=== PATIENT | male | born 1975 | race African-American/Black ===

== ENCOUNTER 2017-06-21 10:58 | Inpatient (IN) | payer OTHER ==
[2017-06-21 11:17] VITALS: BMI 40.2
--- NOTE | 2017-06-21 14:51 | HP ---
COWS - Scale Resting Pulse: 1= ME 81-100 Sweatin= Chills/Flushing Restless Observation: 3= Extraneous Movement Pupil Size: 0= Normal to Room Light Bone or Joint Aches: 4=Acute Joint/Muscle Pain Runny Nose/ Eye Tearin= Nasal Congestion GI Upset > 30mins: 1= Stomach Cramp Tremor Observation: 1= Tremor [place], Not Seen Yawning Observation: 1= 1-2x During Session Anxiety or Irritability: 2=Irritable/Anxious Goose Flesh Skin: 0=Smooth Skin COWS Score: 15 CIWA Score - CIWA Score Nausea/Vomitin-No Nausea/No Vomiting Muscle Tremors: 4-Moderate,w/Arms Extend Anxiety: 4-Mod. Anxious/Guarded Agitation: 4-Moderately Restless Paroxysmal Sweats: 1-Minimal Palms Moist Orientation: 0-Oriented Tacttile Disturbances: 3-Moderate Itch/Numb/Burn Auditory Disturbances: 0-None Visual Disturbances: 0-None Headache: 0-None Present CIWA-Ar Total Score: 16 Admission [facility] - HPI Chief Complaint: DETOX TX FOR HEROIN,XANAX AND ALCOHOL DEPENDENCE Allergies/Adverse Reactions: Allergies Allergy/AdvReac Type Severity Reaction Status Date / Time No Known Allergies Allergy Verified 06/21/17 12:28 History of Present Illness: 41 Y/O AA/MALE WITH A HX OF HEROIN, XANAX, ALCOHOL AND COCAINE DEPENDENCE SEEKING DETOX TX Exam Limitations: No Limitations - Ebola screening Have you traveled outside of the country in the last 21 days: No Have you had contact with anyone from an Ebola affected area: No Have you been sick,other than usual withdrawal symptoms: No Do you have a fever: No - Review of Systems Constitutional: Chills, Changes in sleep EENT: reports: Tearing, Dental Problems (MISSING TEETH) Respiratory: reports: No Symptoms reported Cardiac: reports: No Symptoms Reported GI: reports: Constipated, Abdominal cramping : reports: Dysuria Musculoskeletal: reports: Back Pain, Joint Pain (ARTHRITIS OF KNEE--WALKS WITH CANE), Muscle Pain Integumentary: reports: Other (HEALED TRACK MONAE) Neuro: reports: Tremors, Unsteady Gait, Other (BLACKOUTS) Endocrine: reports: No Symptoms Reported Hematology: reports: No Symptoms Reported Psychiatric: reports: Orientated x3, Anxious, Depressed Other Systems: Reviewed and Negative Patient History - Patient Medical History Hx Anemia: No Hx Asthma: No Hx Chronic Obstructive Pulmonary Disease (COPD): No Hx Cancer: No Hx Cardiac Disorders: No Hx Congestive Heart Failure: No Hx Hypertension: No Hx Hypercholesterolemia: No Hx Pacemaker: No HX Cerebrovascular Accident: No Hx Seizures: No Hx Dementia: No Hx Diabetes: No Hx Gastrointestinal Disorders: No Hx Liver Disease: No Hx Genitourinary Disorders: No Hx Sexually Transmitted Disorders: Yes (syphilis) Hx Renal Disease (ESRD): No Hx Thyroid Disease: No Hx Human Immunodeficiency Virus (HIV): No (NEGATIVE HX ) Hx Hepatitis C: Yes (DID NOT COMPLETE INTERFERON TX IN THE PAST.) Hx Depression: Yes (ON MED) Hx Suicide Attempt: No (DENIES) Hx Bipolar Disorder: Yes (ON MEDS) Hx Schizophrenia: No - Patient Surgical History Past Surgical History: Yes Hx Neurologic Surgery: No Hx Cataract Extraction: No Hx Cardiac Surgery: No Hx Lung Surgery: No Hx Breast Surgery: No Hx Breast Biopsy: No Hx Abdominal Surgery: Yes (UMBILICAL HERNIA SX IN 2004) Hx Appendectomy: No Hx Cholecystectomy: No Hx Genitourinary Surgery: No Hx Orthopedic Surgery: No Hx Hysterectomy: No Other Surgical History: SX FOR LIPOMA ON LEFT SIDE OF NECK IN 2009 Anesthesia Reaction: No - PPD History Previous Implant?: Yes Documented Results: Negative w/proof Implanted On Prior [facility] Admission?: Yes Date: 04/05/14 Results: 0 mm PPD to be Administered?: Yes - Reproductive History Patient is a Female of Child Bearing Age (11 -55 yrs old): No (MALE) Patient : No (N/A) - Smoking Cessation Smoking history: Never smoked Have you smoked in the past 12 months: No Aproximately how many cigarettes per day: 0 Cigars Per Day: 0 Hx Chewing Tobacco Use: No Initiated information on smoking cessation: No - Substance & Tx. History Hx Alcohol Use: Yes (VODKA) Hx Substance Use: Yes (HEROIN/COCAINE) Substance Use Type: Alcohol, Cocaine, Heroin Hx Substance Use Treatment: Yes (LAST TX AT [facility]-DETOX) - Substances Abused Heroin Route: Injection Frequency: Daily Amount used: 12 bags Age of first use: 36 Date of Last Use: 06/20/17 Cocaine Route: Injection Frequency: Daily Amount used: $500 Age of first use: 36 Date of Last Use: 06/20/17 Alcohol-vodka Route: Oral Frequency: Daily Amount used: 2 pts. Age of first use: 11 Date of Last Use: 06/20/17 Alprazolam (Xanax) Frequency: 3-6 times per week (3X/WEEK) Amount used: 1-2 MG Age of first use: 36 Date of Last Use: 06/17/17 Family Disease History - Family Disease History Family Disease History: Other: Father (dsa,), Mother (dsa,) Admission Physical Exam [facility] - Vital Signs Vital Signs: Vital Signs - 24 hr 06/21/17 11:15 Temperature 96 F L Pulse Rate 87 Respiratory 20 Rate Blood Pressure 161/93 - Physical General Appearance: Yes: Moderate Distress, Obese, Irritable, Anxious HEENTM: Yes: EOMI, Normocephalic, SACHA, Pharynx Normal Respiratory: Yes: Chest Non-Tender, Lungs Clear, Normal Breath Sounds, No Respiratory Distress Neck: Yes: Supple, Trachea in good position Breast: Yes: Breast Exam Deferred Cardiology: Yes: Regular Rhythm, Regular Rate, S1, S2 Abdominal: Yes: Normal Bowel Sounds, Non Tender, Soft Genitourinary: Yes: Other (N/C) Back: Yes: Within Normal Limits Musculoskeletal: Yes: full range of Motion, Gait Steady (BUT LIMPS DUE TO ARTHRITIS ON KNEES) Extremities: Yes: Normal Range of Motion, Non-Tender Neurological: Yes: automotive parts person II-XII NML intact, Fully Oriented, Alert Integumentary: Yes: Dry, Warm, Track Monae (HEALED MONAE ON BOTH FOREARMS.) Lymphatic: Yes: Within Normal Limits - Diagnostic (1) Alcohol dependence with uncomplicated withdrawal Current Visit: Yes Status: Acute (2) Blackout Current Visit: Yes Status: Chronic (3) Opioid dependence with withdrawal Current Visit: Yes Status: Acute (4) Hepatitis C Current Visit: Yes Status: Chronic Qualifiers: Viral hepatitis chronicity: chronic Hepatic coma status: without hepatic coma Qualified Code(s): B18.2 - Chronic viral hepatitis C (5) Sedative, hypnotic or anxiolytic dependence with withdrawal, uncomplicated Current Visit: Yes Status: Acute (6) Obesities, morbid Current Visit: Yes Status: Chronic Cleared for Admission [facility] - Detox or Rehab [facility] Level of Care: Medically Managed Detox Regimen/Protocol: Methadone/Librium BHS Breath Alcohol Content Breath Alcohol Content: 0 Urine Drug Screen - Results Drug Screen Negative: No Urine Drug Screen Results: LAVERNE-Cocaine, OPI-Opiates, BZO-Benzodiazepines, MTD- Methadone, TCA-Tricyclic Antidepress
[2017-06-21] MEDS ORDERED: LOPERAMIDE HCL 2 MG CAPSULE PO PRN (15:11)
[2017-06-21] MEDS ORDERED: chlordiazePOXIDE HCL 25 MG CAPSULE PO PRN (15:11)
[2017-06-21] MEDS ORDERED: ACETAMINOPHEN 325 MG TABLET (FP) PO PRN (15:11)
[2017-06-21] MEDS ORDERED: MAG HYDROX/AL HYDROX/SIMETH 30 ML UNIT-DOSE CUP PO PRN (15:11)
[2017-06-21] MEDS ORDERED: MAGNESIUM CITRATE 300 ML BOTTLE PO PRN (15:11)
[2017-06-21] MEDS ORDERED: MENTHOL/PHENOL 1 EACH UD MM PRN (15:11)
[2017-06-21] MEDS ORDERED: hydrOXYzine PAMOATE 50 MG CAPSULE (FP) PO PRN (15:11)
[2017-06-21] MEDS ORDERED: P-EPHED 60MG/TRIPROLIDI 2.5MG TABLET PO PRN (15:11)
[2017-06-21] MEDS ORDERED: MAGNESIUM HYDROX 2400MG/30ML ORAL SUSPENSION 30 ML CUP PO PRN (15:11)
[2017-06-21] MEDS ORDERED: guaiFENesin/D-METHORPHAN HB 10 ML UNIT-DOSE CUPS PO PRN (15:11)
[2017-06-21] MEDS ORDERED: IBUPROFEN 400 MG TABLET (FP) PO PRN (15:11)
[2017-06-21] MEDS: CEPHALEXIN MONOHYDRATE 500 MG CAPSULE (UD) PO SCH ×2 (15:59→22:36)
[2017-06-21] MEDS ORDERED: METHADONE HCL 10 MG TABLET (FOR DETOX USE ONLY) PO ONE (16:00)
[2017-06-21] MEDS ORDERED: chlordiazePOXIDE HCL 25 MG CAPSULE PO ONE (16:00)
[2017-06-21 16:44] LABS: MCH 29.2 pg (25.7-33.7); MCHC 33.2 g/dl (32.0-35.9); MEAN PLT VOLUME 9.8 fl (7.5-11.1); PLATELET COUNT 214 K/MM3 (134-434); RDW 13.9 % (11.9-15.9); WHITE BLOOD COUNT 5.4 K/mm3 (4.0-10.0)
[2017-06-21 17:13] LABS: ALBUMIN 3.5 g/dl (3.4-5.0); ALK PHOS 122 U/L (45-117); ANION GAP 6 (8-16); BILIRUBIN,TOTAL 0.5 mg/dL (0.2-1.0); CALCIUM 8.5 mg/dL (8.5-10.1); CO2 27 mmol/L (21-32); GLUCOSE,RANDOM 89 mg/dL (74-106); SGOT/AST 41 U/L (15-37); SGPT/ALT 52 U/L (12-78); TOT PROT 8.1 g/dl (6.4-8.2)
[2017-06-21 17:25] LABS: URINE APPEARANCE SLCLOUDY; URINE BILIRUBIN NEGATIVE (NEGATIVE); URINE BLOOD NEGATIVE (NEGATIVE); URINE COLOR AMBER; URINE GLUCOSE (UA) NEGATIVE (NEGATIVE); URINE KETONE NEGATIVE (NEGATIVE); URINE LEUK ESTERASE TRACE (NEGATIVE); URINE NITRITE NEGATIVE (NEGATIVE); URINE PROTEIN NEGATIVE (NEGATIVE); URINE UROBILINOGEN 4.0 E.U/dl mg/dL (0.2-1.0)
[2017-06-21 17:38] LABS: URINE MUCUS RARE; URINE RBC 2 /hpf (0-3); URINE WBC 1 /hpf (3-5)
[2017-06-21] MEDS: chlordiazePOXIDE HCL 25 MG CAPSULE PO SCH ×2 (17:50→22:36)
[2017-06-21] MEDS: diphenhydrAMINE HCL 50 MG CAPSULE PO PRN (22:37)
[2017-06-21] MEDS: BACITRACIN 0.9 GM PACKET TP SCH (23:03)
[2017-06-21] MEDS: THIAMINE HCL 100 MG TABLET (FP) PO SCH (23:03)
[2017-06-21] MEDS: METHADONE HCL 10 MG TABLET (FOR DETOX USE ONLY) PO ONE ×2 (23:07→23:32)
[2017-06-22] MEDS: chlordiazePOXIDE HCL 25 MG CAPSULE PO SCH ×4 (06:29→22:26)
--- NOTE | 2017-06-22 09:07 | EKG ---
Test Reason : Blood Pressure : / mmHG Vent. Rate : 084 BPM Atrial Rate : 084 BPM P-R Int : 194 ms QRS Dur : 112 ms QT Int : 384 ms P-R-T Axes : 069 -05 018 degrees QTc Int : 453 ms NORMAL SINUS RHYTHM NON-SPECIFIC INTRA-VENTRICULAR CONDUCTION DELAY NO PREVIOUS ECGS AVAILABLE Confirmed by FABIENNE MACIAS, VÍCTOR ([id number]) on 06/22/2017 9:06:44 AM Referred By: Godfrey Huddleston Confirmed By:VÍCTOR LOVING MD
[2017-06-22] MEDS ORDERED: METHADONE HCL 10 MG TABLET (FOR DETOX USE ONLY) PO SCH (10:00)
[2017-06-22] MEDS ORDERED: PRENATAL VITAMINS W/ FOLIC ACID TABLET (FP) PO SCH (10:00)
[2017-06-22] MEDS: BACITRACIN 0.9 GM PACKET TP SCH ×2 (10:44→22:26)
[2017-06-22] MEDS: CEPHALEXIN MONOHYDRATE 500 MG CAPSULE (UD) PO SCH ×2 (10:44→22:26)
--- NOTE | 2017-06-22 11:15 | CONSULT ---
[facility] Psychiatric Consult - Data Date of interview: 06/22/17 Admission source: [facility] Identifying data: Readmission to [facility] for this 41 y/o AA male seeking detox treatment [place] [address] for heroin,alcohol,ocaine and xanax dependence.Patient is single without children,domiciled,unemployed and supported on SSI/SSD benefits. Substance Abuse History: Confirmed by patient in this interview. Smoking Cessation. Smoking history: Never smoked. Have you smoked in the past 12 months: No. Aproximately how many cigarettes per day: 0. Cigars Per Day: 0. Hx Chewing Tobacco Use: No. Initiated information on smoking cessation: No. - Substance & Tx. History. Hx Alcohol Use: Yes (VODKA). Hx Substance Use: Yes ( HEROIN/COCAINE). Substance Use Type: Alcohol, Cocaine, Heroin. Hx Substance Use Treatment: Yes (LAST TX AT [facility]-DETOX). - Substances Abused. Heroin. Route: Injection. Frequency: Daily. Amount used: 12 bags. Age of first use: 36. Date of Last Use: 06/20/17. Cocaine. Route: Injection. Frequency: Daily. Amount used: $500. Age of first use: 36. Date of Last Use: 06/20/17. Alcohol-vodka. Route: Oral. Frequency: Daily. Amount used: 2 pts. Age of first use: 11. Date of Last Use: 06/20/17. Alprazolam (Xanax). Frequency: 3-6 times per week (3X/WEEK). Amount used: 1-2 MG. Age of first use: 36. Date of Last Use: 06/17/17 Medical History: Remarkable for hepatitis C,past treatment for syphilis and surgical excision of lipoma (left side of neck in 2009).Noted history of umbilical herniorraphy and arthritis of both knees (cane used for ambulation). Psychiatric History: Patient reports a history of 4-5 psychiatric hospitalizations,mostly at [facility] and [facility] in the [place].Diagnosed with OCD,MDD,Bipolar Disorder as per self-report.Prescribed seroquel,vistaril,zoloft an abilify in the past.Mr Fine declares that he relies on his primary care physician for medications refills.Lost to regular psychiatric OPD care.Patient denies history of suicide attempts. Physical/Sexual Abuse/Trauma History: No reported history of abuse. Additional Comment: Urine Drug Screen Results: LAVERNE-Cocaine, OPI-Opiates, BZO- Benzodiazepines, MTD-Methadone, TCA-Tricyclic Antidepressant.Noted. Mental Status Exam - Mental Status Exam Alert and Oriented to: Time, Place, Person Cognitive Function: Good Patient Appearance: Well Groomed (overweight) Mood: Nervous, Withdrawn, Anxious Affect: Mood Congruent Patient Behavior: Fatigued, Appropriate, Cooperative Speech Pattern: Clear Voice Loudness: Normal Thought Process: Goal Oriented Thought Disorder: Not Present Hallucinations: Denies Suicidal Ideation: Denies Homicidal Ideation: Denies Insight/Judgement: Poor Sleep: Poorly, Difficulty falling asleep Appetite: Good Muscle strength/Tone: Normal Gait/Station: Other (not observed ; patient is supine ; he reports that he uses cane for ambulation due to arthritis of knees) Psychiatric Findings - Problem List ([place] 1, 2,3) (1) Alcohol dependence with uncomplicated withdrawal Current Visit: Yes Status: Acute (2) Opioid dependence with withdrawal Current Visit: Yes Status: Acute (3) Cocaine dependence Current Visit: Yes Status: Acute (4) Substance induced mood disorder Current Visit: Yes Status: Acute (5) Bipolar disorder Current Visit: No Status: Chronic Comment: self-report. (6) Hepatitis C Current Visit: Yes Status: Chronic Qualifiers: Viral hepatitis chronicity: chronic Hepatic coma status: without hepatic coma Qualified Code(s): B18.2 - Chronic viral hepatitis C (7) Obesities, morbid Current Visit: Yes Status: Chronic (8) Insomnia Current Visit: Yes Status: Acute - Initial Treatment Plan Initial Treatment Plan: Psychoeducation.Detoxification.Medications : zoloft 100 mg po daily + abilfy 5 mg po hs.Side effects/benefits discussed with patient.He is in agreement with this careplan.NO scripts needed at discharge from [facility] (scripts dated 06/07/17 at [facility] for trazodone 100 mg/hs + abilify 5 mg/day + zoloft 100 mg/day ; no evidence of seroquel).Observation.
--- NOTE | 2017-06-22 11:17 | PN ---
[facility] CIWA - CIWA Score Nausea/Vomitin-No Nausea/No Vomiting Muscle Tremors: 4-Moderate,w/Arms Extend Anxiety: 4-Mod. Anxious/Guarded Agitation: 4-Moderately Restless Paroxysmal Sweats: 1-Minimal Palms Moist Orientation: 0-Oriented Tacttile Disturbances: 3-Moderate Itch/Numb/Burn Auditory Disturbances: 0-None Visual Disturbances: 0-None Headache: 0-None Present CIWA-Ar Total Score: 16 S COWS - Scale Resting Pulse: 1= OR 81-100 Sweatin= Chills/Flushing Restless Observation: 3= Extraneous Movement Pupil Size: 0= Normal to Room Light Bone or Joint Aches: 4=Acute Joint/Muscle Pain Runny Nose/ Eye Tearin= Nasal Congestion GI Upset > 30mins: 0= None Tremor Observation of Outstretched Hands: 1= Tremor [place], Not Seen Yawning Observation: 2= >3x During Session Anxiety or Irritability: 2=Irritable/Anxious Goose Flesh Skin: 0=Smooth Skin COWS Score: 15 [facility] Progress Note (SOAP) Subjective: ANXIETY,TREMORS,SWEATS,INTERMITTENT SLEEP. Objective: 06/22/17 11:16 Vital Signs Temperature 98.1 F 06/22/17 10:28 Pulse Rate 91 H 06/22/17 10:28 Respiratory Rate 20 06/22/17 10:28 Blood Pressure 116/87 06/22/17 10:28 O2 Sat by Pulse Oximetry (%) Laboratory Last Values WBC 5.4 K/mm3 (4.0-10.0) 06/21/17 13:00 RBC 4.16 M/mm3 (4.00-5.60) 06/21/17 13:00 Hgb 12.2 GM/dL (11.7-16.9) 06/21/17 13:00 Hct 36.6 % (35.4-49) 06/21/17 13:00 MCV 88.0 fl (80-96) 06/21/17 13:00 MCH 29.2 pg (25.7-33.7) 06/21/17 13:00 MCHC 33.2 g/dl (32.0-35.9) 06/21/17 13:00 RDW 13.9 % (11.9-15.9) 06/21/17 13:00 Plt Count 214 K/MM3 (134-434) 06/21/17 13:00 MPV 9.8 fl (7.5-11.1) D 06/21/17 13:00 Sodium 139 mmol/L (136-145) 06/21/17 13:00 Potassium 4.5 mmol/L (3.5-5.1) 06/21/17 13:00 Chloride 106 mmol/L (98-107) 06/21/17 13:00 Carbon Dioxide 27 mmol/L (21-32) D 06/21/17 13:00 Anion Gap 6 (8-16) L 06/21/17 13:00 BUN 14 mg/dL (7-18) 06/21/17 13:00 Creatinine 1.0 mg/dL (0.7-1.3) 06/21/17 13:00 Creat Clearance w eGFR > 60 (>60) 06/21/17 13:00 Random Glucose 89 mg/dL (74-106) 06/21/17 13:00 Calcium 8.5 mg/dL (8.5-10.1) 06/21/17 13:00 Total Bilirubin 0.5 mg/dL (0.2-1.0) D 06/21/17 13:00 AST 41 U/L (15-37) H 06/21/17 13:00 ALT 52 U/L (12-78) 06/21/17 13:00 Alkaline Phosphatase 122 U/L (45-117) H D 06/21/17 13:00 Total Protein 8.1 g/dl (6.4-8.2) 06/21/17 13:00 Albumin 3.5 g/dl (3.4-5.0) 06/21/17 13:00 Urine Color Laila 06/21/17 16:00 Urine Appearance Slcloudy 06/21/17 16:00 Urine pH 7.0 (5.0-8.0) D 06/21/17 16:00 Ur Specific [place] 1.020 (1.005-1.025) 06/21/17 16:00 Urine Protein Negative (NEGATIVE) 06/21/17 16:00 Urine Glucose (UA) Negative (NEGATIVE) 06/21/17 16:00 Urine Ketones Negative (NEGATIVE) 06/21/17 16:00 Urine Blood Negative (NEGATIVE) 06/21/17 16:00 Urine Nitrite Negative (NEGATIVE) 06/21/17 16:00 Urine Bilirubin Negative (NEGATIVE) 06/21/17 16:00 Urine Urobilinogen 4.0 e.u/dl mg/dL (0.2-1.0) 06/21/17 16:00 Ur Leukocyte Esterase Trace (NEGATIVE) 06/21/17 16:00 Urine RBC 2 /hpf (0-3) 06/21/17 16:00 Urine WBC 1 /hpf (3-5) 06/21/17 16:00 Ur Epithelial Cells Rare /hpf (FEW) 06/21/17 16:00 Urine Mucus Rare 06/21/17 16:00 Assessment: 06/22/17 11:17 WITHDRAWAL SX Plan: CONTINUE DETOX
[2017-06-22 21:19] LABS: URINE APPEARANCE CLEAR; URINE BILIRUBIN NEGATIVE (NEGATIVE); URINE BLOOD NEGATIVE (NEGATIVE); URINE COLOR LTYELLOW; URINE GLUCOSE (UA) NEGATIVE (NEGATIVE); URINE KETONE NEGATIVE (NEGATIVE); URINE LEUK ESTERASE NEGATIVE (NEGATIVE); URINE NITRITE NEGATIVE (NEGATIVE); URINE PROTEIN NEGATIVE (NEGATIVE)
[2017-06-22] MEDS: THIAMINE HCL 100 MG TABLET (FP) PO SCH (22:26)
[2017-06-22] MEDS: diphenhydrAMINE HCL 50 MG CAPSULE PO PRN (22:27)
[2017-06-23] MEDS: chlordiazePOXIDE HCL 25 MG CAPSULE PO SCH (05:46)
[2017-06-23] MEDS ORDERED: ARIPiprazole 5 MG TABLET (FP) PO SCH (10:00)
[2017-06-23] MEDS ORDERED: SERTRALINE HCL 50 MG TABLET (FP) PO SCH (10:00)
[2017-06-23] MEDS ORDERED: METHADONE HCL 5 MG TABLET (FOR DETOX USE ONLY) PO SCH (10:00)
[2017-06-23 10:37] VITALS: BP 121/86; PULSE 93; TEMP 97.2
[2017-06-23] MEDS ORDERED: chlordiazePOXIDE 5 MG CAPSULE PO SCH (17:00)
--- NOTE | 2017-06-23 21:43 | DS ---
[facility] Detox Discharge Summary Admission Date: 06/21/17 Discharge Date: 06/23/17 - History Present History: Alcohol Dependence, Cocaine Dependence, Opioid Dependence, Sedative Dependence Additional Comments: PATIENT DOES NOT WISH TO STAY TO COMPLETE DETOX REGIMEN. PATIENT ADVISED TO IMMEDIATELY GO TO NEAREST ER SHOULD ANY INTOLERABLE DETOX SYMPTOMS OCCUR AT ANY TIME. PATIENT LEFT UNIT IN STABLE MEDICAL CONDITION. - Physical Exam Results Vital Signs: Vital Signs Temperature 97.2 F L 06/23/17 10:36 Pulse Rate 93 H 06/23/17 10:36 Respiratory Rate 16 06/23/17 10:36 Blood Pressure 121/86 06/23/17 10:36 O2 Sat by Pulse Oximetry (%) Pertinent Admission Physical Exam Findings: WITHDRAWAL SYMPTOMS. Laboratory Tests 06/21/17 06/21/17 06/21/17 13:00 13:00 13:00 WBC 5.4 RBC 4.16 Hgb 12.2 Hct 36.6 MCV 88.0 MCH 29.2 MCHC 33.2 RDW 13.9 Plt Count 214 MPV 9.8 D Sodium 139 Potassium 4.5 Chloride 106 Carbon Dioxide 27 D Anion Gap 6 L BUN 14 Creatinine 1.0 Creat Clearance w eGFR > 60 Random Glucose 89 Calcium 8.5 Total Bilirubin 0.5 D AST 41 H ALT 52 Alkaline Phosphatase 122 H D Total Protein 8.1 Albumin 3.5 Urine Color Urine Appearance Urine pH Ur Specific [place] Urine Protein Urine Glucose (UA) Urine Ketones Urine Blood Urine Nitrite Urine Bilirubin Urine Urobilinogen Ur Leukocyte Esterase Urine RBC Urine WBC Ur Epithelial Cells Urine Mucus RPR Titer Reactive 1:1 H D T.pallidum Ab (MHA) Reactive 06/21/17 06/22/17 16:00 20:00 WBC RBC Hgb Hct MCV MCH MCHC RDW Plt Count MPV Sodium Potassium Chloride Carbon Dioxide Anion Gap BUN Creatinine Creat Clearance w eGFR Random Glucose Calcium Total Bilirubin AST ALT Alkaline Phosphatase Total Protein Albumin Urine Color Laila Ltyellow Urine Appearance Slcloudy Clear Urine pH 7.0 D 7.0 Ur Specific [place] 1.020 1.020 Urine Protein Negative Negative Urine Glucose (UA) Negative Negative Urine Ketones Negative Negative Urine Blood Negative Negative Urine Nitrite Negative Negative Urine Bilirubin Negative Negative Urine Urobilinogen 4.0 e.u/dl 2.0 Ur Leukocyte Esterase Trace Negative Urine RBC 2 Urine WBC 1 Ur Epithelial Cells Rare Urine Mucus Rare RPR Titer T.pallidum Ab (MHA) LABS NOTED. - Treatment Hospital Course: Detoxed Safely - Medication Discharge Medications: Ambulatory Orders Aripiprazole [Abilify -] 10 mg PO DAILY #30 tablet 04/04/14 Hydroxyzine Pamoate [Vistaril] 100 mg PO HS #30 04/04/14 Quetiapine Fumarate [Seroquel -] 200 mg PO HS #30 tablet 04/04/14 Cephalexin Monohydrate [Keflex -] 500 mg PO Q12H 06/21/17 - Diagnosis (1) Alcohol dependence with uncomplicated withdrawal Status: Acute (2) Cocaine dependence Status: Acute Qualifiers: Substance use status: uncomplicated Qualified Code(s): F14.20 - Cocaine dependence, uncomplicated (3) Insomnia Status: Acute Qualifiers: Insomnia type: unspecified Qualified Code(s): G47.00 - Insomnia, unspecified (4) Opioid dependence with withdrawal Status: Acute (5) Sedative, hypnotic or anxiolytic dependence with withdrawal, uncomplicated Status: Acute (6) Substance induced mood disorder Status: Acute (7) Blackout Status: Chronic (8) Hepatitis C Status: Chronic Qualifiers: Viral hepatitis chronicity: chronic Hepatic coma status: without hepatic coma Qualified Code(s): B18.2 - Chronic viral hepatitis C (9) Obesities, morbid Status: Chronic (10) Bipolar disorder Status: Chronic - AMA Did Patient Leave Against Medical Advice: Yes (PATIENT DOES NOT WISH TO STAY TO COMPLETE DETOX REGIMEN.)
[2017-06-24] MEDS ORDERED: chlordiazePOXIDE HCL 10 MG CAPSULE PO SCH (17:00)
[2017-06-25] MEDS ORDERED: METHADONE HCL 10 MG TABLET (FOR DETOX USE ONLY) PO SCH (10:00)
[2017-06-26] MEDS ORDERED: METHADONE HCL 5 MG TABLET (FOR DETOX USE ONLY) PO SCH (06:00)
== END 2017-06-23 11:30 | disposition left against medical advice (07) | DRG 770 ==
LOC: YASAS 10:58 → Y3N 14:08
PROVIDERS: ADMIT Internal Medicine Addiction Medicine; ATTEND Internal Medicine Addiction Medicine
PROC: HZ2ZZZZ Detoxification Services for Substance Abuse Treatment (ICD-10-PCS; principal; 2017-06-21)
DX: F11.23 Opioid dependence with withdrawal (principal); F13.230 Sedative, hypnotic or anxiolytic dependence with withdrawal, uncomplicated; F10.230 Alcohol dependence with withdrawal, uncomplicated; F14.20 Cocaine dependence, uncomplicated; F19.24 Other psychoactive substance dependence with psychoactive substance-induced mood disorder; F31.9 Bipolar disorder, unspecified; E66.01 Morbid (severe) obesity due to excess calories; Z68.41 Body mass index [BMI] 40.0-44.9, adult; G47.00 Insomnia, unspecified; B18.2 Chronic viral hepatitis C; Z86.69 Personal history of other diseases of the nervous system and sense organs; Z87.438 Personal history of other diseases of male genital organs
CPT/HCPCS: 36415; 80053; 81003; 81015; 85027; 86593; 86780; 93005; 93010

== ENCOUNTER 2017-09-24 14:29 | Inpatient (IN) | payer OTHER ==
[2017-09-24 18:08] VITALS: BMI 38.0
--- NOTE | 2017-09-24 20:41 | HP ---
CIWA Score - CIWA Score Nausea/Vomitin Muscle Tremors: 3 Anxiety: 3 Agitation: 3 Paroxysmal Sweats: 3 Orientation: 0-Oriented Tacttile Disturbances: 1-Very Mild Itch/Numbness Auditory Disturbances: 0-None Visual Disturbances: 0-None Headache: 1-Very Mild CIWA-Ar Total Score: 17 Admission ROS S - [facility] Chief Complaint: alcohl, benzodiazepine and heroin withdrawal sx Allergies/Adverse Reactions: Allergies Allergy/AdvReac Type Severity Reaction Status Date / Time No Known Allergies Allergy Verified 09/24/17 19:07 History of Present Illness: 42 yo m w h/o opioid dependence was maintained on methadone 60mg dialy while in [facility] (documentation provided) for 60 days, d/c 09/19 whe he had last dose of methadone, started injecting heroin and cociane, last used 3 days ago, drinks alcohol daily and uses benzodiazepines daily would like to be admitted for inpatient detoxifciation from alcohol and benzodiazepines, has h/o iwthdrawal seizures. requesting induction on suboxone while in detox, [facility] [place] [facility] discharged. PMHX hep c +ve, never treated, ambulates with cane because of injury to knee/OA, bipolar do on meds, no h/o suicidal ideation at this timeor suicide attempts in the past. Exam Limitations: No Limitations - Ebola screening Have you traveled outside of the country in the last 21 days: No Have you had contact with anyone from an Ebola affected area: No Have you been sick,other than usual withdrawal symptoms: No Do you have a fever: No - Review of Systems Constitutional: Chills, Diaphoresis, Malaise, Night Sweats, Changes in sleep, Weakness, Weight Stable EENT: reports: Nose Congestion Respiratory: reports: No Symptoms reported Cardiac: reports: No Symptoms Reported GI: reports: Nausea, Poor Appetite, Poor Fluid Intake, Indigestion, Abdominal cramping : reports: No Symptoms Reported Musculoskeletal: reports: Back Pain, Joint Pain, Joint Swelling, Muscle Pain, Neck Pain, Joint Stiffness Integumentary: reports: Flushing, Sweating Neuro: reports: Headache, Numbness, Paresthesia, Seizure, Tingling, Tremors, Weakness Endocrine: reports: Flushing, Increased Thirst Hematology: reports: No Symptoms Reported Psychiatric: reports: Judgement Intact, Mood/Affect Appropiate, Orientated x3, Anxious, Depressed Other Systems: Reviewed and Negative Patient History - Patient Medical History Hx Anemia: No Hx Asthma: No Hx Chronic Obstructive Pulmonary Disease (COPD): No Hx Cancer: No Hx Cardiac Disorders: No Hx Congestive Heart Failure: No Hx Hypertension: No Hx Hypercholesterolemia: No Hx Pacemaker: No HX Cerebrovascular Accident: No Hx Seizures: No Hx Dementia: No Hx Diabetes: No Hx Gastrointestinal Disorders: No Hx Liver Disease: No Hx Genitourinary Disorders: No Hx Sexually Transmitted Disorders: Yes (syphilis) Hx Renal Disease (ESRD): No Hx Thyroid Disease: No Hx Human Immunodeficiency Virus (HIV): No (NEGATIVE HX ) Hx Hepatitis C: Yes (DID NOT COMPLETE INTERFERON TX IN THE PAST.) Hx Depression: Yes (ON MED) Hx Suicide Attempt: No (DENIES) Hx Bipolar Disorder: Yes (ON MEDS) Hx Schizophrenia: No - Patient Surgical History Past Surgical History: Yes Hx Neurologic Surgery: No Hx Cataract Extraction: No Hx Cardiac Surgery: No Hx Lung Surgery: No Hx Breast Surgery: No Hx Breast Biopsy: No Hx Abdominal Surgery: Yes (UMBILICAL HERNIA SX IN 2004) Hx Appendectomy: No Hx Cholecystectomy: No Hx Genitourinary Surgery: No Hx Section: No Hx Orthopedic Surgery: No Hx Hysterectomy: No Other Surgical History: SX FOR LIPOMA ON LEFT SIDE OF NECK IN 2009 Anesthesia Reaction: No - PPD History Implanted On Prior R Admission?: Yes Date: 04/05/14 Results: 0 mm PPD to be Administered?: Yes - Reproductive History Patient is a Female of Child Bearing Age (11 -55 yrs old): No Patient : No - Smoking Cessation Smoking history: Never smoked Have you smoked in the past 12 months: No Aproximately how many cigarettes per day: 0 Cigars Per Day: 0 Hx Chewing Tobacco Use: No Initiated information on smoking cessation: Yes 'Breaking Loose' booklet given: 09/24/17 - Substance & Tx. History Hx Alcohol Use: Yes Hx Substance Use: Yes Substance Use Type: Alcohol, Cocaine, Heroin, Opiates, Prescribed, Tranquilizers Hx Substance Use Treatment: Yes ([facility]) - Substances Abused Alcohol Route: Oral Frequency: Daily Amount used: Vodka - 2 pints Age of first use: 11 Date of Last Use: 09/22/17 Cocaine Route: Injection Frequency: Daily Amount used: 7 grams Age of first use: 36 Date of Last Use: 09/22/17 Heroin Route: Injection Frequency: Daily Amount used: 7 bags Age of first use: 36 Date of Last Use: 09/22/17 Benzodiazepine (Klonopin) Route: Oral Frequency: Daily Amount used: 1-2mg Age of first use: 28 Date of Last Use: 09/23/17 Family Disease History - Family Disease History Family Disease History: Other: Father (dsa,), Mother (dsa,) Admission Physical Exam [facility] - Vital Signs Vital Signs: Vital Signs - 24 hr 09/24/17 18:06 Temperature 98.7 F Pulse Rate 71 Respiratory 20 Rate Blood Pressure 138/83 - Physical General Appearance: Yes: Nourished, Appropriately Dressed, Disheveled, Mild Distress, Tremorous, Irritable, Sweating, Anxious HEENTM: Yes: Within Normal Limits, EOMI, Hearing grossly Normal, Normal ENT Inspection, Normocephalic, Normal Voice, SACHA, Pharynx Normal Respiratory: Yes: Within Normal Limits, Chest Non-Tender, Lungs Clear, Normal Breath Sounds, No Respiratory Distress, No Accessory Muscle Use Neck: Yes: Within Normal Limits, No masses,lesions,Nodules, Supple, Trachea in good position Breast: Yes: Breast Exam Deferred Cardiology: Yes: Within Normal Limits, Regular Rhythm, Regular Rate, S1, S2 Abdominal: Yes: Within Normal Limits, Normal Bowel Sounds, Non Tender, Flat, Soft Genitourinary: Yes: Within Normal Limits Back: Yes: Within Normal Limits, Normal Inspection Musculoskeletal: Yes: full range of Motion, Gait Steady, Pelvis Stable, Back pain, Joint Stiffness, Joint swelling, Muscle Pain Extremities: Yes: Normal Capillary Refill, Non-Tender, Tremors, Swelling (oa right knew ambulates iwth cane) Neurological: Yes: cat scan tech II-XII NML intact, Fully Oriented, Alert, Motor Strength 5/5, Normal Response, Depressed Affect Integumentary: Yes: Normal Color, Warm, Diaphoresis, Moist, Track Nielson ( erythema, no abscessnoted both arms ad heands) Lymphatic: Yes: Within Normal Limits - Addiitonal Findings: withdrawal sx, will detox for benzos/alcohol and induce and stabiliz on suboxone during hospitalization. Patient will be referred to outpati program when d/c and given prescription for 7 days until he has his appointment. - Diagnostic (1) Alcohol dependence with uncomplicated withdrawal Current Visit: No Status: Acute (2) Bipolar II disorder Current Visit: No Status: Acute (3) Cocaine dependence Current Visit: No Status: Acute Qualifiers: Substance use status: uncomplicated Qualified Code(s): F14.20 - Cocaine dependence, uncomplicated (4) Insomnia Current Visit: No Status: Acute Qualifiers: Insomnia type: unspecified Qualified Code(s): G47.00 - Insomnia, unspecified (5) OCD (obsessive compulsive disorder) Current Visit: No Status: Acute (6) Opioid dependence with withdrawal Current Visit: No Status: Acute (7) Sedative, hypnotic or anxiolytic dependence with withdrawal, uncomplicated Current Visit: No Status: Acute (8) Substance induced mood disorder Current Visit: No Status: Acute (9) Syphilis (acquired) Current Visit: No Status: Acute (10) Blackout Current Visit: No Status: Chronic (11) Hepatitis C Current Visit: No Status: Chronic Qualifiers: Viral hepatitis chronicity: chronic Hepatic coma status: without hepatic coma Qualified Code(s): B18.2 - Chronic viral hepatitis C (12) Obesities, morbid Current Visit: No Status: Chronic Cleared for Admission S - Detox or Rehab [facility] Level of Care: Medically Managed Detox Regimen/Protocol: Valium S Breath Alcohol Content Breath Alcohol Content: 0 Urine Drug Screen - Results Drug Screen Negative: No Urine Drug Screen Results: LAVERNE-Cocaine
[2017-09-24] MEDS ORDERED: ACETAMINOPHEN 325 MG TABLET (FP) PO PRN (20:53)
[2017-09-24] MEDS ORDERED: MENTHOL/PHENOL 1 EACH UD MM PRN (20:53)
[2017-09-24] MEDS ORDERED: IBUPROFEN 400 MG TABLET (FP) PO PRN (20:53)
[2017-09-24] MEDS ORDERED: MAGNESIUM CITRATE 300 ML BOTTLE PO PRN (20:53)
[2017-09-24] MEDS ORDERED: guaiFENesin/D-METHORPHAN HB 10 ML UNIT-DOSE CUPS PO PRN (20:53)
[2017-09-24] MEDS ORDERED: MAG HYDROX/AL HYDROX/SIMETH 30 ML UNIT-DOSE CUP PO PRN (20:53)
[2017-09-24] MEDS ORDERED: hydrOXYzine PAMOATE 50 MG CAPSULE (FP) PO PRN (20:53)
[2017-09-24] MEDS ORDERED: diazePAM 5 MG TABLET PO ONE (20:53)
[2017-09-24] MEDS ORDERED: LOPERAMIDE HCL 2 MG CAPSULE PO PRN (20:53)
[2017-09-24] MEDS ORDERED: P-EPHED 60MG/TRIPROLIDI 2.5MG TABLET PO PRN (20:53)
[2017-09-24] MEDS ORDERED: MAGNESIUM HYDROX 2400MG/30ML ORAL SUSPENSION 30 ML CUP PO PRN (20:53)
[2017-09-24] MEDS ORDERED: BUPRENORPHINE/NALOXONE 2 MG/0.5 MG FILM PACKET SL ONE ×2 (20:56→23:30)
[2017-09-24] MEDS ORDERED: cloNIDine HCL 0.1 MG TABLET PO PRN (20:59)
[2017-09-24] MEDS: CYCLOBENZAPRINE HCL 10 MG TABLET (FP) PO SCH (23:11)
[2017-09-24] MEDS: diazePAM 5 MG TABLET PO SCH (23:12)
[2017-09-24] MEDS: GABAPENTIN 100 MG CAPSULE (FP) PO SCH (23:12)
[2017-09-24] MEDS: THIAMINE HCL 100 MG TABLET (FP) PO SCH (23:17)
[2017-09-25] MEDS: CYCLOBENZAPRINE HCL 10 MG TABLET (FP) PO SCH ×3 (05:29→22:21)
[2017-09-25] MEDS: GABAPENTIN 100 MG CAPSULE (FP) PO SCH ×3 (05:29→22:21)
[2017-09-25] MEDS: diazePAM 5 MG TABLET PO SCH ×3 (05:29→22:21)
[2017-09-25] MEDS ORDERED: diphenhydrAMINE HCL 50 MG CAPSULE PO PRN (09:57)
[2017-09-25 10:02] LABS: MCH 28.2 pg (25.7-33.7); MCHC 32.3 g/dl (32.0-35.9); MEAN CELL VOLUME 87.1 fl (80-96); MEAN PLT VOLUME 10.1 fl (7.5-11.1); PLATELET COUNT 134 K/MM3 (134-434); RDW 13.2 % (11.9-15.9)
[2017-09-25] MEDS: BUPRENORPHINE/NALOXONE 8 MG/2 MG FILM PACKET SL SCH (10:13)
[2017-09-25] MEDS: PRENATAL VITAMINS W/ FOLIC ACID TABLET (FP) PO SCH (10:13)
[2017-09-25 10:33] LABS: ALBUMIN 3.3 g/dl (3.4-5.0); ALK PHOS 140 U/L (45-117); ANION GAP 6 (8-16); BILIRUBIN,TOTAL 0.7 mg/dL (0.2-1.0); CALCIUM 8.4 mg/dL (8.5-10.1); CO2 27 mmol/L (21-32); GLUCOSE,RANDOM 99 mg/dL (74-106); SGOT/AST 75 U/L (15-37); SGPT/ALT 134 U/L (12-78); TOT PROT 7.5 g/dl (6.4-8.2)
--- NOTE | 2017-09-25 12:24 | PN ---
[facility] CIWA - CIWA Score Nausea/Vomitin-No Nausea/No Vomiting Muscle Tremors: 3 Anxiety: 5 Agitation: 4-Moderately Restless Paroxysmal Sweats: No Perspiration Orientation: 0-Oriented Tacttile Disturbances: 2-Mild Itch/Numbness/Burn Auditory Disturbances: 0-None Visual Disturbances: 3-Moderate Sensitivity Headache: 0-None Present CIWA-Ar Total Score: 17 BHS Progress Note (SOAP) Subjective: Interrupted sleep, Anxious, Body Aches, Tremors, Constipation. Objective: PT. A & OX 3, OBSERVED AMBULATING ON UNIT. NO ACUTE DISTRESS. PT. DENIES CHEST PAIN. 09/25/17 12:21 Vital Signs Temperature 96.9 F L 09/25/17 09:34 Pulse Rate 86 09/25/17 09:34 Respiratory Rate 18 09/25/17 09:34 Blood Pressure 119/80 09/25/17 09:34 O2 Sat by Pulse Oximetry (%) Laboratory Tests 09/25/17 09/25/17 07:00 07:00 WBC 5.0 RBC 4.55 Hgb 12.8 Hct 39.6 MCV 87.1 MCH 28.2 MCHC 32.3 RDW 13.2 Plt Count 134 D MPV 10.1 Sodium 138 Potassium 3.9 Chloride 105 Carbon Dioxide 27 Anion Gap 6 L BUN 14 Creatinine 1.0 Creat Clearance w eGFR > 60 Random Glucose 99 Calcium 8.4 L Total Bilirubin 0.7 D AST 75 H D ALT 134 H D Alkaline Phosphatase 140 H Total Protein 7.5 Albumin 3.3 L LABS NOTED. UA, RPR RESULTS PENDING. 09/25/17 12:23 Assessment: 09/25/17 12:21 WITHDRAWAL SYMPTOMS. Plan: CONTINUE DETOX. INCREASE DAILY PO FLUID INTAKE. PRN MOM FOR CONSTIPATION. HFP ON 09/27/2017 FOR ABNORMAL ADMISSION LIVER ENZYMES.
[2017-09-25 13:18] LABS: URINE APPEARANCE SLCLOUDY; URINE BILIRUBIN NEGATIVE (NEGATIVE); URINE BLOOD NEGATIVE (NEGATIVE); URINE COLOR YELLOW; URINE GLUCOSE (UA) NEGATIVE (NEGATIVE); URINE KETONE NEGATIVE (NEGATIVE); URINE LEUK ESTERASE NEGATIVE (NEGATIVE); URINE NITRITE NEGATIVE (NEGATIVE); URINE PROTEIN NEGATIVE (NEGATIVE); URINE UROBILINOGEN NEGATIVE mg/dL (0.2-1.0)
--- NOTE | 2017-09-25 13:19 | CONSULT ---
[facility] Psychiatric Consult - Data Date of interview: 09/25/17 Admission source: [facility] Identifying data: Another admission to [facility] for this 42 y/o AA male seeking detox treatment on for heroin,alcohol,cocaine and benzodiazepine dependence.Patient is single without children,domiciled, unemployed and supported on SSI/SSD benefits. Substance Abuse History: Confirmed by patient in this session.See [facility] report for details : Smoking history: Never smoked. Have you smoked in the past 12 months: No. Aproximately how many cigarettes per day: 0. Cigars Per Day: 0. Hx Chewing Tobacco Use: No. Initiated information on smoking cessation: Yes. ' Breaking Loose' booklet given: 09/24/17. - Substance & Tx. History. Hx Alcohol Use: Yes. Hx Substance Use: Yes. Substance Use Type: Alcohol, Cocaine , Heroin, Opiates, Prescribed, Tranquilizers. Hx Substance Use Treatment: Yes ( [facility], [facility] [place] [facility] - Substances Abused. Alcohol. Route: Oral. Frequency: Daily. Amount used: Vodka - 2 pints. Age of first use: 11. Date of Last Use: 09/22/17. Cocaine. Route: Injection. Frequency: Daily. Amount used: 7 grams. Age of first use: 36. Date of Last Use: 09/22/17. Heroin. Route: Injection. Frequency: Daily. Amount used: 7 bags. Age of first use: 36. Date of Last Use: 09/22/17. Benzodiazepine ( Klonopin). Route: Oral. Frequency: Daily. Amount used: 1-2mg. Age of first use: 28. Date of Last Use: 09/23/17 Medical History: Obesity,hepatitis C,past treatment for syphilis and surgical excision of lipoma (left side of neck in 2009).Noted history of umbilical herniorraphy and arthritis of both knees (cane used for ambulation). Psychiatric History: History of 4-5 psychiatric hospitalizations ([facility] and [facility]).Diagnosed with OCD,MDD,Bipolar Disorder as per self-report.Prescribed seroquel 200 mg/hs + zoloft 100 mg/day + abilify 10 mg/day.Mr Fine reports that he gets his outpatient psychiatric services at the [facility] in the [place].Patient denies history of suicide attempts. Physical/Sexual Abuse/Trauma History: Patient denies. Additional Comment: Urine Drug Screen Results: LAVERNE-Cocaine.Noted. Mental Status Exam - Mental Status Exam Alert and Oriented to: Time, Place, Person Cognitive Function: Good Patient Appearance: Well Groomed (obese) Mood: Hopeful, Euthymic Affect: Appropriate, Normal Range Patient Behavior: Appropriate, Cooperative Speech Pattern: Clear Voice Loudness: Normal Thought Process: Goal Oriented Thought Disorder: Not Present Hallucinations: Denies Suicidal Ideation: Denies Homicidal Ideation: Denies Insight/Judgement: Poor Sleep: Fair Appetite: Good Muscle strength/Tone: Normal Gait/Station: Normal Psychiatric Findings - Problem List ([place] 1, 2,3) (1) Alcohol dependence with uncomplicated withdrawal Current Visit: Yes Status: Acute (2) Opioid dependence with withdrawal Current Visit: Yes Status: Acute (3) Sedative, hypnotic or anxiolytic dependence with withdrawal, uncomplicated Current Visit: Yes Status: Acute (4) Cocaine dependence Current Visit: Yes Status: Acute Qualifiers: Substance use status: uncomplicated Qualified Code(s): F14.20 - Cocaine dependence, uncomplicated (5) Substance induced mood disorder Current Visit: Yes Status: Acute (6) Bipolar disorder Current Visit: Yes Status: Chronic Comment: As per records and self- report.On medications.Currently with [facility] care at [facility]. - Initial Treatment Plan Initial Treatment Plan: Psychoeducation.Detoxification in progress.Medications : zoloft 100 mg po daily + abilify 10 mg po daily (verified through survey of pharmacy claims of 09/18/17 at [facility] [address] [place] [address]).No confirmation of seroquel.Side effects/benefits discussed with patient.He agrees to follow this plan of care.Observation.NO scripts required at discharge from [facility].
--- NOTE | 2017-09-25 14:30 | EKG ---
Test Reason : Blood Pressure : / mmHG Vent. Rate : 068 BPM Atrial Rate : 068 BPM P-R Int : 190 ms QRS Dur : 096 ms QT Int : 392 ms P-R-T Axes : 077 054 041 degrees QTc Int : 416 ms NORMAL SINUS RHYTHM NORMAL ECG WHEN COMPARED WITH ECG OF 21-JUN-2017 15:54, QUESTIONABLE CHANGE IN QRS AXIS Confirmed by DANUTA CHAIREZ MD ([id number]) on 09/25/2017 2:30:29 PM Referred By: Confirmed By:DANUTA CHAIREZ MD
[2017-09-25] MEDS: ARIPiprazole 10 MG TABLET PO SCH (15:21)
[2017-09-25] MEDS: diazePAM 5 MG TABLET PO PRN (17:28)
[2017-09-25 21:25] LABS: URINE LEUK ESTERASE NEGATIVE (NEGATIVE)
[2017-09-25] MEDS: THIAMINE HCL 100 MG TABLET (FP) PO SCH (22:21)
[2017-09-26] MEDS: GABAPENTIN 100 MG CAPSULE (FP) PO SCH (05:08)
[2017-09-26] MEDS: CYCLOBENZAPRINE HCL 10 MG TABLET (FP) PO SCH (05:08)
[2017-09-26] MEDS: diazePAM 5 MG TABLET PO PRN (05:10)
[2017-09-26 06:24] VITALS: BP 104/64; PULSE 75; TEMP 97.2
[2017-09-26] MEDS: BUPRENORPHINE/NALOXONE 8 MG/2 MG FILM PACKET SL SCH (09:28)
[2017-09-26] MEDS: ARIPiprazole 10 MG TABLET PO SCH (09:28)
[2017-09-26] MEDS: PRENATAL VITAMINS W/ FOLIC ACID TABLET (FP) PO SCH (09:28)
[2017-09-26] MEDS ORDERED: diazePAM 5 MG TABLET PO SCH (10:00)
[2017-09-26] MEDS ORDERED: SERTRALINE HCL 50 MG TABLET (FP) PO SCH (10:00)
--- NOTE | 2017-09-26 12:28 | DS ---
[facility] Detox Discharge Summary Admission Date: 09/24/17 Discharge Date: 09/26/17 - History Present History: Alcohol Dependence, Cocaine Dependence, Opioid Dependence, Sedative Dependence Additional Comments: PATIENT HAS PERSONAL ISSUE AND DOES NOT WISH TO STAY TO COMPLETE DETOX REGIMEN. RISKS OF LEAVING DETOX UNIT PRIOR TO COMPLETION OF DETOX REGIMEN EXPLAINED TO PATIENT. PATIENT ADVISED TO GO IMMEDIATELY TO NEAREST ER SHOULD ANY INTOLERABLE DETOX SYMPTOMS DEVELOP AT ANY TIME. PATIENT ALSO ADVISED TO FOLLOW-UP WITH [facility] DR. WARREN HAYWOOD OF [facility] ([place], [place] FOR FOLLOW-UP MEDICAL CARE AND FOR REACTIVE RPR RESULT WHILE ADMITTED FOR DETOX. PRIOR TO LEAVING, PATIENT NOTED THAT HE WOULD ALSO BE GOING TO DR. HAYWOOD FOR SUBOXONE MAINTENANCE THERAPY FOR AFTERCARE. PATIENT LEFT DETOX UNIT IN STABLE MEDICAL CONDITION. Pertinent Past History: Bipolar Disorder, Insomnia, Hep C, History of Syphillis (Acquired), Obesity, OCD. - Physical Exam Results Vital Signs: Vital Signs Temperature 97.2 F L 09/26/17 06:23 Pulse Rate 75 09/26/17 06:23 Respiratory Rate 18 09/26/17 06:23 Blood Pressure 104/64 09/26/17 06:23 O2 Sat by Pulse Oximetry (%) Pertinent Admission Physical Exam Findings: WITHDRAWAL SYMPTOMS. Laboratory Tests 09/24/17 09/25/17 09/25/17 11:40 07:00 07:00 WBC 5.0 RBC 4.55 Hgb 12.8 Hct 39.6 MCV 87.1 MCH 28.2 MCHC 32.3 RDW 13.2 Plt Count 134 D MPV 10.1 Sodium 138 Potassium 3.9 Chloride 105 Carbon Dioxide 27 Anion Gap 6 L BUN 14 Creatinine 1.0 Creat Clearance w eGFR > 60 Random Glucose 99 Calcium 8.4 L Total Bilirubin 0.7 D AST 75 H D ALT 134 H D Alkaline Phosphatase 140 H Total Protein 7.5 Albumin 3.3 L Urine Color Yellow Urine Appearance Slcloudy Urine pH 8.0 Ur Specific [place] 1.021 Urine Protein Negative Urine Glucose (UA) Negative Urine Ketones Negative Urine Blood Negative Urine Nitrite Negative Urine Bilirubin Negative Urine Urobilinogen Negative Ur Leukocyte Esterase Negative RPR Titer T.pallidum Ab (A) 09/25/17 07:00 WBC RBC Hgb Hct MCV MCH MCHC RDW Plt Count MPV Sodium Potassium Chloride Carbon Dioxide Anion Gap BUN Creatinine Creat Clearance w eGFR Random Glucose Calcium Total Bilirubin AST ALT Alkaline Phosphatase Total Protein Albumin Urine Color Urine Appearance Urine pH Ur Specific [place] Urine Protein Urine Glucose (UA) Urine Ketones Urine Blood Urine Nitrite Urine Bilirubin Urine Urobilinogen Ur Leukocyte Esterase RPR Titer Reactive 1:1 H T.pallidum Ab (MHA) Previously reactive LABS NOTED. - Treatment Hospital Course: Detoxed Safely - Medication Discharge Medications: Ambulatory Orders Aripiprazole [Abilify -] 10 mg PO DAILY #30 tablet 04/04/14 Quetiapine Fumarate [Seroquel -] 200 mg PO HS #30 tablet 04/04/14 Cephalexin Monohydrate [Keflex -] 500 mg PO Q12H 06/21/17 Amlodipine Besylate [Norvasc -] 7.5 mg PO DAILY 09/25/17 Sertraline HCl [Zoloft -] 100 mg PO HS 09/25/17 - Diagnosis (1) Alcohol dependence with uncomplicated withdrawal Status: Acute (2) Cocaine dependence Status: Acute Qualifiers: Substance use status: uncomplicated Qualified Code(s): F14.20 - Cocaine dependence, uncomplicated (3) Opioid dependence with withdrawal Status: Acute (4) Sedative, hypnotic or anxiolytic dependence with withdrawal, uncomplicated Status: Acute (5) Insomnia Status: Acute Qualifiers: Insomnia type: unspecified Qualified Code(s): G47.00 - Insomnia, unspecified (6) OCD (obsessive compulsive disorder) Status: Acute Qualifiers: Obsessive-compulsive disorder type: unspecified Qualified Code(s): F42.9 - Obsessive-compulsive disorder, unspecified (7) Substance induced mood disorder Status: Acute (8) Syphilis (acquired) Status: Acute (9) Blackout Status: Chronic (10) Hepatitis C Status: Chronic Qualifiers: Viral hepatitis chronicity: chronic Hepatic coma status: without hepatic coma Qualified Code(s): B18.2 - Chronic viral hepatitis C (11) Obesities, morbid Status: Chronic (12) Bipolar disorder Status: Chronic - AMA Did Patient Leave Against Medical Advice: Yes (PT HAD PERSONAL ISSUE AND DID NOT WISH TO STAY TO COMPLETE DETOX REGIMEN.)
[2017-09-28] MEDS ORDERED: diazePAM 5 MG TABLET PO SCH (10:00)
== END 2017-09-26 08:46 | disposition left against medical advice (07) | DRG 770 ==
LOC: YASAS 14:29 → Y3N 20:00
PROVIDERS: ADMIT Internal Medicine; ATTEND Internal Medicine
PROC: HZ2ZZZZ Detoxification Services for Substance Abuse Treatment (ICD-10-PCS; principal; 2017-09-24)
DX: F11.23 Opioid dependence with withdrawal (principal); F13.230 Sedative, hypnotic or anxiolytic dependence with withdrawal, uncomplicated; F10.230 Alcohol dependence with withdrawal, uncomplicated; F19.24 Other psychoactive substance dependence with psychoactive substance-induced mood disorder; F42.9 Obsessive-compulsive disorder, unspecified; F31.81 Bipolar II disorder; G47.00 Insomnia, unspecified; B18.2 Chronic viral hepatitis C; A53.9 Syphilis, unspecified; R55 Syncope and collapse; E66.01 Morbid (severe) obesity due to excess calories; Z68.38 Body mass index [BMI] 38.0-38.9, adult
CPT/HCPCS: 36415; 80053; 81003; 85027; 86593; 86780; 93005; 93010

== ENCOUNTER 2017-11-24 10:42 | Inpatient (IN) | payer OTHER ==
[2017-11-24 11:00] VITALS: BMI 39.2
--- NOTE | 2017-11-24 11:03 | HP ---
COWS - Scale Resting Pulse: 1= [place] 81-100 Sweatin= Chills/Flushing Restless Observation: 1= Difficult to Sit Still Pupil Size: 0= Normal to Room Light Bone or Joint Aches: 1= Mild Discomfort Runny Nose/ Eye Tearin= Nasal Congestion GI Upset > 30mins: 1= Stomach Cramp Tremor Observation: 1= Tremor [place], Not Seen Yawning Observation: 0= None Anxiety or Irritability: 1=Feels Anxious/Irritable Goose Flesh Skin: 0=Smooth Skin COWS Score: 8 CIWA Score - CIWA Score Nausea/Vomitin-Mild Nausea/No Vomiting Muscle Tremors: 4-Moderate,w/Arms Extend Anxiety: 4-Mod. Anxious/Guarded Agitation: 1-Slight > Activity Paroxysmal Sweats: 1-Minimal Palms Moist Orientation: 0-Oriented Tacttile Disturbances: 0-None Auditory Disturbances: 0-None Visual Disturbances: 0-None Headache: 2-Mild CIWA-Ar Total Score: 13 Admission ROS BHS - HPI Chief Complaint: To keep my housing, I need to get clean. I overdosed twice last week. Allergies/Adverse Reactions: Allergies Allergy/AdvReac Type Severity Reaction Status Date / Time No Known Allergies Allergy Verified 09/24/17 19:07 History of Present Illness: 42 yo gentleman here for detox from opiates, alcohol and alprazolam. States he overdosed twice last week, revived by narcan. History of black outs. Previous history of methadone program as well as tried suboxone program but went off both times and relapsed. States history of drug related seizures - last time a year ago. Exam Limitations: Clinical Condition - Ebola screening Have you traveled outside of the country in the last 21 days: No (N) Have you had contact with anyone from an Ebola affected area: No Do you have a fever: No - Review of Systems Constitutional: Loss of Appetite, Malaise, Night Sweats, Changes in sleep EENT: reports: Blurred Vision, Nose Congestion Respiratory: reports: No Symptoms reported Cardiac: reports: No Symptoms Reported GI: reports: Indigestion, Abdominal cramping : reports: Frequency Musculoskeletal: reports: Joint Pain, Muscle Pain Integumentary: reports: No Symptoms Reported Neuro: reports: Seizure Endocrine: reports: No Symptoms Reported Hematology: reports: No Symptoms Reported Psychiatric: reports: Judgement Intact, Mood/Affect Appropiate, Orientated x3, Anxious Other Systems: Reviewed and Negative Patient History - Patient Medical History Hx Anemia: No Hx Asthma: No Hx Chronic Obstructive Pulmonary Disease (COPD): No Hx Cancer: No Hx Cardiac Disorders: No Hx Congestive Heart Failure: No Hx Hypertension: No Hx Hypercholesterolemia: No Hx Pacemaker: No HX Cerebrovascular Accident: No Hx Seizures: Yes (alcohol related - last time a year ago) Hx Dementia: No Hx Diabetes: No Hx Gastrointestinal Disorders: No Hx Liver Disease: No Hx Genitourinary Disorders: No Hx Sexually Transmitted Disorders: Yes (syphilis) Hx Renal Disease (ESRD): No Hx Thyroid Disease: No Hx Human Immunodeficiency Virus (HIV): No (NEGATIVE HX ) Hx Hepatitis C: Yes (DID NOT COMPLETE INTERFERON TX IN THE PAST.) Hx Depression: Yes (ON MED, ) Hx Suicide Attempt: No (DENIES) Hx Bipolar Disorder: Yes (ON MEDS, hospitalized for ERRATIC behavior) Hx Schizophrenia: No Other Medical History: knee arthritis - Patient Surgical History Past Surgical History: Yes Hx Neurologic Surgery: No Hx Cataract Extraction: No Hx Cardiac Surgery: No Hx Lung Surgery: No Hx Breast Surgery: No Hx Breast Biopsy: No Hx Abdominal Surgery: Yes (UMBILICAL HERNIA SX IN 2004) Hx Appendectomy: No Hx Cholecystectomy: No Hx Genitourinary Surgery: No Hx Section: No Hx Orthopedic Surgery: No Hx Hysterectomy: No Other Surgical History: SX FOR LIPOMA ON LEFT SIDE OF NECK IN 2009 Anesthesia Reaction: No - PPD History Date: 04/05/14 Results: 0 mm - Reproductive History Patient is a Female of Child Bearing Age (11 -55 yrs old): No (male) - Smoking Cessation Smoking history: Never smoked Have you smoked in the past 12 months: No Aproximately how many cigarettes per day: 0 Cigars Per Day: 0 Hx Chewing Tobacco Use: No Initiated information on smoking cessation: No - Substance & Tx. History Hx Alcohol Use: Yes Hx Substance Use: No Substance Use Type: Alcohol, Cocaine, Heroin, Opiates Hx Substance Use Treatment: Yes (detox, rehab, methadone program, suboxone program,) - Substances Abused XANAX Frequency: 3-6 times per week Amount used: 2 STICKS OF 2MG EACH Age of first use: 36 Date of Last Use: 11/21/17 Alcohol Route: Oral Frequency: Daily Amount used: 1/5 liquor Age of first use: 11 Date of Last Use: 11/24/17 Heroin Route: Injection Frequency: Daily Amount used: 10 bags Age of first use: 36 Date of Last Use: 11/23/17 Cocaine Route: Injection Frequency: 3-6 times per week Amount used: 1gm Age of first use: 36 Date of Last Use: 11/23/17 street methadone Route: Oral Frequency: 1-2 times per week Amount used: 40mg Age of first use: 36 Date of Last Use: 11/21/17 Family Disease History - Family Disease History Family Disease History: [place]: Brother (one ), Other: Father (drug use, ), Mother (drug use,) Admission Physical Exam BHS - Vital Signs Vital Signs: Vital Signs Period Temp Pulse Resp BP Sys/Jean Pulse Ox Last 24 Hr 97.4 F 94 20 150/92 - Physical General Appearance: Yes: Nourished, Appropriately Dressed, Mild Distress, Obese , Anxious HEENTM: Yes: Hearing grossly Normal, Normal ENT Inspection, Normocephalic, Normal Voice Respiratory: Yes: Normal Breath Sounds, No Respiratory Distress Neck: Yes: No masses,lesions,Nodules, Supple Breast: Yes: Breast Exam Deferred Cardiology: Yes: Regular Rhythm, Regular Rate Abdominal: Yes: Soft, Protuberent Genitourinary: Yes: Frequency Back: Yes: Normal Inspection Musculoskeletal: Yes: Gait Steady, Joint Stiffness Extremities: Yes: Normal Inspection Neurological: Yes: Fully Oriented, Alert, Normal Mood/Affect, Normal Response Integumentary: Yes: Normal Color, Warm, Track Niel[place] (both arms, no abscess noted ) Lymphatic: Yes: Within Normal Limits - Diagnostic (1) Opioid dependence with withdrawal Current Visit: Yes Status: Chronic (2) Alcohol dependence with uncomplicated withdrawal Current Visit: Yes Status: Chronic (3) Sedative, hypnotic or anxiolytic dependence with withdrawal, uncomplicated Current Visit: Yes Status: Chronic (4) Cocaine dependence Current Visit: Yes Status: Acute Qualifiers: Substance use status: uncomplicated Qualified Code(s): F14.20 - Cocaine dependence, uncomplicated (5) Alcohol related seizure Current Visit: Yes Status: Chronic (6) Osteoarthritis of both knees Current Visit: Yes Status: Chronic Qualifiers: Osteoarthritis type: primary Qualified Code(s): M17.0 - Bilateral primary osteoarthritis of knee (7) Syphilis (acquired) Current Visit: Yes Status: Resolved (8) Hepatitis C Current Visit: Yes Status: Chronic Qualifiers: Viral hepatitis chronicity: chronic Hepatic coma status: without hepatic coma Qualified Code(s): B18.2 - Chronic viral hepatitis C (9) Obesities, morbid Current Visit: Yes Status: Chronic (10) HTN (hypertension) Current Visit: Yes Status: Acute Qualifiers: Hypertension type: essential hypertension Qualified Code(s): I10 - Essential (primary) hypertension Cleared for Admission BHS - Detox or Rehab S Level of Care: Medically Managed Detox Regimen/Protocol: Methadone/Librium S Breath Alcohol Content Breath Alcohol Content: 0
[2017-11-24] MEDS ORDERED: MAG HYDROX/AL HYDROX/SIMETH 30 ML UNIT-DOSE CUP PO PRN (11:13)
[2017-11-24] MEDS ORDERED: ACETAMINOPHEN 325 MG TABLET (FP) PO PRN (11:13)
[2017-11-24] MEDS ORDERED: chlordiazePOXIDE HCL 25 MG CAPSULE PO PRN (11:13)
[2017-11-24] MEDS ORDERED: P-EPHED 60MG/TRIPROLIDI 2.5MG TABLET PO PRN (11:13)
[2017-11-24] MEDS ORDERED: guaiFENesin/D-METHORPHAN HB 10 ML UNIT-DOSE CUPS PO PRN (11:13)
[2017-11-24] MEDS ORDERED: LOPERAMIDE HCL 2 MG CAPSULE PO PRN (11:13)
[2017-11-24] MEDS ORDERED: MENTHOL/PHENOL 1 EACH UD MM PRN (11:13)
[2017-11-24] MEDS ORDERED: hydrOXYzine PAMOATE 50 MG CAPSULE (FP) PO PRN (11:13)
[2017-11-24] MEDS ORDERED: MAGNESIUM CITRATE 300 ML BOTTLE PO PRN (11:13)
[2017-11-24] MEDS ORDERED: MAGNESIUM HYDROX 2400MG/30ML ORAL SUSPENSION 30 ML CUP PO PRN (11:13)
[2017-11-24] MEDS ORDERED: METHADONE HCL 10 MG TABLET (FOR DETOX USE ONLY) PO ONE ×2 (11:30→23:00)
[2017-11-24] MEDS ORDERED: chlordiazePOXIDE HCL 25 MG CAPSULE PO ONE (11:30)
[2017-11-24] MEDS: CYCLOBENZAPRINE HCL 10 MG TABLET (FP) PO SCH ×2 (12:44→21:59)
[2017-11-24] MEDS: amLODIPine BESYLATE 2.5 MG TABLET (FP) PO SCH (14:32)
[2017-11-24] MEDS: NAPROXEN 375 MG TABLET (FP) PO SCH ×2 (14:32→21:59)
[2017-11-24] MEDS: METHYL SALICYLATE/MENTHOL OINT 30 GM TUBE TP SCH ×2 (15:36→22:02)
--- NOTE | 2017-11-24 16:01 | EKG ---
Test Reason : Blood Pressure : / mmHG Vent. Rate : 093 BPM Atrial Rate : 093 BPM P-R Int : 152 ms QRS Dur : 100 ms QT Int : 382 ms P-R-T Axes : 070 005 022 degrees QTc Int : 474 ms NORMAL SINUS RHYTHM NORMAL ECG WHEN COMPARED WITH ECG OF 25-SEP-2017 00:00, QT HAS LENGTHENED Confirmed by DANUTA CHAIREZ MD ([id number]) on 11/24/2017 4:01:11 PM Referred By: Confirmed By:DANUTA CHAIREZ MD
[2017-11-24] MEDS: chlordiazePOXIDE HCL 25 MG CAPSULE PO SCH ×2 (17:24→22:03)
[2017-11-24 18:26] LABS: URINE APPEARANCE CLOUDY; URINE BILIRUBIN NEGATIVE (NEGATIVE); URINE BLOOD NEGATIVE (NEGATIVE); URINE COLOR DKYELLOW; URINE GLUCOSE (UA) NEGATIVE (NEGATIVE); URINE KETONE NEGATIVE (NEGATIVE); URINE LEUK ESTERASE NEGATIVE (NEGATIVE); URINE NITRITE NEGATIVE (NEGATIVE); URINE PROTEIN NEGATIVE (NEGATIVE); URINE UROBILINOGEN NEGATIVE mg/dL (0.2-1.0)
[2017-11-24] MEDS: THIAMINE HCL 100 MG TABLET (FP) PO SCH (23:08)
[2017-11-25] MEDS: chlordiazePOXIDE HCL 25 MG CAPSULE PO SCH ×4 (04:59→22:00)
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
[2017-11-25] MEDS ORDERED: METHADONE HCL 10 MG TABLET (FOR DETOX USE ONLY) PO SCH (10:00)
[2017-11-25] MEDS: NAPROXEN 375 MG TABLET (FP) PO SCH ×2 (10:05→21:59)
[2017-11-25] MEDS: METHYL SALICYLATE/MENTHOL OINT 30 GM TUBE TP SCH ×2 (10:06→22:00)
[2017-11-25] MEDS: PRENATAL VITAMINS W/ FOLIC ACID TABLET (FP) PO SCH (10:06)
[2017-11-25] MEDS: amLODIPine BESYLATE 2.5 MG TABLET (FP) PO SCH (10:06)
[2017-11-25] MEDS: CYCLOBENZAPRINE HCL 10 MG TABLET (FP) PO SCH ×2 (10:08→21:59)
[2017-11-25] MEDS: SERTRALINE HCL 50 MG TABLET (FP) PO SCH (10:09)
[2017-11-25 10:11] LABS: HEMATOCRIT 39.2 % (35.4-49); HEMOGLOBIN 12.6 GM/dL (11.7-16.9); MCH 28.2 pg (25.7-33.7); MCHC 32.1 g/dl (32.0-35.9); MEAN CELL VOLUME 87.9 fl (80-96); MEAN PLT VOLUME 9.7 fl (7.5-11.1); PLATELET COUNT 168 K/MM3 (134-434); RBC 4.46 M/mm3 (4.00-5.60); RDW 13.8 % (11.9-15.9); WHITE BLOOD COUNT 5.7 K/mm3 (4.0-10.0)
[2017-11-25 10:27] LABS: CHLORIDE 103 mmol/L (98-107); POTASSIUM 3.9 mmol/L (3.5-5.1); SODIUM 138 mmol/L (136-145)
[2017-11-25 10:36] LABS: ALBUMIN 3.5 g/dl (3.4-5.0); ALK PHOS 123 U/L (45-117); ANION GAP 7 (8-16); BILIRUBIN,TOTAL 1.2 mg/dL (0.2-1.0); BLOOD UREA NITROGEN 14 mg/dL (7-18); CALCIUM 7.9 mg/dL (8.5-10.1); CO2 28 mmol/L (21-32); GLUCOSE,RANDOM 111 mg/dL (74-106); SGOT/AST 83 U/L (15-37); SGPT/ALT 89 U/L (12-78); TOT PROT 7.7 g/dl (6.4-8.2)
[2017-11-25] MEDS: ARIPiprazole 5 MG TABLET (FP) PO SCH (11:36)
[2017-11-25 13:35] LABS: RPR REACTIVE 1:1 (NONREACTIVE)
[2017-11-25 13:39] LABS: TREPONEMA ANTIBODY PREVIOUSLY REACTIVE (NONREACTIVE)
--- NOTE | 2017-11-25 21:08 | PN ---
[facility] CIWA - CIWA Score Nausea/Vomitin Muscle Tremors: 3 Anxiety: 3 Agitation: 3 Paroxysmal Sweats: 2 Orientation: 1-Uncertain about Date Tacttile Disturbances: 0-None Auditory Disturbances: 0-None Visual Disturbances: 0-None Headache: 0-None Present CIWA-Ar Total Score: 14 BHS COWS - Scale Resting Pulse: 1= [place] 81-100 Sweatin=Flushed/Facial Moisture Restless Observation: 1= Difficult to Sit Still Pupil Size: 0= Normal to Room Light Bone or Joint Aches: 1= Mild Discomfort Runny Nose/ Eye Tearin= Runny Nose/Eyes GI Upset > 30mins: 1= Stomach Cramp Tremor Observation of Outstretched Hands: 2= Slight Tremor Visible Yawning Observation: 1= 1-2x During Session Anxiety or Irritability: 1=Feels Anxious/Irritable Goose Flesh Skin: 0=Smooth Skin COWS Score: 12 S Progress Note (SOAP) Subjective: sleep disturbance shakes abd pain Objective: 11/25/17 21:06 A & O x 3 Vital Signs Temperature 96.6 F L 11/25/17 18:30 Pulse Rate 81 11/25/17 18:30 Respiratory Rate 18 11/25/17 18:30 Blood Pressure 118/73 11/25/17 18:30 O2 Sat by Pulse Oximetry (%) Laboratory Last Values WBC 5.7 K/mm3 (4.0-10.0) 11/25/17 08:00 RBC 4.46 M/mm3 (4.00-5.60) 11/25/17 08:00 Hgb 12.6 GM/dL (11.7-16.9) 11/25/17 08:00 Hct 39.2 % (35.4-49) 11/25/17 08:00 MCV 87.9 fl (80-96) 11/25/17 08:00 MCH 28.2 pg (25.7-33.7) 11/25/17 08:00 MCHC 32.1 g/dl (32.0-35.9) 11/25/17 08:00 RDW 13.8 % (11.9-15.9) 11/25/17 08:00 Plt Count 168 K/MM3 (134-434) D 11/25/17 08:00 MPV 9.7 fl (7.5-11.1) 11/25/17 08:00 Sodium 138 mmol/L (136-145) 11/25/17 08:00 Potassium 3.9 mmol/L (3.5-5.1) 11/25/17 08:00 Chloride 103 mmol/L (98-107) 11/25/17 08:00 Carbon Dioxide 28 mmol/L (21-32) 11/25/17 08:00 Anion Gap 7 (8-16) L 11/25/17 08:00 BUN 14 mg/dL (7-18) 11/25/17 08:00 Creatinine 1.0 mg/dL (0.7-1.3) 11/25/17 08:00 Creat Clearance w eGFR > 60 (>60) 11/25/17 08:00 Random Glucose 111 mg/dL (74-106) H 11/25/17 08:00 Calcium 7.9 mg/dL (8.5-10.1) L 11/25/17 08:00 Total Bilirubin 1.2 mg/dL (0.2-1.0) H D 11/25/17 08:00 AST 83 U/L (15-37) H 11/25/17 08:00 ALT 89 U/L (12-78) H D 11/25/17 08:00 Alkaline Phosphatase 123 U/L (45-117) H 11/25/17 08:00 Total Protein 7.7 g/dl (6.4-8.2) 11/25/17 08:00 Albumin 3.5 g/dl (3.4-5.0) 11/25/17 08:00 Urine Color Dkyellow 11/24/17 13:47 Urine Appearance Cloudy 11/24/17 13:47 Urine pH 6.0 (5.0-8.0) D 11/24/17 13:47 Ur Specific [place] 1.024 (1.001-1.035) 11/24/17 13:47 Urine Protein Negative (NEGATIVE) 11/24/17 13:47 Urine Glucose (UA) Negative (NEGATIVE) 11/24/17 13:47 Urine Ketones Negative (NEGATIVE) 11/24/17 13:47 Urine Blood Negative (NEGATIVE) 11/24/17 13:47 Urine Nitrite Negative (NEGATIVE) 11/24/17 13:47 Urine Bilirubin Negative (NEGATIVE) 11/24/17 13:47 Urine Urobilinogen Negative mg/dL (0.2-1.0) 11/24/17 13:47 Ur Leukocyte Esterase Negative (NEGATIVE) 11/24/17 13:47 RPR Titer Reactive 1:1 (NONREACTIVE) H 11/25/17 08:00 T.pallidum Ab (MHA) Previously reactive (NONREACTIVE) 11/25/17 08:00 labs noted Assessment: 11/25/17 21:07 withdrawal sx Plan: continue detox
[2017-11-25] MEDS: QUEtiapine FUMARATE 200 MG TABLET PO SCH (21:59)
[2017-11-25] MEDS: THIAMINE HCL 100 MG TABLET (FP) PO SCH (22:01)
[2017-11-26] MEDS: chlordiazePOXIDE HCL 25 MG CAPSULE PO SCH ×2 (05:57→10:08)
[2017-11-26] MEDS: METHYL SALICYLATE/MENTHOL OINT 30 GM TUBE TP SCH ×2 (10:06→22:25)
[2017-11-26] MEDS: PRENATAL VITAMINS W/ FOLIC ACID TABLET (FP) PO SCH (10:07)
[2017-11-26] MEDS: NAPROXEN 375 MG TABLET (FP) PO SCH ×2 (10:07→22:02)
[2017-11-26] MEDS: METHADONE HCL 5 MG TABLET (FOR DETOX USE ONLY) PO SCH (10:08)
[2017-11-26] MEDS: CYCLOBENZAPRINE HCL 10 MG TABLET (FP) PO SCH ×2 (10:08→22:03)
[2017-11-26] MEDS: amLODIPine BESYLATE 2.5 MG TABLET (FP) PO SCH (10:08)
[2017-11-26] MEDS: ARIPiprazole 5 MG TABLET (FP) PO SCH (10:08)
[2017-11-26] MEDS: SERTRALINE HCL 50 MG TABLET (FP) PO SCH (10:25)
--- NOTE | 2017-11-26 12:00 | PN ---
[facility] CIWA - CIWA Score Nausea/Vomitin Muscle Tremors: 3 Anxiety: 3 Agitation: 3 Paroxysmal Sweats: 2 Orientation: 1-Uncertain about Date Tacttile Disturbances: 0-None Auditory Disturbances: 0-None Visual Disturbances: 0-None Headache: 0-None Present CIWA-Ar Total Score: 14 S COWS - Scale Resting Pulse: 1= [place] 81-100 Sweatin=Flushed/Facial Moisture Restless Observation: 1= Difficult to Sit Still Pupil Size: 0= Normal to Room Light Bone or Joint Aches: 1= Mild Discomfort Runny Nose/ Eye Tearin= Nasal Congestion GI Upset > 30mins: 2= Nausea/Diarrhea Tremor Observation of Outstretched Hands: 2= Slight Tremor Visible Yawning Observation: 0= None Anxiety or Irritability: 2=Irritable/Anxious Goose Flesh Skin: 0=Smooth Skin COWS Score: 12 [facility] Progress Note (SOAP) Subjective: sweats shakes Objective: 11/26/17 11:58 sleeping, arousable to verbal stimuli Vital Signs Temperature 96.0 F L 11/26/17 09:47 Pulse Rate 98 H 11/26/17 09:47 Respiratory Rate 18 11/26/17 09:47 Blood Pressure 106/71 11/26/17 09:47 O2 Sat by Pulse Oximetry (%) Laboratory Last Values WBC 5.7 K/mm3 (4.0-10.0) 11/25/17 08:00 RBC 4.46 M/mm3 (4.00-5.60) 11/25/17 08:00 Hgb 12.6 GM/dL (11.7-16.9) 11/25/17 08:00 Hct 39.2 % (35.4-49) 11/25/17 08:00 MCV 87.9 fl (80-96) 11/25/17 08:00 MCH 28.2 pg (25.7-33.7) 11/25/17 08:00 MCHC 32.1 g/dl (32.0-35.9) 11/25/17 08:00 RDW 13.8 % (11.9-15.9) 11/25/17 08:00 Plt Count 168 K/MM3 (134-434) D 11/25/17 08:00 MPV 9.7 fl (7.5-11.1) 11/25/17 08:00 Sodium 138 mmol/L (136-145) 11/25/17 08:00 Potassium 3.9 mmol/L (3.5-5.1) 11/25/17 08:00 Chloride 103 mmol/L (98-107) 11/25/17 08:00 Carbon Dioxide 28 mmol/L (21-32) 11/25/17 08:00 Anion Gap 7 (8-16) L 11/25/17 08:00 BUN 14 mg/dL (7-18) 11/25/17 08:00 Creatinine 1.0 mg/dL (0.7-1.3) 11/25/17 08:00 Creat Clearance w eGFR > 60 (>60) 11/25/17 08:00 Random Glucose 111 mg/dL (74-106) H 11/25/17 08:00 Calcium 7.9 mg/dL (8.5-10.1) L 11/25/17 08:00 Total Bilirubin 1.2 mg/dL (0.2-1.0) H D 11/25/17 08:00 AST 83 U/L (15-37) H 11/25/17 08:00 ALT 89 U/L (12-78) H D 11/25/17 08:00 Alkaline Phosphatase 123 U/L (45-117) H 11/25/17 08:00 Total Protein 7.7 g/dl (6.4-8.2) 11/25/17 08:00 Albumin 3.5 g/dl (3.4-5.0) 11/25/17 08:00 Urine Color Dkyellow 11/24/17 13:47 Urine Appearance Cloudy 11/24/17 13:47 Urine pH 6.0 (5.0-8.0) D 11/24/17 13:47 Ur Specific [place] 1.024 (1.001-1.035) 11/24/17 13:47 Urine Protein Negative (NEGATIVE) 11/24/17 13:47 Urine Glucose (UA) Negative (NEGATIVE) 11/24/17 13:47 Urine Ketones Negative (NEGATIVE) 11/24/17 13:47 Urine Blood Negative (NEGATIVE) 11/24/17 13:47 Urine Nitrite Negative (NEGATIVE) 11/24/17 13:47 Urine Bilirubin Negative (NEGATIVE) 11/24/17 13:47 Urine Urobilinogen Negative mg/dL (0.2-1.0) 11/24/17 13:47 Ur Leukocyte Esterase Negative (NEGATIVE) 11/24/17 13:47 RPR Titer Reactive 1:1 (NONREACTIVE) H 11/25/17 08:00 T.pallidum Ab (MHA) Previously reactive (NONREACTIVE) 11/25/17 08:00 labs noted, prior exposure to T.pallidium, denies symptoms Assessment: 11/26/17 12:01 withdrawal sx Hx of syphillis Plan: contine detox
[2017-11-26] MEDS: chlordiazePOXIDE 5 MG CAPSULE PO SCH ×2 (17:53→22:03)
[2017-11-26] MEDS: QUEtiapine FUMARATE 200 MG TABLET PO SCH (22:03)
[2017-11-26] MEDS: THIAMINE HCL 100 MG TABLET (FP) PO SCH (22:03)
[2017-11-27] MEDS: chlordiazePOXIDE 5 MG CAPSULE PO SCH ×2 (06:08→10:05)
[2017-11-27] MEDS: METHYL SALICYLATE/MENTHOL OINT 30 GM TUBE TP SCH ×2 (10:05→22:20)
[2017-11-27] MEDS: SERTRALINE HCL 50 MG TABLET (FP) PO SCH (10:05)
[2017-11-27] MEDS: METHADONE HCL 5 MG TABLET (FOR DETOX USE ONLY) PO SCH (10:05)
[2017-11-27] MEDS: amLODIPine BESYLATE 2.5 MG TABLET (FP) PO SCH (10:06)
[2017-11-27] MEDS: CYCLOBENZAPRINE HCL 10 MG TABLET (FP) PO SCH ×2 (10:06→22:19)
[2017-11-27] MEDS: ARIPiprazole 5 MG TABLET (FP) PO SCH (10:06)
[2017-11-27] MEDS: PRENATAL VITAMINS W/ FOLIC ACID TABLET (FP) PO SCH (10:07)
[2017-11-27] MEDS: NAPROXEN 375 MG TABLET (FP) PO SCH ×2 (10:07→22:18)
--- NOTE | 2017-11-27 11:09 | PN ---
BHS Progress Note (SOAP) Subjective: Sweating, Tremors, Anxious. Objective: PT. A & O X 3, OBSERVED AMBULATING ON UNIT. NO ACUTE DISTRESS. 11/27/17 11:05 Vital Signs Temperature 97.1 F L 11/27/17 09:51 Pulse Rate 96 H 11/27/17 09:51 Respiratory Rate 20 11/27/17 09:51 Blood Pressure 118/72 11/27/17 09:51 O2 Sat by Pulse Oximetry (%) Laboratory Tests 11/24/17 11/25/17 11/25/17 13:47 08:00 08:00 WBC 5.7 RBC 4.46 Hgb 12.6 Hct 39.2 MCV 87.9 MCH 28.2 MCHC 32.1 RDW 13.8 Plt Count 168 D MPV 9.7 Sodium 138 Potassium 3.9 Chloride 103 Carbon Dioxide 28 Anion Gap 7 L BUN 14 Creatinine 1.0 Creat Clearance w eGFR > 60 Random Glucose 111 H Calcium 7.9 L Total Bilirubin 1.2 H D AST 83 H ALT 89 H D Alkaline Phosphatase 123 H Total Protein 7.7 Albumin 3.5 Urine Color Dkyellow Urine Appearance Cloudy Urine pH 6.0 D Ur Specific [place] 1.024 Urine Protein Negative Urine Glucose (UA) Negative Urine Ketones Negative Urine Blood Negative Urine Nitrite Negative Urine Bilirubin Negative Urine Urobilinogen Negative Ur Leukocyte Esterase Negative RPR Titer T.pallidum Ab (MHA) 11/25/17 08:00 WBC RBC Hgb Hct MCV MCH MCHC RDW Plt Count MPV Sodium Potassium Chloride Carbon Dioxide Anion Gap BUN Creatinine Creat Clearance w eGFR Random Glucose Calcium Total Bilirubin AST ALT Alkaline Phosphatase Total Protein Albumin Urine Color Urine Appearance Urine pH Ur Specific [place] Urine Protein Urine Glucose (UA) Urine Ketones Urine Blood Urine Nitrite Urine Bilirubin Urine Urobilinogen Ur Leukocyte Esterase RPR Titer Reactive 1:1 H T.pallidum Ab (MHA) Previously reactive LABS NOTED. Assessment: 11/27/17 11:17 WITHDRAWAL SYMPTOMS. Plan: CONTINUE DETOX.
[2017-11-27] MEDS: chlordiazePOXIDE HCL 10 MG CAPSULE PO SCH ×2 (17:29→22:18)
[2017-11-27] MEDS: THIAMINE HCL 100 MG TABLET (FP) PO SCH (22:19)
[2017-11-27] MEDS: QUEtiapine FUMARATE 200 MG TABLET PO SCH (22:19)
[2017-11-28] MEDS: chlordiazePOXIDE HCL 10 MG CAPSULE PO SCH ×2 (05:59→10:24)
[2017-11-28 09:46] VITALS: BP 117/73; PULSE 107; TEMP 95.9
[2017-11-28] MEDS ORDERED: METHADONE HCL 10 MG TABLET (FOR DETOX USE ONLY) PO SCH (10:00)
[2017-11-28] MEDS: ARIPiprazole 5 MG TABLET (FP) PO SCH (10:20)
[2017-11-28] MEDS: amLODIPine BESYLATE 2.5 MG TABLET (FP) PO SCH (10:21)
[2017-11-28] MEDS: CYCLOBENZAPRINE HCL 10 MG TABLET (FP) PO SCH (10:21)
[2017-11-28] MEDS: NAPROXEN 375 MG TABLET (FP) PO SCH (10:21)
[2017-11-28] MEDS: SERTRALINE HCL 50 MG TABLET (FP) PO SCH (10:23)
[2017-11-28] MEDS: METHYL SALICYLATE/MENTHOL OINT 30 GM TUBE TP SCH (10:24)
[2017-11-28] MEDS: PRENATAL VITAMINS W/ FOLIC ACID TABLET (FP) PO SCH (11:21)
--- NOTE | 2017-11-28 12:18 | DS ---
[facility] Detox Discharge Summary Admission Date: 11/24/17 Discharge Date: 11/28/17 - History Present History: Alcohol Dependence, Opioid Dependence Additional Comments: PATIENT GOING TO [facility] (Kathy PEREIRA .[facility] FOR AFTERCARE. PATIENT WAS DISCHARGED FROM DETOX UNIT IN STABLE MEDICAL CONDITION. Pertinent Past History: Depression, Hep C, History of seizures (ETOH related), OCD, PTSD, HTN, Osteoarthritis of Bilateral Knees, History of Syphilis (Acquired), Bipolar Disorder. - Physical Exam Results Vital Signs: Vital Signs Temperature 95.9 F L 11/28/17 09:45 Pulse Rate 107 H 11/28/17 09:45 Respiratory Rate 18 11/28/17 09:45 Blood Pressure 117/73 11/28/17 09:45 O2 Sat by Pulse Oximetry (%) Pertinent Admission Physical Exam Findings: WITHDRAWAL SYMPTOMS. Laboratory Tests 11/24/17 11/25/17 11/25/17 13:47 08:00 08:00 WBC 5.7 RBC 4.46 Hgb 12.6 Hct 39.2 MCV 87.9 MCH 28.2 MCHC 32.1 RDW 13.8 Plt Count 168 D MPV 9.7 Sodium 138 Potassium 3.9 Chloride 103 Carbon Dioxide 28 Anion Gap 7 L BUN 14 Creatinine 1.0 Creat Clearance w eGFR > 60 Random Glucose 111 H Calcium 7.9 L Total Bilirubin 1.2 H D AST 83 H ALT 89 H D Alkaline Phosphatase 123 H Total Protein 7.7 Albumin 3.5 Urine Color Dkyellow Urine Appearance Cloudy Urine pH 6.0 D Ur Specific [place] 1.024 Urine Protein Negative Urine Glucose (UA) Negative Urine Ketones Negative Urine Blood Negative Urine Nitrite Negative Urine Bilirubin Negative Urine Urobilinogen Negative Ur Leukocyte Esterase Negative RPR Titer T.pallidum Ab (MHA) 11/25/17 08:00 WBC RBC Hgb Hct MCV MCH MCHC RDW Plt Count MPV Sodium Potassium Chloride Carbon Dioxide Anion Gap BUN Creatinine Creat Clearance w eGFR Random Glucose Calcium Total Bilirubin AST ALT Alkaline Phosphatase Total Protein Albumin Urine Color Urine Appearance Urine pH Ur Specific [place] Urine Protein Urine Glucose (UA) Urine Ketones Urine Blood Urine Nitrite Urine Bilirubin Urine Urobilinogen Ur Leukocyte Esterase RPR Titer Reactive 1:1 H T.pallidum Ab (MHA) Previously reactive LABS NOTED. - Treatment Hospital Course: Detox Protocol Followed, Detoxed Safely, Responded well, Discharged Condition Good, Rehab Referral Accepted Patient has Accepted a Rehab Referral to: [facility] (RANDALL N.Fariba.) . - Medication Discharge Medications: Ambulatory Orders Cephalexin Monohydrate [Keflex -] 500 mg PO Q12H 06/21/17 Amlodipine Besylate [Norvasc -] 7.5 mg PO DAILY 09/25/17 Cyclobenzaprine HCl [Flexeril -] 10 mg PO BID 11/24/17 Meloxicam [Mobic (Nf) -] 15 mg PO DAILY 11/24/17 Aripiprazole [Abilify -] 5 mg PO DAILY #30 tablet 11/25/17 Quetiapine Fumarate [Seroquel -] 200 mg PO HS #30 tablet 11/25/17 Sertraline HCl [Zoloft -] 100 mg PO DAILY #30 tablet 11/25/17 - Diagnosis (1) Alcohol dependence with uncomplicated withdrawal Current Visit: Yes Status: Acute (2) Opioid dependence with withdrawal Current Visit: Yes Status: Acute (3) Sedative, hypnotic or anxiolytic dependence with withdrawal, uncomplicated Current Visit: Yes Status: Acute (4) Syphilis (acquired) Current Visit: Yes Status: Resolved (5) HTN (hypertension) Current Visit: Yes Status: Chronic Qualifiers: Hypertension type: essential hypertension Qualified Code(s): I10 - Essential (primary) hypertension (6) Alcohol related seizure Current Visit: Yes Status: Chronic (7) Obesities, morbid Current Visit: Yes Status: Chronic (8) Cocaine dependence Current Visit: Yes Status: Acute Qualifiers: Substance use status: uncomplicated Qualified Code(s): F14.20 - Cocaine dependence, uncomplicated (9) Hepatitis C Current Visit: Yes Status: Chronic Qualifiers: Viral hepatitis chronicity: chronic Hepatic coma status: without hepatic coma Qualified Code(s): B18.2 - Chronic viral hepatitis C (10) Osteoarthritis of both knees Current Visit: Yes Status: Chronic Qualifiers: Osteoarthritis type: primary Qualified Code(s): M17.0 - Bilateral primary osteoarthritis of knee (11) Substance induced mood disorder Current Visit: Yes Status: Acute (12) Substance-induced sleep disorder Current Visit: Yes Status: Acute (13) PTSD (post-traumatic stress disorder) Current Visit: Yes Status: Chronic (14) OCD (obsessive compulsive disorder) Current Visit: Yes Status: Chronic Qualifiers: Obsessive-compulsive disorder type: unspecified Qualified Code(s): F42.9 - Obsessive-compulsive disorder, unspecified (15) Bipolar II disorder Current Visit: No Status: Chronic - AMA Did Patient Leave Against Medical Advice: No
[2017-11-29] MEDS ORDERED: METHADONE HCL 5 MG TABLET (FOR DETOX USE ONLY) PO SCH (06:00)
== END 2017-11-28 13:46 | disposition other institution (70) | DRG 773 ==
LOC: YASAS 10:42 → Y6N 11:11 → UNDOADMIN 11:11 → Y3N 11:27
PROVIDERS: ADMIT Internal Medicine; ATTEND Internal Medicine
PROC: HZ2ZZZZ Detoxification Services for Substance Abuse Treatment (ICD-10-PCS; principal; 2017-11-24)
DX: F11.23 Opioid dependence with withdrawal (principal); F13.230 Sedative, hypnotic or anxiolytic dependence with withdrawal, uncomplicated; F10.230 Alcohol dependence with withdrawal, uncomplicated; F14.20 Cocaine dependence, uncomplicated; F31.81 Bipolar II disorder; F43.10 Post-traumatic stress disorder, unspecified; A53.9 Syphilis, unspecified; M17.0 Bilateral primary osteoarthritis of knee; B18.2 Chronic viral hepatitis C; E66.01 Morbid (severe) obesity due to excess calories; Z68.39 Body mass index [BMI] 39.0-39.9, adult; R56.9 Unspecified convulsions
CPT/HCPCS: 36415; 80053; 81003; 85027; 86593; 86780; 93005; 93010

== ENCOUNTER 2018-02-25 11:44 | Inpatient (IN) | payer OTHER ==
[2018-02-25 12:59] VITALS: BMI 42.0
--- NOTE | 2018-02-25 14:53 | HP ---
Admission ROS [facility] Chief Complaint: I want to go to rehab for heroin cocaine dependence Allergies/Adverse Reactions: Allergies Allergy/AdvReac Type Severity Reaction Status Date / Time No Known Allergies Allergy Verified 02/25/18 14:51 History of Present Illness: 42 years old male came to [facility] for rehab completed alcohol and heroin detox regimen in [facility] has bipolar ii hypertension is admitted to rehab Exam Limitations: No Limitations - Ebola screening Have you traveled outside of the country in the last 21 days: No Have you had contact with anyone from an Ebola affected area: No Have you been sick,other than usual withdrawal symptoms: No Do you have a fever: No - Review of Systems Constitutional: No Symptoms Reported EENT: reports: No Symptoms Reported Respiratory: reports: No Symptoms reported Cardiac: reports: No Symptoms Reported GI: reports: No Symptoms Reported : reports: No Symptoms Reported Musculoskeletal: reports: No Symptoms Reported Integumentary: reports: No Symptoms Reported Neuro: reports: No Symptoms reported Endocrine: reports: No Symptoms Reported Hematology: reports: No Symptoms Reported Psychiatric: reports: Judgement Intact, Mood/Affect Appropiate, Orientated x3 Other Systems: Reviewed and Negative Patient History - Patient Medical History Hx Anemia: No Hx Asthma: No Hx Chronic Obstructive Pulmonary Disease (COPD): No Hx Cancer: No Hx Cardiac Disorders: No Hx Congestive Heart Failure: No Hx Hypertension: Yes (HAVE NOT BEEN TAKING BP MEDS SINCE LAST DETOX) Hx Hypercholesterolemia: No Hx Pacemaker: No HX Cerebrovascular Accident: No Hx Seizures: No Hx Dementia: No Hx Diabetes: No Hx Gastrointestinal Disorders: No Hx Liver Disease: No Hx Genitourinary Disorders: No Hx Sexually Transmitted Disorders: Yes (Hx of syphillis) Hx Renal Disease (ESRD): No Hx Thyroid Disease: No Hx Human Immunodeficiency Virus (HIV): No (NEGATIVE HX ) Hx Hepatitis C: Yes (DID NOT COMPLETE INTERFERON TX IN THE PAST.) Hx Depression: No Hx Suicide Attempt: No (DENIES S/I) Hx Bipolar Disorder: Yes (ON MEDS, hospitalized for ERRATIC behavior) Hx Schizophrenia: No - Patient Surgical History Past Surgical History: Yes Hx Neurologic Surgery: No Hx Cataract Extraction: No Hx Cardiac Surgery: No Hx Lung Surgery: No Hx Breast Surgery: No Hx Breast Biopsy: No Hx Abdominal Surgery: Yes (UMBILICAL HERNIA SX IN 2004) Hx Appendectomy: No Hx Cholecystectomy: No Hx Genitourinary Surgery: No Hx Orthopedic Surgery: No Other Surgical History: SX FOR LIPOMA ON LEFT SIDE OF NECK IN 2009 Anesthesia Reaction: No - PPD History Previous Implant?: Yes Documented Results: Negative w/o proof Implanted On Prior R Admission?: No Date: 11/26/17 Results: 0 MM PPD to be Administered?: No - Smoking Cessation Smoking history: Never smoked Have you smoked in the past 12 months: No Aproximately how many cigarettes per day: 0 Cigars Per Day: 0 Hx Chewing Tobacco Use: No Initiated information on smoking cessation: No - Substance & Tx. History Hx Alcohol Use: Yes Hx Substance Use: Yes Substance Use Type: Alcohol, Cocaine, Heroin Hx Substance Use Treatment: Yes (02/2018 [facility]) Family Disease History - Family Disease History Family Disease History: CA: Brother (one ), Other: Father (drug use, ), Mother (drug use,) Admission Physical Exam BHS - Vital Signs Vital Signs: Vital Signs - 24 hr 02/25/18 12:56 Temperature 98 F Pulse Rate 78 Respiratory 20 Rate Blood Pressure 148/92 - Physical General Appearance: Yes: Nourished, Appropriately Dressed HEENTM: Yes: Hearing grossly Normal, Normocephalic, Normal Voice Respiratory: Yes: Chest Non-Tender, Lungs Clear, No Respiratory Distress, No Accessory Muscle Use Neck: Yes: Supple, Trachea in good position Breast: Yes: Breasts Symetrical, No Discharge Cardiology: Yes: Regular Rhythm, Regular Rate, S1, S2 Abdominal: Yes: Normal Bowel Sounds, Non Tender, Flat Genitourinary: Yes: Within Normal Limits Back: Yes: Normal Inspection Musculoskeletal: Yes: Gait Steady, Muscle Pain (knees), Muscle weakness (left knee) Extremities: Yes: Non-Tender, Tremors, Swelling (left knee) Neurological: Yes: Fully Oriented, Alert, Normal Mood/Affect, Normal Response Integumentary: Yes: Warm, Track Nielson Lymphatic: Yes: Within Normal Limits - Diagnostic (1) HTN (hypertension) Current Visit: Yes Status: Chronic Qualifiers: Hypertension type: essential hypertension Qualified Code(s): I10 - Essential (primary) hypertension (2) Osteoarthritis of both knees Current Visit: No Status: Chronic Qualifiers: Osteoarthritis type: primary Qualified Code(s): M17.0 - Bilateral primary osteoarthritis of knee (3) Syphilis (acquired) Current Visit: No Status: Resolved Comment: 2006 primary treatment (4) Hepatitis C Current Visit: No Status: Chronic Qualifiers: Viral hepatitis chronicity: chronic Hepatic coma status: without hepatic coma Qualified Code(s): B18.2 - Chronic viral hepatitis C (5) Bipolar II disorder Current Visit: No Status: Suspected (6) Opioid dependence with withdrawal Current Visit: Yes Status: Acute (7) Alcohol dependence with uncomplicated withdrawal Current Visit: Yes Status: Acute (8) Sedative, hypnotic or anxiolytic dependence with withdrawal, uncomplicated Current Visit: Yes Status: Acute (9) Obesities, morbid Current Visit: Yes Status: Chronic Comment: dietary teachng Cleared for Admission [facility] - Detox or Rehab [facility] Level of Care: Observation Bed Detox Regimen/Protocol: Not Applicable Claeared for Rehab Admission: Yes [facility] Breath Alcohol Content Breath Alcohol Content: 0 Urine Drug Screen - Results Drug Screen Negative: No Urine Drug Screen Results: LAVERNE-Cocaine, BZO-Benzodiazepines Inpatient Rehab Admission - Initial Determination Are CD services needed?: Yes Free of communicable disease: Yes Not in need of hospitalization: Yes - Rehab Admission Criteria Previous failed treatment: Yes Poor recovery environment: Yes Comorbidities: Yes Lacks judgement: No Patient is meeting Inpatient Rehab admission criteria:: Yes
[2018-02-25] MEDS ORDERED: MENTHOL/PHENOL 1 EACH UD MM PRN (15:07)
[2018-02-25] MEDS ORDERED: MAG HYDROX/AL HYDROX/SIMETH 30 ML UNIT-DOSE CUP PO PRN (15:07)
[2018-02-25] MEDS ORDERED: P-EPHED 60MG/TRIPROLIDI 2.5MG TABLET PO PRN (15:07)
[2018-02-25] MEDS ORDERED: LOPERAMIDE HCL 2 MG CAPSULE PO PRN (15:07)
[2018-02-25] MEDS ORDERED: MAGNESIUM HYDROX 2400MG/30ML ORAL SUSPENSION 30 ML CUP PO PRN (15:07)
[2018-02-25] MEDS ORDERED: guaiFENesin/D-METHORPHAN HB 10 ML UNIT-DOSE CUPS PO PRN (15:07)
[2018-02-25] MEDS ORDERED: MAGNESIUM CITRATE 300 ML BOTTLE PO PRN (15:07)
[2018-02-25] MEDS ORDERED: ACETAMINOPHEN 325 MG TABLET (FP) PO PRN (15:07)
[2018-02-25] MEDS ORDERED: IBUPROFEN 400 MG TABLET (FP) PO PRN (15:07)
[2018-02-25 17:35] LABS: HEMOGLOBIN 13.6 GM/dL (11.7-16.9); MCH 29.3 pg (25.7-33.7); MCHC 33.1 g/dl (32.0-35.9); MEAN CELL VOLUME 88.8 fl (80-96); MEAN PLT VOLUME 10.3 fl (7.5-11.1); PLATELET COUNT 178 K/MM3 (134-434); RBC 4.62 M/mm3 (4.00-5.60); RDW 14.3 % (11.9-15.9); WHITE BLOOD COUNT 6.1 K/mm3 (4.0-10.0)
[2018-02-25 17:42] LABS: CALCIUM 8.4 mg/dL (8.5-10.1); CHLORIDE 107 mmol/L (98-107); POTASSIUM 4.3 mmol/L (3.5-5.1); SODIUM 140 mmol/L (136-145)
[2018-02-25 17:48] LABS: ALBUMIN 3.3 g/dl (3.4-5.0); ALK PHOS 143 U/L (45-117); ANION GAP 7 (8-16); BILIRUBIN,TOTAL 0.5 mg/dL (0.2-1.0); BLOOD UREA NITROGEN 10 mg/dL (7-18); CO2 26 mmol/L (21-32); CREATININE 1.2 mg/dL (0.7-1.3); GLUCOSE,RANDOM 103 mg/dL (74-106); SGOT/AST 76 U/L (15-37); SGPT/ALT 114 U/L (12-78); TOT PROT 7.5 g/dl (6.4-8.2)
[2018-02-25] MEDS: amLODIPine BESYLATE 10 MG TABLET (FP) PO SCH (20:11)
[2018-02-25] MEDS: traZODone HCL 100 MG TABLET (FP) PO SCH (21:21)
[2018-02-25] MEDS: MELATONIN 5 MG TABLETS PO PRN (21:22)
[2018-02-25] MEDS: THIAMINE HCL 100 MG TABLET (FP) PO SCH (21:23)
[2018-02-25] MEDS: NAPROXEN 375 MG TABLET (FP) PO PRN (21:23)
[2018-02-25] MEDS ORDERED: SERTRALINE HCL 50 MG TABLET (FP) PO SCH (22:00)
[2018-02-25 22:56] LABS: URINE APPEARANCE CLEAR; URINE BILIRUBIN NEGATIVE (<2.0 mg/dL); URINE BLOOD NEGATIVE (NEGATIVE); URINE COLOR LTYELLOW; URINE GLUCOSE (UA) NEGATIVE (NEGATIVE); URINE KETONE NEGATIVE (NEGATIVE); URINE LEUK ESTERASE NEGATIVE (NEGATIVE); URINE NITRITE NEGATIVE (NEGATIVE); URINE PROTEIN NEGATIVE (NEGATIVE); URINE UROBILINOGEN NEGATIVE mg/dL (0.2-1.0)
[2018-02-25] MEDS: LIDOCAINE PATCH REMOVAL MC SCH (23:54)
[2018-02-26] MEDS: amLODIPine BESYLATE 10 MG TABLET (FP) PO SCH (09:57)
[2018-02-26] MEDS: SERTRALINE HCL 50 MG TABLET (FP) PO SCH (09:57)
[2018-02-26] MEDS: PRENATAL VITAMINS W/ FOLIC ACID TABLET (FP) PO SCH (09:58)
[2018-02-26] MEDS ORDERED: LIDOCAINE 5% TOPICAL PATCH TP SCH (10:00)
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
[2018-02-26 11:54] LABS: RPR REACTIVE 1:1 (NONREACTIVE)
[2018-02-26 11:57] LABS: TREPONEMA ANTIBODY PREVIOUSLY REACTIVE (NONREACTIVE)
--- NOTE | 2018-02-26 12:00 | EKG ---
Test Reason : Blood Pressure : / mmHG Vent. Rate : 080 BPM Atrial Rate : 080 BPM P-R Int : 180 ms QRS Dur : 098 ms QT Int : 388 ms P-R-T Axes : 066 -02 -01 degrees QTc Int : 447 ms SINUS RHYTHM WITH OCCASIONAL PREMATURE VENTRICULAR COMPLEXES OTHERWISE NORMAL ECG Confirmed by MD KARLENE, LOVELY ([id number]) on 02/26/2018 12:00:19 PM Referred By: Confirmed By:LOVELY SOLER MD
--- NOTE | 2018-02-26 12:59 | PN ---
[facility] Progress Note Note: c/o bilateral knee pain and request lidocaine patch for relief Vital Signs Temperature 98.4 F 02/26/18 06:33 Pulse Rate 79 02/26/18 10:00 Respiratory Rate 20 02/26/18 06:33 Blood Pressure 113/65 02/26/18 10:00 O2 Sat by Pulse Oximetry (%) Laboratory Results - last 24 hr 02/25/18 02/25/18 02/25/18 14:00 14:00 14:00 WBC 6.1 Corrected WBC (auto) RBC 4.62 Hgb 13.6 Hct 41.0 MCV 88.8 MCH 29.3 MCHC 33.1 RDW 14.3 Plt Count 178 MPV 10.3 Manual Slide Review Platelet Comment Sodium 140 Potassium 4.3 Chloride 107 Carbon Dioxide 26 Anion Gap 7 L BUN 10 Creatinine 1.2 Creat Clearance w eGFR > 60 Random Glucose 103 Calcium 8.4 L Total Bilirubin 0.5 AST 76 H D ALT 114 H Alkaline Phosphatase 143 H D Total Protein 7.5 Albumin 3.3 L Urine Color Urine Appearance Urine pH Ur Specific [place] Urine Protein Urine Glucose (UA) Urine Ketones Urine Blood Urine Nitrite Urine Bilirubin Urine Urobilinogen Ur Leukocyte Esterase RPR Titer Reactive 1:1 H T.pallidum Ab (MHA) Previously reactive HIV 1&2 Antibody Screen HIV P24 Antigen 02/25/18 02/25/18 02/25/18 15:00 15:00 15:00 WBC Cancelled Corrected WBC (auto) Cancelled RBC Cancelled Hgb Cancelled Hct Cancelled MCV Cancelled MCH Cancelled MCHC Cancelled RDW Cancelled Plt Count Cancelled MPV Cancelled Manual Slide Review Cancelled Platelet Comment Cancelled Sodium Cancelled Potassium Cancelled Chloride Cancelled Carbon Dioxide Cancelled Anion Gap Cancelled BUN Cancelled Creatinine Cancelled Creat Clearance w eGFR Cancelled Random Glucose Cancelled Calcium Cancelled Total Bilirubin Cancelled AST Cancelled ALT Cancelled Alkaline Phosphatase Cancelled Total Protein Cancelled Albumin Cancelled Urine Color Urine Appearance Urine pH Ur Specific [place] Urine Protein Urine Glucose (UA) Urine Ketones Urine Blood Urine Nitrite Urine Bilirubin Urine Urobilinogen Ur Leukocyte Esterase RPR Titer T.pallidum Ab (MHA) HIV 1&2 Antibody Screen Negative HIV P24 Antigen Negative 02/25/18 22:49 WBC Corrected WBC (auto) RBC Hgb Hct MCV MCH MCHC RDW Plt Count MPV Manual Slide Review Platelet Comment Sodium Potassium Chloride Carbon Dioxide Anion Gap BUN Creatinine Creat Clearance w eGFR Random Glucose Calcium Total Bilirubin AST ALT Alkaline Phosphatase Total Protein Albumin Urine Color Ltyellow Urine Appearance Clear Urine pH 8.0 D Ur Specific [place] 1.014 Urine Protein Negative Urine Glucose (UA) Negative Urine Ketones Negative Urine Blood Negative Urine Nitrite Negative Urine Bilirubin Negative Urine Urobilinogen Negative Ur Leukocyte Esterase Negative RPR Titer T.pallidum Ab (MHA) HIV 1&2 Antibody Screen HIV P24 Antigen Labs reviewed, patient with past hx of syphilis,abnormal labs, repeat CBC and CMP Plan: repeat CBC and CMP increase fluids Continue to monitor
[2018-02-26] MEDS: LIDOCAINE 5% TOPICAL PATCH TP SCH ×2 (13:35→14:07)
--- NOTE | 2018-02-26 14:14 | PN ---
[facility] Progress Note Note: On 02/25/18/received callo from [address] [place] [address] regarding preadmission medications Serpquel 200mg po qhs Zoloft 100mg poqd Trazodone 100mg po qhs Medication norder was issued.
[2018-02-26] MEDS: hydrOXYzine PAMOATE 50 MG CAPSULE (FP) PO SCH (21:18)
[2018-02-26] MEDS: QUEtiapine FUMARATE 100 MG TABLET (FP) PO SCH (21:18)
[2018-02-26] MEDS: traZODone HCL 100 MG TABLET (FP) PO SCH (21:18)
[2018-02-26] MEDS: THIAMINE HCL 100 MG TABLET (FP) PO SCH (21:18)
[2018-02-26] MEDS: MELATONIN 5 MG TABLETS PO PRN (21:19)
[2018-02-26] MEDS: LIDOCAINE PATCH REMOVAL MC SCH ×2 (21:19)
[2018-02-27] MEDS: PRENATAL VITAMINS W/ FOLIC ACID TABLET (FP) PO SCH (09:57)
[2018-02-27] MEDS: ARIPiprazole 5 MG TABLET (FP) PO SCH (09:57)
[2018-02-27] MEDS: hydrOXYzine PAMOATE 50 MG CAPSULE (FP) PO SCH ×2 (09:57→21:20)
[2018-02-27] MEDS: amLODIPine BESYLATE 10 MG TABLET (FP) PO SCH (09:57)
[2018-02-27] MEDS: LIDOCAINE 5% TOPICAL PATCH TP SCH ×2 (09:58)
[2018-02-27] MEDS: SERTRALINE HCL 50 MG TABLET (FP) PO SCH (09:58)
[2018-02-27 16:13] LABS: BASO % 0.9 % (0-2.0); EOS % 3.4 % (0-4.5); HEMATOCRIT 40.2 % (35.4-49); HEMOGLOBIN 13.1 GM/dL (11.7-16.9); LYMPH % 22.6 % (8-40); MCH 29.3 pg (25.7-33.7); MCHC 32.7 g/dl (32.0-35.9); MEAN CELL VOLUME 89.4 fl (80-96); MEAN PLT VOLUME 10.2 fl (7.5-11.1); MONO % 13.7 % (3.8-10.2); NEUT % 59.4 % (42.8-82.8); PLATELET COUNT 161 K/MM3 (134-434); RBC 4.49 M/mm3 (4.00-5.60); RDW 14.6 % (11.9-15.9); WHITE BLOOD COUNT 4.6 K/mm3 (4.0-10.0)
[2018-02-27 16:34] LABS: CHLORIDE 106 mmol/L (98-107); POTASSIUM 4.1 mmol/L (3.5-5.1); SODIUM 142 mmol/L (136-145)
[2018-02-27 16:54] LABS: ALBUMIN 3.2 g/dl (3.4-5.0); ALK PHOS 127 U/L (45-117); ANION GAP 9 (8-16); BILIRUBIN,TOTAL 0.7 mg/dL (0.2-1.0); BLOOD UREA NITROGEN 7 mg/dL (7-18); CALCIUM 8.4 mg/dL (8.5-10.1); CO2 27 mmol/L (21-32); CREATININE 1.1 mg/dL (0.7-1.3); GLUCOSE,RANDOM 134 mg/dL (74-106); SGOT/AST 74 U/L (15-37); SGPT/ALT 117 U/L (12-78); TOT PROT 7.3 g/dl (6.4-8.2)
[2018-02-27] MEDS: traZODone HCL 100 MG TABLET (FP) PO SCH (21:19)
[2018-02-27] MEDS: THIAMINE HCL 100 MG TABLET (FP) PO SCH (21:19)
[2018-02-27] MEDS: LIDOCAINE PATCH REMOVAL MC SCH ×2 (21:20→21:21)
[2018-02-27] MEDS: QUEtiapine FUMARATE 100 MG TABLET (FP) PO SCH (21:20)
[2018-02-27] MEDS: MELATONIN 5 MG TABLETS PO PRN (21:20)
[2018-02-28] MEDS: hydrOXYzine PAMOATE 50 MG CAPSULE (FP) PO SCH ×2 (10:07→21:22)
[2018-02-28] MEDS: LIDOCAINE 5% TOPICAL PATCH TP SCH ×2 (10:07)
[2018-02-28] MEDS: SERTRALINE HCL 50 MG TABLET (FP) PO SCH (10:08)
[2018-02-28] MEDS: ARIPiprazole 5 MG TABLET (FP) PO SCH (10:08)
[2018-02-28] MEDS: PRENATAL VITAMINS W/ FOLIC ACID TABLET (FP) PO SCH (10:08)
[2018-02-28] MEDS: amLODIPine BESYLATE 10 MG TABLET (FP) PO SCH (10:08)
[2018-02-28] MEDS: traZODone HCL 100 MG TABLET (FP) PO SCH (21:22)
[2018-02-28] MEDS: THIAMINE HCL 100 MG TABLET (FP) PO SCH (21:22)
[2018-02-28] MEDS: MELATONIN 5 MG TABLETS PO PRN (21:22)
[2018-02-28] MEDS: QUEtiapine FUMARATE 100 MG TABLET (FP) PO SCH (21:22)
[2018-02-28] MEDS: LIDOCAINE PATCH REMOVAL MC SCH ×2 (21:23)
[2018-03-01] MEDS: ARIPiprazole 5 MG TABLET (FP) PO SCH (10:17)
[2018-03-01] MEDS: amLODIPine BESYLATE 10 MG TABLET (FP) PO SCH (10:17)
[2018-03-01] MEDS: hydrOXYzine PAMOATE 50 MG CAPSULE (FP) PO SCH ×2 (10:17→21:32)
[2018-03-01] MEDS: SERTRALINE HCL 50 MG TABLET (FP) PO SCH (10:17)
[2018-03-01] MEDS: PRENATAL VITAMINS W/ FOLIC ACID TABLET (FP) PO SCH (10:17)
[2018-03-01] MEDS: LIDOCAINE 5% TOPICAL PATCH TP SCH ×2 (10:18)
[2018-03-01] MEDS: traZODone HCL 100 MG TABLET (FP) PO SCH (21:32)
[2018-03-01] MEDS: THIAMINE HCL 100 MG TABLET (FP) PO SCH (21:32)
[2018-03-01] MEDS: QUEtiapine FUMARATE 100 MG TABLET (FP) PO SCH (21:32)
[2018-03-01] MEDS: LIDOCAINE PATCH REMOVAL MC SCH ×2 (21:33)
[2018-03-02] MEDS: LIDOCAINE 5% TOPICAL PATCH TP SCH ×2 (09:53)
[2018-03-02] MEDS: SERTRALINE HCL 50 MG TABLET (FP) PO SCH (09:53)
[2018-03-02] MEDS: PRENATAL VITAMINS W/ FOLIC ACID TABLET (FP) PO SCH (09:53)
[2018-03-02] MEDS: ARIPiprazole 5 MG TABLET (FP) PO SCH (09:53)
[2018-03-02] MEDS: hydrOXYzine PAMOATE 50 MG CAPSULE (FP) PO SCH ×2 (09:54→21:18)
[2018-03-02] MEDS: amLODIPine BESYLATE 10 MG TABLET (FP) PO SCH (09:54)
[2018-03-02] MEDS: traZODone HCL 100 MG TABLET (FP) PO SCH (21:18)
[2018-03-02] MEDS: QUEtiapine FUMARATE 100 MG TABLET (FP) PO SCH (21:18)
[2018-03-02] MEDS: THIAMINE HCL 100 MG TABLET (FP) PO SCH (21:19)
[2018-03-02] MEDS: MELATONIN 5 MG TABLETS PO PRN (21:20)
[2018-03-02] MEDS: LIDOCAINE PATCH REMOVAL MC SCH ×2 (21:21)
[2018-03-03] MEDS: hydrOXYzine PAMOATE 50 MG CAPSULE (FP) PO SCH ×2 (09:46→21:17)
[2018-03-03] MEDS: SERTRALINE HCL 50 MG TABLET (FP) PO SCH (09:46)
[2018-03-03] MEDS: ARIPiprazole 5 MG TABLET (FP) PO SCH (09:46)
[2018-03-03] MEDS: PRENATAL VITAMINS W/ FOLIC ACID TABLET (FP) PO SCH (09:46)
[2018-03-03] MEDS: amLODIPine BESYLATE 10 MG TABLET (FP) PO SCH (09:46)
[2018-03-03] MEDS: LIDOCAINE 5% TOPICAL PATCH TP SCH ×2 (09:47)
[2018-03-03] MEDS: NAPROXEN 375 MG TABLET (FP) PO PRN ×2 (09:48→21:19)
[2018-03-03] MEDS: traZODone HCL 100 MG TABLET (FP) PO SCH (21:17)
[2018-03-03] MEDS: THIAMINE HCL 100 MG TABLET (FP) PO SCH (21:17)
[2018-03-03] MEDS: QUEtiapine FUMARATE 200 MG TABLET PO SCH (21:17)
[2018-03-03] MEDS: MELATONIN 5 MG TABLETS PO PRN (21:18)
[2018-03-03] MEDS: LIDOCAINE PATCH REMOVAL MC SCH (21:19)
[2018-03-04] MEDS: ARIPiprazole 5 MG TABLET (FP) PO SCH (09:51)
[2018-03-04] MEDS: SERTRALINE HCL 50 MG TABLET (FP) PO SCH (09:51)
[2018-03-04] MEDS: amLODIPine BESYLATE 10 MG TABLET (FP) PO SCH (09:51)
[2018-03-04] MEDS: hydrOXYzine PAMOATE 50 MG CAPSULE (FP) PO SCH ×2 (09:51→21:16)
[2018-03-04] MEDS: PRENATAL VITAMINS W/ FOLIC ACID TABLET (FP) PO SCH (09:51)
[2018-03-04] MEDS: NAPROXEN 375 MG TABLET (FP) PO PRN ×2 (09:53→21:17)
[2018-03-04] MEDS: LIDOCAINE 5% TOPICAL PATCH TP SCH ×2 (09:55)
[2018-03-04] MEDS ORDERED: COLLOIDAL OATMEAL 1 BAR EACH TP PRN (12:07)
--- NOTE | 2018-03-04 12:10 | PN ---
S Progress Note Note: PATIENT STATES FACE FEELS DRY AND HE IS HAVING MORE PIMPLES ON SKIN SINCE USING FACILITY SOAP. REQUESTED AND ORDERED AVEENO SOAP FOR DRY SKIN.
[2018-03-04] MEDS: LIDOCAINE PATCH REMOVAL MC SCH (21:16)
[2018-03-04] MEDS: QUEtiapine FUMARATE 200 MG TABLET PO SCH (21:16)
[2018-03-04] MEDS: THIAMINE HCL 100 MG TABLET (FP) PO SCH (21:16)
[2018-03-04] MEDS: traZODone HCL 100 MG TABLET (FP) PO SCH (21:16)
[2018-03-05] MEDS: PRENATAL VITAMINS W/ FOLIC ACID TABLET (FP) PO SCH (10:02)
[2018-03-05] MEDS: SERTRALINE HCL 50 MG TABLET (FP) PO SCH (10:02)
[2018-03-05] MEDS: amLODIPine BESYLATE 10 MG TABLET (FP) PO SCH (10:02)
[2018-03-05] MEDS: ARIPiprazole 5 MG TABLET (FP) PO SCH (10:02)
[2018-03-05] MEDS: hydrOXYzine PAMOATE 50 MG CAPSULE (FP) PO SCH ×2 (10:02→21:29)
[2018-03-05] MEDS: LIDOCAINE 5% TOPICAL PATCH TP SCH ×2 (10:03)
[2018-03-05] MEDS: NAPROXEN 375 MG TABLET (FP) PO PRN (10:04)
[2018-03-05] MEDS: QUEtiapine FUMARATE 200 MG TABLET PO SCH (21:29)
[2018-03-05] MEDS: traZODone HCL 100 MG TABLET (FP) PO SCH (21:29)
[2018-03-05] MEDS: THIAMINE HCL 100 MG TABLET (FP) PO SCH (21:29)
[2018-03-05] MEDS: MELATONIN 5 MG TABLETS PO PRN (21:30)
[2018-03-05] MEDS: LIDOCAINE PATCH REMOVAL MC SCH (21:30)
[2018-03-06 06:43] VITALS: BP 119/77; PULSE 85; TEMP 97.8
[2018-03-06] MEDS: hydrOXYzine PAMOATE 50 MG CAPSULE (FP) PO SCH (09:16)
[2018-03-06] MEDS: amLODIPine BESYLATE 10 MG TABLET (FP) PO SCH (09:16)
[2018-03-06] MEDS: SERTRALINE HCL 50 MG TABLET (FP) PO SCH (09:16)
[2018-03-06] MEDS: LIDOCAINE 5% TOPICAL PATCH TP SCH ×2 (09:16)
[2018-03-06] MEDS: ARIPiprazole 5 MG TABLET (FP) PO SCH (09:16)
[2018-03-06] MEDS: PRENATAL VITAMINS W/ FOLIC ACID TABLET (FP) PO SCH (09:17)
--- NOTE | 2018-03-06 09:41 | PN ---
Psychiatric Progress Note Vital Signs: Vital Signs Period Temp Pulse Resp BP Sys/Jean Pulse Ox Last 24 Hr 97.8 F-98.0 F 85-94 18-20 119-133/77-77 Date of Session: 03/06/18 Chief Complaint:: discharge visit HPI: patient has addressed alcohol, cocaine, opioid dependence comrobid PTSD and Bipolar II. ROS: bilateral artritis, hep C. Current Medications: Active Medications Generic Name Dose Route Start Last Admin Trade Name Freq PRN Reason Stop Dose Admin Al Hydroxide/Mg Hydroxide 30 ml 02/25/18 15:07 Mylanta Oral Suspension - PO Q6H PRN DYSPEPSIA Amlodipine Besylate 5 mg 02/25/18 15:45 03/06/18 09:16 Norvasc - PO 5 mg DAILY JACQUES Administration Aripiprazole 5 mg 02/27/18 10:00 03/06/18 09:16 Abilify PO 5 mg DAILY JACQUES Administration Colloidal Oatmeal 1 applic 03/04/18 12:07 03/04/18 21:16 Aveeno Soap - TP 1 applic DAILY PRN Administration HYGEINE Eucalyptus/Menthol/Phenol/Sorbitol 1 each 02/25/18 15:07 Cepastat Lozenge - MM Q4H PRN SORE THROAT Guaifenesin 10 ml 02/25/18 15:07 Robitussin Dm - PO Q6H PRN COUGH Hydroxyzine Pamoate 50 mg 02/26/18 22:00 03/06/18 09:16 Vistaril - PO 50 mg BID JACQUES Administration Lidocaine 1 patch 02/26/18 13:45 03/06/18 09:16 Lidoderm Patch - TP Not Given DAILY JACQUES Lidocaine 1 patch 02/26/18 13:45 03/06/18 09:16 Lidoderm Patch - TP Not Given DAILY JACQUES Loperamide HCl 4 mg 02/25/18 15:07 Imodium - PO Q6H PRN DIARRHEA Magnesium Citrate 300 ml 02/25/18 15:07 03/04/18 21:16 Citroma - PO 300 ml Q48H PRN Administration CONSTIPATION Magnesium Hydroxide 30 ml 02/25/18 15:07 Milk Of Magnesia - PO DAILY PRN CONSTIPATION Melatonin 5 mg 02/25/18 22:00 03/05/18 21:30 Melatonin PO 5 mg HS PRN Administration INSOMNIA Miscellaneous 1 each 02/26/18 22:00 03/05/18 21:30 Lidoderm Patch Removal MC 1 each DAILY@2200 JACQUES Administration Naproxen 375 mg 02/25/18 15:16 03/05/18 10:04 Naprosyn - PO 375 mg BID PRN Administration PAIN LEVEL 6-10 Multivit/Folic Acid/Iron 1 tab 02/26/18 10:00 03/06/18 09:17 Vitamins (Sjr) - PO 1 tab DAILY JACQUES Administration Pseudoephedrine/Triprolidine 1 combo 02/25/18 15:07 Actifed - PO TID PRN NASAL CONGESTION Quetiapine Fumarate 200 mg 03/03/18 22:00 03/05/18 21:29 Seroquel - PO 200 mg HS JACQUES Administration Sertraline HCl 100 mg 02/26/18 10:00 03/06/18 09:16 Zoloft - PO 100 mg DAILY JACQUES Administration Thiamine HCl 100 mg 02/25/18 22:00 03/05/18 21:29 Vitamin B1 - PO 100 mg HS JACQUES Administration Trazodone HCl 100 mg 02/25/18 22:00 03/05/18 21:29 Desyrel - PO 100 mg HS JACQUES Administration Current Side Effect: No Lab tests ordered: No Lab tests reviewed: Yes Provider note:: Patient has completed today his treatment and met his goals, will continue to address his issues at [facility] outpatient treatment program. Patient gained insights into importance of changing attitudes and utilization of supports available to prevent relapses. Patient reports a good response to his current medicationsl, medication well tolerated, scripts provided for 30 days, stable for discharge today. Total face to face time:: 20 Mental Status Exam - Mental Status Exam Alert and Oriented to: Time, Place, Person Cognitive Function: Fair Patient Appearance: Well Groomed Mood: Hopeful Affect: Appropriate Patient Behavior: Appropriate, Cooperative Speech Pattern: Clear, Appropriate Voice Loudness: Normal Thought Process: Intact Thought Disorder: Not Present Hallucinations: Denies Suicidal Ideation: Denies Homicidal Ideation: Denies Insight/Judgement: Fair Sleep: Fair Appetite: Fair Muscle strength/Tone: Normal Psychiatric Treatment Plan - Problem List (1) Alcohol dependence Current Visit: Yes (2) Cocaine dependence Current Visit: Yes Qualifiers: Substance use status: uncomplicated Qualified Code(s): F14.20 - Cocaine dependence, uncomplicated (3) Opioid dependence Current Visit: Yes Qualifiers: Substance use status: uncomplicated Qualified Code(s): F11.20 - Opioid dependence, uncomplicated (4) PTSD (post-traumatic stress disorder) Current Visit: No (5) Bipolar II disorder Current Visit: No
== END 2018-03-06 09:25 | disposition home or self-care (01) | DRG 772 ==
LOC: YASAS 11:44 → Y5N 16:33
PROVIDERS: ADMIT Psychiatry & Neurology Psychiatry; ATTEND Psychiatry & Neurology Psychiatry
PROC: HZ42ZZZ Group Counseling for Substance Abuse Treatment, Cognitive-Behavioral (ICD-10-PCS; principal; 2018-02-25)
DX: F11.23 Opioid dependence with withdrawal (principal); F13.230 Sedative, hypnotic or anxiolytic dependence with withdrawal, uncomplicated; F10.230 Alcohol dependence with withdrawal, uncomplicated; F14.20 Cocaine dependence, uncomplicated; F31.81 Bipolar II disorder; F43.10 Post-traumatic stress disorder, unspecified; M17.0 Bilateral primary osteoarthritis of knee; Z86.19 Personal history of other infectious and parasitic diseases; Z68.41 Body mass index [BMI] 40.0-44.9, adult
CPT/HCPCS: 36415; 80053; 81003; 85025; 85027; 86593; 86780; 87389; 93005; 93010

== ENCOUNTER 2018-04-04 10:20 | Inpatient (IN) | payer OTHER ==
[2018-04-04 10:59] VITALS: BMI 40.1
--- NOTE | 2018-04-04 14:47 | HP ---
CIWA Score - CIWA Score Nausea/Vomitin Muscle Tremors: 4-Moderate,w/Arms Extend Anxiety: 4-Mod. Anxious/Guarded Agitation: 2 Paroxysmal Sweats: No Perspiration Orientation: 0-Oriented Tacttile Disturbances: 0-None Auditory Disturbances: 0-None Visual Disturbances: 3-Moderate Sensitivity Headache: 2-Mild CIWA-Ar Total Score: 18 Admission ROS BHS - HPI Chief Complaint: "I stopped using Cocaine and Heroin since the last time that I was here. Now I need to stop using Alcohol." Patient is here to Detox from Alcohol. Allergies/Adverse Reactions: Allergies Allergy/AdvReac Type Severity Reaction Status Date / Time No Known Allergies Allergy Verified 04/04/18 13:30 History of Present Illness: Patient is a 42 YO male here to Detox from Alcohol. Patient has had several previous Detox / Rehab admissions at [facility] (Last: 02/2018). Exam Limitations: No Limitations - Ebola screening Have you traveled outside of the country in the last 21 days: No Have you had contact with anyone from an Ebola affected area: No Have you been sick,other than usual withdrawal symptoms: No Do you have a fever: No - Review of Systems Constitutional: Diaphoresis, Malaise, Night Sweats, Changes in sleep, Unintentional Wgt. Loss (Lost approx. 10 lbs. over last two weeks.) EENT: reports: No Symptoms Reported Respiratory: reports: No Symptoms reported Cardiac: reports: No Symptoms Reported GI: reports: Nausea, Vomiting, Abdominal cramping : reports: No Symptoms Reported Musculoskeletal: reports: Muscle Pain (History of Arthritis in bilateral knees.) , Joint Stiffness Integumentary: reports: No Symptoms Reported Neuro: reports: Headache, Tremors Endocrine: reports: No Symptoms Reported Hematology: reports: No Symptoms Reported Psychiatric: reports: Judgement Intact, Mood/Affect Appropiate, Orientated x3, Anxious, Depressed (Takes meds.) Other Systems: Reviewed and Negative Patient History - Patient Medical History Hx Anemia: No Hx Asthma: No Hx Chronic Obstructive Pulmonary Disease (COPD): No Hx Cancer: No Hx Cardiac Disorders: No Hx Congestive Heart Failure: No Hx Hypertension: Yes (Takes Amlodipine.) Hx Hypercholesterolemia: No Hx Pacemaker: No HX Cerebrovascular Accident: No Hx Seizures: No Hx Dementia: No Hx Diabetes: No Hx Gastrointestinal Disorders: No Hx Liver Disease: No Hx Genitourinary Disorders: No Hx Sexually Transmitted Disorders: Yes (syphilis in 2005; Completed Treatment.) Hx Renal Disease (ESRD): No Hx Thyroid Disease: No Hx Human Immunodeficiency Virus (HIV): No (NEGATIVE HX ) Hx Hepatitis C: Yes (DID NOT COMPLETE INTERFERON TX IN THE PAST.) Hx Depression: Yes (ON MEDS.) Hx Suicide Attempt: No (PATIENT DENIES CURRENT SI / HI.) Hx Bipolar Disorder: Yes (ON MEDS, hospitalized for ERRATIC behavior in past.) Hx Schizophrenia: No Other Medical History: PTSD. - Patient Surgical History Past Surgical History: Yes Hx Neurologic Surgery: No Hx Cataract Extraction: No Hx Cardiac Surgery: No Hx Lung Surgery: No Hx Breast Surgery: No Hx Breast Biopsy: No Hx Abdominal Surgery: Yes (UMBILICAL HERNIA SX IN 2004) Hx Appendectomy: No Hx Cholecystectomy: No Hx Genitourinary Surgery: No Hx Section: No Hx Orthopedic Surgery: No Hx Hysterectomy: No Other Surgical History: SX FOR LIPOMA ON LEFT SIDE OF NECK IN 2009 Anesthesia Reaction: No - PPD History Previous Implant?: Yes Documented Results: Negative w/proof Implanted On Prior [facility] Admission?: Yes Date: 11/26/17 Results: 0 mm PPD to be Administered?: No - Reproductive History Patient is a Female of Child Bearing Age (11 -55 yrs old): No (PATIENT IS MALE.) - Smoking Cessation Smoking history: Never smoked Have you smoked in the past 12 months: No Aproximately how many cigarettes per day: 0 Cigars Per Day: 0 Hx Chewing Tobacco Use: No Initiated information on smoking cessation: No - Substance & Tx. History Hx Alcohol Use: Yes Hx Substance Use: Yes Substance Use Type: Alcohol Hx Substance Use Treatment: Yes (Previous Detox admissions at [facility] (LasT: 2017).) - Substances Abused Alcohol-vodka Route: Oral Frequency: Daily Amount used: 3 pts. Age of first use: 11 Date of Last Use: 04/04/18 Family Disease History - Family Disease History Family Disease History: [place]: Brother (one , [place].), Other: Father (drug use ,), Mother (drug use,) Admission Physical Exam BHS - Vital Signs Vital Signs: Vital Signs - 24 hr 04/04/18 10:57 Temperature 97.2 F L Pulse Rate 94 H Respiratory 20 Rate Blood Pressure 127/85 - Physical General Appearance: Yes: No Apparent Distress, Nourished, Appropriately Dressed , Tremorous, Anxious HEENTM: Yes: Hearing grossly Normal, Normocephalic, Normal Voice, SACHA, Pharynx Normal Respiratory: Yes: Chest Non-Tender, Lungs Clear, No Respiratory Distress, No Accessory Muscle Use Neck: Yes: No masses,lesions,Nodules, Supple, Trachea in good position Breast: Yes: Breast Exam Deferred Cardiology: Yes: Regular Rhythm, Regular Rate, S1, S2 Abdominal: Yes: Normal Bowel Sounds, Soft, Protuberent Genitourinary: Yes: Within Normal Limits Back: Yes: Decreased Range of Motion Musculoskeletal: Yes: Gait Steady, Joint Stiffness Extremities: Yes: Normal Capillary Refill, Normal Inspection Neurological: Yes: Fully Oriented, Alert, Normal Mood/Affect, Normal Response Integumentary: Yes: Normal Color, Dry, Warm Lymphatic: Yes: Within Normal Limits - Diagnostic (1) Alcohol dependence with uncomplicated withdrawal Current Visit: Yes Status: Acute (2) Knee pain, bilateral Current Visit: Yes Status: Chronic Qualifiers: Chronicity: chronic Qualified Code(s): M25.561 - Pain in right knee; M25.562 - Pain in left knee; G89.29 - Other chronic pain (3) HTN (hypertension) Current Visit: Yes Status: Chronic Qualifiers: Hypertension type: essential hypertension Qualified Code(s): I10 - Essential (primary) hypertension (4) History of bipolar disorder Current Visit: Yes Status: Suspected (5) History of posttraumatic stress disorder (PTSD) Current Visit: Yes Status: Suspected (6) Bipolar disorder Current Visit: Yes Status: Suspected Comment: By history. (7) Hepatitis C Current Visit: Yes Status: Chronic Qualifiers: Viral hepatitis chronicity: chronic Hepatic coma status: without hepatic coma Qualified Code(s): B18.2 - Chronic viral hepatitis C Cleared for Admission BHS - Detox or Rehab [facility] Level of Care: Medically Managed Detox Regimen/Protocol: Librium [facility] Breath Alcohol Content Breath Alcohol Content: 0 Urine Drug Screen - Results Drug Screen Negative: No Urine Drug Screen Results: BZO-Benzodiazepines, MTD-Methadone
[2018-04-04] MEDS ORDERED: MAG HYDROX/AL HYDROX/SIMETH 30 ML UNIT-DOSE CUP PO PRN (14:56)
[2018-04-04] MEDS ORDERED: LOPERAMIDE HCL 2 MG CAPSULE PO PRN (14:56)
[2018-04-04] MEDS ORDERED: ACETAMINOPHEN 325 MG TABLET (FP) PO PRN (14:56)
[2018-04-04] MEDS ORDERED: P-EPHED 60MG/TRIPROLIDI 2.5MG TABLET PO PRN (14:56)
[2018-04-04] MEDS ORDERED: MAGNESIUM HYDROX 2400MG/30ML ORAL SUSPENSION 30 ML CUP PO PRN (14:56)
[2018-04-04] MEDS ORDERED: MAGNESIUM CITRATE 300 ML BOTTLE PO PRN (14:56)
[2018-04-04] MEDS ORDERED: guaiFENesin/D-METHORPHAN HB 10 ML UNIT-DOSE CUPS PO PRN (14:56)
[2018-04-04] MEDS ORDERED: MENTHOL/PHENOL 1 EACH UD MM PRN (14:56)
[2018-04-04] MEDS ORDERED: chlordiazePOXIDE HCL 25 MG CAPSULE PO ONE (15:35)
[2018-04-04] MEDS: amLODIPine BESYLATE 5 MG TABLET (FP) PO SCH (15:54)
[2018-04-04] MEDS: chlordiazePOXIDE HCL 25 MG CAPSULE PO SCH ×2 (17:32→22:23)
[2018-04-04] MEDS: THIAMINE HCL 100 MG TABLET (FP) PO SCH (22:22)
[2018-04-04] MEDS: MELATONIN 5 MG TABLETS PO PRN (22:23)
[2018-04-04] MEDS: NAPROXEN 375 MG TABLET (FP) PO SCH (22:24)
[2018-04-04 23:23] LABS: URINE APPEARANCE CLEAR; URINE BILIRUBIN NEGATIVE (<2.0 mg/dL); URINE COLOR LTYELLOW; URINE GLUCOSE (UA) NEGATIVE (NEGATIVE); URINE KETONE NEGATIVE (NEGATIVE); URINE NITRITE NEGATIVE (NEGATIVE); URINE PROTEIN NEGATIVE (NEGATIVE); URINE UROBILINOGEN NEGATIVE mg/dL (0.2-1.0)
[2018-04-04 23:25] LABS: URINE LEUK ESTERASE 1+ (NEGATIVE)
[2018-04-04 23:29] LABS: EPI CELLS RARE /HPF (FEW); URINE HYALINE CAST 1 /lpf; URINE MUCUS RARE
[2018-04-05] MEDS: chlordiazePOXIDE HCL 25 MG CAPSULE PO PRN ×2 (02:26→10:42)
[2018-04-05] MEDS: chlordiazePOXIDE HCL 25 MG CAPSULE PO SCH ×4 (07:17→22:27)
--- NOTE | 2018-04-05 09:05 | EKG ---
Test Reason : Blood Pressure : / mmHG Vent. Rate : 078 BPM Atrial Rate : 078 BPM P-R Int : 172 ms QRS Dur : 098 ms QT Int : 384 ms P-R-T Axes : 077 -03 005 degrees QTc Int : 437 ms NORMAL SINUS RHYTHM NORMAL ECG WHEN COMPARED WITH ECG OF 25-FEB-2018 21:56, PREMATURE VENTRICULAR COMPLEXES ARE NO LONGER PRESENT T WAVE AMPLITUDE HAS INCREASED IN LATERAL LEADS Confirmed by FABIENNE MACIAS, VÍCTOR ([id number]) on 04/05/2018 9:05:31 AM Referred By: Confirmed By:VÍCTOR LOVING MD
[2018-04-05 09:55] LABS: HEMATOCRIT 39.2 % (35.4-49); HEMOGLOBIN 12.9 GM/dL (11.7-16.9); MCH 29.2 pg (25.7-33.7); MEAN CELL VOLUME 88.4 fl (80-96); MEAN PLT VOLUME 9.1 fl (7.5-11.1); PLATELET COUNT 211 K/MM3 (134-434); RBC 4.43 M/mm3 (4.00-5.60); RDW 13.9 % (11.9-15.9); WHITE BLOOD COUNT 6.3 K/mm3 (4.0-10.0)
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
[2018-04-05] MEDS: PRENATAL VITAMINS W/ FOLIC ACID TABLET (FP) PO SCH (10:41)
[2018-04-05] MEDS: SERTRALINE HCL 50 MG TABLET (FP) PO SCH (10:41)
[2018-04-05] MEDS: ARIPiprazole 5 MG TABLET (FP) PO SCH (10:41)
[2018-04-05] MEDS: amLODIPine BESYLATE 5 MG TABLET (FP) PO SCH (10:42)
[2018-04-05] MEDS: CYCLOBENZAPRINE HCL 10 MG TABLET (FP) PO PRN ×2 (10:44→17:39)
[2018-04-05 11:01] LABS: ANION GAP 8 (8-16); BLOOD UREA NITROGEN 10 mg/dL (7-18); CALCIUM 8.4 mg/dL (8.5-10.1); CHLORIDE 109 mmol/L (98-107); CO2 24 mmol/L (21-32); GLUCOSE,RANDOM 97 mg/dL (74-106); POTASSIUM 4.4 mmol/L (3.5-5.1); SODIUM 141 mmol/L (136-145)
[2018-04-05 11:04] LABS: ALK PHOS 152 U/L (45-117); BILIRUBIN,TOTAL 0.3 mg/dL (0.2-1.0); CREATININE 0.9 mg/dL (0.7-1.3); SGOT/AST 67 U/L (15-37); SGPT/ALT 125 U/L (12-78); TOT PROT 7.3 g/dl (6.4-8.2)
[2018-04-05] MEDS: hydrOXYzine PAMOATE 50 MG CAPSULE (FP) PO PRN ×2 (12:20→17:39)
[2018-04-05] MEDS: NAPROXEN 375 MG TABLET (FP) PO SCH ×2 (13:47→22:28)
--- NOTE | 2018-04-05 17:57 | PN ---
[facility] CIWA - CIWA Score Nausea/Vomitin-No Nausea/No Vomiting Muscle Tremors: 3 Anxiety: 4-Mod. Anxious/Guarded Agitation: 4-Moderately Restless Paroxysmal Sweats: 3 Orientation: 0-Oriented Tacttile Disturbances: 3-Moderate Itch/Numb/Burn Auditory Disturbances: 0-None Visual Disturbances: 0-None Headache: 0-None Present CIWA-Ar Total Score: 17 BHS Progress Note (SOAP) Subjective: Sweating, Anxious, Tremors, Body Aches. Objective: PATIENT A & O X 3, OBSERVED AMBULATING ON UNIT. NO ACUTE DISTRESS. 04/05/18 17:58 Vital Signs Temperature 97.0 F L 04/05/18 13:25 Pulse Rate 84 04/05/18 13:25 Respiratory Rate 18 04/05/18 13:25 Blood Pressure 129/80 04/05/18 13:25 O2 Sat by Pulse Oximetry (%) Laboratory Tests 04/04/18 04/05/18 04/05/18 23:10 07:30 07:30 WBC 6.3 D RBC 4.43 Hgb 12.9 Hct 39.2 MCV 88.4 MCH 29.2 MCHC 33.0 RDW 13.9 Plt Count 211 D MPV 9.1 D Sodium 141 Potassium 4.4 Chloride 109 H Carbon Dioxide 24 Anion Gap 8 BUN 10 D Creatinine 0.9 Creat Clearance w eGFR > 60 Random Glucose 97 D Calcium 8.4 L Total Bilirubin 0.3 D AST 67 H ALT 125 H Alkaline Phosphatase 152 H Total Protein 7.3 Albumin 3.0 L Urine Color Ltyellow Urine Appearance Clear Urine pH 6.0 D Ur Specific [place] 1.018 Urine Protein Negative Urine Glucose (UA) Negative Urine Ketones Negative Urine Blood Negative Urine Nitrite Negative Urine Bilirubin Negative Urine Urobilinogen Negative Ur Leukocyte Esterase 1+ H Urine WBC (Auto) 11 Urine RBC (Auto) 10 Ur Epithelial Cells Rare Hyaline Casts 1 Urine Mucus Rare LABS NOTED. RPR RESULT PENDING. 04/05/18 17:59 Assessment: 04/05/18 17:58 WITHDRAWAL SYMPTOMS. Plan: CONTINUE DETOX. INCREASE DAILY PO FLUID INTAKE. PRN FLEXERIL FOR BODY ACHES / MUSCLE SPASMS.
[2018-04-05] MEDS: MELATONIN 5 MG TABLETS PO PRN (22:27)
[2018-04-05] MEDS: THIAMINE HCL 100 MG TABLET (FP) PO SCH (22:27)
[2018-04-05] MEDS: QUEtiapine FUMARATE 200 MG TABLET PO SCH (22:27)
[2018-04-06] MEDS: chlordiazePOXIDE HCL 25 MG CAPSULE PO SCH ×2 (06:09→10:40)
[2018-04-06] MEDS: CYCLOBENZAPRINE HCL 10 MG TABLET (FP) PO PRN ×2 (06:11→22:22)
[2018-04-06] MEDS: hydrOXYzine PAMOATE 50 MG CAPSULE (FP) PO PRN ×2 (06:11→22:22)
[2018-04-06] MEDS: ARIPiprazole 5 MG TABLET (FP) PO SCH (10:39)
[2018-04-06] MEDS: NAPROXEN 375 MG TABLET (FP) PO SCH ×2 (10:40→22:18)
[2018-04-06] MEDS: amLODIPine BESYLATE 5 MG TABLET (FP) PO SCH (10:40)
[2018-04-06] MEDS: SERTRALINE HCL 50 MG TABLET (FP) PO SCH (10:40)
[2018-04-06] MEDS: PRENATAL VITAMINS W/ FOLIC ACID TABLET (FP) PO SCH (10:41)
--- NOTE | 2018-04-06 17:39 | PN ---
S CIWA - CIWA Score Nausea/Vomitin-No Nausea/No Vomiting Muscle Tremors: None Anxiety: 4-Mod. Anxious/Guarded Agitation: 3 Paroxysmal Sweats: 3 Orientation: 0-Oriented Tacttile Disturbances: 0-None Auditory Disturbances: 1-Very Mild Visual Disturbances: 2-Mild Sensitivity Headache: 0-None Present CIWA-Ar Total Score: 13 BHS Progress Note (SOAP) Subjective: Sweating, Anxious, Body Aches. Objective: PATIENT A & O X 3, OBSERVED AMBULATING ON UNIT. NO ACUTE DISTRESS. 04/06/18 17:37 Vital Signs Temperature 97.9 F 04/06/18 14:35 Pulse Rate 88 04/06/18 14:35 Respiratory Rate 20 04/06/18 14:35 Blood Pressure 107/66 04/06/18 14:35 O2 Sat by Pulse Oximetry (%) Laboratory Tests 04/04/18 04/05/18 04/05/18 23:10 07:30 07:30 WBC 6.3 D RBC 4.43 Hgb 12.9 Hct 39.2 MCV 88.4 MCH 29.2 MCHC 33.0 RDW 13.9 Plt Count 211 D MPV 9.1 D Sodium 141 Potassium 4.4 Chloride 109 H Carbon Dioxide 24 Anion Gap 8 BUN 10 D Creatinine 0.9 Creat Clearance w eGFR > 60 Random Glucose 97 D Calcium 8.4 L Total Bilirubin 0.3 D AST 67 H ALT 125 H Alkaline Phosphatase 152 H Total Protein 7.3 Albumin 3.0 L Urine Color Ltyellow Urine Appearance Clear Urine pH 6.0 D Ur Specific [place] 1.018 Urine Protein Negative Urine Glucose (UA) Negative Urine Ketones Negative Urine Blood Negative Urine Nitrite Negative Urine Bilirubin Negative Urine Urobilinogen Negative Ur Leukocyte Esterase 1+ H Urine WBC (Auto) 11 Urine RBC (Auto) 10 Ur Epithelial Cells Rare Hyaline Casts 1 Urine Mucus Rare LABS NOTED. RPR RESULT PENDING. 04/06/18 17:38 Assessment: 04/06/18 17:38 WITHDRAWAL SYMPTOMS, Plan: CONTINUE DETOX. INCREASE DAILY PO FLUID INTAKE.
[2018-04-06] MEDS: chlordiazePOXIDE 5 MG CAPSULE PO SCH ×2 (18:33→22:18)
[2018-04-06] MEDS: THIAMINE HCL 100 MG TABLET (FP) PO SCH (22:18)
[2018-04-06] MEDS: QUEtiapine FUMARATE 200 MG TABLET PO SCH (22:19)
[2018-04-07] MEDS: CYCLOBENZAPRINE HCL 10 MG TABLET (FP) PO PRN ×2 (05:49→14:30)
[2018-04-07] MEDS: hydrOXYzine PAMOATE 50 MG CAPSULE (FP) PO PRN ×2 (05:49→14:30)
[2018-04-07] MEDS: chlordiazePOXIDE 5 MG CAPSULE PO SCH ×2 (05:50→10:30)
[2018-04-07] MEDS: amLODIPine BESYLATE 5 MG TABLET (FP) PO SCH (10:30)
[2018-04-07] MEDS: ARIPiprazole 5 MG TABLET (FP) PO SCH (10:30)
[2018-04-07] MEDS: NAPROXEN 375 MG TABLET (FP) PO SCH ×2 (10:30→22:38)
[2018-04-07] MEDS: SERTRALINE HCL 50 MG TABLET (FP) PO SCH (10:30)
[2018-04-07] MEDS: PRENATAL VITAMINS W/ FOLIC ACID TABLET (FP) PO SCH (10:30)
[2018-04-07 12:00] LABS: RPR REACTIVE 1:1 (NONREACTIVE)
[2018-04-07 12:03] LABS: TREPONEMA ANTIBODY PREVIOUSLY REACTIVE (NONREACTIVE)
--- NOTE | 2018-04-07 14:58 | PN ---
BHS Progress Note (SOAP) Subjective: PT STATES DETOX PROCEEDING WELL. ALERT O X 3. Objective: 04/07/18 14:57 Vital Signs 04/07/18 04/07/18 09:46 14:27 Temperature 97.6 F 96.7 F L Pulse Rate 93 H 89 Respiratory 20 20 Rate Blood Pressure 145/99 130/82 Laboratory Tests 04/04/18 04/05/18 04/05/18 23:10 07:30 07:30 WBC 6.3 D RBC 4.43 Hgb 12.9 Hct 39.2 MCV 88.4 MCH 29.2 MCHC 33.0 RDW 13.9 Plt Count 211 D MPV 9.1 D Sodium 141 Potassium 4.4 Chloride 109 H Carbon Dioxide 24 Anion Gap 8 BUN 10 D Creatinine 0.9 Creat Clearance w eGFR > 60 Random Glucose 97 D Calcium 8.4 L Total Bilirubin 0.3 D AST 67 H ALT 125 H Alkaline Phosphatase 152 H Total Protein 7.3 Albumin 3.0 L Urine Color Ltyellow Urine Appearance Clear Urine pH 6.0 D Ur Specific [place] 1.018 Urine Protein Negative Urine Glucose (UA) Negative Urine Ketones Negative Urine Blood Negative Urine Nitrite Negative Urine Bilirubin Negative Urine Urobilinogen Negative Ur Leukocyte Esterase 1+ H Urine WBC (Auto) 11 Urine RBC (Auto) 10 Ur Epithelial Cells Rare Hyaline Casts 1 Urine Mucus Rare RPR Titer T.pallidum Ab ([facility]) 04/05/18 07:30 WBC RBC Hgb Hct MCV MCH MCHC RDW Plt Count MPV Sodium Potassium Chloride Carbon Dioxide Anion Gap BUN Creatinine Creat Clearance w eGFR Random Glucose Calcium Total Bilirubin AST ALT Alkaline Phosphatase Total Protein Albumin Urine Color Urine Appearance Urine pH Ur Specific [place] Urine Protein Urine Glucose (UA) Urine Ketones Urine Blood Urine Nitrite Urine Bilirubin Urine Urobilinogen Ur Leukocyte Esterase Urine WBC (Auto) Urine RBC (Auto) Ur Epithelial Cells Hyaline Casts Urine Mucus RPR Titer Reactive 1:1 H T.pallidum Ab ([facility]) Previously reactive LABS NOTED Assessment: 04/07/18 14:57 DECREASED WITHDRAWAL SX Plan: CONTINUE DETOX D/C IN AM
[2018-04-07] MEDS: chlordiazePOXIDE HCL 10 MG CAPSULE PO SCH ×2 (16:59→22:37)
[2018-04-07 21:51] VITALS: BP 119/81; PULSE 108; TEMP 97.9
[2018-04-07] MEDS: QUEtiapine FUMARATE 200 MG TABLET PO SCH (22:37)
[2018-04-07] MEDS: MELATONIN 5 MG TABLETS PO PRN (22:37)
[2018-04-07] MEDS: THIAMINE HCL 100 MG TABLET (FP) PO SCH (22:37)
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
== END 2018-04-07 23:55 | disposition left against medical advice (07) | DRG 770 ==
LOC: YASAS 10:20 → Y3N 15:22
PROVIDERS: ADMIT Family Medicine Addiction Medicine; ATTEND Family Medicine Addiction Medicine
PROC: HZ2ZZZZ Detoxification Services for Substance Abuse Treatment (ICD-10-PCS; principal; 2018-04-04)
DX: F10.230 Alcohol dependence with withdrawal, uncomplicated (principal); F19.24 Other psychoactive substance dependence with psychoactive substance-induced mood disorder; F31.9 Bipolar disorder, unspecified; I10 Essential (primary) hypertension; B18.2 Chronic viral hepatitis C; M17.0 Bilateral primary osteoarthritis of knee; E66.01 Morbid (severe) obesity due to excess calories; Z68.41 Body mass index [BMI] 40.0-44.9, adult; M25.561 Pain in right knee; M25.562 Pain in left knee; G89.29 Other chronic pain; Z87.438 Personal history of other diseases of male genital organs
CPT/HCPCS: 36415; 80053; 81003; 81015; 85027; 86593; 86780; 93005; 93010

== ENCOUNTER 2018-08-16 13:27 | Inpatient (IN) | payer OTHER ==
[2018-08-16 15:13] VITALS: BMI 27.1
--- NOTE | 2018-08-16 17:48 | HP ---
COWS - Scale Resting Pulse: 1= [place] 81-100 Sweatin= Chills/Flushing Restless Observation: 1= Difficult to Sit Still Pupil Size: 1= Pupils >than Normal Bone or Joint Aches: 1= Mild Discomfort Runny Nose/ Eye Tearin= Nasal Congestion GI Upset > 30mins: 2= Nausea/Diarrhea Tremor Observation: 2= Slight Tremor Visible Yawning Observation: 2= >3x During Session Anxiety or Irritability: 2=Irritable/Anxious Goose Flesh Skin: 0=Smooth Skin COWS Score: 14 CIWA Score - CIWA Score Nausea/Vomitin Muscle Tremors: 2 Anxiety: 1-Mildly Anxious Agitation: 1-Slight > Activity Paroxysmal Sweats: 2 Orientation: 1-Uncertain about Date Tacttile Disturbances: 1-Very Mild Itch/Numbness Auditory Disturbances: 0-None Visual Disturbances: 0-None Headache: 2-Mild CIWA-Ar Total Score: 12 Admission ROS S - HPI Chief Complaint: WITHDRAWAL SYMPTOMS Allergies/Adverse Reactions: Allergies Allergy/AdvReac Type Severity Reaction Status Date / Time No Known Allergies Allergy Verified 08/16/18 17:01 History of Present Illness: 43 Y.O. MAN WITH A HISTORY OF ALCOHOL, HEROIN AND COCAINE DEPENDENCE IS HERE SEEKING DETOX SERVICES. HE REPORTED HIS LAST DETOX WAS AT [facility] BUT STATES HE WAS SENT TO THE ER AFTER TWO DAYS FOR AN ELEVATED TEMPERATURE. - Ebola screening Have you traveled outside of the country in the last 21 days: No Have you had contact with anyone from an Ebola affected area: No Have you been sick,other than usual withdrawal symptoms: No Do you have a fever: No - Review of Systems Constitutional: Chills, Diaphoresis, Loss of Appetite, Unintentional Wgt. Loss EENT: reports: No Symptoms Reported Respiratory: reports: No Symptoms reported Cardiac: reports: No Symptoms Reported GI: reports: Diarrhea, Poor Appetite, Abdominal cramping : reports: No Symptoms Reported Musculoskeletal: reports: Back Pain Integumentary: reports: Other (TRACK MONAE) Neuro: reports: Headache Endocrine: reports: No Symptoms Reported Hematology: reports: No Symptoms Reported Psychiatric: reports: Anxious, Depressed Other Systems: Reviewed and Negative Patient History - Patient Medical History Hx Anemia: No Hx Asthma: No Hx Chronic Obstructive Pulmonary Disease (COPD): No Hx Cancer: No Hx Cardiac Disorders: No Hx Congestive Heart Failure: No Hx Hypertension: Yes (Not taking medications .) Hx Hypercholesterolemia: No Hx Pacemaker: No HX Cerebrovascular Accident: No Hx Seizures: No Hx Dementia: No Hx Diabetes: No Hx Gastrointestinal Disorders: No Hx Liver Disease: No Hx Genitourinary Disorders: No Hx Sexually Transmitted Disorders: Yes (Syphillis tx in 2005) Hx Renal Disease (ESRD): No Hx Thyroid Disease: No Hx Human Immunodeficiency Virus (HIV): No (NEGATIVE HX ) Hx Hepatitis C: Yes (DID NOT COMPLETE INTERFERON TX IN THE PAST.) Hx Depression: Yes Hx Suicide Attempt: No (PATIENT DENIES CURRENT SI / HI.) Hx Bipolar Disorder: Yes (ON MEDS, hospitalized for ERRATIC behavior in past.) Hx Schizophrenia: No - Patient Surgical History Past Surgical History: Yes Hx Neurologic Surgery: No Hx Cataract Extraction: No Hx Cardiac Surgery: No Hx Lung Surgery: No Hx Breast Surgery: No Hx Breast Biopsy: No Hx Abdominal Surgery: Yes (UMBILICAL HERNIA SX IN 2004) Hx Appendectomy: No Hx Cholecystectomy: No Hx Genitourinary Surgery: No Hx Section: No Hx Orthopedic Surgery: No Hx Hysterectomy: No Other Surgical History: SX FOR LIPOMA ON LEFT SIDE OF NECK IN 2009 Anesthesia Reaction: No - PPD History Previous Implant?: Yes Documented Results: Negative w/proof Implanted On Prior R Admission?: Yes Date: 11/26/17 Results: 0 mm PPD to be Administered?: No - Reproductive History Patient is a Female of Child Bearing Age (11 -55 yrs old): No - Smoking Cessation Smoking history: Never smoked Have you smoked in the past 12 months: No Aproximately how many cigarettes per day: 0 Cigars Per Day: 0 Hx Chewing Tobacco Use: No - Substance & Tx. History Hx Alcohol Use: Yes Hx Substance Use: Yes Substance Use Type: Alcohol, Cocaine, Heroin Hx Substance Use Treatment: Yes (ACI detox 4 week ago but did not complete tx due to being sent to ER. ) - Substances Abused Alcohol Route: Oral Frequency: Daily Amount used: 3 PINT Age of first use: 11 Date of Last Use: 08/16/18 Cocaine Route: Smoking Frequency: Daily Amount used: 1 GRAM Age of first use: 36 Date of Last Use: 08/16/18 Heroin Route: Injection Frequency: Daily Amount used: 5 bags Age of first use: 36 Date of Last Use: 08/11/18 (Purchased methadone on 08/14/18.) Family Disease History - Family Disease History Family Disease History: [place]: Brother (one , [place] Other: Father (drug use ,), Mother (drug use,) Admission Physical Exam [facility] - Vital Signs Vital Signs: Vital Signs - 24 hr 08/16/18 15:10 Temperature 98 F Pulse Rate 88 Respiratory 20 Rate Blood Pressure 125/80 - Physical General Appearance: Yes: Anxious HEENTM: Yes: Hearing grossly Normal, Normocephalic, Normal Voice, Rhinorrhea Respiratory: Yes: Chest Non-Tender, Lungs Clear, Normal Breath Sounds, No Respiratory Distress, Rapid RR Neck: Yes: Within Normal Limits Breast: Yes: Breast Exam Deferred Cardiology: Yes: Regular Rhythm, Regular Rate Abdominal: Yes: Normal Bowel Sounds, Non Tender Genitourinary: Yes: Other (No complaints reported) Back: Yes: Normal Inspection Musculoskeletal: Yes: Joint Stiffness, Other (Unsteady gait; ambulates with the use of a cane.) Extremities: Yes: Normal Capillary Refill, Normal Inspection, Non-Tender Neurological: Yes: Alert, Normal Mood/Affect, Normal Response Integumentary: Yes: Normal Color, Dry, Warm Lymphatic: Yes: Within Normal Limits - Diagnostic (1) Alcohol dependence with uncomplicated withdrawal Current Visit: Yes Status: Chronic (2) Cocaine dependence Current Visit: Yes Status: Chronic Qualifiers: Substance use status: uncomplicated Qualified Code(s): F14.20 - Cocaine dependence, uncomplicated (3) Opioid dependence with withdrawal Current Visit: Yes Status: Acute (4) HTN (hypertension) Current Visit: Yes Status: Chronic Qualifiers: Hypertension type: essential hypertension Qualified Code(s): I10 - Essential (primary) hypertension (5) Hepatitis C Current Visit: Yes Status: Chronic Qualifiers: Viral hepatitis chronicity: chronic Hepatic coma status: without hepatic coma Qualified Code(s): B18.2 - Chronic viral hepatitis C (6) Knee pain, bilateral Current Visit: Yes Status: Chronic Qualifiers: Chronicity: chronic Qualified Code(s): M25.561 - Pain in right knee; M25.562 - Pain in left knee; G89.29 - Other chronic pain (7) Osteoarthritis of both knees Current Visit: Yes Status: Chronic Qualifiers: Osteoarthritis type: primary Qualified Code(s): M17.0 - Bilateral primary osteoarthritis of knee (8) History of late syphilis Current Visit: No Status: Resolved Comment: Per client, he received tx. Cleared for Admission [facility] - Detox or Rehab [facility] Level of Care: Medically Managed Detox Regimen/Protocol: Methadone/Librium [facility] Breath Alcohol Content Breath Alcohol Content: 0 Urine Drug Screen - Results Drug Screen Negative: No Urine Drug Screen Results: THC-Marijuana, LAVERNE-Cocaine, BZO-Benzodiazepines, MTD- Methadone, BUP-Suboxone
[2018-08-16] MEDS ORDERED: MENTHOL/PHENOL 1 EACH UD MM PRN (18:11)
[2018-08-16] MEDS ORDERED: MAGNESIUM HYDROX 2400MG/30ML ORAL SUSPENSION 30 ML CUP PO PRN (18:11)
[2018-08-16] MEDS ORDERED: chlordiazePOXIDE HCL 25 MG CAPSULE PO PRN (18:11)
[2018-08-16] MEDS ORDERED: ACETAMINOPHEN 325 MG TABLET (FP) PO PRN (18:11)
[2018-08-16] MEDS ORDERED: P-EPHED 60MG/TRIPROLIDI 2.5MG TABLET PO PRN (18:11)
[2018-08-16] MEDS ORDERED: MAG HYDROX/AL HYDROX/SIMETH 30 ML UNIT-DOSE CUP PO PRN (18:11)
[2018-08-16] MEDS ORDERED: MAGNESIUM CITRATE 300 ML BOTTLE PO PRN (18:11)
[2018-08-16] MEDS ORDERED: guaiFENesin/D-METHORPHAN HB 10 ML UNIT-DOSE CUPS PO PRN (18:11)
[2018-08-16] MEDS ORDERED: LOPERAMIDE HCL 2 MG CAPSULE PO PRN (18:11)
[2018-08-16] MEDS ORDERED: METHADONE HCL 10 MG TABLET (FOR DETOX USE ONLY) PO ONE ×2 (19:00→23:00)
[2018-08-16] MEDS: chlordiazePOXIDE HCL 25 MG CAPSULE PO SCH (22:07)
[2018-08-16] MEDS: CYCLOBENZAPRINE HCL 5 MG TABLET PO PRN (22:07)
[2018-08-16] MEDS: THIAMINE HCL 100 MG TABLET (FP) PO SCH (22:09)
[2018-08-17] MEDS: chlordiazePOXIDE HCL 25 MG CAPSULE PO SCH ×4 (05:04→22:11)
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
[2018-08-17] MEDS: CYCLOBENZAPRINE HCL 5 MG TABLET PO PRN ×2 (09:16→17:16)
[2018-08-17] MEDS ORDERED: METHADONE HCL 10 MG TABLET (FOR DETOX USE ONLY) PO SCH (10:00)
[2018-08-17 10:17] LABS: HEMATOCRIT 37.7 % (35.4-49); MCH 31.6 pg (25.7-33.7); MCHC 34.5 g/dl (32.0-35.9); MEAN CELL VOLUME 91.7 fl (80-96); MEAN PLT VOLUME 10.2 fl (7.5-11.1); PLATELET COUNT 175 K/MM3 (134-434); RBC 4.11 M/mm3 (4.00-5.60); RDW 13.8 % (11.9-15.9); WHITE BLOOD COUNT 4.6 K/mm3 (4.0-10.0)
--- NOTE | 2018-08-17 10:23 | PN ---
[facility] CIWA - CIWA Score Nausea/Vomitin-No Nausea/No Vomiting Muscle Tremors: 2 Anxiety: 3 Agitation: 2 Paroxysmal Sweats: 2 Orientation: 0-Oriented Tacttile Disturbances: 2-Mild Itch/Numbness/Burn Auditory Disturbances: 0-None Visual Disturbances: 0-None Headache: 0-None Present CIWA-Ar Total Score: 11 [facility] COWS - Scale Resting Pulse: 0= [place] 80 or Below Sweatin= Chills/Flushing Restless Observation: 1= Difficult to Sit Still Pupil Size: 0= Normal to Room Light Bone or Joint Aches: 1= Mild Discomfort Runny Nose/ Eye Tearin= Runny Nose/Eyes GI Upset > 30mins: 0= None Tremor Observation of Outstretched Hands: 2= Slight Tremor Visible Yawning Observation: 2= >3x During Session Anxiety or Irritability: 2=Irritable/Anxious Goose Flesh Skin: 0=Smooth Skin COWS Score: 11 S Progress Note (SOAP) Subjective: interrupted sleep, body aches, b/t hip pain Objective: 08/17/18 10:23 Vital Signs Temperature 97.6 F 08/17/18 09:10 Pulse Rate 79 08/17/18 09:10 Respiratory Rate 18 08/17/18 09:10 Blood Pressure 109/74 08/17/18 09:10 O2 Sat by Pulse Oximetry (%) Laboratory Last Values WBC 4.6 K/mm3 (4.0-10.0) 08/17/18 08:00 RBC 4.11 M/mm3 (4.00-5.60) 08/17/18 08:00 Hgb 13.0 GM/dL (11.7-16.9) 08/17/18 08:00 Hct 37.7 % (35.4-49) 08/17/18 08:00 MCV 91.7 fl (80-96) 08/17/18 08:00 MCH 31.6 pg (25.7-33.7) 08/17/18 08:00 MCHC 34.5 g/dl (32.0-35.9) 08/17/18 08:00 RDW 13.8 % (11.9-15.9) 08/17/18 08:00 Plt Count 175 K/MM3 (134-434) 08/17/18 08:00 MPV 10.2 fl (7.5-11.1) D 08/17/18 08:00 additional labs pending AOx3 no distress no adventitious full ROM ambulating in the unit Assessment: 08/17/18 11:38 withdrawal sx Plan: increase PO fluids TP bengay for hip pain continue detox continue to monitor
[2018-08-17] MEDS: PRENATAL VITAMINS W/ FOLIC ACID TABLET (FP) PO SCH (10:36)
[2018-08-17 10:48] LABS: ALBUMIN 2.9 g/dl (3.4-5.0); ALK PHOS 102 U/L (45-117); ANION GAP 9 MMOL/L (8-16); BILIRUBIN,TOTAL 0.6 mg/dL (0.2-1); BLOOD UREA NITROGEN 7 mg/dL (7-18); CALCIUM 8.3 mg/dL (8.5-10.1); CHLORIDE 106 mmol/L (98-107); CO2 25 mmol/L (21-32); GLUCOSE,RANDOM 106 mg/dL (74-106); POTASSIUM 4.5 mmol/L (3.5-5.1); SGOT/AST 112 U/L (15-37); SGPT/ALT 95 U/L (13-61); SODIUM 140 mmol/L (136-145); TOT PROT 6.8 g/dl (6.4-8.2)
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
[2018-08-17] MEDS: METHYL SALICYLATE/MENTHOL OINT 30 GM TUBE TP SCH (12:00)
--- NOTE | 2018-08-17 12:25 | EKG ---
Test Reason : Blood Pressure : / mmHG Vent. Rate : 085 BPM Atrial Rate : 085 BPM P-R Int : 164 ms QRS Dur : 098 ms QT Int : 390 ms P-R-T Axes : 066 009 019 degrees QTc Int : 464 ms NORMAL SINUS RHYTHM NORMAL ECG WHEN COMPARED WITH ECG OF 04-APR-2018 15:42, NO SIGNIFICANT CHANGE WAS FOUND Confirmed by VÍCTOR LOVING MD ([id number]) on 08/17/2018 12:24:56 PM Referred By: Confirmed By:VÍCTOR LOVING MD
[2018-08-17] MEDS: hydrOXYzine PAMOATE 50 MG CAPSULE (FP) PO PRN (14:28)
[2018-08-17] MEDS: IBUPROFEN 400 MG TABLET (FP) PO PRN (17:16)
[2018-08-17] MEDS: QUEtiapine FUMARATE 200 MG TABLET PO SCH (22:10)
[2018-08-17] MEDS: THIAMINE HCL 100 MG TABLET (FP) PO SCH (22:10)
[2018-08-17] MEDS: traZODone HCL 100 MG TABLET (FP) PO SCH (22:10)
[2018-08-17] MEDS: MELATONIN 5 MG TABLETS PO PRN (22:11)
[2018-08-18] MEDS: chlordiazePOXIDE HCL 25 MG CAPSULE PO SCH ×3 (05:30→17:33)
[2018-08-18] MEDS: CYCLOBENZAPRINE HCL 5 MG TABLET PO PRN ×2 (05:31→22:08)
[2018-08-18] MEDS: METHYL SALICYLATE/MENTHOL OINT 30 GM TUBE TP SCH (10:13)
[2018-08-18] MEDS: METHADONE HCL 5 MG TABLET (FOR DETOX USE ONLY) PO SCH (10:14)
[2018-08-18] MEDS: SERTRALINE HCL 50 MG TABLET (FP) PO SCH (10:14)
[2018-08-18] MEDS: PRENATAL VITAMINS W/ FOLIC ACID TABLET (FP) PO SCH (10:14)
[2018-08-18] MEDS: hydrOXYzine PAMOATE 50 MG CAPSULE (FP) PO PRN (12:07)
[2018-08-18] MEDS: IBUPROFEN 400 MG TABLET (FP) PO PRN (12:07)
--- NOTE | 2018-08-18 13:47 | PN ---
[facility] CIWA - CIWA Score Nausea/Vomitin-Mild Nausea/No Vomiting Muscle Tremors: 3 Anxiety: 3 Agitation: 3 Paroxysmal Sweats: 3 Orientation: 0-Oriented Tacttile Disturbances: 1-Very Mild Itch/Numbness Auditory Disturbances: 0-None Visual Disturbances: 0-None Headache: 0-None Present CIWA-Ar Total Score: 14 [facility] COWS - Scale Resting Pulse: 1= [place] 81-100 Sweatin= Chills/Flushing Restless Observation: 1= Difficult to Sit Still Pupil Size: 0= Normal to Room Light Bone or Joint Aches: 1= Mild Discomfort Runny Nose/ Eye Tearin= Runny Nose/Eyes GI Upset > 30mins: 1= Stomach Cramp Tremor Observation of Outstretched Hands: 2= Slight Tremor Visible Yawning Observation: 1= 1-2x During Session Anxiety or Irritability: 2=Irritable/Anxious Goose Flesh Skin: 0=Smooth Skin COWS Score: 12 [facility] Progress Note (SOAP) Subjective: Anxious, agitated, interrupted sleep Objective: 08/18/18 13:46 Last Vital Signs Temp Pulse Resp BP Pulse Ox 96.9 F L 100 H 20 114/80 08/18/18 13:14 08/18/18 13:14 08/18/18 13:14 08/18/18 13:14 Laboratory Tests 08/17/18 08/17/18 08/17/18 08:00 08:00 08:00 WBC 4.6 RBC 4.11 Hgb 13.0 Hct 37.7 MCV 91.7 MCH 31.6 MCHC 34.5 RDW 13.8 Plt Count 175 MPV 10.2 D Sodium 140 Potassium 4.5 Chloride 106 Carbon Dioxide 25 Anion Gap 9 BUN 7 Creatinine 1.0 Creat Clearance w eGFR > 60 Random Glucose 106 Calcium 8.3 L Total Bilirubin 0.6 AST 112 H ALT 95 H Alkaline Phosphatase 102 Total Protein 6.8 Albumin 2.9 L RPR Titer Nonreactive D Labs reviewed Assessment: 08/18/18 13:47 Withdrawal symptoms Plan: Continue detox Encouraged PO water intake
[2018-08-18] MEDS: chlordiazePOXIDE 5 MG CAPSULE PO SCH (22:07)
[2018-08-18] MEDS: QUEtiapine FUMARATE 200 MG TABLET PO SCH (22:08)
[2018-08-18] MEDS: MELATONIN 5 MG TABLETS PO PRN (22:08)
[2018-08-18] MEDS: traZODone HCL 100 MG TABLET (FP) PO SCH (22:08)
[2018-08-18] MEDS: THIAMINE HCL 100 MG TABLET (FP) PO SCH (22:30)
[2018-08-19] MEDS: chlordiazePOXIDE 5 MG CAPSULE PO SCH ×3 (05:13→18:06)
[2018-08-19] MEDS: SERTRALINE HCL 50 MG TABLET (FP) PO SCH (10:17)
[2018-08-19] MEDS: CYCLOBENZAPRINE HCL 5 MG TABLET PO PRN ×2 (10:17→22:09)
[2018-08-19] MEDS: PRENATAL VITAMINS W/ FOLIC ACID TABLET (FP) PO SCH (10:17)
[2018-08-19] MEDS: METHADONE HCL 5 MG TABLET (FOR DETOX USE ONLY) PO SCH (10:18)
[2018-08-19] MEDS: METHYL SALICYLATE/MENTHOL OINT 30 GM TUBE TP SCH (10:18)
[2018-08-19] MEDS: hydrOXYzine PAMOATE 50 MG CAPSULE (FP) PO PRN ×3 (10:22→22:10)
--- NOTE | 2018-08-19 15:42 | PN ---
[facility] Progress Note (SOAP) Subjective: offers no complaint Objective: 08/19/18 15:41 ambulating ad karen on unit Vital Signs Temperature 97.1 F L 08/19/18 06:06 Pulse Rate 60 08/19/18 13:10 Respiratory Rate 18 08/19/18 13:10 Blood Pressure 101/58 L 08/19/18 13:10 O2 Sat by Pulse Oximetry (%) Assessment: 08/19/18 15:41 withdrawals sx Plan: continue detox
[2018-08-19] MEDS: THIAMINE HCL 100 MG TABLET (FP) PO SCH (22:05)
[2018-08-19] MEDS: QUEtiapine FUMARATE 200 MG TABLET PO SCH (22:05)
[2018-08-19] MEDS: traZODone HCL 100 MG TABLET (FP) PO SCH (22:05)
[2018-08-19] MEDS: chlordiazePOXIDE HCL 10 MG CAPSULE PO SCH (23:00)
[2018-08-20] MEDS: chlordiazePOXIDE HCL 10 MG CAPSULE PO SCH ×3 (05:34→17:23)
[2018-08-20] MEDS ORDERED: METHADONE HCL 10 MG TABLET (FOR DETOX USE ONLY) PO SCH (10:00)
--- NOTE | 2018-08-20 10:34 | PN ---
S Progress Note Note: PATIENT CONTINUES WITH DETOX REGIMEN. STATES HE FEELS BETTER. Vital Signs Temperature 97.8 F 08/20/18 09:21 Pulse Rate 73 08/20/18 09:21 Respiratory Rate 20 08/20/18 09:21 Blood Pressure 102/62 08/20/18 09:21 O2 Sat by Pulse Oximetry (%) Laboratory Tests 08/17/18 08/17/18 08/17/18 08:00 08:00 08:00 WBC 4.6 RBC 4.11 Hgb 13.0 Hct 37.7 MCV 91.7 MCH 31.6 MCHC 34.5 RDW 13.8 Plt Count 175 MPV 10.2 D Sodium 140 Potassium 4.5 Chloride 106 Carbon Dioxide 25 Anion Gap 9 BUN 7 Creatinine 1.0 Creat Clearance w eGFR > 60 Random Glucose 106 Calcium 8.3 L Total Bilirubin 0.6 AST 112 H ALT 95 H Alkaline Phosphatase 102 Total Protein 6.8 Albumin 2.9 L RPR Titer Nonreactive D PE: ALERT AND ORIENTED X 3 SKIN WARM AND DRY CAR S1S2 RESP CTA BL EXT AMBULATES WITH CANE INDEPENDENTLY A/P WITHDRAWAL SX CONTINUE DETOX ORDERED CONTINUE TO MONITOR CLINICALLY
[2018-08-20] MEDS: SERTRALINE HCL 50 MG TABLET (FP) PO SCH (10:52)
[2018-08-20] MEDS: METHYL SALICYLATE/MENTHOL OINT 30 GM TUBE TP SCH (10:53)
[2018-08-20] MEDS: PRENATAL VITAMINS W/ FOLIC ACID TABLET (FP) PO SCH (10:53)
[2018-08-20] MEDS: CYCLOBENZAPRINE HCL 5 MG TABLET PO PRN ×2 (10:57→22:26)
[2018-08-20] MEDS: hydrOXYzine PAMOATE 50 MG CAPSULE (FP) PO PRN (10:57)
[2018-08-20] MEDS: THIAMINE HCL 100 MG TABLET (FP) PO SCH (22:26)
[2018-08-20] MEDS: QUEtiapine FUMARATE 200 MG TABLET PO SCH (22:26)
[2018-08-20] MEDS: traZODone HCL 100 MG TABLET (FP) PO SCH (22:26)
[2018-08-21] MEDS ORDERED: METHADONE HCL 5 MG TABLET (FOR DETOX USE ONLY) PO SCH (06:00)
[2018-08-21 10:14] VITALS: BP 112/67; PULSE 80; TEMP 97
--- NOTE | 2018-08-21 10:15 | DS ---
[facility] Detox Discharge Summary Admission Date: 08/16/18 Discharge Date: 08/21/18 - History Present History: Alcohol Dependence, Opioid Dependence - Physical Exam Results Vital Signs: Vital Signs Temperature 98.2 F 08/21/18 05:00 Pulse Rate 73 08/21/18 05:00 Respiratory Rate 20 08/21/18 05:00 Blood Pressure 97/63 08/21/18 05:00 O2 Sat by Pulse Oximetry (%) Pertinent Admission Physical Exam Findings: PATIENT COMPLETED DETOX WITHOUT ADVERSE EVENT. PATIENT MEDICALLY STABLE AND DENIES SI/HI. PATIENT ACCEPTED REFERRAL TO REHAB AT [facility]. PATIENT ENCOURAGED TO COMPLETE REHAB TO PREVENT RELAPSE. - Treatment Hospital Course: Detox Protocol Followed, Detoxed Safely, Responded well, Discharged Condition Good, Rehab Referral Accepted Patient has Accepted a Rehab Referral to: [facility] - Medication Discharge Medications: Ambulatory Orders Amlodipine Besylate [Norvasc -] 5 mg PO DAILY 01/15/18 Quetiapine Fumarate [Seroquel -] 200 mg PO HS #30 tablet 01/16/18 Aripiprazole [Abilify -] 5 mg PO DAILY #30 tablet 03/06/18 Sertraline HCl [Zoloft -] 100 mg PO DAILY #60 tablet 03/06/18 traZODone HCL [Desyrel -] 100 mg PO HS #30 tablet 03/06/18 Hydroxyzine HCl 50 mg PO BID 04/04/18 - Diagnosis (1) Alcohol dependence with uncomplicated withdrawal Current Visit: Yes Status: Resolved (2) Opioid dependence with withdrawal Current Visit: Yes Status: Resolved - AMA Did Patient Leave Against Medical Advice: No
[2018-08-21] MEDS: PRENATAL VITAMINS W/ FOLIC ACID TABLET (FP) PO SCH (10:36)
[2018-08-21] MEDS: SERTRALINE HCL 50 MG TABLET (FP) PO SCH (10:36)
[2018-08-21] MEDS: METHYL SALICYLATE/MENTHOL OINT 30 GM TUBE TP SCH (10:37)
[2018-08-21] MEDS: CYCLOBENZAPRINE HCL 5 MG TABLET PO PRN (10:38)
[2018-08-21] MEDS: hydrOXYzine PAMOATE 50 MG CAPSULE (FP) PO PRN (10:39)
== END 2018-08-21 11:22 | disposition other institution (70) | DRG 773 ==
LOC: YASAS 13:27 → Y3N 17:18
PROC: HZ2ZZZZ Detoxification Services for Substance Abuse Treatment (ICD-10-PCS; principal; 2018-08-16)
DX: F11.23 Opioid dependence with withdrawal (principal); F10.230 Alcohol dependence with withdrawal, uncomplicated; F14.20 Cocaine dependence, uncomplicated; F12.20 Cannabis dependence, uncomplicated; F19.24 Other psychoactive substance dependence with psychoactive substance-induced mood disorder; F31.9 Bipolar disorder, unspecified; F43.10 Post-traumatic stress disorder, unspecified; G47.00 Insomnia, unspecified; I10 Essential (primary) hypertension; B18.2 Chronic viral hepatitis C; M25.561 Pain in right knee; M25.562 Pain in left knee; G89.29 Other chronic pain; M17.0 Bilateral primary osteoarthritis of knee; Z91.19 Patient's noncompliance with other medical treatment and regimen; Z87.438 Personal history of other diseases of male genital organs; W06.XXXA Fall from bed, initial encounter; Y93.89 Activity, other specified; Y92.230 Patient room in hospital as the place of occurrence of the external cause
CPT/HCPCS: 36415; 80053; 85027; 86593; 93005; 93010

== ENCOUNTER 2018-08-21 11:43 | Inpatient (IN) | payer OTHER ==
[2018-08-21] MEDS ORDERED: LOPERAMIDE HCL 2 MG CAPSULE PO PRN (13:49)
[2018-08-21] MEDS ORDERED: ACETAMINOPHEN 325 MG TABLET (FP) PO PRN (13:49)
[2018-08-21] MEDS ORDERED: P-EPHED 60MG/TRIPROLIDI 2.5MG TABLET PO PRN (13:49)
[2018-08-21] MEDS ORDERED: MENTHOL/PHENOL 1 EACH UD MM PRN (13:49)
[2018-08-21] MEDS ORDERED: MAGNESIUM CITRATE 300 ML BOTTLE PO PRN (13:49)
[2018-08-21] MEDS ORDERED: guaiFENesin/D-METHORPHAN HB 10 ML UNIT-DOSE CUPS PO PRN (13:49)
[2018-08-21] MEDS ORDERED: MAGNESIUM HYDROX 2400MG/30ML ORAL SUSPENSION 30 ML CUP PO PRN (13:49)
[2018-08-21] MEDS ORDERED: IBUPROFEN 400 MG TABLET (FP) PO PRN (13:49)
[2018-08-21] MEDS ORDERED: MAG HYDROX/AL HYDROX/SIMETH 30 ML UNIT-DOSE CUP PO PRN (13:49)
--- NOTE | 2018-08-21 13:49 | HP ---
[facility] Rehab Assess/Revision - Admission History Admitted to Rehab from: [facility] - Vital signs Vital Signs: Vital Signs Period Temp Pulse Resp BP Sys/Jean Pulse Ox Last 24 Hr 97.3 F 87 18 104/61 - Findings Detox History & Physical reviewed: Yes Concur with findings: Yes Inpatient Rehab Admission - Initial Determination Are CD services needed?: Yes Free of communicable disease: Yes Not in need of hospitalization: Yes - Rehab Admission Criteria Previous failed treatment: Yes Poor recovery environment: Yes Comorbidities: Yes Lacks judgement: Yes Patient is meeting Inpatient Rehab admission criteria:: Yes
[2018-08-21] MEDS: hydrOXYzine PAMOATE 50 MG CAPSULE (FP) PO PRN (15:16)
[2018-08-21] MEDS: CYCLOBENZAPRINE HCL 5 MG TABLET PO SCH ×2 (15:16→21:16)
[2018-08-21] MEDS: THIAMINE HCL 100 MG TABLET (FP) PO SCH (21:16)
[2018-08-21] MEDS ORDERED: MELATONIN 5 MG TABLETS PO PRN (22:00)
[2018-08-21] MEDS ORDERED: LIDOCAINE PATCH REMOVAL MC SCH (22:00)
[2018-08-22] MEDS: CYCLOBENZAPRINE HCL 5 MG TABLET PO SCH ×3 (07:23→21:11)
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
[2018-08-22] MEDS ORDERED: LIDOCAINE 5% TOPICAL PATCH TP SCH (10:00)
[2018-08-22] MEDS ORDERED: SERTRALINE HCL 50 MG TABLET (FP) PO SCH (10:00)
[2018-08-22] MEDS: LIDOCAINE 5% TOPICAL PATCH TP SCH (10:08)
[2018-08-22] MEDS: PRENATAL VITAMINS W/ FOLIC ACID TABLET (FP) PO SCH (10:08)
[2018-08-22] MEDS: SERTRALINE HCL 50 MG TABLET (FP) PO SCH (10:08)
[2018-08-22] MEDS: THIAMINE HCL 100 MG TABLET (FP) PO SCH (21:11)
[2018-08-22] MEDS: traZODone HCL 100 MG TABLET (FP) PO SCH (21:11)
[2018-08-22] MEDS: QUEtiapine FUMARATE 200 MG TABLET PO SCH (21:11)
[2018-08-22] MEDS: LIDOCAINE PATCH REMOVAL MC SCH (21:12)
[2018-08-23] MEDS: CYCLOBENZAPRINE HCL 5 MG TABLET PO SCH ×3 (06:28→21:10)
[2018-08-23] MEDS: SERTRALINE HCL 50 MG TABLET (FP) PO SCH (09:44)
[2018-08-23] MEDS: LIDOCAINE 5% TOPICAL PATCH TP SCH (09:44)
[2018-08-23] MEDS: PRENATAL VITAMINS W/ FOLIC ACID TABLET (FP) PO SCH (09:45)
[2018-08-23] MEDS: QUEtiapine FUMARATE 200 MG TABLET PO SCH (21:10)
[2018-08-23] MEDS: traZODone HCL 100 MG TABLET (FP) PO SCH (21:10)
[2018-08-23] MEDS: THIAMINE HCL 100 MG TABLET (FP) PO SCH (21:11)
[2018-08-23] MEDS: LIDOCAINE PATCH REMOVAL MC SCH (21:11)
[2018-08-24] MEDS: CYCLOBENZAPRINE HCL 5 MG TABLET PO SCH ×3 (07:26→21:10)
[2018-08-24] MEDS: PRENATAL VITAMINS W/ FOLIC ACID TABLET (FP) PO SCH (09:46)
[2018-08-24] MEDS: LIDOCAINE 5% TOPICAL PATCH TP SCH (09:46)
[2018-08-24] MEDS: SERTRALINE HCL 50 MG TABLET (FP) PO SCH (09:46)
[2018-08-24] MEDS: hydrOXYzine PAMOATE 50 MG CAPSULE (FP) PO PRN ×2 (14:19→21:11)
[2018-08-24] MEDS: THIAMINE HCL 100 MG TABLET (FP) PO SCH (21:10)
[2018-08-24] MEDS: traZODone HCL 100 MG TABLET (FP) PO SCH (21:10)
[2018-08-24] MEDS: QUEtiapine FUMARATE 200 MG TABLET PO SCH (21:10)
[2018-08-24] MEDS: LIDOCAINE PATCH REMOVAL MC SCH (21:12)
[2018-08-25] MEDS: CYCLOBENZAPRINE HCL 5 MG TABLET PO SCH ×3 (07:34→21:04)
[2018-08-25] MEDS: LIDOCAINE 5% TOPICAL PATCH TP SCH (09:33)
[2018-08-25] MEDS: SERTRALINE HCL 50 MG TABLET (FP) PO SCH (09:33)
[2018-08-25] MEDS: PRENATAL VITAMINS W/ FOLIC ACID TABLET (FP) PO SCH (09:33)
[2018-08-25] MEDS: hydrOXYzine PAMOATE 50 MG CAPSULE (FP) PO PRN ×2 (09:35→21:04)
[2018-08-25] MEDS: QUEtiapine FUMARATE 200 MG TABLET PO SCH (21:04)
[2018-08-25] MEDS: traZODone HCL 100 MG TABLET (FP) PO SCH (21:05)
[2018-08-25] MEDS: THIAMINE HCL 100 MG TABLET (FP) PO SCH (21:25)
[2018-08-25] MEDS: LIDOCAINE PATCH REMOVAL MC SCH (21:25)
[2018-08-26] MEDS: CYCLOBENZAPRINE HCL 5 MG TABLET PO SCH ×3 (07:09→21:09)
[2018-08-26] MEDS: PRENATAL VITAMINS W/ FOLIC ACID TABLET (FP) PO SCH (10:05)
[2018-08-26] MEDS: hydrOXYzine PAMOATE 50 MG CAPSULE (FP) PO PRN ×2 (10:05→21:08)
[2018-08-26] MEDS: SERTRALINE HCL 50 MG TABLET (FP) PO SCH (10:05)
[2018-08-26] MEDS: LIDOCAINE 5% TOPICAL PATCH TP SCH (10:06)
[2018-08-26] MEDS: QUEtiapine FUMARATE 200 MG TABLET PO SCH (21:08)
[2018-08-26] MEDS: traZODone HCL 100 MG TABLET (FP) PO SCH (21:08)
[2018-08-26] MEDS: LIDOCAINE PATCH REMOVAL MC SCH (21:09)
[2018-08-26] MEDS: THIAMINE HCL 100 MG TABLET (FP) PO SCH (21:09)
[2018-08-27] MEDS: CYCLOBENZAPRINE HCL 5 MG TABLET PO SCH (06:51)
[2018-08-27 06:52] VITALS: BP 110/70; PULSE 70; TEMP 97.8
[2018-08-27] MEDS: LIDOCAINE 5% TOPICAL PATCH TP SCH (09:43)
[2018-08-27] MEDS: SERTRALINE HCL 50 MG TABLET (FP) PO SCH (09:44)
[2018-08-27] MEDS: PRENATAL VITAMINS W/ FOLIC ACID TABLET (FP) PO SCH (09:44)
== END 2018-08-27 10:40 | disposition left against medical advice (07) | DRG 770 ==
LOC: YASAS 11:43 → Y5N 11:45
PROVIDERS: ADMIT Psychiatry & Neurology Psychiatry; ATTEND Psychiatry & Neurology Psychiatry
PROC: HZ42ZZZ Group Counseling for Substance Abuse Treatment, Cognitive-Behavioral (ICD-10-PCS; principal; 2018-08-21)
DX: F11.20 Opioid dependence, uncomplicated (principal); F10.20 Alcohol dependence, uncomplicated; F14.20 Cocaine dependence, uncomplicated; F12.20 Cannabis dependence, uncomplicated; F19.24 Other psychoactive substance dependence with psychoactive substance-induced mood disorder; F31.9 Bipolar disorder, unspecified; F43.10 Post-traumatic stress disorder, unspecified; G47.00 Insomnia, unspecified; M13.862 Other specified arthritis, left knee; M13.861 Other specified arthritis, right knee; E66.9 Obesity, unspecified; Z68.38 Body mass index [BMI] 38.0-38.9, adult; R26.2 Difficulty in walking, not elsewhere classified; Z99.89 Dependence on other enabling machines and devices; Z87.438 Personal history of other diseases of male genital organs
CPT/HCPCS: 36415; 87389

== ENCOUNTER 2018-09-30 14:08 | Inpatient (IN) | payer OTHER ==
[2018-09-30 14:36] VITALS: BMI 36.3
[2018-09-30] MEDS ORDERED: P-EPHED 60MG/TRIPROLIDI 2.5MG TABLET PO PRN (15:41)
[2018-09-30] MEDS ORDERED: guaiFENesin/D-METHORPHAN HB 10 ML UNIT-DOSE CUPS PO PRN (15:41)
[2018-09-30] MEDS ORDERED: ACETAMINOPHEN 325 MG TABLET (FP) PO PRN (15:41)
[2018-09-30] MEDS ORDERED: MAGNESIUM CITRATE 300 ML BOTTLE PO PRN (15:41)
[2018-09-30] MEDS ORDERED: MAGNESIUM HYDROX 2400MG/30ML ORAL SUSPENSION 30 ML CUP PO PRN (15:41)
[2018-09-30] MEDS ORDERED: LOPERAMIDE HCL 2 MG CAPSULE PO PRN (15:41)
[2018-09-30] MEDS ORDERED: hydrOXYzine PAMOATE 50 MG CAPSULE (FP) PO PRN (15:41)
[2018-09-30] MEDS ORDERED: NICOTINE POLACRILEX 2 MG GUM BC PRN (15:41)
[2018-09-30] MEDS ORDERED: MAG HYDROX/AL HYDROX/SIMETH 30 ML UNIT-DOSE CUP PO PRN (15:41)
[2018-09-30] MEDS ORDERED: MENTHOL/PHENOL 1 EACH UD MM PRN (15:41)
--- NOTE | 2018-09-30 15:41 | HP ---
COWS - Scale Resting Pulse: 1= [place] 81-100 Sweatin= No chills or Flushing Restless Observation: 1= Difficult to Sit Still Pupil Size: 1= Pupils >than Normal Bone or Joint Aches: 2= Severe Diffuse Aches Runny Nose/ Eye Tearin= None GI Upset > 30mins: 2= Nausea/Diarrhea Tremor Observation: 2= Slight Tremor Visible Yawning Observation: 0= None Anxiety or Irritability: 2=Irritable/Anxious Goose Flesh Skin: 0=Smooth Skin COWS Score: 11 CIWA Score Nausea/Vomitin Muscle Tremors: 2 Anxiety: 4-Mod. Anxious/Guarded Agitation: 2 Paroxysmal Sweats: 1-Minimal Palms Moist Orientation: 0-Oriented Tacttile Disturbances: 0-None Auditory Disturbances: 0-None Visual Disturbances: 0-None Headache: 1-Very Mild CIWA-Ar Total Score: 12 - Admission Criteria [facility] Guidelines: Admission for Medically Managed Detox: Requires at least one of the followin. CIWA greater than 12 2. Seizures within the past 24 hours 3. Delirium tremens within the past 24 hours 4. Hallucinations within the past 24 hours 5. Acute intervention needed for co occurring medical disorder 6. Acute intervention needed for co occurring psychiatric disorder 7. Severe withdrawal that cannot be handled at a lower level of care (continued vomiting, continued diarrhea, abnormal vital signs) requiring intravenous medication and/or fluids 8. Admission ROS S - HPI Chief Complaint: 43 yo with h/o HTN, Hep C - not treated, arthritis in both knees, here for detox from alcohol and heroin. Heroin uses 2-3 times a week 2-3 bags/day. Pt states using heroin, crystal meth, alcohol and cocaine. alcohol: 2 liters of vodka/day, last drink this morning, h/o tremors and blackouts, no seizures or DT's was in methadone program 5 years ago, does not like suboxone cocaine- 1 gram/day crystal meth: does not use daily, 2-3 times per week, when someone gives it to him DUR/ISTOP: neg for recent controlled substance prescription Utox: pos for cocaine, met, oxy and benzo. CARMELO- neg Allergies/Adverse Reactions: Allergies Allergy/AdvReac Type Severity Reaction Status Date / Time No Known Allergies Allergy Verified 09/30/18 17:06 Exam Limitations: No Limitations - Ebola screening Have you traveled outside of the country in the last 21 days: No (N) Have you had contact with anyone from an Ebola affected area: No Have you been sick,other than usual withdrawal symptoms: No Do you have a fever: No Patient History - Patient Medical History Hx Anemia: No Hx Asthma: No Hx Chronic Obstructive Pulmonary Disease (COPD): No Hx Cancer: No Hx Cardiac Disorders: No Hx Congestive Heart Failure: No Hx Hypertension: Yes (norvasc) Hx Hypercholesterolemia: No Hx Pacemaker: No HX Cerebrovascular Accident: No Hx Seizures: No Hx Dementia: No Hx Diabetes: No Hx Gastrointestinal Disorders: No Hx Liver Disease: No Hx Genitourinary Disorders: No Hx Sexually Transmitted Disorders: No (Treated for syphilis) Hx Renal Disease (ESRD): No Hx Thyroid Disease: No Hx Human Immunodeficiency Virus (HIV): No (NEGATIVE HX ) Hx Hepatitis C: Yes (DID NOT COMPLETE INTERFERON TX IN THE PAST.) Hx Depression: No Hx Suicide Attempt: No Hx Bipolar Disorder: Yes (ON MEDS, hospitalized for ERRATIC behavior in past.) Hx Schizophrenia: No - Patient Surgical History Past Surgical History: Yes Hx Neurologic Surgery: No Hx Cataract Extraction: No Hx Cardiac Surgery: No Hx Lung Surgery: No Hx Breast Surgery: No Hx Breast Biopsy: No Hx Abdominal Surgery: Yes (UMBILICAL HERNIA SX IN 2004) Hx Appendectomy: No Hx Cholecystectomy: No Hx Genitourinary Surgery: No Hx Section: No Hx Orthopedic Surgery: No Hx Hysterectomy: No Other Surgical History: SX FOR LIPOMA ON LEFT SIDE OF NECK IN 2009 Anesthesia Reaction: No - PPD History Date: 11/26/17 Results: 0mm - Smoking Cessation Smoking history: Never smoked Have you smoked in the past 12 months: No Aproximately how many cigarettes per day: 0 Cigars Per Day: 0 Hx Chewing Tobacco Use: No - Substance & Tx. History Substance Use Type: Alcohol, Cocaine, Heroin Hx Substance Use Treatment: Yes (yes every month comes to detox) - Substances Abused Alcohol Route: Oral Frequency: Daily Amount used: 2 LITER Age of first use: 11 Date of Last Use: 09/30/18 Heroin Route: Injection Frequency: Daily Amount used: 2 BAGS Age of first use: 36 Date of Last Use: 09/30/18 Family Disease History - Family Disease History Family Disease History: [place]: Brother (one , [place].), Other: Father (drug use ,), Mother (drug use,) Admission Physical Exam BHS - Vital Signs Vital Signs: Vital Signs - 24 hr 09/30/18 14:35 Temperature 99.0 F Pulse Rate 90 Respiratory 17 Rate Blood Pressure 163/105 H - Physical General Appearance: Yes: Within Normal Limits, Disheveled HEENTM: Yes: Within Normal Limits, Normocephalic, SACHA Respiratory: Yes: Within Normal Limits, Lungs Clear Neck: Yes: Within Normal Limits, No masses,lesions,Nodules Cardiology: Yes: Within Normal Limits, Regular Rate, S1, S2 Abdominal: Yes: Within Normal Limits, Protuberent Genitourinary: Yes: Within Normal Limits Musculoskeletal: Yes: Within Normal Limits Extremities: Yes: Within Normal Limits (c/o pain aby knees- no redness, mild swelling, FROM of both legs) Neurological: Yes: Within Normal Limits, drain cleaner II-XII NML intact, Fully Oriented, Alert, Motor Strength 5/5, Normal Mood/Affect Integumentary: Yes: Within Normal Limits Lymphatic: Yes: Within Normal Limits - Diagnostic (1) Alcohol dependence Current Visit: No Status: Acute (2) Opioid dependence Current Visit: No Status: Acute Qualifiers: Substance use status: uncomplicated Qualified Code(s): F11.20 - Opioid dependence, uncomplicated (3) Cocaine dependence Current Visit: Yes Status: Chronic Qualifiers: Substance use status: uncomplicated Qualified Code(s): F14.20 - Cocaine dependence, uncomplicated (4) HTN (hypertension) Current Visit: No Status: Chronic Qualifiers: Hypertension type: essential hypertension Qualified Code(s): I10 - Essential (primary) hypertension (5) Hepatitis C Current Visit: No Status: Chronic Qualifiers: Viral hepatitis chronicity: chronic Hepatic coma status: without hepatic coma Qualified Code(s): B18.2 - Chronic viral hepatitis C (6) History of bipolar disorder Current Visit: Yes Status: Chronic (7) Knee pain, bilateral Current Visit: No Status: Chronic Qualifiers: Chronicity: chronic Qualified Code(s): M25.561 - Pain in right knee; M25.562 - Pain in left knee; G89.29 - Other chronic pain (8) Obesities, morbid Current Visit: No Status: Chronic Comment: dietary teachng (9) Osteoarthritis of both knees Current Visit: No Status: Chronic Qualifiers: Osteoarthritis type: primary Qualified Code(s): M17.0 - Bilateral primary osteoarthritis of knee Cleared for Admission [facility] - Detox or Rehab [facility] Level of Care: Medically Managed [facility] Breath Alcohol Content Breath Alcohol Content: 0 Urine Drug Screen - Results Drug Screen Negative: No Urine Drug Screen Results: LAVERNE-Cocaine, MET-Methamphetamine, BZO-Benzodiazepines , OXY-Oxycodone
[2018-09-30] MEDS ORDERED: chlordiazePOXIDE HCL 25 MG CAPSULE PO PRN (16:00)
[2018-09-30] MEDS ORDERED: METHADONE HCL 10 MG TABLET (FOR DETOX USE ONLY) PO ONE ×2 (18:15→23:00)
[2018-09-30] MEDS: chlordiazePOXIDE HCL 25 MG CAPSULE PO SCH ×2 (18:41→22:23)
[2018-09-30] MEDS: amLODIPine BESYLATE 5 MG TABLET (FP) PO SCH (18:41)
[2018-09-30] MEDS: THIAMINE HCL 100 MG TABLET (FP) PO SCH (22:22)
[2018-09-30] MEDS: MELATONIN 5 MG TABLETS PO PRN (22:23)
[2018-10-01] MEDS: chlordiazePOXIDE HCL 25 MG CAPSULE PO SCH ×4 (06:07→22:19)
[2018-10-01] MEDS: IBUPROFEN 400 MG TABLET (FP) PO PRN (06:08)
[2018-10-01] MEDS ORDERED: METHADONE HCL 10 MG TABLET (FOR DETOX USE ONLY) PO SCH (10:00)
[2018-10-01] MEDS ORDERED: NICOTINE 21 MG/24 HOURS TOPICAL PATCH TD SCH (10:00)
[2018-10-01 10:23] LABS: URINE APPEARANCE CLEAR; URINE BILIRUBIN NEGATIVE (<2.0 mg/dL); URINE COLOR LTYELLOW; URINE GLUCOSE (UA) NEGATIVE (NEGATIVE); URINE KETONE NEGATIVE (NEGATIVE); URINE LEUK ESTERASE NEGATIVE (NEGATIVE); URINE NITRITE NEGATIVE (NEGATIVE); URINE PROTEIN NEGATIVE (NEGATIVE); URINE UROBILINOGEN NEGATIVE mg/dL (0.2-1.0)
[2018-10-01 10:24] LABS: EPI CELLS RARE /HPF (FEW)
[2018-10-01 10:28] LABS: HEMATOCRIT 41.8 % (35.4-49); HEMOGLOBIN 13.7 GM/dL (11.7-16.9); MCH 29.3 pg (25.7-33.7); MCHC 32.7 g/dl (32.0-35.9); MEAN CELL VOLUME 89.5 fl (80-96); MEAN PLT VOLUME 9.9 fl (7.5-11.1); PLATELET COUNT 175 K/MM3 (134-434); RBC 4.67 M/mm3 (4.00-5.60); WHITE BLOOD COUNT 8.8 K/mm3 (4.0-10.0)
[2018-10-01] MEDS: PRENATAL VITAMINS W/ FOLIC ACID TABLET (FP) PO SCH (10:43)
[2018-10-01] MEDS: amLODIPine BESYLATE 5 MG TABLET (FP) PO SCH (10:44)
[2018-10-01 11:13] LABS: ALBUMIN 1.4 g/dl (3.4-5.0); ALK PHOS 127 U/L (45-117); ANION GAP 9 MMOL/L (8-16); BILIRUBIN,TOTAL 1.4 mg/dL (0.2-1); BLOOD UREA NITROGEN 8 mg/dL (7-18); CALCIUM 8.5 mg/dL (8.5-10.1); CHLORIDE 104 mmol/L (98-107); CO2 24 mmol/L (21-32); CREATININE 1.1 mg/dL (0.55-1.3); GLUCOSE,RANDOM 104 mg/dL (74-106); POTASSIUM 3.6 mmol/L (3.5-5.1); SGOT/AST 40 U/L (15-37); SGPT/ALT 36 U/L (13-61); SODIUM 137 mmol/L (136-145); TOT PROT 7.6 g/dl (6.4-8.2)
--- NOTE | 2018-10-01 13:40 | PN ---
[facility] CIWA - CIWA Score Nausea/Vomitin-Mild Nausea/No Vomiting Muscle Tremors: 3 Anxiety: 3 Agitation: 2 Paroxysmal Sweats: 1-Minimal Palms Moist Orientation: 1-Uncertain about Date Tacttile Disturbances: 0-None Auditory Disturbances: 0-None Visual Disturbances: 0-None Headache: 2-Mild CIWA-Ar Total Score: 13 BHS COWS - Scale Resting Pulse: 0= [place] 80 or Below Sweatin= Chills/Flushing Restless Observation: 0= Sits Still Pupil Size: 0= Normal to Room Light Bone or Joint Aches: 2= Severe Diffuse Aches Runny Nose/ Eye Tearin= Nasal Congestion GI Upset > 30mins: 2= Nausea/Diarrhea Tremor Observation of Outstretched Hands: 2= Slight Tremor Visible Yawning Observation: 1= 1-2x During Session Anxiety or Irritability: 1=Feels Anxious/Irritable Goose Flesh Skin: 0=Smooth Skin COWS Score: 10 BHS Progress Note (SOAP) Subjective: tremor sweat body aches joints pain patient is taking psychotropic medication - zoloft - and history of hospitalization "can not remember" whene psychiatric referral criteria met referral at 09/30/18 Objective: 10/01/18 13:39 Vital Signs Temperature 98.6 F 10/01/18 10:26 Pulse Rate 88 10/01/18 10:26 Respiratory Rate 18 10/01/18 10:26 Blood Pressure 120/79 10/01/18 10:26 O2 Sat by Pulse Oximetry (%) Laboratory Last Values WBC 8.8 K/mm3 (4.0-10.0) 10/01/18 07:00 RBC 4.67 M/mm3 (4.00-5.60) 10/01/18 07:00 Hgb 13.7 GM/dL (11.7-16.9) 10/01/18 07:00 Hct 41.8 % (35.4-49) 10/01/18 07:00 MCV 89.5 fl (80-96) 10/01/18 07:00 MCH 29.3 pg (25.7-33.7) 10/01/18 07:00 MCHC 32.7 g/dl (32.0-35.9) 10/01/18 07:00 RDW 13.0 % (11.9-15.9) 10/01/18 07:00 Plt Count 175 K/MM3 (134-434) 10/01/18 07:00 MPV 9.9 fl (7.5-11.1) 10/01/18 07:00 Sodium 137 mmol/L (136-145) 10/01/18 07:00 Potassium 3.6 mmol/L (3.5-5.1) 10/01/18 07:00 Chloride 104 mmol/L (98-107) 10/01/18 07:00 Carbon Dioxide 24 mmol/L (21-32) 10/01/18 07:00 Anion Gap 9 MMOL/L (8-16) 10/01/18 07:00 BUN 8 mg/dL (7-18) 10/01/18 07:00 Creatinine 1.1 mg/dL (0.55-1.3) 10/01/18 07:00 Creat Clearance w eGFR > 60 (>60) 10/01/18 07:00 Random Glucose 104 mg/dL (74-106) 10/01/18 07:00 Calcium 8.5 mg/dL (8.5-10.1) 10/01/18 07:00 Total Bilirubin 1.4 mg/dL (0.2-1) H 10/01/18 07:00 AST 40 U/L (15-37) H 10/01/18 07:00 ALT 36 U/L (13-61) 10/01/18 07:00 Alkaline Phosphatase 127 U/L (45-117) H 10/01/18 07:00 Total Protein 7.6 g/dl (6.4-8.2) 10/01/18 07:00 Albumin 1.4 g/dl (3.4-5.0) L 10/01/18 07:00 Urine Color Ltyellow 10/01/18 08:30 Urine Appearance Clear 10/01/18 08:30 Urine pH 7.0 (5.0-8.0) 10/01/18 08:30 Ur Specific [place] 1.006 (1.010-1.035) L 10/01/18 08:30 Urine Protein Negative (NEGATIVE) 10/01/18 08:30 Urine Glucose (UA) Negative (NEGATIVE) 10/01/18 08:30 Urine Ketones Negative (NEGATIVE) 10/01/18 08:30 Urine Blood 1+ (NEGATIVE) H 10/01/18 08:30 Urine Nitrite Negative (NEGATIVE) 10/01/18 08:30 Urine Bilirubin Negative (<2.0 mg/dL) 10/01/18 08:30 Urine Urobilinogen Negative mg/dL (0.2-1.0) 10/01/18 08:30 Ur Leukocyte Esterase Negative (NEGATIVE) 10/01/18 08:30 Urine WBC (Auto) 1 /hpf (3-5) 10/01/18 08:30 Urine RBC (Auto) 4 /hpf (0-3) 10/01/18 08:30 Ur Epithelial Cells Rare /HPF (FEW) 10/01/18 08:30 RPR Titer Nonreactive (NONREACTIVE) 10/01/18 07:00 lab noted Assessment: 10/01/18 13:39 withdrawal sx depression taking zoloft Plan: continue detox patient requests to be seen by a psychiatrist
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
[2018-10-01] MEDS: traZODone HCL 100 MG TABLET (FP) PO SCH (22:19)
[2018-10-01] MEDS: THIAMINE HCL 100 MG TABLET (FP) PO SCH (22:20)
[2018-10-01] MEDS: QUEtiapine FUMARATE 50 MG TABLET PO SCH (22:20)
[2018-10-02] MEDS: chlordiazePOXIDE HCL 25 MG CAPSULE PO SCH ×2 (05:56→10:04)
[2018-10-02] MEDS: amLODIPine BESYLATE 5 MG TABLET (FP) PO SCH (10:04)
[2018-10-02] MEDS: METHADONE HCL 5 MG TABLET (FOR DETOX USE ONLY) PO SCH (10:04)
[2018-10-02] MEDS: PRENATAL VITAMINS W/ FOLIC ACID TABLET (FP) PO SCH (10:04)
--- NOTE | 2018-10-02 10:41 | PN ---
S CIWA - CIWA Score Nausea/Vomitin Muscle Tremors: 1-None Visible, but Britt Anxiety: 2 Agitation: 1-Slight > Activity Paroxysmal Sweats: 2 Orientation: 0-Oriented Tacttile Disturbances: 0-None Auditory Disturbances: 0-None Visual Disturbances: 0-None Headache: 0-None Present CIWA-Ar Total Score: 8 BHS COWS - Scale Resting Pulse: 0= [place] 80 or Below Sweatin= Chills/Flushing Restless Observation: 1= Difficult to Sit Still Pupil Size: 1= Pupils >than Normal Bone or Joint Aches: 1= Mild Discomfort Runny Nose/ Eye Tearin= None GI Upset > 30mins: 2= Nausea/Diarrhea Tremor Observation of Outstretched Hands: 1= Tremor Britt, Not Seen Yawning Observation: 0= None Anxiety or Irritability: 2=Irritable/Anxious Goose Flesh Skin: 0=Smooth Skin COWS Score: 9 BHS Progress Note (SOAP) Subjective: PATIENT C/O SLEEP DISTURBANCE, ANXIETY, SWEATING, CHILLS AND NAUSEA/DIARRHEA. Objective: 10/02/18 10:38 Vital Signs Temperature 96.9 F L 10/02/18 10:01 Pulse Rate 70 10/02/18 10:01 Respiratory Rate 18 10/02/18 10:01 Blood Pressure 136/74 10/02/18 10:01 O2 Sat by Pulse Oximetry (%) Laboratory Tests 10/01/18 10/01/18 10/01/18 07:00 07:00 07:00 WBC 8.8 RBC 4.67 Hgb 13.7 Hct 41.8 MCV 89.5 MCH 29.3 MCHC 32.7 RDW 13.0 Plt Count 175 MPV 9.9 Sodium 137 Potassium 3.6 Chloride 104 Carbon Dioxide 24 Anion Gap 9 BUN 8 Creatinine 1.1 Creat Clearance w eGFR > 60 Random Glucose 104 Calcium 8.5 Total Bilirubin 1.4 H AST 40 H ALT 36 Alkaline Phosphatase 127 H Total Protein 7.6 Albumin 1.4 L Urine Color Urine Appearance Urine pH Ur Specific [place] Urine Protein Urine Glucose (UA) Urine Ketones Urine Blood Urine Nitrite Urine Bilirubin Urine Urobilinogen Ur Leukocyte Esterase Urine WBC (Auto) Urine RBC (Auto) Ur Epithelial Cells RPR Titer Nonreactive 10/01/18 08:30 WBC RBC Hgb Hct MCV MCH MCHC RDW Plt Count MPV Sodium Potassium Chloride Carbon Dioxide Anion Gap BUN Creatinine Creat Clearance w eGFR Random Glucose Calcium Total Bilirubin AST ALT Alkaline Phosphatase Total Protein Albumin Urine Color Ltyellow Urine Appearance Clear Urine pH 7.0 Ur Specific [place] 1.006 L Urine Protein Negative Urine Glucose (UA) Negative Urine Ketones Negative Urine Blood 1+ H Urine Nitrite Negative Urine Bilirubin Negative Urine Urobilinogen Negative Ur Leukocyte Esterase Negative Urine WBC (Auto) 1 Urine RBC (Auto) 4 Ur Epithelial Cells Rare RPR Titer PE: ALERT AND ORIENTED X 3 SKIN MILD FACIAL MOISTURE EXT FULL ROM, TREMORS FELT AMB AD YCNTHIA +ANXIETY Assessment: 10/02/18 10:40 WITHDRAWAL SX Plan: CONTINUE DETOX ENCOURAGE ORAL FLUIDS REPEAT UA CONTINUE TO MONITOR CLINICALLY
[2018-10-02] MEDS: chlordiazePOXIDE 5 MG CAPSULE PO SCH ×2 (18:09→22:32)
[2018-10-02] MEDS: QUEtiapine FUMARATE 50 MG TABLET PO SCH (22:31)
[2018-10-02] MEDS: traZODone HCL 100 MG TABLET (FP) PO SCH (22:32)
[2018-10-02] MEDS: IBUPROFEN 400 MG TABLET (FP) PO PRN (22:32)
[2018-10-02] MEDS: THIAMINE HCL 100 MG TABLET (FP) PO SCH (22:32)
[2018-10-03] MEDS: chlordiazePOXIDE 5 MG CAPSULE PO SCH ×2 (06:16→10:32)
[2018-10-03] MEDS: amLODIPine BESYLATE 5 MG TABLET (FP) PO SCH (10:32)
[2018-10-03] MEDS: METHADONE HCL 5 MG TABLET (FOR DETOX USE ONLY) PO SCH (10:33)
[2018-10-03] MEDS: IBUPROFEN 400 MG TABLET (FP) PO PRN (10:34)
[2018-10-03] MEDS: PRENATAL VITAMINS W/ FOLIC ACID TABLET (FP) PO SCH (10:36)
--- NOTE | 2018-10-03 12:49 | PN ---
[facility] Progress Note Note: PATIENT CONTINUES WITH DETOX REGIMEN. C/O ANXIETY AND IRRITABILITY. Laboratory Tests 10/01/18 10/01/18 10/01/18 07:00 07:00 07:00 WBC 8.8 RBC 4.67 Hgb 13.7 Hct 41.8 MCV 89.5 MCH 29.3 MCHC 32.7 RDW 13.0 Plt Count 175 MPV 9.9 Sodium 137 Potassium 3.6 Chloride 104 Carbon Dioxide 24 Anion Gap 9 BUN 8 Creatinine 1.1 Creat Clearance w eGFR > 60 Random Glucose 104 Calcium 8.5 Total Bilirubin 1.4 H AST 40 H ALT 36 Alkaline Phosphatase 127 H Total Protein 7.6 Albumin 1.4 L Urine Color Urine Appearance Urine pH Ur Specific [place] Urine Protein Urine Glucose (UA) Urine Ketones Urine Blood Urine Nitrite Urine Bilirubin Urine Urobilinogen Ur Leukocyte Esterase Urine WBC (Auto) Urine RBC (Auto) Ur Epithelial Cells RPR Titer Nonreactive 10/01/18 08:30 WBC RBC Hgb Hct MCV MCH MCHC RDW Plt Count MPV Sodium Potassium Chloride Carbon Dioxide Anion Gap BUN Creatinine Creat Clearance w eGFR Random Glucose Calcium Total Bilirubin AST ALT Alkaline Phosphatase Total Protein Albumin Urine Color Ltyellow Urine Appearance Clear Urine pH 7.0 Ur Specific [place] 1.006 L Urine Protein Negative Urine Glucose (UA) Negative Urine Ketones Negative Urine Blood 1+ H Urine Nitrite Negative Urine Bilirubin Negative Urine Urobilinogen Negative Ur Leukocyte Esterase Negative Urine WBC (Auto) 1 Urine RBC (Auto) 4 Ur Epithelial Cells Rare RPR Titer PE: ALERT AND ORIENTED X 3 SKIN WARM AND DRY EXT FULL ROM, AMB AD CYNTHIA +ANXIETY AND IRRITABILITY A/P: WITHDRAWAL SX CONTINUE DETOX UA RESULTS PENDING ENCOURAGE FLUIDS PSYCH CONSULT ORDERED CONTINUE TO MONITOR
[2018-10-03 14:46] LABS: URINE APPEARANCE Clear; URINE BILIRUBIN Negative (<2.0 mg/dL); URINE COLOR Yellow; URINE GLUCOSE (UA) Negative (NEGATIVE); URINE KETONE Negative (NEGATIVE); URINE LEUK ESTERASE TRACE (NEGATIVE); URINE NITRITE Negative (NEGATIVE); URINE PROTEIN Negative (NEGATIVE); URINE UROBILINOGEN 0.2 mg/dL (0.2-1.0)
[2018-10-03 16:05] LABS: CALCIUM OXALATE CRYSTALS FEW /hpf (NONE SEEN); EPI CELLS 1+ /HPF (FEW); URINE BACTERIA 1+ /hpf (NONE SEEN)
[2018-10-03] MEDS: chlordiazePOXIDE HCL 10 MG CAPSULE PO SCH ×2 (18:11→22:23)
--- NOTE | 2018-10-03 18:12 | PN ---
Psychiatric Progress Note Vital Signs: Vital Signs Period Temp Pulse Resp BP Sys/Jean Pulse Ox Last 24 Hr 96.8 F-97.7 F 82-107 18-18 107-125/73-79 Date of Session: 10/03/18 Chief Complaint:: "I need my abilify" HPI: Patient admitted to [address] [place] [address], for heroin, amphetamine, alcohol and cocaine dependence. ROS: Remarkable for hypertension, obesity, cirrhosis of the liver (self report) , hepatitis C, past treatment for syphilis and surgical excision of lipoma ( left side of neck in 2009). Noted history of umbilical herniorraphy and arthritis of both knees (uses cane for ambulation). Current Medications: Active Medications Generic Name Dose Route Start Last Admin Trade Name Freq PRN Reason Stop Dose Admin Acetaminophen 650 mg 09/30/18 15:41 Tylenol - PO Q4H PRN FEVER Al Hydroxide/Mg Hydroxide 30 ml 09/30/18 15:41 Mylanta Oral Suspension - PO Q6H PRN DYSPEPSIA Amlodipine Besylate 5 mg 09/30/18 18:15 10/03/18 10:32 Norvasc - PO 5 mg DAILY JACQUES Administration Chlordiazepoxide HCl 10 mg 10/03/18 17:00 Librium - PO 10/04/18 11:01 [id number] JACQUES Eucalyptus/Menthol/Phenol/Sorbitol 1 each 09/30/18 15:41 Cepastat Lozenge - MM Q4H PRN SORE THROAT Guaifenesin 10 ml 09/30/18 15:41 Robitussin Dm - PO Q6H PRN COUGH Hydroxyzine Pamoate 50 mg 09/30/18 15:41 Vistaril - PO Q4H PRN AGITATION Ibuprofen 400 mg 09/30/18 15:41 10/03/18 10:34 Motrin - PO 400 mg Q6H PRN Administration PAIN LEVEL 4-6 Loperamide HCl 4 mg 09/30/18 15:41 Imodium - PO Q6H PRN DIARRHEA Magnesium Citrate 300 ml 09/30/18 15:41 Citroma - PO Q48H PRN CONSTIPATION Magnesium Hydroxide 30 ml 09/30/18 15:41 Milk Of Magnesia - PO DAILY PRN CONSTIPATION Melatonin 5 mg 09/30/18 22:00 09/30/18 22:23 Melatonin PO 5 mg HS PRN Administration INSOMNIA Methadone HCl 5 mg 10/05/18 06:00 Dolophine - PO 10/05/18 06:01 DAILY@0600 JACQUES Methadone HCl 10 mg 10/04/18 10:00 Dolophine - PO 10/04/18 10:01 DAILY JACQUES Multivit/Folic Acid/Iron 1 tab 10/01/18 10:00 10/03/18 10:36 Vitamins (Sjr) - PO Not Given DAILY JACQUES Pseudoephedrine/Triprolidine 1 combo 09/30/18 15:41 Actifed - PO TID PRN NASAL CONGESTION Quetiapine Fumarate 150 mg 10/01/18 22:00 10/02/18 22:31 Seroquel - PO 150 mg HS JACQUES Administration Thiamine HCl 100 mg 09/30/18 22:00 10/02/18 22:32 Vitamin B1 - PO 100 mg HS JACQUES Administration Trazodone HCl 100 mg 10/01/18 22:00 10/02/18 22:32 Desyrel - PO 100 mg HS JACQUES Administration Medication(s) Change(s): No. Current Side Effect: No Lab tests ordered: No Lab tests reviewed: Yes Provider note:: Chart reviewed. Dr. Min note read and appreciated. Patient requesting abilify. As per pharmacy claims patient has not received a prescription of abilify since 03/06/18. Patient is currently prescribed seroquel 150mg qhs + Trazodone 100mg HS. At this time there is no clinical indication to restart abilify. Patient is also currently prescribed an antipsychotic. Patient' s mood is stable, no psychotic symptoms noted. Patient receptive and satisifed with feedback. Total face to face time:: 25 Mental Status Exam - Mental Status Exam Alert and Oriented to: Time, Place, Person Cognitive Function: Good Patient Appearance: Well Groomed Mood: Hopeful Affect: Appropriate Patient Behavior: Appropriate, Cooperative Speech Pattern: Clear, Appropriate Voice Loudness: Normal Thought Process: Intact, Goal Oriented Thought Disorder: Not Present Hallucinations: Denies Suicidal Ideation: Denies Homicidal Ideation: Denies Insight/Judgement: Poor Sleep: Fair Appetite: Fair Muscle strength/Tone: Normal Gait/Station: Other (Patient ambulates with a cane.) Psychiatric Treatment Plan - Problem List (1) Alcohol dependence with uncomplicated withdrawal Current Visit: Yes (2) Opioid dependence with withdrawal Current Visit: Yes (3) Cocaine dependence Current Visit: Yes Qualifiers: Substance use status: uncomplicated Qualified Code(s): F14.20 - Cocaine dependence, uncomplicated (4) History of bipolar disorder Current Visit: Yes (5) History of posttraumatic stress disorder (PTSD) Current Visit: Yes (6) Insomnia Current Visit: Yes Qualifiers: Insomnia type: unspecified Qualified Code(s): G47.00 - Insomnia, unspecified (7) Substance induced mood disorder Current Visit: Yes (8) Non-compliant patient Current Visit: Yes
[2018-10-03] MEDS: traZODone HCL 100 MG TABLET (FP) PO SCH (22:24)
[2018-10-03] MEDS: THIAMINE HCL 100 MG TABLET (FP) PO SCH (22:24)
[2018-10-03] MEDS: QUEtiapine FUMARATE 50 MG TABLET PO SCH (22:24)
[2018-10-03] MEDS: MELATONIN 5 MG TABLETS PO PRN (22:25)
[2018-10-04] MEDS: chlordiazePOXIDE HCL 10 MG CAPSULE PO SCH ×2 (06:59→11:40)
[2018-10-04 09:29] VITALS: BP 103/67; PULSE 96; TEMP 97.3
[2018-10-04] MEDS ORDERED: METHADONE HCL 10 MG TABLET (FOR DETOX USE ONLY) PO SCH (10:00)
[2018-10-04] MEDS: PRENATAL VITAMINS W/ FOLIC ACID TABLET (FP) PO SCH (11:40)
[2018-10-04] MEDS: amLODIPine BESYLATE 5 MG TABLET (FP) PO SCH (11:40)
--- NOTE | 2018-10-04 13:17 | PN ---
[facility] Progress Note Note: Pt to to be discharged today- has no complaints
--- NOTE | 2018-10-04 13:18 | DS ---
[facility] Detox Discharge Summary Admission Date: 09/30/18 Discharge Date: 10/04/18 - History Present History: Alcohol Dependence, Cannabis Dependence, Cocaine Dependence, Opioid Dependence - Physical Exam Results Vital Signs: Vital Signs Temperature 97.3 F L 10/04/18 09:28 Pulse Rate 96 H 10/04/18 09:28 Respiratory Rate 20 10/04/18 09:28 Blood Pressure 103/67 10/04/18 09:28 O2 Sat by Pulse Oximetry (%) Pertinent Admission Physical Exam Findings: pt admitted for alcohol and heroin use- pt was on detox protocols- pt did well and is continuing with rehab - Treatment Hospital Course: Detox Protocol Followed, Detoxed Safely, Responded well, Discharged Condition Good, Rehab Referral Accepted - Medication Discharge Medications: Ambulatory Orders Amlodipine Besylate [Norvasc -] 5 mg PO DAILY 01/15/18 Quetiapine Fumarate [Seroquel -] 200 mg PO HS #30 tablet 01/16/18 Aripiprazole [Abilify -] 5 mg PO DAILY #30 tablet 03/06/18 Sertraline HCl [Zoloft -] 100 mg PO DAILY #60 tablet 03/06/18 traZODone HCL [Desyrel -] 100 mg PO HS #30 tablet 03/06/18 Hydroxyzine HCl 50 mg PO QID PRN 04/04/18 - Diagnosis (1) Alcohol dependence Current Visit: No Status: Acute (2) Opioid dependence Current Visit: No Status: Acute Qualifiers: Substance use status: uncomplicated Qualified Code(s): F11.20 - Opioid dependence, uncomplicated (3) Cocaine dependence Current Visit: Yes Status: Chronic Qualifiers: Substance use status: uncomplicated Qualified Code(s): F14.20 - Cocaine dependence, uncomplicated (4) HTN (hypertension) Current Visit: No Status: Chronic Qualifiers: Hypertension type: essential hypertension Qualified Code(s): I10 - Essential (primary) hypertension (5) Hepatitis C Current Visit: No Status: Chronic Qualifiers: Viral hepatitis chronicity: chronic Hepatic coma status: without hepatic coma Qualified Code(s): B18.2 - Chronic viral hepatitis C (6) History of bipolar disorder Current Visit: Yes Status: Chronic (7) Knee pain, bilateral Current Visit: No Status: Chronic Qualifiers: Chronicity: chronic Qualified Code(s): M25.561 - Pain in right knee; M25.562 - Pain in left knee; G89.29 - Other chronic pain (8) Obesities, morbid Current Visit: No Status: Chronic (9) Osteoarthritis of both knees Current Visit: No Status: Chronic Qualifiers: Osteoarthritis type: primary Qualified Code(s): M17.0 - Bilateral primary osteoarthritis of knee
[2018-10-05] MEDS ORDERED: METHADONE HCL 5 MG TABLET (FOR DETOX USE ONLY) PO SCH (06:00)
== END 2018-10-04 13:23 | disposition home or self-care (01) | DRG 773 ==
LOC: YASAS 14:08 → Y3N 17:45
PROC: HZ2ZZZZ Detoxification Services for Substance Abuse Treatment (ICD-10-PCS; principal; 2018-09-30)
DX: F11.23 Opioid dependence with withdrawal (principal); F10.230 Alcohol dependence with withdrawal, uncomplicated; F14.20 Cocaine dependence, uncomplicated; F43.10 Post-traumatic stress disorder, unspecified; F31.9 Bipolar disorder, unspecified; I10 Essential (primary) hypertension; B18.2 Chronic viral hepatitis C; M25.561 Pain in right knee; M25.562 Pain in left knee; G89.29 Other chronic pain; M17.0 Bilateral primary osteoarthritis of knee; G47.00 Insomnia, unspecified; E66.01 Morbid (severe) obesity due to excess calories; Z68.36 Body mass index [BMI] 36.0-36.9, adult; Z87.438 Personal history of other diseases of male genital organs; Z91.19 Patient's noncompliance with other medical treatment and regimen
CPT/HCPCS: 36415; 80053; 81003; 81015; 85027; 86593

== ENCOUNTER 2018-12-17 09:56 | Inpatient (IN) | payer OTHER ==
[2018-12-17 10:30] VITALS: BMI 36.6
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
[2018-12-17] MEDS ORDERED: ACETAMINOPHEN 325 MG TABLET (FP) PO PRN (11:52)
[2018-12-17] MEDS ORDERED: MAGNESIUM HYDROX 2400MG/30ML ORAL SUSPENSION 30 ML CUP PO PRN (11:52)
[2018-12-17] MEDS ORDERED: MAGNESIUM CITRATE 300 ML BOTTLE PO PRN (11:52)
[2018-12-17] MEDS ORDERED: MENTHOL/PHENOL 1 EACH UD MM PRN (11:52)
[2018-12-17] MEDS ORDERED: IBUPROFEN 400 MG TABLET (FP) PO PRN (11:52)
[2018-12-17] MEDS ORDERED: chlordiazePOXIDE HCL 25 MG CAPSULE PO PRN (11:52)
[2018-12-17] MEDS ORDERED: MAG HYDROX/AL HYDROX/SIMETH 30 ML UNIT-DOSE CUP PO PRN (11:52)
[2018-12-17] MEDS ORDERED: METHADONE HCL 10 MG TABLET (FOR DETOX USE ONLY) PO ONE ×2 (13:15→23:00)
--- NOTE | 2018-12-17 14:10 | CONSULT ---
[facility] Psychiatric Consult - Data Date of interview: 12/17/18 Admission source: [facility] Identifying data: Patient is a 43 year old male, father of two, unemployed, domiciled, and is supported by [facility]. This is one of multiple admissions for patient. Patient admitted to for opiate dependence. Substance Abuse History: Heroin- 12 bags daily. Methamphetamine - 1gram daily. Alcohol- 1/5 vodka daily Medical History: Remarkable for hypertension, obesity, cirrhosis of the liver ( self report), hepatitis C, past treatment for syphilis and surgical excision of lipoma (left side of neck in 2009). Noted history of umbilical herniorraphy and arthritis of both knees (uses cane for ambulation). Psychiatric History: Patient reports h/o multiple psychiatric hospitalizations, most recently in October 2018 at [facility] for suicidal/homicidal ideation (stated he was told he was having SI/HI although cant recall because he "blacked out"). Patient is also known to [facility]. Diagnosis of PTSD (woke up next to whom was no longer living) and MDD. Most recent outpatient psychiatric care was provided five years ago in [place], [place]. Mr. Fine reports receiving psychotropic medications while incarcerated or when admitted to detox/rehab program. He reports having an appointment to see a psychiatrist next week as he states that he is in the [facility]. Mr. Fine reports seeing a psychiatrist last month at [facility] and was prescribed abilify 5mg + depakote (unknown) + seroquel 200mg+ trazodone 150mg + Zoloft 100mg. Compliance of medications is questionable. At present, he reports feeling sad. Mr. Fine denies h/o suicide attempt. Physical/Sexual Abuse/Trauma History: denies. Mental Status Exam - Mental Status Exam Alert and Oriented to: Time, Place, Person Cognitive Function: Good Patient Appearance: Well Groomed Mood: Withdrawn Affect: Mood Congruent Patient Behavior: Cooperative Speech Pattern: Appropriate Voice Loudness: Normal Thought Process: Intact, Goal Oriented Thought Disorder: Not Present Hallucinations: Denies Suicidal Ideation: Denies Homicidal Ideation: Denies Insight/Judgement: Poor Sleep: Poorly Appetite: Fair Muscle strength/Tone: Normal Gait/Station: Other (Walks with a cane.) Psychiatric Findings - Problem List ([place] 1, 2,3) (1) Alcohol dependence with uncomplicated withdrawal Current Visit: Yes Status: Acute (2) Amphetamine dependence Current Visit: Yes Status: Acute (3) Opioid dependence with withdrawal Current Visit: Yes Status: Acute (4) Sedative hypnotic or anxiolytic dependence Current Visit: Yes Status: Acute (5) Cocaine dependence Current Visit: Yes Status: Chronic Qualifiers: Substance use status: uncomplicated Qualified Code(s): F14.20 - Cocaine dependence, uncomplicated (6) Substance-induced sleep disorder Current Visit: Yes Status: Acute (7) History of bipolar disorder Current Visit: Yes Status: Chronic (8) History of posttraumatic stress disorder (PTSD) Current Visit: Yes Status: Chronic - Initial Treatment Plan Initial Treatment Plan: Psychoeducation provided. Detoxification in progress. Will order Zoloft 100mg + Ablilify 5mg + Seroquel 100mg HS. Will not order all medications requested by patient due to history of nonadherence and to minimize polypharmacy. Benefits and side effects discussed. Verbal consent given.
[2018-12-17] MEDS: chlordiazePOXIDE HCL 25 MG CAPSULE PO SCH ×2 (17:48→22:46)
[2018-12-17] MEDS ORDERED: MELATONIN 5 MG TABLETS PO PRN (22:00)
[2018-12-17] MEDS: THIAMINE HCL 100 MG TABLET (FP) PO SCH (22:46)
[2018-12-17] MEDS: QUEtiapine FUMARATE 100 MG TABLET (FP) PO SCH (22:46)
[2018-12-18] MEDS: chlordiazePOXIDE HCL 25 MG CAPSULE PO SCH ×4 (06:28→22:56)
[2018-12-18] MEDS ORDERED: METHADONE HCL 10 MG TABLET (FOR DETOX USE ONLY) PO SCH (10:00)
[2018-12-18 10:18] LABS: HEMATOCRIT 37.7 % (35.4-49); HEMOGLOBIN 12.7 GM/dL (11.7-16.9); MCH 30.2 pg (25.7-33.7); MCHC 33.7 g/dl (32.0-35.9); MEAN CELL VOLUME 89.8 fl (80-96); MEAN PLT VOLUME 9.8 fl (7.5-11.1); PLATELET COUNT 229 K/MM3 (134-434); RDW 14.3 % (11.9-15.9); WHITE BLOOD COUNT 6.3 K/mm3 (4.0-10.0)
[2018-12-18] MEDS: ARIPiprazole 5 MG TABLET (FP) PO SCH (10:57)
[2018-12-18] MEDS: PRENATAL VITAMINS W/ FOLIC ACID TABLET (FP) PO SCH (11:00)
[2018-12-18 11:34] LABS: ALBUMIN 3.9 g/dl (3.4-5.0); ALK PHOS 114 U/L (45-117); ANION GAP 8 MMOL/L (8-16); BILIRUBIN,TOTAL 1.6 mg/dL (0.2-1); BLOOD UREA NITROGEN 12 mg/dL (7-18); CALCIUM 8.9 mg/dL (8.5-10.1); CHLORIDE 106 mmol/L (98-107); CO2 26 mmol/L (21-32); CREATININE 1.1 mg/dL (0.55-1.3); GLUCOSE,RANDOM 91 mg/dL (74-106); POTASSIUM 3.9 mmol/L (3.5-5.1); SGOT/AST 29 U/L (15-37); SGPT/ALT 29 U/L (13-61); SODIUM 140 mmol/L (136-145); TOT PROT 8.5 g/dl (6.4-8.2)
--- NOTE | 2018-12-18 14:53 | PN ---
[facility] CIWA - CIWA Score Nausea/Vomitin-Mild Nausea/No Vomiting Muscle Tremors: 1-None Visible, but [place] Anxiety: 1-Mildly Anxious Agitation: 1-Slight > Activity Paroxysmal Sweats: 1-Minimal Palms Moist Orientation: 0-Oriented Tacttile Disturbances: 0-None Auditory Disturbances: 0-None Visual Disturbances: 0-None Headache: 0-None Present CIWA-Ar Total Score: 5 S COWS - Scale Resting Pulse: 0= [place] 80 or Below Sweatin= No chills or Flushing Restless Observation: 0= Sits Still Pupil Size: 0= Normal to Room Light Bone or Joint Aches: 1= Mild Discomfort Runny Nose/ Eye Tearin= Nasal Congestion GI Upset > 30mins: 0= None Tremor Observation of Outstretched Hands: 1= Tremor [place], Not Seen Yawning Observation: 0= None Anxiety or Irritability: 0= None Goose Flesh Skin: 0=Smooth Skin COWS Score: 3 S Progress Note (SOAP) Subjective: pt states he uses many different kinds of illicit substances-italo crystal meth, here for alcohol and heroin detox, says he has rheumatoid arthritis and has h/o leg injury, would like flexeril for added pain relief. d/w pt to attend an [facility] methadone or [facility] for heroin addicition treatment O: Vital Signs - 24 hr 12/17/18 12/17/18 12/18/18 17:14 21:21 03:30 Temperature 97.5 F L 96.6 F L Pulse Rate 68 89 Respiratory 18 18 18 Rate Blood Pressure 114/74 127/76 12/18/18 12/18/18 12/18/18 07:54 09:17 12:57 Temperature 97.2 F L 99.0 F 98.3 F Pulse Rate 81 90 81 Respiratory 18 18 18 Rate Blood Pressure 117/54 L 130/68 115/81 Laboratory Tests 12/17/18 12/18/18 12/18/18 11:50 06:00 06:00 WBC 6.3 RBC 4.20 Hgb 12.7 Hct 37.7 MCV 89.8 MCH 30.2 MCHC 33.7 RDW 14.3 Plt Count 229 D MPV 9.8 Sodium 140 Potassium 3.9 Chloride 106 Carbon Dioxide 26 Anion Gap 8 BUN 12 Creatinine 1.1 Creat Clearance w eGFR > 60 Random Glucose 91 Calcium 8.9 Total Bilirubin 1.6 H AST 29 ALT 29 Alkaline Phosphatase 114 Total Protein 8.5 H Albumin 3.9 RPR Titer HIV 1&2 Antibody Screen Negative HIV P24 Antigen Negative 12/18/18 06:00 WBC RBC Hgb Hct MCV MCH MCHC RDW Plt Count MPV Sodium Potassium Chloride Carbon Dioxide Anion Gap BUN Creatinine Creat Clearance w eGFR Random Glucose Calcium Total Bilirubin AST ALT Alkaline Phosphatase Total Protein Albumin RPR Titer Nonreactive HIV 1&2 Antibody Screen HIV P24 Antigen a/p continue alcohol and methadone detox protocols pt has prn pain meds- will add flexeril for added comfort
[2018-12-18] MEDS: CYCLOBENZAPRINE HCL 5 MG TABLET PO PRN ×2 (18:44→22:56)
[2018-12-18] MEDS: QUEtiapine FUMARATE 100 MG TABLET (FP) PO SCH (22:56)
[2018-12-18] MEDS: SERTRALINE HCL 50 MG TABLET (FP) PO SCH (22:56)
[2018-12-18] MEDS: THIAMINE HCL 100 MG TABLET (FP) PO SCH (22:56)
[2018-12-19] MEDS: chlordiazePOXIDE HCL 25 MG CAPSULE PO SCH ×2 (06:07→11:33)
[2018-12-19] MEDS ORDERED: METHADONE HCL 5 MG TABLET (FOR DETOX USE ONLY) PO SCH (10:00)
--- NOTE | 2018-12-19 10:03 | PN ---
S CIWA - CIWA Score Nausea/Vomitin Muscle Tremors: 2 Anxiety: 2 Agitation: 2 Paroxysmal Sweats: 1-Minimal Palms Moist Orientation: 0-Oriented Tacttile Disturbances: 1-Very Mild Itch/Numbness Auditory Disturbances: 1-Very Mild Visual Disturbances: 0-None Headache: 2-Mild CIWA-Ar Total Score: 13 [facility] COWS - Scale Resting Pulse: 1= [place] 81-100 Sweatin= Chills/Flushing Restless Observation: 3= Extraneous Movement Pupil Size: 1= Pupils >than Normal Bone or Joint Aches: 2= Severe Diffuse Aches Runny Nose/ Eye Tearin= Nasal Congestion GI Upset > 30mins: 2= Nausea/Diarrhea Tremor Observation of Outstretched Hands: 2= Slight Tremor Visible Yawning Observation: 1= 1-2x During Session Anxiety or Irritability: 2=Irritable/Anxious Goose Flesh Skin: 0=Smooth Skin COWS Score: 16 [facility] Progress Note (SOAP) Subjective: alert,irritable,anxious,interrupted sleep,pain in the body and back Objective: 12/19/18 10:01 alert,irritable,anxious,interrupted sleep,tremor,pain in the body and back 12/19/18 10:02 Vital Signs Temperature 98.1 F 12/19/18 09:38 Pulse Rate 115 H 12/19/18 09:38 Respiratory Rate 16 12/19/18 09:38 Blood Pressure 103/72 12/19/18 09:38 O2 Sat by Pulse Oximetry (%) 12/19/18 10:02 Laboratory Last Values WBC 6.3 K/mm3 (4.0-10.0) 12/18/18 06:00 RBC 4.20 M/mm3 (4.00-5.60) 12/18/18 06:00 Hgb 12.7 GM/dL (11.7-16.9) 12/18/18 06:00 Hct 37.7 % (35.4-49) 12/18/18 06:00 MCV 89.8 fl (80-96) 12/18/18 06:00 MCH 30.2 pg (25.7-33.7) 12/18/18 06:00 MCHC 33.7 g/dl (32.0-35.9) 12/18/18 06:00 RDW 14.3 % (11.9-15.9) 12/18/18 06:00 Plt Count 229 K/MM3 (134-434) D 12/18/18 06:00 MPV 9.8 fl (7.5-11.1) 12/18/18 06:00 Sodium 140 mmol/L (136-145) 12/18/18 06:00 Potassium 3.9 mmol/L (3.5-5.1) 12/18/18 06:00 Chloride 106 mmol/L (98-107) 12/18/18 06:00 Carbon Dioxide 26 mmol/L (21-32) 12/18/18 06:00 Anion Gap 8 MMOL/L (8-16) 12/18/18 06:00 BUN 12 mg/dL (7-18) 12/18/18 06:00 Creatinine 1.1 mg/dL (0.55-1.3) 12/18/18 06:00 Creat Clearance w eGFR > 60 (>60) 12/18/18 06:00 Random Glucose 91 mg/dL (74-106) 12/18/18 06:00 Calcium 8.9 mg/dL (8.5-10.1) 12/18/18 06:00 Total Bilirubin 1.6 mg/dL (0.2-1) H 12/18/18 06:00 AST 29 U/L (15-37) 12/18/18 06:00 ALT 29 U/L (13-61) 12/18/18 06:00 Alkaline Phosphatase 114 U/L (45-117) 12/18/18 06:00 Total Protein 8.5 g/dl (6.4-8.2) H 12/18/18 06:00 Albumin 3.9 g/dl (3.4-5.0) 12/18/18 06:00 RPR Titer Nonreactive (NONREACTIVE) 12/18/18 06:00 HIV 1&2 Antibody Screen Negative 12/17/18 11:50 HIV P24 Antigen Negative 12/17/18 11:50 Assessment: 12/19/18 10:02 withdrawal symptom Plan: continue detox
[2018-12-19] MEDS: CYCLOBENZAPRINE HCL 5 MG TABLET PO PRN (11:10)
[2018-12-19] MEDS: PRENATAL VITAMINS W/ FOLIC ACID TABLET (FP) PO SCH (11:11)
[2018-12-19] MEDS: ARIPiprazole 5 MG TABLET (FP) PO SCH (11:11)
[2018-12-19] MEDS ORDERED: METHADONE HCL 10 MG TABLET (FOR DETOX USE ONLY) PO ONE (11:15)
--- NOTE | 2018-12-19 11:15 | PN ---
[facility] Progress Note Note: less withdrawal ,medication adjusted,discharge in am
[2018-12-19] MEDS: chlordiazePOXIDE 5 MG CAPSULE PO SCH ×2 (17:49→22:29)
[2018-12-19] MEDS: QUEtiapine FUMARATE 100 MG TABLET (FP) PO SCH (22:29)
[2018-12-19] MEDS: THIAMINE HCL 100 MG TABLET (FP) PO SCH (22:29)
[2018-12-19] MEDS: SERTRALINE HCL 50 MG TABLET (FP) PO SCH (22:29)
[2018-12-20] MEDS ORDERED: METHADONE HCL 5 MG TABLET (FOR DETOX USE ONLY) PO ONE (06:00)
[2018-12-20 06:21] VITALS: BP 96/51; PULSE 68; TEMP 96.8
[2018-12-20] MEDS: chlordiazePOXIDE 5 MG CAPSULE PO SCH ×2 (07:12→11:10)
--- NOTE | 2018-12-20 09:20 | DS ---
[facility] Detox Discharge Summary Admission Date: 12/17/18 Discharge Date: 12/20/18 - History Present History: Alcohol Dependence, Cocaine Dependence, Opioid Dependence, Sedative Dependence - Physical Exam Results Vital Signs: Vital Signs Temperature 96.8 F L 12/20/18 06:20 Pulse Rate 68 12/20/18 06:20 Respiratory Rate 18 12/20/18 06:20 Blood Pressure 96/51 L 12/20/18 06:20 O2 Sat by Pulse Oximetry (%) - Treatment Hospital Course: Detox Protocol Followed, Detoxed Safely, Responded well, Discharged Condition Good, Rehab Referral Accepted - Medication Discharge Medications: Ambulatory Orders Amlodipine Besylate [Norvasc -] 5 mg PO DAILY 01/15/18 Quetiapine Fumarate [Seroquel -] 200 mg PO HS #30 tablet 01/16/18 Aripiprazole [Abilify -] 5 mg PO DAILY #30 tablet 03/06/18 Sertraline HCl [Zoloft -] 100 mg PO DAILY #60 tablet 03/06/18 traZODone HCL [Desyrel -] 100 mg PO HS #30 tablet 03/06/18 Hydroxyzine HCl 50 mg PO QID PRN 04/04/18 - Diagnosis (1) Alcohol dependence with uncomplicated withdrawal Current Visit: Yes Status: Chronic (2) Amphetamine dependence Current Visit: Yes Status: Acute (3) Opioid dependence with withdrawal Current Visit: Yes Status: Chronic (4) Sedative hypnotic or anxiolytic dependence Current Visit: Yes Status: Chronic (5) Substance-induced sleep disorder Current Visit: Yes Status: Acute (6) Cocaine dependence Current Visit: Yes Status: Chronic Qualifiers: Substance use status: uncomplicated Qualified Code(s): F14.20 - Cocaine dependence, uncomplicated (7) History of bipolar disorder Current Visit: Yes Status: Chronic (8) History of posttraumatic stress disorder (PTSD) Current Visit: Yes Status: Chronic (9) Abnormal laboratory test result Current Visit: No Status: Acute (10) Cannabis dependence Current Visit: Yes Status: Chronic (11) Insomnia Current Visit: No Status: Acute (12) Sedative, hypnotic or anxiolytic dependence with withdrawal, uncomplicated Current Visit: Yes Status: Chronic (13) Substance induced mood disorder Current Visit: No Status: Acute (14) Alcohol related seizure Current Visit: No Status: Chronic (15) Bipolar disorder Current Visit: No Status: Chronic (16) HTN (hypertension) Current Visit: No Status: Chronic Qualifiers: Hypertension type: essential hypertension Qualified Code(s): I10 - Essential (primary) hypertension (17) Hepatitis C Current Visit: Yes Status: Chronic Qualifiers: Viral hepatitis chronicity: chronic Hepatic coma status: without hepatic coma Qualified Code(s): B18.2 - Chronic viral hepatitis C (18) Knee pain, bilateral Current Visit: No Status: Chronic Qualifiers: Chronicity: chronic Qualified Code(s): M25.561 - Pain in right knee; M25.562 - Pain in left knee; G89.29 - Other chronic pain (19) OCD (obsessive compulsive disorder) Current Visit: Yes Status: Chronic Qualifiers: Obsessive-compulsive disorder type: unspecified Qualified Code(s): F42.9 - Obsessive-compulsive disorder, unspecified (20) Osteoarthritis of both knees Current Visit: Yes Status: Chronic Qualifiers: Osteoarthritis type: primary Qualified Code(s): M17.0 - Bilateral primary osteoarthritis of knee (21) PTSD (post-traumatic stress disorder) Current Visit: Yes Status: Chronic (22) Substance induced mood disorder Current Visit: No Status: Chronic (23) Bipolar II disorder Current Visit: No Status: Suspected (24) History of late syphilis Current Visit: No Status: Resolved (25) Syphilis (acquired) Current Visit: No Status: Resolved - AMA Did Patient Leave Against Medical Advice: No (referred to [facility] inpatient rehab)
[2018-12-20] MEDS ORDERED: METHADONE HCL 10 MG TABLET (FOR DETOX USE ONLY) PO SCH (10:00)
[2018-12-20] MEDS: PRENATAL VITAMINS W/ FOLIC ACID TABLET (FP) PO SCH (11:10)
[2018-12-20] MEDS: ARIPiprazole 5 MG TABLET (FP) PO SCH (11:14)
[2018-12-20] MEDS ORDERED: chlordiazePOXIDE HCL 10 MG CAPSULE PO SCH (17:00)
[2018-12-21] MEDS ORDERED: METHADONE HCL 5 MG TABLET (FOR DETOX USE ONLY) PO SCH (06:00)
== END 2018-12-20 11:42 | disposition home or self-care (01) | DRG 773 ==
LOC: YASAS 09:56 → Y6N 12:41
PROVIDERS: ADMIT Surgery; ATTEND Surgery
PROC: HZ2ZZZZ Detoxification Services for Substance Abuse Treatment (ICD-10-PCS; principal; 2018-12-17)
DX: F11.23 Opioid dependence with withdrawal (principal); F10.230 Alcohol dependence with withdrawal, uncomplicated; F13.230 Sedative, hypnotic or anxiolytic dependence with withdrawal, uncomplicated; F14.20 Cocaine dependence, uncomplicated; F15.20 Other stimulant dependence, uncomplicated; F12.20 Cannabis dependence, uncomplicated; F19.24 Other psychoactive substance dependence with psychoactive substance-induced mood disorder; F31.81 Bipolar II disorder; F19.282 Other psychoactive substance dependence with psychoactive substance-induced sleep disorder; F43.10 Post-traumatic stress disorder, unspecified; F42.9 Obsessive-compulsive disorder, unspecified; F31.9 Bipolar disorder, unspecified; G47.00 Insomnia, unspecified; M17.0 Bilateral primary osteoarthritis of knee; B18.2 Chronic viral hepatitis C; Z86.69 Personal history of other diseases of the nervous system and sense organs; Z86.19 Personal history of other infectious and parasitic diseases
CPT/HCPCS: 36415; 80053; 85027; 86593; 87389

== ENCOUNTER 2019-01-24 13:54 | Inpatient (IN) | payer OTHER ==
[2019-01-24 15:17] VITALS: BMI 37.3
--- NOTE | 2019-01-24 15:48 | HP ---
"COWS - Scale Resting Pulse: 1= [place] 81-100 Sweatin= No chills or Flushing Restless Observation: 1= Difficult to Sit Still Pupil Size: 0= Normal to Room Light Bone or Joint Aches: 2= Severe Diffuse Aches Runny Nose/ Eye Tearin= Runny Nose/Eyes GI Upset > 30mins: 3= Vomiting/Diarrhea Tremor Observation: 2= Slight Tremor Visible Yawning Observation: 1= 1-2x During Session Anxiety or Irritability: 2=Irritable/Anxious Goose Flesh Skin: 0=Smooth Skin COWS Score: 14 CIWA Score Nausea/Vomitin-Int. Nausea w/Dry Heave Muscle Tremors: 4-Moderate,w/Arms Extend Anxiety: 4-Mod. Anxious/Guarded Agitation: 1-Slight > Activity Paroxysmal Sweats: No Perspiration Orientation: 0-Oriented Tacttile Disturbances: 0-None Auditory Disturbances: 0-None Visual Disturbances: 0-None Headache: 4-Moderately Severe CIWA-Ar Total Score: 17 - Admission Criteria OASAS Guidelines: Admission for Medically Managed Detox: Requires at least one of the followin. CIWA greater than 12 2. Seizures within the past 24 hours 3. Delirium tremens within the past 24 hours 4. Hallucinations within the past 24 hours 5. Acute intervention needed for co occurring medical disorder 6. Acute intervention needed for co occurring psychiatric disorder 7. Severe withdrawal that cannot be handled at a lower level of care (continued vomiting, continued diarrhea, abnormal vital signs) requiring intravenous medication and/or fluids 8. Patient presents the following: CIWA greater than 12 Admission Criteria Met: Admission criteria met Admission ROS [facility] Allergies/Adverse Reactions: Allergies Allergy/AdvReac Type Severity Reaction Status Date / Time No Known Allergies Allergy Verified 01/24/19 15:10 History of Present Illness: Search Terms: trevor xavier, 1975 Search Date: 01/24/2019 03:46:42 PM The Drug Utilization Report below displays all of the controlled substance prescriptions, if any, that your patient has filled in the last twelve months. The information displayed on this report is compiled from pharmacy submissions to the Department, and accurately reflects the information as submitted by the pharmacies. This report was requested by: Geno Bustos | Reference #: [id number] Others' Prescriptions Patient Name: Trevor Xavier Date: 1975 Address: [address] [place] [address] Sex: Male Rx Written Rx Dispensed Drug Quantity Days Supply Prescriber Name 11/27/2018 11/27/2018 suboxone 4 mg-1 mg sl film 12 5 Elly Dumas NP Patient Name: Trevor Xavier Date: 1975 Address: [address] [place] [address] Sex: Male Rx Written Rx Dispensed Drug Quantity Days Supply Prescriber Name 10/11/2018 10/11/2018 buprenorphine-naloxone 8-2 mg sl tablet 14 7 Shahla Smith () Patient Name: Trevor Xavier Date: 1975 Address: [address] [place] [id number] Sex: Male Rx Written Rx Dispensed Drug Quantity Days Supply Prescriber Name 05/02/2018 05/02/2018 suboxone 8 mg-2 mg sl film 30 10 Geena Shahid MD 04/24/2018 04/24/2018 suboxone 8 mg-2 mg sl film 30 10 Geena Shahid MD 04/22/2018 04/22/2018 chlordiazepoxide 10 mg capsule 30 10 Geno Renee * - Drugs marked with an asterisk are compound drugs. If the compound drug is made up of more than one controlled substance, then each controlled substance will be a separate row in the table. pt here requesting detox from opiate use , reports 7-8 bags/ day IVDU in neck x 6 years, denies any period of sobriety , most recent detox at this facility December 2018 , reports relapse after d/c and going to a usp , OD x several , most recently 2 mo ago , Narcan by police , taken to [facility] ,obtains needles from the exchange , + sharing , + re-using, had an abscess most recently 2 years ago. Latest use of heroin was yesterday afternoon, current symptoms as above . cocaine : 1 gr x 6 years IVDU crystal meth : daily IVDU , via inhalation etoh : 3-4 pints / day since age 11 , denies seizures, + blackouts , denies falls while intoxicated , + tremors if not drinking , starts drinking around 8 am in the morning , latest alcohol use was yesterday , current symptoms as above. xanax : not daily tobacco : denies denies other illicits . PMHX : OA aby knees , using cane for ambulation , hep C dx 6 years ago no tx . PShx : umbil hernia Psych : bipolar , anxiety , depression, PTSD . Denies current SI / HI . SHx : rents a room. Exam Limitations: Clinical Condition - Ebola screening Have you traveled outside of the country in the last 21 days: No (N) Have you had contact with anyone from an Ebola affected area: No Do you have a fever: No - Review of Systems Constitutional: See HPI EENT: reports: See HPI Respiratory: reports: No Symptoms reported Cardiac: reports: No Symptoms Reported GI: reports: See HPI : reports: No Symptoms Reported Musculoskeletal: reports: See HPI, Joint Pain (aby knees known OA) Integumentary: reports: No Symptoms Reported, See HPI Neuro: reports: Headache, Unsteady Gait Endocrine: reports: No Symptoms Reported Psychiatric: reports: Orientated x3, Agitated, Anxious Patient History - Patient Medical History Hx Anemia: No Hx Asthma: No Hx Chronic Obstructive Pulmonary Disease (COPD): No Hx Cancer: No Hx Cardiac Disorders: No Hx Congestive Heart Failure: No Hx Hypertension: Yes Hx Hypercholesterolemia: No Hx Pacemaker: No HX Cerebrovascular Accident: No Hx Seizures: No Hx Dementia: No Hx Diabetes: No Hx Gastrointestinal Disorders: No Hx Liver Disease: No Hx Genitourinary Disorders: No Hx Sexually Transmitted Disorders: Yes (syphilis) Hx Renal Disease (ESRD): No Hx Thyroid Disease: No Hx Human Immunodeficiency Virus (HIV): No (NEGATIVE HX ) Hx Hepatitis C: Yes (DID NOT COMPLETE INTERFERON TX IN THE PAST.) Hx Depression: Yes Hx Suicide Attempt: No Hx Bipolar Disorder: Yes (ON MEDS, hospitalized for ERRATIC behavior in past.) Hx Schizophrenia: No - Patient Surgical History Past Surgical History: Yes Hx Neurologic Surgery: No Hx Cataract Extraction: No Hx Cardiac Surgery: No Hx Lung Surgery: No Hx Breast Surgery: No Hx Breast Biopsy: No Hx Abdominal Surgery: Yes (umbilical hernia repair in 2004) Hx Appendectomy: No Hx Cholecystectomy: No Hx Genitourinary Surgery: No Hx Section: No Hx Orthopedic Surgery: No Hx Hysterectomy: No Other Surgical History: lipoma, left side of neck in 2009 Anesthesia Reaction: No - PPD History Date: 12/20/18 Results: 0mm - Smoking Cessation Smoking history: Never smoked Have you smoked in the past 12 months: No Aproximately how many cigarettes per day: 0 Cigars Per Day: 0 Hx Chewing Tobacco Use: No - Substances abused Heroin Substance route: Injection Frequency: Daily Amount used: 7bags Age of first use: 36 Date of last use: 01/23/19 Cocaine Substance route: Injection Frequency: Daily Amount used: 2 grams Age of first use: 36 Date of last use: 01/23/19 Alcohol Substance route: Oral Frequency: Daily Amount used: 5 pt. vodka Age of first use: 11 Date of last use: 01/23/19 Family Disease History - Family Disease History Family Disease History: [place]: Brother (one , [place].), Other: Father (drug use ,), Mother (drug use,) Admission Physical Exam S - Vital Signs Vital Signs: Vital Signs - 24 hr 01/24/19 15:07 Temperature 98.2 F Pulse Rate 84 Respiratory 18 Rate Blood Pressure 140/85 - Physical General Appearance: Yes: Disheveled, Moderate Distress, Anxious HEENTM: Yes: EOMI, Hearing grossly Normal, Normocephalic, Normal Voice, Nasal Congestion, Rhinorrhea Respiratory: Yes: Chest Non-Tender, Lungs Clear, Normal Breath Sounds Neck: Yes: No masses,lesions,Nodules, Trachea in good position Cardiology: Yes: Regular Rhythm, Regular Rate, S1, S2 Abdominal: Yes: Non Tender, Soft, Protuberent Back: Yes: Normal Inspection Musculoskeletal: Yes: Joint Stiffness, Joint swelling (aby knees, known OA) Extremities: Yes: Tremors, Swelling (aby knees) Neurological: Yes: Fully Oriented, Alert, Motor Strength 5/5 Integumentary: Yes: Warm, Track Nielson - Diagnostic (1) Alcohol dependence with uncomplicated withdrawal Current Visit: Yes Status: Acute (2) Cocaine dependence Current Visit: Yes Status: Chronic Qualifiers: Substance use status: uncomplicated Qualified Code(s): F14.20 - Cocaine dependence, uncomplicated (3) Opioid dependence with withdrawal Current Visit: Yes Status: Acute Breathalyzer - Breathalyzer Breathalyzer: 0 Urine Drug Screen - Test Device Lot number: [id number] Expiration date: 09/13/20 - Control Is test valid?: Yes - Results Drug screen NEGATIVE: No Urine drug screen results: LAVERNE-Cocaine, MOP-Opiates, BZO-Benzodiazepines Inpatient Rehab Admission - Rehab Decision to Admit Inpatient rehab admission?: No"
[2019-01-24] MEDS ORDERED: NICOTINE POLACRILEX 2 MG GUM BUC PRN (16:09)
[2019-01-24] MEDS ORDERED: MAG HYDROX/AL HYDROX/SIMETH 30 ML UNIT-DOSE CUP PO PRN (16:09)
[2019-01-24] MEDS ORDERED: MENTHOL/PHENOL 1 EACH UD MM PRN (16:09)
[2019-01-24] MEDS ORDERED: MAGNESIUM CITRATE 300 ML BOTTLE PO PRN (16:09)
[2019-01-24] MEDS ORDERED: cloNIDine HCL 0.1 MG TABLET PO PRN (16:09)
[2019-01-24] MEDS ORDERED: IBUPROFEN 400 MG TABLET (FP) PO PRN (16:09)
[2019-01-24] MEDS ORDERED: ACETAMINOPHEN 325 MG TABLET (FP) PO PRN ×2 (16:09)
[2019-01-24] MEDS ORDERED: MAGNESIUM HYDROX 2400MG/30ML ORAL SUSPENSION 30 ML CUP PO PRN (16:09)
[2019-01-24] MEDS ORDERED: BISMUTH SUBSALICYLATE 524 MG/30 ML UD PO PRN (16:09)
[2019-01-24] MEDS: chlordiazePOXIDE HCL 10 MG CAPSULE PO PRN (17:37)
[2019-01-24] MEDS: amLODIPine BESYLATE 5 MG TABLET (FP) PO SCH (17:37)
[2019-01-24] MEDS ORDERED: METHADONE HCL 10 MG TABLET (FOR DETOX USE ONLY) PO ONE ×2 (18:30→23:00)
[2019-01-24] MEDS: MELATONIN 5 MG TABLETS PO PRN (22:30)
[2019-01-24] MEDS: THIAMINE HCL 100 MG TABLET (FP) PO SCH (22:30)
[2019-01-24] MEDS: chlordiazePOXIDE HCL 25 MG CAPSULE PO SCH (22:30)
[2019-01-25] MEDS: chlordiazePOXIDE HCL 25 MG CAPSULE PO SCH ×2 (06:02→12:57)
[2019-01-25] MEDS: chlordiazePOXIDE HCL 10 MG CAPSULE PO PRN (06:44)
[2019-01-25] MEDS: PRENATAL VITAMINS W/ FOLIC ACID TABLET (FP) PO SCH (10:00)
[2019-01-25] MEDS ORDERED: METHADONE HCL 5 MG TABLET (FOR DETOX USE ONLY) PO ONE (10:00)
[2019-01-25] MEDS: amLODIPine BESYLATE 5 MG TABLET (FP) PO SCH (10:00)
[2019-01-25 11:04] LABS: ALBUMIN 3.1 g/dl (3.4-5.0); ALK PHOS 92 U/L (45-117); ANION GAP 5 MMOL/L (8-16); BILIRUBIN,TOTAL 0.8 mg/dL (0.2-1); BLOOD UREA NITROGEN 8 mg/dL (7-18); CALCIUM 8.4 mg/dL (8.5-10.1); CHLORIDE 103 mmol/L (98-107); CO2 29 mmol/L (21-32); CREATININE 0.9 mg/dL (0.55-1.3); GLUCOSE,RANDOM 100 mg/dL (74-106); POTASSIUM 3.6 mmol/L (3.5-5.1); SGOT/AST 22 U/L (15-37); SGPT/ALT 21 U/L (13-61); SODIUM 138 mmol/L (136-145); TOT PROT 6.7 g/dl (6.4-8.2)
[2019-01-25 11:07] LABS: HEMATOCRIT 38.6 % (35.4-49); HEMOGLOBIN 12.9 GM/dL (11.7-16.9); MCH 29.7 pg (25.7-33.7); MCHC 33.5 g/dl (32.0-35.9); MEAN CELL VOLUME 88.8 fl (80-96); MEAN PLT VOLUME 9.5 fl (7.5-11.1); PLATELET COUNT 181 K/MM3 (134-434); RBC 4.35 M/mm3 (4.00-5.60); RDW 14.1 % (11.9-15.9); WHITE BLOOD COUNT 5.7 K/mm3 (4.0-10.0)
--- NOTE | 2019-01-25 13:35 | PN ---
S CIWA - CIWA Score Nausea/Vomitin Muscle Tremors: 3 Anxiety: 2 Agitation: 0-Normal Activity Paroxysmal Sweats: 3 Orientation: 0-Oriented Tacttile Disturbances: 1-Very Mild Itch/Numbness Auditory Disturbances: 0-None Visual Disturbances: 3-Moderate Sensitivity Headache: 0-None Present CIWA-Ar Total Score: 14 BHS COWS - Scale Resting Pulse: 0= [place] 80 or Below Sweatin= Chills/Flushing Restless Observation: 0= Sits Still Pupil Size: 0= Normal to Room Light Bone or Joint Aches: 2= Severe Diffuse Aches Runny Nose/ Eye Tearin= None GI Upset > 30mins: 2= Nausea/Diarrhea Tremor Observation of Outstretched Hands: 2= Slight Tremor Visible Yawning Observation: 1= 1-2x During Session Anxiety or Irritability: 2=Irritable/Anxious Goose Flesh Skin: 3=Piloerection COWS Score: 13 BHS Progress Note (SOAP) Subjective: Tremors, Body Aches, Anxious, Fatigue. Objective: PATIENT A & O X 3, OBSERVED AMBULATING ON UNIT. IN NO ACUTE DISTRESS. 01/25/19 13:34 Vital Signs Temperature 97.8 F 01/25/19 09:28 Pulse Rate 76 01/25/19 09:28 Respiratory Rate 18 01/25/19 09:28 Blood Pressure 119/80 01/25/19 09:28 O2 Sat by Pulse Oximetry (%) Laboratory Tests 01/25/19 01/25/19 01/25/19 07:30 07:30 07:30 WBC 5.7 RBC 4.35 Hgb 12.9 Hct 38.6 MCV 88.8 MCH 29.7 MCHC 33.5 RDW 14.1 Plt Count 181 D MPV 9.5 Sodium 138 Potassium 3.6 Chloride 103 Carbon Dioxide 29 Anion Gap 5 L BUN 8 Creatinine 0.9 Creat Clearance w eGFR 91.25 Random Glucose 100 Calcium 8.4 L Total Bilirubin 0.8 AST 22 ALT 21 Alkaline Phosphatase 92 Total Protein 6.7 Albumin 3.1 L RPR Titer Nonreactive LABS NOTED. Assessment: 01/25/19 13:35 WITHDRAWAL SYMPTOMS. Plan: CONTINUE DETOX.
--- NOTE | 2019-01-25 16:10 | CONSULT ---
[facility] Psychiatric Consult - Data Date of interview: 01/25/19 Admission source: [facility] Identifying data: Readmission to [facility] for this 43 y/o AA male self- referred for detoxification (eking detoxification treatment (heroin, alcohol, cocaine). Interviewed on . Patient dcelines to provide demographic information. " Get my records. Everything is the same as before ". History taken from chart : patient is single, a father of two (claimed no dependents at previous interviews), homeless, unemployed, disabled and supported on SSI/SSD benefits. Substance Abuse History: Taken from [facility] report (patient is uncooperative) : Smoking history: Never smoked. Have you smoked in the past 12 months: No. Aproximately how many cigarettes per day: 0. Cigars Per Day: 0. Hx Chewing Tobacco Use: No. - Substances abused. Heroin. Substance route: Injection. Frequency: Daily. Amount used: 7bags. Age of first use: 36. Date of last use: 01/23/19. Cocaine. Substance route: Injection. Frequency: Daily. Amount used: 2 grams. Age of first use: 36. Date of last use: 01/23/19. Alcohol. Substance route: Oral. Frequency: Daily. Amount used: 5 pt. vodka. Age of first use: 11. Date of last use: 01/23/19 Medical History: Extracted from existing records : hypertension, obesity, cirrhosis of the liver (self report), hepatitis C, past treatment for syphilis and surgical excision of lipoma (left side of neck in 2009). History of umbilical herniorraphy and arthritis of both knees (uses cane for ambulation). Psychiatric History: Profile not discussed by patient. " See my records. You have met with me before. I am tired ". History of several [facility] visits. Mr Fine was alst seen at [facility] in December 2018. He is known for a history of multiple psychiatric hospitalizations (as recently as October 2018 at [facility]. Past history of psychiatric admissions at [facility] + [facility]. Diagnosed with PTSD. Patient presents with a chronic pattern of non- adherence to OPD care. Saw a psychiatrist, last month at [facility], who prescribed seroquel + trazodone + sertraline + vistaril (doses not recalled by the patient). No reported history of suicide attempts. Physical/Sexual Abuse/Trauma History: Not discussed. Patient declines. Additional Comment: Urine drug screen results: LAVERNE-Cocaine, MOP-Opiates, BZO- Benzodiazepines. Noted. Mental Status Exam - Mental Status Exam Alert and Oriented to: Time, Place, Person Cognitive Function: Good Patient Appearance: Well Groomed Mood: Angry, Hostile, Withdrawn, Irritable Affect: Mood Congruent, Constricted Patient Behavior: Fatigued, Uncooperative Speech Pattern: Clear Voice Loudness: Normal Thought Process: Goal Oriented Thought Disorder: Not Present Hallucinations: Denies Suicidal Ideation: Denies Homicidal Ideation: Denies Insight/Judgement: Poor Sleep: Poorly, Difficulty falling asleep Appetite: Good Muscle strength/Tone: Normal Gait/Station: Other (ambulates with a cane) Psychiatric Findings - Problem List ([place] 1, 2,3) (1) Alcohol dependence with uncomplicated withdrawal Current Visit: Yes Status: Acute (2) Opioid dependence with withdrawal Current Visit: Yes Status: Acute (3) Cocaine dependence Current Visit: Yes Status: Chronic Qualifiers: Substance use status: uncomplicated Qualified Code(s): F14.20 - Cocaine dependence, uncomplicated (4) Substance induced mood disorder Current Visit: Yes Status: Chronic (5) History of posttraumatic stress disorder (PTSD) Current Visit: Yes Status: Chronic (6) Insomnia Current Visit: Yes Status: Chronic (7) Non-compliance Current Visit: Yes Status: Chronic - Initial Treatment Plan Initial Treatment Plan: Psychoeducation. Sleep hygiene. Detoxification. Support. Medications : zoloft 100 mg po daily + trazodone 100 mg po hs + seroquel 100 mg po hs. Side effects/benefits of each drug are discussed with the patient. Consent (verbal) granted to MD. Mr Fine is informed of the additional risk of priapism. Agrees with this plan of care. Observation.
[2019-01-25] MEDS: chlordiazePOXIDE 5 MG CAPSULE PO SCH (22:00)
[2019-01-25] MEDS: QUEtiapine FUMARATE 100 MG TABLET (FP) PO SCH (22:15)
[2019-01-25] MEDS: THIAMINE HCL 100 MG TABLET (FP) PO SCH (22:15)
[2019-01-25] MEDS: MELATONIN 5 MG TABLETS PO PRN (22:15)
[2019-01-25] MEDS: traZODone HCL 100 MG TABLET (FP) PO SCH (22:15)
[2019-01-26] MEDS: chlordiazePOXIDE 5 MG CAPSULE PO SCH ×2 (06:18→13:42)
[2019-01-26] MEDS ORDERED: METHADONE HCL 10 MG TABLET (FOR DETOX USE ONLY) PO ONE (10:00)
[2019-01-26] MEDS: SERTRALINE HCL 50 MG TABLET (FP) PO SCH (10:15)
[2019-01-26] MEDS: PRENATAL VITAMINS W/ FOLIC ACID TABLET (FP) PO SCH (10:15)
[2019-01-26] MEDS: amLODIPine BESYLATE 5 MG TABLET (FP) PO SCH (10:15)
--- NOTE | 2019-01-26 10:37 | PN ---
S CIWA - CIWA Score Nausea/Vomitin-No Nausea/No Vomiting Muscle Tremors: 3 Anxiety: 1-Mildly Anxious Agitation: 2 Paroxysmal Sweats: 1-Minimal Palms Moist Orientation: 3-Disoriented Date>2 days Tacttile Disturbances: 0-None Auditory Disturbances: 0-None Visual Disturbances: 0-None Headache: 2-Mild CIWA-Ar Total Score: 12 BHS COWS - Scale Resting Pulse: 1= [place] 81-100 Sweatin= Chills/Flushing Restless Observation: 0= Sits Still Pupil Size: 0= Normal to Room Light Bone or Joint Aches: 1= Mild Discomfort Runny Nose/ Eye Tearin= Nasal Congestion GI Upset > 30mins: 0= None Tremor Observation of Outstretched Hands: 1= Tremor [place], Not Seen Yawning Observation: 2= >3x During Session Anxiety or Irritability: 1=Feels Anxious/Irritable Goose Flesh Skin: 0=Smooth Skin COWS Score: 8 S Progress Note (SOAP) Subjective: tolerate food and fluid well social with peers in hallway well rested Objective: 01/26/19 10:42 Vital Signs Temperature 96.7 F L 01/26/19 09:50 Pulse Rate 85 01/26/19 09:50 Respiratory Rate 18 01/26/19 09:50 Blood Pressure 115/70 01/26/19 09:50 O2 Sat by Pulse Oximetry (%) Laboratory Last Values WBC 5.7 K/mm3 (4.0-10.0) 01/25/19 07:30 RBC 4.35 M/mm3 (4.00-5.60) 01/25/19 07:30 Hgb 12.9 GM/dL (11.7-16.9) 01/25/19 07:30 Hct 38.6 % (35.4-49) 01/25/19 07:30 MCV 88.8 fl (80-96) 01/25/19 07:30 MCH 29.7 pg (25.7-33.7) 01/25/19 07:30 MCHC 33.5 g/dl (32.0-35.9) 01/25/19 07:30 RDW 14.1 % (11.9-15.9) 01/25/19 07:30 Plt Count 181 K/MM3 (134-434) D 01/25/19 07:30 MPV 9.5 fl (7.5-11.1) 01/25/19 07:30 Sodium 138 mmol/L (136-145) 01/25/19 07:30 Potassium 3.6 mmol/L (3.5-5.1) 01/25/19 07:30 Chloride 103 mmol/L (98-107) 01/25/19 07:30 Carbon Dioxide 29 mmol/L (21-32) 01/25/19 07:30 Anion Gap 5 MMOL/L (8-16) L 01/25/19 07:30 BUN 8 mg/dL (7-18) 01/25/19 07:30 Creatinine 0.9 mg/dL (0.55-1.3) 01/25/19 07:30 Creat Clearance w eGFR 91.25 (>60) 01/25/19 07:30 Random Glucose 100 mg/dL (74-106) 01/25/19 07:30 Calcium 8.4 mg/dL (8.5-10.1) L 01/25/19 07:30 Total Bilirubin 0.8 mg/dL (0.2-1) 01/25/19 07:30 AST 22 U/L (15-37) 01/25/19 07:30 ALT 21 U/L (13-61) 01/25/19 07:30 Alkaline Phosphatase 92 U/L (45-117) 01/25/19 07:30 Total Protein 6.7 g/dl (6.4-8.2) 01/25/19 07:30 Albumin 3.1 g/dl (3.4-5.0) L 01/25/19 07:30 RPR Titer Nonreactive (NONREACTIVE) 01/25/19 07:30 lab noted Assessment: 01/26/19 10:43 withdrawal sx Plan: continue detox
[2019-01-26] MEDS ORDERED: chlordiazePOXIDE HCL 10 MG CAPSULE PO PRN (21:00)
[2019-01-26] MEDS: chlordiazePOXIDE HCL 10 MG CAPSULE PO SCH (22:00)
[2019-01-26] MEDS: traZODone HCL 100 MG TABLET (FP) PO SCH (22:20)
[2019-01-26] MEDS: MELATONIN 5 MG TABLETS PO PRN (22:20)
[2019-01-26] MEDS: THIAMINE HCL 100 MG TABLET (FP) PO SCH (22:20)
[2019-01-26] MEDS: QUEtiapine FUMARATE 100 MG TABLET (FP) PO SCH (22:20)
[2019-01-27] MEDS ORDERED: METHADONE HCL 5 MG TABLET (FOR DETOX USE ONLY) PO ONE (06:00)
[2019-01-27] MEDS: chlordiazePOXIDE HCL 10 MG CAPSULE PO SCH ×3 (06:11→22:09)
[2019-01-27] MEDS: amLODIPine BESYLATE 5 MG TABLET (FP) PO SCH (10:16)
[2019-01-27] MEDS: PRENATAL VITAMINS W/ FOLIC ACID TABLET (FP) PO SCH (10:16)
[2019-01-27] MEDS: SERTRALINE HCL 50 MG TABLET (FP) PO SCH (10:16)
--- NOTE | 2019-01-27 10:40 | EKG ---
Test Reason : Blood Pressure : / mmHG Vent. Rate : 078 BPM Atrial Rate : 078 BPM P-R Int : 174 ms QRS Dur : 098 ms QT Int : 402 ms P-R-T Axes : 064 007 -16 degrees QTc Int : 458 ms NORMAL SINUS RHYTHM NORMAL ECG WHEN COMPARED WITH ECG OF 16-AUG-2018 19:10, T WAVE INVERSION MORE EVIDENT IN INFERIOR LEADS Confirmed by JUDAH ENCINAS MD ([id number]) on 01/27/2019 10:39:52 AM Referred By: Confirmed By:JUDAH ENCINAS MD
--- NOTE | 2019-01-27 12:49 | PN ---
[facility] CIWA - CIWA Score Nausea/Vomitin-No Nausea/No Vomiting Muscle Tremors: 2 Anxiety: 1-Mildly Anxious Agitation: 1-Slight > Activity Paroxysmal Sweats: 1-Minimal Palms Moist Orientation: 1-Uncertain about Date Tacttile Disturbances: 0-None Auditory Disturbances: 0-None Visual Disturbances: 0-None Headache: 1-Very Mild CIWA-Ar Total Score: 7 S Progress Note (SOAP) Subjective: feeling better ambulate with cane social with peers in day room Objective: 01/27/19 12:57 Vital Signs Temperature 96 F L 01/27/19 09:02 Pulse Rate 86 01/27/19 09:02 Respiratory Rate 20 01/27/19 09:02 Blood Pressure 97/65 01/27/19 09:02 O2 Sat by Pulse Oximetry (%) Laboratory Last Values WBC 5.7 K/mm3 (4.0-10.0) 01/25/19 07:30 RBC 4.35 M/mm3 (4.00-5.60) 01/25/19 07:30 Hgb 12.9 GM/dL (11.7-16.9) 01/25/19 07:30 Hct 38.6 % (35.4-49) 01/25/19 07:30 MCV 88.8 fl (80-96) 01/25/19 07:30 MCH 29.7 pg (25.7-33.7) 01/25/19 07:30 MCHC 33.5 g/dl (32.0-35.9) 01/25/19 07:30 RDW 14.1 % (11.9-15.9) 01/25/19 07:30 Plt Count 181 K/MM3 (134-434) D 01/25/19 07:30 MPV 9.5 fl (7.5-11.1) 01/25/19 07:30 Sodium 138 mmol/L (136-145) 01/25/19 07:30 Potassium 3.6 mmol/L (3.5-5.1) 01/25/19 07:30 Chloride 103 mmol/L (98-107) 01/25/19 07:30 Carbon Dioxide 29 mmol/L (21-32) 01/25/19 07:30 Anion Gap 5 MMOL/L (8-16) L 01/25/19 07:30 BUN 8 mg/dL (7-18) 01/25/19 07:30 Creatinine 0.9 mg/dL (0.55-1.3) 01/25/19 07:30 Creat Clearance w eGFR 91.25 (>60) 01/25/19 07:30 Random Glucose 100 mg/dL (74-106) 01/25/19 07:30 Calcium 8.4 mg/dL (8.5-10.1) L 01/25/19 07:30 Total Bilirubin 0.8 mg/dL (0.2-1) 01/25/19 07:30 AST 22 U/L (15-37) 01/25/19 07:30 ALT 21 U/L (13-61) 01/25/19 07:30 Alkaline Phosphatase 92 U/L (45-117) 01/25/19 07:30 Total Protein 6.7 g/dl (6.4-8.2) 01/25/19 07:30 Albumin 3.1 g/dl (3.4-5.0) L 01/25/19 07:30 RPR Titer Nonreactive (NONREACTIVE) 01/25/19 07:30 lab noted Assessment: 01/27/19 12:57 withdrawal sx Plan: continue detox
[2019-01-27] MEDS: QUEtiapine FUMARATE 100 MG TABLET (FP) PO SCH (22:08)
[2019-01-27] MEDS: traZODone HCL 100 MG TABLET (FP) PO SCH (22:08)
[2019-01-27] MEDS: THIAMINE HCL 100 MG TABLET (FP) PO SCH (22:09)
[2019-01-28 06:12] VITALS: BP 116/73; PULSE 76; TEMP 97.6
--- NOTE | 2019-01-28 09:34 | DS ---
[facility] Detox Discharge Summary Admission Date: 01/24/19 Discharge Date: 01/28/19 - History Present History: Alcohol Dependence, Opioid Dependence Additional Comments: 43 years old male admitted on 01/24/19 for alcohol and opiate withdrawal stabilization completed detox regimen aftercare [facility] Pertinent Past History: bring in medication list and lab report to aftercare appointment - Physical Exam Results Vital Signs: Vital Signs Temperature 97.6 F 01/28/19 06:12 Pulse Rate 76 01/28/19 06:12 Respiratory Rate 18 01/28/19 06:30 Blood Pressure 116/73 01/28/19 06:12 O2 Sat by Pulse Oximetry (%) Pertinent Admission Physical Exam Findings: alcohol and opiate withdrawal sx Laboratory Last Values WBC 5.7 K/mm3 (4.0-10.0) 01/25/19 07:30 RBC 4.35 M/mm3 (4.00-5.60) 01/25/19 07:30 Hgb 12.9 GM/dL (11.7-16.9) 01/25/19 07:30 Hct 38.6 % (35.4-49) 01/25/19 07:30 MCV 88.8 fl (80-96) 01/25/19 07:30 MCH 29.7 pg (25.7-33.7) 01/25/19 07:30 MCHC 33.5 g/dl (32.0-35.9) 01/25/19 07:30 RDW 14.1 % (11.9-15.9) 01/25/19 07:30 Plt Count 181 K/MM3 (134-434) D 01/25/19 07:30 MPV 9.5 fl (7.5-11.1) 01/25/19 07:30 Sodium 138 mmol/L (136-145) 01/25/19 07:30 Potassium 3.6 mmol/L (3.5-5.1) 01/25/19 07:30 Chloride 103 mmol/L (98-107) 01/25/19 07:30 Carbon Dioxide 29 mmol/L (21-32) 01/25/19 07:30 Anion Gap 5 MMOL/L (8-16) L 01/25/19 07:30 BUN 8 mg/dL (7-18) 01/25/19 07:30 Creatinine 0.9 mg/dL (0.55-1.3) 01/25/19 07:30 Creat Clearance w eGFR 91.25 (>60) 01/25/19 07:30 Random Glucose 100 mg/dL (74-106) 01/25/19 07:30 Calcium 8.4 mg/dL (8.5-10.1) L 01/25/19 07:30 Total Bilirubin 0.8 mg/dL (0.2-1) 01/25/19 07:30 AST 22 U/L (15-37) 01/25/19 07:30 ALT 21 U/L (13-61) 01/25/19 07:30 Alkaline Phosphatase 92 U/L (45-117) 01/25/19 07:30 Total Protein 6.7 g/dl (6.4-8.2) 01/25/19 07:30 Albumin 3.1 g/dl (3.4-5.0) L 01/25/19 07:30 RPR Titer Nonreactive (NONREACTIVE) 01/25/19 07:30 lab noted - Treatment Hospital Course: Detox Protocol Followed, Detoxed Safely, Responded well, Discharged Condition Good, Rehab Referral Accepted Patient has Accepted a Rehab Referral to: [facility] - Medication Discharge Medications: Ambulatory Orders Amlodipine Besylate [Norvasc -] 5 mg PO DAILY 01/15/18 Quetiapine Fumarate [Seroquel -] 200 mg PO HS #30 tablet 01/16/18 Aripiprazole [Abilify -] 5 mg PO DAILY #30 tablet 03/06/18 Sertraline HCl [Zoloft -] 100 mg PO DAILY #60 tablet 03/06/18 traZODone HCL [Desyrel -] 100 mg PO HS #30 tablet 03/06/18 Hydroxyzine HCl 50 mg PO QID PRN 04/04/18 - Diagnosis (1) Alcohol dependence with uncomplicated withdrawal Status: Acute (2) Opioid dependence with withdrawal Status: Acute (3) HTN (hypertension) Status: Chronic Qualifiers: Hypertension type: essential hypertension Qualified Code(s): I10 - Essential (primary) hypertension (4) Hepatitis C Status: Chronic Qualifiers: Viral hepatitis chronicity: chronic Hepatic coma status: without hepatic coma Qualified Code(s): B18.2 - Chronic viral hepatitis C (5) Substance induced mood disorder Status: Chronic (6) Bipolar II disorder Status: Suspected (7) Syphilis (acquired) Status: Chronic - AMA Did Patient Leave Against Medical Advice: No
== END 2019-01-28 08:39 | disposition home or self-care (01) | DRG 773 ==
LOC: YASAS 13:54 → Y3N 16:37
PROVIDERS: ADMIT Surgery; ATTEND Surgery
PROC: HZ2ZZZZ Detoxification Services for Substance Abuse Treatment (ICD-10-PCS; principal; 2019-01-24)
DX: F11.23 Opioid dependence with withdrawal (principal); F10.230 Alcohol dependence with withdrawal, uncomplicated; F14.20 Cocaine dependence, uncomplicated; F31.81 Bipolar II disorder; F31.9 Bipolar disorder, unspecified; F19.24 Other psychoactive substance dependence with psychoactive substance-induced mood disorder; F43.10 Post-traumatic stress disorder, unspecified; G47.00 Insomnia, unspecified; B18.2 Chronic viral hepatitis C; M17.0 Bilateral primary osteoarthritis of knee; Z86.19 Personal history of other infectious and parasitic diseases; R26.89 Other abnormalities of gait and mobility; Z91.19 Patient's noncompliance with other medical treatment and regimen
CPT/HCPCS: 36415; 80053; 85027; 86593; 93005; 93010; J0735

== ENCOUNTER 2019-05-11 08:32 | Inpatient (IN) | payer OTHER | END 2019-05-13 12:50 | disposition other institution (70) | LOC: YASAS 08:32 → Y6N 10:12 ==

== ENCOUNTER 2019-05-13 13:09 | Inpatient (IN) | payer OTHER | END 2019-05-27 10:10 | disposition home or self-care (01) | LOC: YASAS 13:09 → Y5N 13:10 ==

== ENCOUNTER 2019-08-18 11:17 | Inpatient (IN) | payer OTHER ==
[2019-08-18 13:20] VITALS: BMI 38.0
--- NOTE | 2019-08-18 14:35 | HP ---
COWS - Scale Resting Pulse: 1= [place] 81-100 Sweatin= No chills or Flushing Restless Observation: 1= Difficult to Sit Still Pupil Size: 1= Pupils >than Normal Bone or Joint Aches: 2= Severe Diffuse Aches Runny Nose/ Eye Tearin= None GI Upset > 30mins: 1= Stomach Cramp Tremor Observation: 1= Tremor [place], Not Seen Yawning Observation: 2= >3x During Session Anxiety or Irritability: 2=Irritable/Anxious Goose Flesh Skin: 0=Smooth Skin COWS Score: 11 CIWA Score Nausea/Vomitin-Mild Nausea/No Vomiting Muscle Tremors: 2 Anxiety: 4-Mod. Anxious/Guarded Agitation: 4-Moderately Restless Paroxysmal Sweats: No Perspiration Orientation: 0-Oriented Tacttile Disturbances: 0-None Auditory Disturbances: 0-None Visual Disturbances: 0-None Headache: 2-Mild CIWA-Ar Total Score: 13 - Admission Criteria OASAS Guidelines: Admission for Medically Managed Detox: Requires at least one of the followin. CIWA greater than 12 2. Seizures within the past 24 hours 3. Delirium tremens within the past 24 hours 4. Hallucinations within the past 24 hours 5. Acute intervention needed for co occurring medical disorder 6. Acute intervention needed for co occurring psychiatric disorder 7. Severe withdrawal that cannot be handled at a lower level of care (continued vomiting, continued diarrhea, abnormal vital signs) requiring intravenous medication and/or fluids 8. Admitting History and Physical - Admission Chief Complaint: ETOH/HEROIN WITHDRAWAL SX History of Present Illness: SEE NEXT PAGE History Source: Patient Limitations to Obtaining History: Intoxication - Past Medical History Psych: Yes: Anxiety, Bipolar, Depression Additional Past Medical History: HEP C-TREATED - Past Surgical History Past Surgical History: Yes: Hernia Repair Additional Past Surgical History: LIPOMA REMOVAL - Smoking History Smoking history: Never smoked Have you smoked in the past 12 months: No Aproximately how many cigarettes per day: 0 - Alcohol/Substance Use Hx Alcohol Use: Yes Number of Drinks Daily: 8 History of Substance Use: reports: Heroin Date of Last Use: 08/18/19 - Social History Usual Living Arrangement: Yes: Alone Do you think of yourself as: Straight/Heterosexual ADL: Independent History of Recent Travel: No Admission ROS S - [facility] Chief Complaint: ETOH/HEROIN WITHDRAWAL SX Allergies/Adverse Reactions: Allergies Allergy/AdvReac Type Severity Reaction Status Date / Time No Known Allergies Allergy Verified 08/18/19 13:11 History of Present Illness: PATIENT IS KNOWN TO FACILITY DUE TO PREVIOUS ADMISSION IN MAY 2019. PATIENT PRESENTS WITH ETOH/HEROIN WITHDRAWAL SX, COCAINE/XANAX/CRYSTAL METH DEPENDENCE. PATIENT STARTED INJECTING HEROIN/COCAINE AT AGE 36, LAST USE THIS AM. INJECTS 2 BUNDLES DAILY. PATIENT STARTED INJECTED CRYSTAL METH ONE YEAR AGO, LAST USE TODAY. DRINKS 1/5 OF VODKA DAILY SINCE AGE 11. DENIES HX OF SEIZURES AND DTS. 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 LAST OD 07/17/19. PMH INCLUDES HEP C-TREATED AND OCD/DEPRESSION AND BIPOLAR DISORDER. +SUICIDE ATTEMPT 2 YEARS AGO. PATIENT DENIES SI/HI TODAY. Exam Limitations: No Limitations - Ebola screening Have you traveled outside of the country in the last 21 days: No Have you had contact with anyone from an Ebola affected area: No Have you been sick,other than usual withdrawal symptoms: No Do you have a fever: No - Review of Systems Constitutional: No Symptoms Reported EENT: reports: No Symptoms Reported, Nose Congestion Respiratory: reports: No Symptoms reported Cardiac: reports: No Symptoms Reported GI: reports: Nausea, Poor Fluid Intake, Abdominal cramping : reports: No Symptoms Reported Musculoskeletal: reports: Back Pain, Joint Pain, Muscle Pain Integumentary: reports: Other (OPEN ABRASIONS TO FACE.) Neuro: reports: Headache, Unsteady Gait Endocrine: reports: No Symptoms Reported Hematology: reports: No Symptoms Reported Psychiatric: reports: Orientated x3, Anxious, Depressed Patient History - Patient Medical History Hx Anemia: No Hx Asthma: No Hx Chronic Obstructive Pulmonary Disease (COPD): No Hx Cancer: No Hx Cardiac Disorders: No Hx Congestive Heart Failure: No Hx Hypertension: No Hx Hypercholesterolemia: No Hx Pacemaker: No HX Cerebrovascular Accident: No Hx Seizures: No Hx Dementia: No Hx Diabetes: No Hx Gastrointestinal Disorders: No Hx Liver Disease: No Hx Genitourinary Disorders: No Hx Sexually Transmitted Disorders: No Hx Renal Disease (ESRD): No Hx Thyroid Disease: No Hx Human Immunodeficiency Virus (HIV): No (NEGATIVE HX ) Hx Hepatitis C: Yes (completed treatment) Hx Depression: Yes Hx Suicide Attempt: Yes (JUMPED ON TRAIN TRACK 2 YRS AGO) Hx Bipolar Disorder: Yes (ON MEDS, hospitalized for ERRATIC behavior in past.) Hx Schizophrenia: No - Patient Surgical History Past Surgical History: Yes Hx Neurologic Surgery: No Hx Cataract Extraction: No Hx Cardiac Surgery: No Hx Lung Surgery: No Hx Breast Surgery: No Hx Breast Biopsy: No Hx Abdominal Surgery: Yes (umbilical hernia repair in 2004) Hx Appendectomy: No Hx Cholecystectomy: No Hx Genitourinary Surgery: No Hx Section: No Hx Orthopedic Surgery: No Hx Hysterectomy: No Other Surgical History: lipoma, left side of neck in 2009 Anesthesia Reaction: No - PPD History Previous Implant?: Yes Documented Results: Negative w/proof Date: 12/20/18 Results: 0mm PPD to be Administered?: No - Smoking Cessation Smoking history: Never smoked Have you smoked in the past 12 months: No Aproximately how many cigarettes per day: 0 Cigars Per Day: 0 Hx Chewing Tobacco Use: No - Substance & Tx. History Hx Alcohol Use: Yes Hx Substance Use: Yes Substance Use Type: Alcohol, Cocaine, Heroin, Tranquilizers Hx Substance Use Treatment: Yes - Substances abused Heroin Substance route: Injection Frequency: Daily Amount used: 20 bags Age of first use: 36 Date of last use: 08/17/19 Cocaine Substance route: Injection Frequency: Daily Amount used: 1 grams Age of first use: 36 Date of last use: 08/17/19 Alcohol Substance route: Oral Frequency: Daily Amount used: 1 GALLON vodka Age of first use: 11 Date of last use: 08/18/19 Crystal meth Substance route: Injection Frequency: 1-2 times per week Amount used: $20 Age of first use: 43 Date of last use: 08/17/19 Alprazolam (Xanax) Substance route: Oral Frequency: 1-2 times per week Amount used: 2-3 PILLS Age of first use: 28 Date of last use: 08/17/19 Admission Physical Exam BHS - Vital Signs Vital Signs: Vital Signs - 24 hr 08/18/19 13:15 Temperature 98 F Pulse Rate 98 H Respiratory 20 Rate Blood Pressure 141/82 - Physical General Appearance: Yes: Nourished, Alcohol on Breath, Tremorous, Anxious HEENTM: Yes: Hearing grossly Normal, Normal ENT Inspection, Normocephalic, Normal Voice, SACHA, Pharynx Normal Respiratory: Yes: Chest Non-Tender, Lungs Clear, Normal Breath Sounds, No Respiratory Distress, No Accessory Muscle Use Neck: Yes: No masses,lesions,Nodules, Supple, Trachea in good position Breast: Yes: Breast Exam Deferred Cardiology: Yes: Regular Rhythm, Regular Rate, S1, S2 Abdominal: Yes: Normal Bowel Sounds, Non Tender, Soft Genitourinary: Yes: Within Normal Limits Back: Yes: Muscle Spasm Musculoskeletal: Yes: full range of Motion, Gait Steady, Back pain, Muscle Pain Extremities: Yes: Normal Inspection, Normal Range of Motion, Non-Tender, Tremors Neurological: Yes: furniture stainer II-XII NML intact, Fully Oriented, Alert, Motor Strength 5/5, Normal Response, Depressed Affect, Other (UNSTEADY GAIT) Integumentary: Yes: Normal Color, Dry, Warm, Other (+ABRASIONS TO CHEEKS AND LEFT SIDE OF FOREHEAD) Lymphatic: Yes: Within Normal Limits - Diagnostic (1) Opioid dependence with withdrawal Current Visit: Yes Status: Acute (2) Alcohol dependence with uncomplicated withdrawal Current Visit: No Status: Acute (3) Cocaine dependence Current Visit: No Status: Chronic Qualifiers: Substance use status: uncomplicated Qualified Code(s): F14.20 - Cocaine dependence, uncomplicated (4) Hepatitis C Current Visit: Yes Status: Chronic Qualifiers: Viral hepatitis chronicity: chronic Hepatic coma status: without hepatic coma Qualified Code(s): B18.2 - Chronic viral hepatitis C (5) Sedative hypnotic or anxiolytic dependence Current Visit: Yes Status: Chronic Cleared for Admission S - Detox or Rehab [facility] Level of Care: Medically Managed Detox Regimen/Protocol: Methadone Breathalyzer - Breathalyzer Breathalyzer: 0.161 Urine Drug Screen - Test Device Lot number: [id number] Expiration date: 04/13/21 - Control Is test valid?: Yes - Results Drug screen NEGATIVE: No Urine drug screen results: LAVERNE-Cocaine, MET-Methamphetamine, MOP-Opiates, BZO- Benzodiazepines Inpatient Rehab Admission - Rehab Decision to Admit Inpatient rehab admission?: No
[2019-08-18] MEDS ORDERED: P-EPHED 60MG/TRIPROLIDI 2.5MG TABLET PO PRN (14:39)
[2019-08-18] MEDS ORDERED: guaiFENesin 200 MG/10 ML 10 ML UNIT-DOSE CUPS PO PRN (14:39)
[2019-08-18] MEDS ORDERED: MAGNESIUM HYDROX 2400MG/30ML ORAL SUSPENSION 30 ML CUP PO PRN (14:39)
[2019-08-18] MEDS ORDERED: ACETAMINOPHEN 325 MG TABLET (FP) PO PRN ×2 (14:39)
[2019-08-18] MEDS ORDERED: IBUPROFEN 400 MG TABLET (FP) PO PRN (14:39)
[2019-08-18] MEDS ORDERED: hydrOXYzine PAMOATE 25 MG CAPSULE (FP) PO PRN (14:39)
[2019-08-18] MEDS ORDERED: MAG HYDROX/AL HYDROX/SIMETH 30 ML UNIT-DOSE CUP PO PRN (14:39)
[2019-08-18] MEDS ORDERED: ONDANSETRON *ODT* 4 MG TABLET SL PRN (14:39)
[2019-08-18] MEDS ORDERED: BISMUTH SUBSALICYLATE 524 MG/30 ML UD PO PRN (14:39)
[2019-08-18] MEDS ORDERED: MENTHOL/PHENOL 1 EACH UD MM PRN (14:39)
[2019-08-18] MEDS ORDERED: MAGNESIUM CITRATE 300 ML BOTTLE PO PRN (14:39)
[2019-08-18] MEDS ORDERED: NALOXONE HCL 0.4 MG/ML VIAL IM PRN (14:42)
[2019-08-18] MEDS ORDERED: LORazepam 1 MG TABLET PO PRN (14:42)
[2019-08-18 16:07] LABS: HEMATOCRIT 42.3 % (35.4-49); MCH 29.4 pg (25.7-33.7); MEAN PLT VOLUME 9.5 fl (7.5-11.1); PLATELET COUNT 188 K/MM3 (134-434); RBC 4.75 M/mm3 (4.00-5.60); RDW 13.6 % (11.9-15.9); WHITE BLOOD COUNT 4.8 K/mm3 (4.0-10.0)
[2019-08-18 16:18] LABS: ALBUMIN 3.8 g/dl (3.4-5.0); BILIRUBIN,TOTAL 0.8 mg/dL (0.2-1); BLOOD UREA NITROGEN 5.3 mg/dL (7-18); CALCIUM 8.7 mg/dL (8.5-10.1); CREATININE 1.1 mg/dL (0.55-1.3); POTASSIUM 3.8 mmol/L (3.5-5.1); TOT PROT 7.7 g/dl (6.4-8.2)
[2019-08-18] MEDS ORDERED: METHADONE HCL 10 MG TABLET (FOR DETOX USE ONLY) PO ONE (16:30)
[2019-08-18] MEDS: LORazepam 2 MG TABLET PO SCH ×2 (16:54→22:05)
[2019-08-18] MEDS: BACITRACIN 15 GM TUBE TOPICAL OINTMENT TP SCH (17:25)
[2019-08-18] MEDS: MELATONIN 5 MG TABLETS PO PRN (22:05)
[2019-08-18] MEDS: THIAMINE HCL 100 MG TABLET (FP) PO SCH (22:05)
[2019-08-18] MEDS: CYCLOBENZAPRINE HCL 5 MG TABLET PO SCH (22:05)
[2019-08-19] MEDS: LORazepam 2 MG TABLET PO SCH ×4 (05:40→22:17)
[2019-08-19] MEDS: CYCLOBENZAPRINE HCL 5 MG TABLET PO SCH ×3 (05:40→22:17)
[2019-08-19] MEDS ORDERED: METHADONE HCL 5 MG TABLET (FOR DETOX USE ONLY) PO ONE (10:00)
[2019-08-19] MEDS: PRENATAL VITAMINS W/ FOLIC ACID TABLET (FP) PO SCH (10:07)
[2019-08-19] MEDS: BACITRACIN 15 GM TUBE TOPICAL OINTMENT TP SCH (10:07)
--- NOTE | 2019-08-19 13:15 | PN ---
[facility] CIWA - CIWA Score Nausea/Vomitin-Mild Nausea/No Vomiting Muscle Tremors: 4-Moderate,w/Arms Extend Anxiety: 3 Agitation: 2 Paroxysmal Sweats: 1-Minimal Palms Moist Orientation: 0-Oriented Tacttile Disturbances: 0-None Auditory Disturbances: 0-None Visual Disturbances: 0-None Headache: 0-None Present CIWA-Ar Total Score: 11 S COWS - Scale Resting Pulse: 1= [place] 81-100 Sweatin= Chills/Flushing Restless Observation: 0= Sits Still Pupil Size: 0= Normal to Room Light Bone or Joint Aches: 1= Mild Discomfort Runny Nose/ Eye Tearin= None GI Upset > 30mins: 1= Stomach Cramp Tremor Observation of Outstretched Hands: 2= Slight Tremor Visible Yawning Observation: 0= None Anxiety or Irritability: 2=Irritable/Anxious Goose Flesh Skin: 3=Piloerection COWS Score: 11 [facility] Progress Note (SOAP) Subjective: 44 years old male admitted on 08/18/19 for alcohol and opiate withdrawal sx management treated with ativan and methadone detox regimen ambulating with cane steady gait ate breaKfast tolerated food and fluid well Objective: 08/19/19 13:15 Vital Signs Temperature 97.2 F L 08/19/19 13:07 Pulse Rate 81 08/19/19 13:07 Respiratory Rate 20 08/19/19 13:07 Blood Pressure 134/81 08/19/19 13:07 O2 Sat by Pulse Oximetry (%) Laboratory Last Values WBC 4.8 K/mm3 (4.0-10.0) 08/18/19 15:03 RBC 4.75 M/mm3 (4.00-5.60) 08/18/19 15:03 Hgb 14.0 GM/dL (11.7-16.9) 08/18/19 15:03 Hct 42.3 % (35.4-49) D 08/18/19 15:03 MCV 89.0 fl (80-96) 08/18/19 15:03 MCH 29.4 pg (25.7-33.7) 08/18/19 15:03 MCHC 33.0 g/dl (32.0-35.9) 08/18/19 15:03 RDW 13.6 % (11.9-15.9) 08/18/19 15:03 Plt Count 188 K/MM3 (134-434) 08/18/19 15:03 MPV 9.5 fl (7.5-11.1) 08/18/19 15:03 Sodium 140 mmol/L (136-145) 08/18/19 15:03 Potassium 3.8 mmol/L (3.5-5.1) 08/18/19 15:03 Chloride 108 mmol/L (98-107) H 08/18/19 15:03 Carbon Dioxide 26 mmol/L (21-32) 08/18/19 15:03 Anion Gap 6 MMOL/L (8-16) L 08/18/19 15:03 BUN 5.3 mg/dL (7-18) L 08/18/19 15:03 Creatinine 1.1 mg/dL (0.55-1.3) 08/18/19 15:03 Est GFR (CKD-EPI)AfAm 92.81 08/18/19 15:03 Est GFR (CKD-EPI)NonAf 80.08 08/18/19 15:03 Random Glucose 100 mg/dL (74-106) 08/18/19 15:03 Calcium 8.7 mg/dL (8.5-10.1) 08/18/19 15:03 Total Bilirubin 0.8 mg/dL (0.2-1) 08/18/19 15:03 AST 25 U/L (15-37) 08/18/19 15:03 ALT 20 U/L (13-61) 08/18/19 15:03 Alkaline Phosphatase 89 U/L (45-117) 08/18/19 15:03 Total Protein 7.7 g/dl (6.4-8.2) 08/18/19 15:03 Albumin 3.8 g/dl (3.4-5.0) 08/18/19 15:03 lab noted Assessment: 08/19/19 13:15 alcohol and opiate withdrawal sx Plan: continue ativan and methadone detox regimen
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
[2019-08-19] MEDS ORDERED: QUEtiapine FUMARATE 200 MG TABLET PO SCH (22:00)
[2019-08-19] MEDS: QUEtiapine FUMARATE 100 MG TABLET (FP) PO SCH (22:17)
[2019-08-19] MEDS: traZODone HCL 100 MG TABLET (FP) PO SCH (22:17)
[2019-08-19] MEDS: THIAMINE HCL 100 MG TABLET (FP) PO SCH (22:17)
[2019-08-20] MEDS: CYCLOBENZAPRINE HCL 5 MG TABLET PO SCH ×3 (06:08→22:20)
[2019-08-20] MEDS: LORazepam 1 MG TABLET PO SCH ×4 (06:08→22:20)
[2019-08-20] MEDS ORDERED: METHADONE HCL 10 MG TABLET (FOR DETOX USE ONLY) PO ONE (10:00)
--- NOTE | 2019-08-20 10:06 | PN ---
[facility] CIWA - CIWA Score Nausea/Vomitin-Mild Nausea/No Vomiting Muscle Tremors: 2 Anxiety: 2 Agitation: 2 Paroxysmal Sweats: 1-Minimal Palms Moist Orientation: 0-Oriented Tacttile Disturbances: 0-None Auditory Disturbances: 0-None Visual Disturbances: 0-None Headache: 0-None Present CIWA-Ar Total Score: 8 [facility] COWS - Scale Resting Pulse: 1= [place] 81-100 Sweatin= Chills/Flushing Restless Observation: 0= Sits Still Pupil Size: 0= Normal to Room Light Bone or Joint Aches: 1= Mild Discomfort Runny Nose/ Eye Tearin= Nasal Congestion GI Upset > 30mins: 2= Nausea/Diarrhea (no diarrhea) Tremor Observation of Outstretched Hands: 1= Tremor [place], Not Seen Yawning Observation: 0= None Anxiety or Irritability: 1=Feels Anxious/Irritable Goose Flesh Skin: 0=Smooth Skin COWS Score: 8 [facility] Progress Note (SOAP) Subjective: 44 years old male admitted on 08/18/19 for alcohol and opiate withdrawal sx management treated with ativan and methadone detox regimen ate breakfast tolerated food and fluid well resting on bed comfortably Objective: 08/20/19 10:04 Vital Signs Temperature 97.2 F L 08/20/19 09:19 Pulse Rate 84 08/20/19 09:19 Respiratory Rate 19 08/20/19 09:19 Blood Pressure 108/68 08/20/19 09:19 O2 Sat by Pulse Oximetry (%) 08/20/19 10:07 Laboratory Last Values WBC 4.8 K/mm3 (4.0-10.0) 08/18/19 15:03 RBC 4.75 M/mm3 (4.00-5.60) 08/18/19 15:03 Hgb 14.0 GM/dL (11.7-16.9) 08/18/19 15:03 Hct 42.3 % (35.4-49) D 08/18/19 15:03 MCV 89.0 fl (80-96) 08/18/19 15:03 MCH 29.4 pg (25.7-33.7) 08/18/19 15:03 MCHC 33.0 g/dl (32.0-35.9) 08/18/19 15:03 RDW 13.6 % (11.9-15.9) 08/18/19 15:03 Plt Count 188 K/MM3 (134-434) 08/18/19 15:03 MPV 9.5 fl (7.5-11.1) 08/18/19 15:03 Sodium 140 mmol/L (136-145) 08/18/19 15:03 Potassium 3.8 mmol/L (3.5-5.1) 08/18/19 15:03 Chloride 108 mmol/L (98-107) H 08/18/19 15:03 Carbon Dioxide 26 mmol/L (21-32) 08/18/19 15:03 Anion Gap 6 MMOL/L (8-16) L 08/18/19 15:03 BUN 5.3 mg/dL (7-18) L 08/18/19 15:03 Creatinine 1.1 mg/dL (0.55-1.3) 08/18/19 15:03 Est GFR (CKD-EPI)AfAm 92.81 08/18/19 15:03 Est GFR (CKD-EPI)NonAf 80.08 08/18/19 15:03 Random Glucose 100 mg/dL (74-106) 08/18/19 15:03 Calcium 8.7 mg/dL (8.5-10.1) 08/18/19 15:03 Total Bilirubin 0.8 mg/dL (0.2-1) 08/18/19 15:03 AST 25 U/L (15-37) 08/18/19 15:03 ALT 20 U/L (13-61) 08/18/19 15:03 Alkaline Phosphatase 89 U/L (45-117) 08/18/19 15:03 Total Protein 7.7 g/dl (6.4-8.2) 08/18/19 15:03 Albumin 3.8 g/dl (3.4-5.0) 08/18/19 15:03 RPR Titer Nonreactive (NONREACTIVE) 08/18/19 15:03 lab noted Assessment: 08/20/19 10:07 alcohol and opiate withdrawal sx Plan: continue ativan and methadone detox regimen
[2019-08-20] MEDS: BACITRACIN 15 GM TUBE TOPICAL OINTMENT TP SCH (10:15)
[2019-08-20] MEDS: PRENATAL VITAMINS W/ FOLIC ACID TABLET (FP) PO SCH (10:15)
[2019-08-20] MEDS: SERTRALINE HCL 50 MG TABLET (FP) PO SCH (10:39)
[2019-08-20] MEDS: QUEtiapine FUMARATE 100 MG TABLET (FP) PO SCH (22:20)
[2019-08-20] MEDS: traZODone HCL 100 MG TABLET (FP) PO SCH (22:20)
[2019-08-20] MEDS: THIAMINE HCL 100 MG TABLET (FP) PO SCH (22:20)
[2019-08-20] MEDS: MELATONIN 5 MG TABLETS PO PRN (22:22)
[2019-08-21] MEDS ORDERED: LORazepam 0.5 MG TABLET PO PRN
[2019-08-21] MEDS: LORazepam 0.5 MG TABLET PO SCH ×4 (05:50→22:10)
[2019-08-21] MEDS ORDERED: METHADONE HCL 5 MG TABLET (FOR DETOX USE ONLY) PO ONE (06:00)
[2019-08-21] MEDS: CYCLOBENZAPRINE HCL 5 MG TABLET PO SCH ×3 (06:16→22:09)
[2019-08-21] MEDS: SERTRALINE HCL 50 MG TABLET (FP) PO SCH (10:57)
[2019-08-21] MEDS: PRENATAL VITAMINS W/ FOLIC ACID TABLET (FP) PO SCH (10:57)
[2019-08-21] MEDS: BACITRACIN 15 GM TUBE TOPICAL OINTMENT TP SCH (10:57)
--- NOTE | 2019-08-21 14:44 | PN ---
S CIWA - CIWA Score Nausea/Vomitin-No Nausea/No Vomiting Muscle Tremors: 2 Anxiety: 1-Mildly Anxious Agitation: 1-Slight > Activity Paroxysmal Sweats: No Perspiration Orientation: 0-Oriented Tacttile Disturbances: 0-None Auditory Disturbances: 0-None Visual Disturbances: 0-None Headache: 0-None Present CIWA-Ar Total Score: 4 S COWS - Scale Resting Pulse: 0= [place] 80 or Below Sweatin= Chills/Flushing Restless Observation: 0= Sits Still Pupil Size: 0= Normal to Room Light Bone or Joint Aches: 1= Mild Discomfort Runny Nose/ Eye Tearin= None GI Upset > 30mins: 0= None Tremor Observation of Outstretched Hands: 1= Tremor [place], Not Seen Yawning Observation: 0= None Anxiety or Irritability: 1=Feels Anxious/Irritable Goose Flesh Skin: 0=Smooth Skin COWS Score: 4 S Progress Note (SOAP) Subjective: 44 years old male admitted on 08/18/19 for alcohol and opiate withdrawal sx management treated with ativan and methadone detox regimen patient tolerated well ate breakfast tolerated food and fluid well ambulating with cane steady gait discuss medication assisted treatment program roller picker narcan from pharmacy Objective: 08/21/19 14:49 Vital Signs Temperature 97.9 F 08/21/19 13:08 Pulse Rate 68 08/21/19 13:08 Respiratory Rate 18 08/21/19 13:08 Blood Pressure 130/85 08/21/19 13:08 O2 Sat by Pulse Oximetry (%) Laboratory Last Values WBC 4.8 K/mm3 (4.0-10.0) 08/18/19 15:03 RBC 4.75 M/mm3 (4.00-5.60) 08/18/19 15:03 Hgb 14.0 GM/dL (11.7-16.9) 08/18/19 15:03 Hct 42.3 % (35.4-49) D 08/18/19 15:03 MCV 89.0 fl (80-96) 08/18/19 15:03 MCH 29.4 pg (25.7-33.7) 08/18/19 15:03 MCHC 33.0 g/dl (32.0-35.9) 08/18/19 15:03 RDW 13.6 % (11.9-15.9) 08/18/19 15:03 Plt Count 188 K/MM3 (134-434) 08/18/19 15:03 MPV 9.5 fl (7.5-11.1) 08/18/19 15:03 Sodium 140 mmol/L (136-145) 08/18/19 15:03 Potassium 3.8 mmol/L (3.5-5.1) 08/18/19 15:03 Chloride 108 mmol/L (98-107) H 08/18/19 15:03 Carbon Dioxide 26 mmol/L (21-32) 08/18/19 15:03 Anion Gap 6 MMOL/L (8-16) L 08/18/19 15:03 BUN 5.3 mg/dL (7-18) L 08/18/19 15:03 Creatinine 1.1 mg/dL (0.55-1.3) 08/18/19 15:03 Est GFR (CKD-EPI)AfAm 92.81 08/18/19 15:03 Est GFR (CKD-EPI)NonAf 80.08 08/18/19 15:03 Random Glucose 100 mg/dL (74-106) 08/18/19 15:03 Calcium 8.7 mg/dL (8.5-10.1) 08/18/19 15:03 Total Bilirubin 0.8 mg/dL (0.2-1) 08/18/19 15:03 AST 25 U/L (15-37) 08/18/19 15:03 ALT 20 U/L (13-61) 08/18/19 15:03 Alkaline Phosphatase 89 U/L (45-117) 08/18/19 15:03 Total Protein 7.7 g/dl (6.4-8.2) 08/18/19 15:03 Albumin 3.8 g/dl (3.4-5.0) 08/18/19 15:03 RPR Titer Nonreactive (NONREACTIVE) 08/18/19 15:03 lab noted Assessment: 08/21/19 14:49 alcohol and opiate withdrawal sx Plan: continue ativan and methadone detox regimen
[2019-08-21 17:04] LABS: URINE APPEARANCE CLEAR; URINE BILIRUBIN NEGATIVE (NEGATIVE); URINE COLOR YELLOW; URINE GLUCOSE (UA) NEGATIVE (NEGATIVE); URINE KETONE NEGATIVE (NEGATIVE); URINE LEUK ESTERASE NEGATIVE (NEGATIVE); URINE NITRITE NEGATIVE (NEGATIVE); URINE PROTEIN NEGATIVE (NEGATIVE); URINE UROBILINOGEN 0.2 mg/dL (0.2-1.0)
[2019-08-21] MEDS: THIAMINE HCL 100 MG TABLET (FP) PO SCH (22:09)
[2019-08-21] MEDS: QUEtiapine FUMARATE 100 MG TABLET (FP) PO SCH (22:09)
[2019-08-21] MEDS: traZODone HCL 100 MG TABLET (FP) PO SCH (22:09)
[2019-08-21] MEDS: MELATONIN 5 MG TABLETS PO PRN (22:10)
[2019-08-22] MEDS ORDERED: LORazepam 0.5 MG TABLET PO ONE (05:00)
[2019-08-22] MEDS: CYCLOBENZAPRINE HCL 5 MG TABLET PO SCH (05:52)
[2019-08-22 06:12] VITALS: BP 111/68; PULSE 64; TEMP 97.2
--- NOTE | 2019-08-22 08:11 | PN ---
[facility] CIWA - CIWA Score Nausea/Vomitin-Mild Nausea/No Vomiting Muscle Tremors: 1-None Visible, but [place] Anxiety: 1-Mildly Anxious Agitation: 0-Normal Activity Paroxysmal Sweats: No Perspiration Orientation: 0-Oriented Tacttile Disturbances: 0-None Auditory Disturbances: 0-None Visual Disturbances: 0-None Headache: 0-None Present CIWA-Ar Total Score: 3 S COWS - Scale Resting Pulse: 0= [place] 80 or Below Sweatin= No chills or Flushing Restless Observation: 0= Sits Still Pupil Size: 0= Normal to Room Light Bone or Joint Aches: 0= None Runny Nose/ Eye Tearin= None GI Upset > 30mins: 0= None Tremor Observation of Outstretched Hands: 0= None Yawning Observation: 0= None Anxiety or Irritability: 1=Feels Anxious/Irritable Goose Flesh Skin: 0=Smooth Skin COWS Score: 1 [facility] Progress Note (SOAP) Subjective: alert,no complaint Objective: 08/22/19 08:10 Vital Signs Temperature 97.2 F L 08/22/19 06:12 Pulse Rate 64 08/22/19 06:12 Respiratory Rate 18 08/22/19 06:12 Blood Pressure 111/68 08/22/19 06:12 O2 Sat by Pulse Oximetry (%) Assessment: 08/22/19 08:10 drtox completed,no withdrawal symptom Plan: discharge today,follow up with after care program as arrangement
--- NOTE | 2019-08-22 08:14 | DS ---
[facility] Detox Discharge Summary Admission Date: 08/18/19 Discharge Date: 08/22/19 - History Present History: Alcohol Dependence, Cocaine Dependence, Opioid Dependence, Sedative Dependence Additional Comments: follow up with after care program as arrangement Pertinent Past History: hepatitis c - Physical Exam Results Vital Signs: Vital Signs Temperature 97.2 F L 08/22/19 06:12 Pulse Rate 64 08/22/19 06:12 Respiratory Rate 18 08/22/19 06:12 Blood Pressure 111/68 08/22/19 06:12 O2 Sat by Pulse Oximetry (%) Pertinent Admission Physical Exam Findings: withdrawal signs and symptom - Treatment Hospital Course: Detox Protocol Followed, Detoxed Safely, Responded well, Discharged Condition Good Patient has Accepted a Rehab Referral to: declined - Medication Discharge Medications: Ambulatory Orders traZODone HCL [Desyrel -] 100 mg PO HS #30 tablet 03/06/18 Hydroxyzine HCl 50 mg PO QID PRN 04/04/18 Aripiprazole [Abilify -] 5 mg PO HS #30 tablet 05/27/19 Quetiapine Fumarate [Seroquel -] 200 mg PO HS #30 tablet 05/27/19 Sertraline HCl [Zoloft] 100 mg PO DAILY #30 tablet 05/27/19 Naloxone HCl [Narcan] 4 mg NS ASDIR PRN #1 spray 08/21/19 - Diagnosis (1) Alcohol dependence with uncomplicated withdrawal Current Visit: Yes Status: Acute (2) Opioid dependence with withdrawal Current Visit: Yes Status: Acute (3) Cocaine dependence Current Visit: Yes Status: Chronic Qualifiers: Substance use status: uncomplicated Qualified Code(s): F14.20 - Cocaine dependence, uncomplicated (4) Hepatitis C Current Visit: Yes Status: Chronic Qualifiers: Viral hepatitis chronicity: chronic Hepatic coma status: without hepatic coma Qualified Code(s): B18.2 - Chronic viral hepatitis C (5) History of posttraumatic stress disorder (PTSD) Current Visit: Yes Status: Chronic (6) Sedative hypnotic or anxiolytic dependence Current Visit: Yes Status: Chronic - AMA Did Patient Leave Against Medical Advice: No
[2019-08-22] MEDS: BACITRACIN 15 GM TUBE TOPICAL OINTMENT TP SCH (10:01)
[2019-08-22] MEDS: PRENATAL VITAMINS W/ FOLIC ACID TABLET (FP) PO SCH (10:01)
[2019-08-22] MEDS: SERTRALINE HCL 50 MG TABLET (FP) PO SCH (10:01)
== END 2019-08-22 11:40 | disposition other institution (70) | DRG 773 ==
LOC: YASAS 11:17 → Y3N 15:56
PROVIDERS: ADMIT Allergy & Immunology; ATTEND Allergy & Immunology
PROC: HZ2ZZZZ Detoxification Services for Substance Abuse Treatment (ICD-10-PCS; principal; 2019-08-18)
DX: F10.230 Alcohol dependence with withdrawal, uncomplicated (principal); F11.23 Opioid dependence with withdrawal; F13.20 Sedative, hypnotic or anxiolytic dependence, uncomplicated; F14.20 Cocaine dependence, uncomplicated; F15.20 Other stimulant dependence, uncomplicated; F43.10 Post-traumatic stress disorder, unspecified; F19.24 Other psychoactive substance dependence with psychoactive substance-induced mood disorder; F31.9 Bipolar disorder, unspecified; F41.8 Other specified anxiety disorders; B18.2 Chronic viral hepatitis C; G47.00 Insomnia, unspecified; Z99.89 Dependence on other enabling machines and devices; Z91.5 Personal history of self-harm; Z91.19 Patient's noncompliance with other medical treatment and regimen
CPT/HCPCS: 36415; 80053; 81003; 85027; 86593

== ENCOUNTER 2019-10-09 09:59 | Inpatient (IN) | payer OTHER ==
[2019-10-09 10:53] VITALS: BMI 36.9
--- NOTE | 2019-10-09 11:12 | HP ---
COWS - Scale Resting Pulse: 0= [place] 80 or Below Sweatin= Chills/Flushing Restless Observation: 1= Difficult to Sit Still Pupil Size: 1= Pupils >than Normal Bone or Joint Aches: 2= Severe Diffuse Aches Runny Nose/ Eye Tearin= Runny Nose/Eyes GI Upset > 30mins: 2= Nausea/Diarrhea Tremor Observation: 2= Slight Tremor Visible Yawning Observation: 1= 1-2x During Session Anxiety or Irritability: 2=Irritable/Anxious Goose Flesh Skin: 0=Smooth Skin COWS Score: 14 CIWA Score Nausea/Vomitin Muscle Tremors: 2 Anxiety: 3 Agitation: 3 Paroxysmal Sweats: 1-Minimal Palms Moist Orientation: 0-Oriented Tacttile Disturbances: 1-Very Mild Itch/Numbness Auditory Disturbances: 0-None Visual Disturbances: 0-None Headache: 2-Mild CIWA-Ar Total Score: 14 - Admission Criteria OASAS Guidelines: Admission for Medically Managed Detox: Requires at least one of the followin. CIWA greater than 12 2. Seizures within the past 24 hours 3. Delirium tremens within the past 24 hours 4. Hallucinations within the past 24 hours 5. Acute intervention needed for co occurring medical disorder 6. Acute intervention needed for co occurring psychiatric disorder 7. Severe withdrawal that cannot be handled at a lower level of care (continued vomiting, continued diarrhea, abnormal vital signs) requiring intravenous medication and/or fluids 8. Admitting History and Physical - Admission Chief Complaint: i need help to stop using heroin,alcohol,cocaine and meamphetamine History of Present Illness: ithis 44 years old male with heroin,alcohol,cocaine and amphetamine dependence seeking detox History Source: Patient Limitations to Obtaining History: No Limitations - Past Medical History CLINIC LICENSED PRACTICAL NURSE: Yes: Syncope Psych: Yes: Anxiety, Bipolar, Depression Musculoskeletal: Yes: Osteoarthritis (both kneed ambulation with cane) - Past Surgical History Past Surgical History: Yes: Hernia Repair - Smoking History Smoking history: Never smoked Have you smoked in the past 12 months: No Aproximately how many cigarettes per day: 0 - Alcohol/Substance Use Hx Alcohol Use: Yes Number of Drinks Daily: 8 History of Substance Use: reports: Heroin Date of Last Use: 08/18/19 - Social History Usual Living Arrangement: Yes: Other (homeless) ADL: Independent History of Recent Travel: No Admission ROS [facility] - HPI Chief Complaint: i need help to stop using heroin,alcohol,cocaine,metamphetamine Allergies/Adverse Reactions: Allergies Allergy/AdvReac Type Severity Reaction Status Date / Time No Known Allergies Allergy Verified 10/09/19 10:43 History of Present Illness: this 44 years old male with heroin,alcohol,cocaine,methamphetamine dependence, seeking detox,withdrawal symptom multiple admissions in detox last [facility] to 08/17/19 hepatitis c treated syncope alcohol related htn no med bipolar disorder ambulation with cane for arthritis both knees no significant period of sobriety plan for rehab after detox Exam Limitations: No Limitations - Ebola screening Have you traveled outside of the country in the last 21 days: No Have you had contact with anyone from an Ebola affected area: No Do you have a fever: No - Review of Systems Constitutional: Loss of Appetite, Malaise, Night Sweats, Changes in sleep, Weakness EENT: reports: Tearing, Nose Congestion Respiratory: reports: No Symptoms reported Cardiac: reports: No Symptoms Reported (htn) GI: reports: Diarrhea, Nausea, Abdominal cramping : reports: No Symptoms Reported Musculoskeletal: reports: Muscle Pain Integumentary: reports: Dryness Endocrine: reports: No Symptoms Reported Hematology: reports: No Symptoms Reported Psychiatric: reports: No Sypmtoms Reported, Judgement Intact, Mood/Affect Appropiate, Orientated x3, Agitated, Anxious, Depressed, other (bipolar disorder ) Patient History - Patient Medical History Hx Anemia: No Hx Asthma: No Hx Chronic Obstructive Pulmonary Disease (COPD): No Hx Cancer: No Hx Cardiac Disorders: No Hx Congestive Heart Failure: No Hx Hypertension: Yes (no med) Hx Hypercholesterolemia: No Hx Pacemaker: No HX Cerebrovascular Accident: No Hx Seizures: No Hx Dementia: No Hx Diabetes: No Hx Gastrointestinal Disorders: No Hx Liver Disease: No Hx Genitourinary Disorders: No Hx Sexually Transmitted Disorders: Yes (history of syphilis) Hx Renal Disease (ESRD): No Hx Thyroid Disease: No Hx Human Immunodeficiency Virus (HIV): No (NEGATIVE HX 08/02) Hx Hepatitis C: Yes (completed treatment) Hx Depression: Yes Hx Suicide Attempt: No Hx Bipolar Disorder: Yes (ON MEDS, hospitalized for ERRATIC behavior in past.) Hx Schizophrenia: No Other Medical History: no suicidal,no homicidal - Patient Surgical History Past Surgical History: Yes Hx Neurologic Surgery: No Hx Cataract Extraction: No Hx Cardiac Surgery: No Hx Lung Surgery: No Hx Breast Surgery: No Hx Breast Biopsy: No Hx Abdominal Surgery: Yes (umbilical hernia repair in 2004) Hx Appendectomy: No Hx Cholecystectomy: No Hx Genitourinary Surgery: No Hx Section: No Hx Orthopedic Surgery: No Hx Hysterectomy: No Other Surgical History: lipoma, left side of neck in 2009 Anesthesia Reaction: No - PPD History Previous Implant?: Yes Documented Results: Negative w/proof Date: 12/20/18 Results: 0mm PPD to be Administered?: No - Smoking Cessation Smoking history: Never smoked Have you smoked in the past 12 months: No Aproximately how many cigarettes per day: 0 Cigars Per Day: 0 Hx Chewing Tobacco Use: No - Substance & Tx. History Hx Alcohol Use: Yes Hx Substance Use: Yes Substance Use Type: Alcohol, Cocaine, Heroin, Tranquilizers Hx Substance Use Treatment: Yes ([facility] 08/18/19 to 08/22/19) - Substances abused Heroin Substance route: Injection Frequency: Daily Amount used: 8 bags Age of first use: 36 Date of last use: 10/08/19 Cocaine Substance route: Injection Frequency: Daily Amount used: 1 grams Age of first use: 36 Date of last use: 10/08/19 Alcohol Substance route: Oral Frequency: Daily Amount used: 3 pints vodka Age of first use: 11 Date of last use: 10/08/19 Crystal meth Substance route: Injection Frequency: 1-2 times per week Amount used: 1 gram Age of first use: 43 Date of last use: 10/02/19 Alprazolam (Xanax) Substance route: Oral Frequency: 1-2 times per week Amount used: 2-3 PILLS 4 to 6 mgs Age of first use: 28 Date of last use: 08/17/19 Admission Physical Exam [facility] - Vital Signs Vital Signs: Vital Signs - 24 hr 10/09/19 10:44 Temperature 97.5 F L Pulse Rate 78 Respiratory 20 Rate Blood Pressure 103/68 - Physical General Appearance: Yes: Moderate Distress, Tremorous, Irritable, Sweating, Anxious HEENTM: Yes: Normal ENT Inspection, SACHA, Pharynx Normal Respiratory: Yes: Within Normal Limits, Lungs Clear, Normal Breath Sounds Neck: Yes: Supple - Diagnostic (1) Alcohol dependence with uncomplicated withdrawal Current Visit: No Status: Acute (2) Opioid dependence with withdrawal Current Visit: No Status: Acute (3) Cocaine dependence Current Visit: No Status: Chronic Qualifiers: Substance use status: uncomplicated Qualified Code(s): F14.20 - Cocaine dependence, uncomplicated (4) Hepatitis C Current Visit: No Status: Chronic Qualifiers: Viral hepatitis chronicity: chronic Hepatic coma status: without hepatic coma Qualified Code(s): B18.2 - Chronic viral hepatitis C (5) History of bipolar disorder Current Visit: No Status: Chronic (6) Knee pain, bilateral Current Visit: No Status: Chronic Qualifiers: Chronicity: chronic Qualified Code(s): M25.561 - Pain in right knee; M25.562 - Pain in left knee; G89.29 - Other chronic pain (7) Syphilis (acquired) Current Visit: No Status: Chronic Comment: 2005 primary treatment Cleared for Admission [facility] - Detox or Rehab [facility] Level of Care: Medically Managed Detox Regimen/Protocol: Methadone/Valium Breathalyzer - Breathalyzer Breathalyzer: 0.161 Urine Drug Screen - Test Device Lot number: [id number] Expiration date: 04/13/21 - Control Is test valid?: Yes - Results Drug screen NEGATIVE: No Urine drug screen results: LAVERNE-Cocaine, MET-Methamphetamine, MOP-Opiates, BZO- Benzodiazepines Inpatient Rehab Admission - Rehab Decision to Admit Inpatient rehab admission?: No
[2019-10-09] MEDS ORDERED: BISMUTH SUBSALICYLATE 262 MG/15 ML BTL PO PRN (11:25)
[2019-10-09] MEDS ORDERED: IBUPROFEN 400 MG TABLET (FP) PO PRN (11:25)
[2019-10-09] MEDS ORDERED: METHOCARBAMOL 500 MG TABLET PO PRN (11:25)
[2019-10-09] MEDS ORDERED: MENTHOL/PHENOL 1 EACH UD MM PRN (11:25)
[2019-10-09] MEDS ORDERED: cloNIDine HCL 0.1 MG TABLET PO PRN (11:25)
[2019-10-09] MEDS ORDERED: MAG HYDROX/AL HYDROX/SIMETH 30 ML UNIT-DOSE CUP PO PRN (11:25)
[2019-10-09] MEDS ORDERED: diazePAM 5 MG TABLET PO PRN (11:25)
[2019-10-09] MEDS ORDERED: MAGNESIUM HYDROX 2400MG/30ML ORAL SUSPENSION 30 ML CUP PO PRN (11:25)
[2019-10-09] MEDS ORDERED: MAGNESIUM CITRATE 300 ML BOTTLE PO PRN (11:25)
[2019-10-09] MEDS ORDERED: ACETAMINOPHEN 325 MG TABLET (FP) PO PRN ×2 (11:25)
[2019-10-09] MEDS ORDERED: METHADONE HCL 10 MG TABLET (FOR DETOX USE ONLY) PO ONE (11:25)
[2019-10-09] MEDS ORDERED: hydrOXYzine PAMOATE 25 MG CAPSULE (FP) PO PRN (11:25)
[2019-10-09] MEDS: diazePAM 5 MG TABLET PO SCH ×2 (14:58→22:18)
[2019-10-09 16:01] LABS: HEMATOCRIT 37.6 % (35.4-49); HEMOGLOBIN 12.5 GM/dL (11.7-16.9); MCH 29.1 pg (25.7-33.7); MCHC 33.2 g/dl (32.0-35.9); MEAN CELL VOLUME 87.9 fl (80-96); MEAN PLT VOLUME 9.3 fl (7.5-11.1); PLATELET COUNT 223 K/MM3 (134-434); RBC 4.28 M/mm3 (4.00-5.60); RDW 14.1 % (11.9-15.9); WHITE BLOOD COUNT 7.2 K/mm3 (4.0-10.0)
[2019-10-09 16:16] LABS: ALBUMIN 3.6 g/dl (3.4-5.0); BILIRUBIN,TOTAL 0.9 mg/dL (0.2-1); CALCIUM 9.2 mg/dL (8.5-10.1); POTASSIUM 4.2 mmol/L (3.5-5.1); TOT PROT 7.9 g/dl (6.4-8.2)
[2019-10-09] MEDS: THIAMINE HCL 100 MG TABLET (FP) PO SCH (22:18)
[2019-10-09] MEDS: MELATONIN 5 MG TABLETS PO PRN (22:18)
[2019-10-09] MEDS: CYCLOBENZAPRINE HCL 10 MG TABLET (FP) PO PRN (22:20)
[2019-10-10] MEDS: diazePAM 5 MG TABLET PO SCH ×3 (07:00→21:12)
[2019-10-10] MEDS ORDERED: METHADONE HCL 10 MG TABLET (FOR DETOX USE ONLY) ONE (09:09)
[2019-10-10] MEDS ORDERED: METHADONE HCL 5 MG TABLET (FOR DETOX USE ONLY) ONE (09:09)
--- NOTE | 2019-10-10 09:21 | PN ---
[facility] CIWA - CIWA Score Nausea/Vomitin-No Nausea/No Vomiting Muscle Tremors: 3 Anxiety: 3 Agitation: 3 Paroxysmal Sweats: 3 Orientation: 0-Oriented Tacttile Disturbances: 0-None Auditory Disturbances: 0-None Visual Disturbances: 0-None Headache: 0-None Present CIWA-Ar Total Score: 12 S COWS - Scale Resting Pulse: 1= [place] 81-100 Sweatin= Chills/Flushing Restless Observation: 1= Difficult to Sit Still Pupil Size: 0= Normal to Room Light Bone or Joint Aches: 1= Mild Discomfort Runny Nose/ Eye Tearin= Nasal Congestion GI Upset > 30mins: 0= None Tremor Observation of Outstretched Hands: 2= Slight Tremor Visible Yawning Observation: 2= >3x During Session Anxiety or Irritability: 2=Irritable/Anxious Goose Flesh Skin: 0=Smooth Skin COWS Score: 11 [facility] Progress Note (SOAP) Subjective: nausea sweats leg pain shakes interrupted sleep body aches Objective: 10/10/19 09:28 Vital Signs Temperature 97.7 F 10/10/19 09:12 Pulse Rate 89 10/10/19 09:12 Respiratory Rate 20 10/10/19 09:12 Blood Pressure 130/66 10/10/19 09:12 O2 Sat by Pulse Oximetry (%) Laboratory Tests 10/09/19 10/09/19 11:55 11:55 WBC 7.2 RBC 4.28 Hgb 12.5 Hct 37.6 MCV 87.9 MCH 29.1 MCHC 33.2 RDW 14.1 Plt Count 223 MPV 9.3 Sodium 138 Potassium 4.2 Chloride 104 Carbon Dioxide 28 Anion Gap 5 L BUN 12.0 Creatinine 1.0 Est GFR (CKD-EPI)AfAm 104.15 Est GFR (CKD-EPI)NonAf 89.86 Random Glucose 83 Calcium 9.2 Total Bilirubin 0.9 AST 24 ALT 23 Alkaline Phosphatase 131 H Total Protein 7.9 Albumin 3.6 aaox3 lying in bed no acute distress Assessment: 10/10/19 09:29 withdrawals Plan: continue detox increase fluids motrin 600mg prn
[2019-10-10] MEDS ORDERED: METHADONE (DETOX) 20 MG, METHADONE (DETOX) 5 MG PO ONE (10:00)
[2019-10-10] MEDS: PRENATAL VITAMINS W/ FOLIC ACID TABLET (FP) PO SCH (10:50)
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
[2019-10-10] MEDS: ARIPiprazole 5 MG TABLET (FP) PO SCH (13:23)
[2019-10-10] MEDS: QUEtiapine FUMARATE 200 MG TABLET PO SCH (21:12)
[2019-10-10] MEDS: traZODone HCL 100 MG TABLET (FP) PO SCH (21:12)
[2019-10-10] MEDS: THIAMINE HCL 100 MG TABLET (FP) PO SCH (21:12)
[2019-10-10] MEDS ORDERED: ARIPiprazole 5 MG TABLET (FP) PO SCH (22:00)
[2019-10-11] MEDS: diazePAM 5 MG TABLET PO SCH ×2 (06:08→18:07)
[2019-10-11] MEDS ORDERED: METHADONE HCL 10 MG TABLET (FOR DETOX USE ONLY) PO ONE (10:00)
[2019-10-11] MEDS: PRENATAL VITAMINS W/ FOLIC ACID TABLET (FP) PO SCH (10:30)
[2019-10-11] MEDS: ARIPiprazole 5 MG TABLET (FP) PO SCH (10:30)
--- NOTE | 2019-10-11 12:17 | PN ---
S CIWA - CIWA Score Nausea/Vomitin-No Nausea/No Vomiting Muscle Tremors: 2 Anxiety: 4-Mod. Anxious/Guarded Agitation: 0-Normal Activity Paroxysmal Sweats: 3 Orientation: 0-Oriented Tacttile Disturbances: 1-Very Mild Itch/Numbness Auditory Disturbances: 0-None Visual Disturbances: 1-Very Mild Sensitivity Headache: 0-None Present CIWA-Ar Total Score: 11 [facility] COWS - Scale Resting Pulse: 1= [place] 81-100 Sweatin= Chills/Flushing Restless Observation: 0= Sits Still Pupil Size: 0= Normal to Room Light Bone or Joint Aches: 2= Severe Diffuse Aches Runny Nose/ Eye Tearin= None GI Upset > 30mins: 0= None Tremor Observation of Outstretched Hands: 2= Slight Tremor Visible Yawning Observation: 1= 1-2x During Session Anxiety or Irritability: 2=Irritable/Anxious Goose Flesh Skin: 0=Smooth Skin COWS Score: 9 S Progress Note (SOAP) Subjective: Sweating, Body Aches, Anxious, Interrupted Sleep. Objective: PATIENT A & O X 3, OBSERVED AMBULATING ON UNIT UNASSISTED. 10/11/19 12:18 Vital Signs Temperature 96.4 F L 10/11/19 09:20 Pulse Rate 92 H 10/11/19 09:20 Respiratory Rate 18 10/11/19 09:20 Blood Pressure 108/68 10/11/19 09:20 O2 Sat by Pulse Oximetry (%) Laboratory Tests 10/09/19 10/09/19 10/09/19 11:55 11:55 11:55 WBC 7.2 RBC 4.28 Hgb 12.5 Hct 37.6 MCV 87.9 MCH 29.1 MCHC 33.2 RDW 14.1 Plt Count 223 MPV 9.3 Sodium 138 Potassium 4.2 Chloride 104 Carbon Dioxide 28 Anion Gap 5 L BUN 12.0 Creatinine 1.0 Est GFR (CKD-EPI)AfAm 104.15 Est GFR (CKD-EPI)NonAf 89.86 Random Glucose 83 Calcium 9.2 Total Bilirubin 0.9 AST 24 ALT 23 Alkaline Phosphatase 131 H Total Protein 7.9 Albumin 3.6 RPR Titer Nonreactive HIV 1&2 Antibody Screen HIV P24 Antigen 10/09/19 11:55 WBC RBC Hgb Hct MCV MCH MCHC RDW Plt Count MPV Sodium Potassium Chloride Carbon Dioxide Anion Gap BUN Creatinine Est GFR (CKD-EPI)AfAm Est GFR (CKD-EPI)NonAf Random Glucose Calcium Total Bilirubin AST ALT Alkaline Phosphatase Total Protein Albumin RPR Titer HIV 1&2 Antibody Screen Negative HIV P24 Antigen Negative LABS NOTED. Assessment: 10/11/19 12:19 WITHDRAWAL SYMPTOMS. ELEVATED ALK. PHOS. LEVEL. Plan: CONTINUE DETOX.
[2019-10-11] MEDS: CYCLOBENZAPRINE HCL 10 MG TABLET (FP) PO PRN (14:56)
[2019-10-11] MEDS: IBUPROFEN 600 MG TABLET (FP) PO PRN (14:57)
[2019-10-11] MEDS: QUEtiapine FUMARATE 200 MG TABLET PO SCH (22:19)
[2019-10-11] MEDS: THIAMINE HCL 100 MG TABLET (FP) PO SCH (22:19)
[2019-10-11] MEDS: MELATONIN 5 MG TABLETS PO PRN (22:19)
[2019-10-11] MEDS: traZODone HCL 100 MG TABLET (FP) PO SCH (22:19)
[2019-10-12] MEDS ORDERED: diazePAM 5 MG TABLET PO ONE (06:00)
[2019-10-12] MEDS ORDERED: METHADONE HCL 10 MG TABLET (FOR DETOX USE ONLY) ONE (09:27)
[2019-10-12] MEDS ORDERED: METHADONE HCL 5 MG TABLET (FOR DETOX USE ONLY) ONE (09:27)
[2019-10-12] MEDS ORDERED: METHADONE (DETOX) 10 MG, METHADONE (DETOX) 5 MG PO ONE (10:00)
[2019-10-12] MEDS: ARIPiprazole 5 MG TABLET (FP) PO SCH (10:20)
[2019-10-12] MEDS: CYCLOBENZAPRINE HCL 10 MG TABLET (FP) PO PRN ×2 (10:22→20:30)
[2019-10-12] MEDS: PRENATAL VITAMINS W/ FOLIC ACID TABLET (FP) PO SCH (10:25)
--- NOTE | 2019-10-12 12:24 | PN ---
[facility] CIWA - CIWA Score Nausea/Vomitin-No Nausea/No Vomiting Muscle Tremors: 2 Anxiety: 2 Agitation: 2 Paroxysmal Sweats: 2 Orientation: 0-Oriented Tacttile Disturbances: 0-None Auditory Disturbances: 0-None Visual Disturbances: 0-None Headache: 0-None Present CIWA-Ar Total Score: 8 [facility] COWS - Scale Resting Pulse: 1= [place] 81-100 Sweatin= Chills/Flushing Restless Observation: 1= Difficult to Sit Still Pupil Size: 0= Normal to Room Light Bone or Joint Aches: 1= Mild Discomfort Runny Nose/ Eye Tearin= None GI Upset > 30mins: 1= Stomach Cramp Tremor Observation of Outstretched Hands: 2= Slight Tremor Visible Yawning Observation: 0= None Anxiety or Irritability: 1=Feels Anxious/Irritable Goose Flesh Skin: 0=Smooth Skin COWS Score: 8 S Progress Note (SOAP) Subjective: Feels ok, medication working well Objective: 10/12/19 12:22 Last Vital Signs Temp Pulse Resp BP Pulse Ox 97.0 F L 82 18 114/78 10/12/19 09:24 10/12/19 09:24 10/12/19 09:24 10/12/19 09:24 Laboratory Tests 10/09/19 10/09/19 10/09/19 11:55 11:55 11:55 WBC 7.2 RBC 4.28 Hgb 12.5 Hct 37.6 MCV 87.9 MCH 29.1 MCHC 33.2 RDW 14.1 Plt Count 223 MPV 9.3 Sodium 138 Potassium 4.2 Chloride 104 Carbon Dioxide 28 Anion Gap 5 L BUN 12.0 Creatinine 1.0 Est GFR (CKD-EPI)AfAm 104.15 Est GFR (CKD-EPI)NonAf 89.86 Random Glucose 83 Calcium 9.2 Total Bilirubin 0.9 AST 24 ALT 23 Alkaline Phosphatase 131 H Total Protein 7.9 Albumin 3.6 RPR Titer Nonreactive HIV 1&2 Antibody Screen HIV P24 Antigen 10/09/19 11:55 WBC RBC Hgb Hct MCV MCH MCHC RDW Plt Count MPV Sodium Potassium Chloride Carbon Dioxide Anion Gap BUN Creatinine Est GFR (CKD-EPI)AfAm Est GFR (CKD-EPI)NonAf Random Glucose Calcium Total Bilirubin AST ALT Alkaline Phosphatase Total Protein Albumin RPR Titer HIV 1&2 Antibody Screen Negative HIV P24 Antigen Negative Labs reviewed Assessment: 10/12/19 12:23 Withdrawal sxs Plan: Continue detox Encouraged PO water intake
[2019-10-12] MEDS: IBUPROFEN 600 MG TABLET (FP) PO PRN (20:30)
[2019-10-12] MEDS: traZODone HCL 100 MG TABLET (FP) PO SCH (22:16)
[2019-10-12] MEDS: QUEtiapine FUMARATE 200 MG TABLET PO SCH (22:16)
[2019-10-12] MEDS: THIAMINE HCL 100 MG TABLET (FP) PO SCH (22:16)
[2019-10-12] MEDS: MELATONIN 5 MG TABLETS PO PRN (22:17)
[2019-10-13 09:07] VITALS: BP 147/77; PULSE 102; TEMP 97.9
--- NOTE | 2019-10-13 10:13 | PN ---
[facility] CIWA - CIWA Score Nausea/Vomitin-Mild Nausea/No Vomiting Muscle Tremors: 1-None Visible, but [place] Anxiety: 2 Agitation: 2 Paroxysmal Sweats: No Perspiration Orientation: 0-Oriented Tacttile Disturbances: 0-None Auditory Disturbances: 0-None Visual Disturbances: 0-None Headache: 1-Very Mild CIWA-Ar Total Score: 7 [facility] COWS - Scale Resting Pulse: 2= [place] 101-120 Sweatin= No chills or Flushing Restless Observation: 0= Sits Still Pupil Size: 0= Normal to Room Light Bone or Joint Aches: 1= Mild Discomfort Runny Nose/ Eye Tearin= Nasal Congestion GI Upset > 30mins: 1= Stomach Cramp Tremor Observation of Outstretched Hands: 1= Tremor [place], Not Seen Yawning Observation: 1= 1-2x During Session Anxiety or Irritability: 1=Feels Anxious/Irritable Goose Flesh Skin: 0=Smooth Skin COWS Score: 8 [facility] Progress Note (SOAP) Subjective: alert,irritable,anxious,interrupted sleep,pain in the body Objective: 10/13/19 10:13 Vital Signs Temperature 97.9 F 10/13/19 09:06 Pulse Rate 102 H 10/13/19 09:06 Respiratory Rate 20 10/13/19 09:06 Blood Pressure 147/77 10/13/19 09:06 O2 Sat by Pulse Oximetry (%) Assessment: 10/13/19 10:13 withdrawal symptom Plan: continue detox methadone and valium regimen,discharge in am
[2019-10-13] MEDS: METHADONE HCL 10 MG TABLET (FOR DETOX USE ONLY) PO ONE ×2 (10:30→10:46)
[2019-10-13] MEDS: ARIPiprazole 5 MG TABLET (FP) PO SCH (10:45)
[2019-10-13] MEDS: PRENATAL VITAMINS W/ FOLIC ACID TABLET (FP) PO SCH (10:46)
--- NOTE | 2019-10-13 12:24 | PN ---
S Progress Note Note: patient would like to be discharged for personal problem with the family,stable for discharge, follow up with after care program as arrangement
--- NOTE | 2019-10-13 12:29 | DS ---
[facility] Detox Discharge Summary Admission Date: 10/09/19 Discharge Date: 10/13/19 - History Present History: Alcohol Dependence, Opioid Dependence Additional Comments: follow up with after care program as arrangement Pertinent Past History: hepatitis c history of bipolar disorder bilateral knee ambulation with cane - Physical Exam Results Vital Signs: Vital Signs Temperature 97.9 F 10/13/19 09:06 Pulse Rate 102 H 10/13/19 09:06 Respiratory Rate 20 10/13/19 09:06 Blood Pressure 147/77 10/13/19 09:06 O2 Sat by Pulse Oximetry (%) Pertinent Admission Physical Exam Findings: withdrawal signs and symptom Vital Signs Temperature 97.9 F 10/13/19 09:06 Pulse Rate 102 H 10/13/19 09:06 Respiratory Rate 20 10/13/19 09:06 Blood Pressure 147/77 10/13/19 09:06 O2 Sat by Pulse Oximetry (%) Laboratory Last Values WBC 7.2 K/mm3 (4.0-10.0) 10/09/19 11:55 RBC 4.28 M/mm3 (4.00-5.60) 10/09/19 11:55 Hgb 12.5 GM/dL (11.7-16.9) 10/09/19 11:55 Hct 37.6 % (35.4-49) 10/09/19 11:55 MCV 87.9 fl (80-96) 10/09/19 11:55 MCH 29.1 pg (25.7-33.7) 10/09/19 11:55 MCHC 33.2 g/dl (32.0-35.9) 10/09/19 11:55 RDW 14.1 % (11.9-15.9) 10/09/19 11:55 Plt Count 223 K/MM3 (134-434) 10/09/19 11:55 MPV 9.3 fl (7.5-11.1) 10/09/19 11:55 Sodium 138 mmol/L (136-145) 10/09/19 11:55 Potassium 4.2 mmol/L (3.5-5.1) 10/09/19 11:55 Chloride 104 mmol/L (98-107) 10/09/19 11:55 Carbon Dioxide 28 mmol/L (21-32) 10/09/19 11:55 Anion Gap 5 MMOL/L (8-16) L 10/09/19 11:55 BUN 12.0 mg/dL (7-18) 10/09/19 11:55 Creatinine 1.0 mg/dL (0.55-1.3) 10/09/19 11:55 Est GFR (CKD-EPI)AfAm 104.15 10/09/19 11:55 Est GFR (CKD-EPI)NonAf 89.86 10/09/19 11:55 Random Glucose 83 mg/dL (74-106) 10/09/19 11:55 Calcium 9.2 mg/dL (8.5-10.1) 10/09/19 11:55 Total Bilirubin 0.9 mg/dL (0.2-1) 10/09/19 11:55 AST 24 U/L (15-37) 10/09/19 11:55 ALT 23 U/L (13-61) 10/09/19 11:55 Alkaline Phosphatase 131 U/L (45-117) H 10/09/19 11:55 Total Protein 7.9 g/dl (6.4-8.2) 10/09/19 11:55 Albumin 3.6 g/dl (3.4-5.0) 10/09/19 11:55 RPR Titer Nonreactive (NONREACTIVE) 10/09/19 11:55 HIV 1&2 Antibody Screen Negative 10/09/19 11:55 HIV P24 Antigen Negative 10/09/19 11:55 - Treatment Hospital Course: Detox Protocol Followed, Detoxed Safely, Responded well, Discharged Condition Good Patient has Accepted a Rehab Referral to: declined - Medication Discharge Medications: Ambulatory Orders traZODone HCL [Desyrel -] 100 mg PO HS #30 tablet 03/06/18 Hydroxyzine HCl 50 mg PO QID PRN 04/04/18 Aripiprazole [Abilify -] 5 mg PO HS #30 tablet 05/27/19 Quetiapine Fumarate [Seroquel -] 200 mg PO HS #30 tablet 05/27/19 Sertraline HCl [Zoloft] 100 mg PO DAILY #30 tablet 05/27/19 Naloxone HCl [Narcan] 4 mg NS ASDIR PRN #1 spray 08/21/19 - Diagnosis (1) Opioid dependence with withdrawal Current Visit: No Status: Acute (2) Alcohol dependence with uncomplicated withdrawal Current Visit: No Status: Acute (3) Cocaine dependence Current Visit: No Status: Acute Qualifiers: Substance use status: uncomplicated Qualified Code(s): F14.20 - Cocaine dependence, uncomplicated (4) Hepatitis C Current Visit: No Status: Resolved Qualifiers: Viral hepatitis chronicity: chronic Hepatic coma status: without hepatic coma Qualified Code(s): B18.2 - Chronic viral hepatitis C (5) History of bipolar disorder Current Visit: No Status: Chronic (6) Knee pain, bilateral Current Visit: No Status: Chronic Qualifiers: Chronicity: chronic Qualified Code(s): M25.561 - Pain in right knee; M25.562 - Pain in left knee; G89.29 - Other chronic pain (7) Syphilis (acquired) Current Visit: No Status: Resolved (8) Ambulates with cane Current Visit: No Status: Chronic - AMA Did Patient Leave Against Medical Advice: No
[2019-10-14] MEDS ORDERED: METHADONE HCL 5 MG TABLET (FOR DETOX USE ONLY) PO ONE (06:00)
== END 2019-10-13 13:00 | disposition home or self-care (01) | DRG 773 ==
LOC: YASAS 09:59 → Y6N 11:30
PROVIDERS: ADMIT Allergy & Immunology; ATTEND Allergy & Immunology
PROC: HZ2ZZZZ Detoxification Services for Substance Abuse Treatment (ICD-10-PCS; principal; 2019-10-09)
DX: F11.23 Opioid dependence with withdrawal (principal); F10.230 Alcohol dependence with withdrawal, uncomplicated; F13.230 Sedative, hypnotic or anxiolytic dependence with withdrawal, uncomplicated; F15.20 Other stimulant dependence, uncomplicated; F14.20 Cocaine dependence, uncomplicated; F19.24 Other psychoactive substance dependence with psychoactive substance-induced mood disorder; F19.282 Other psychoactive substance dependence with psychoactive substance-induced sleep disorder; K74.60 Unspecified cirrhosis of liver; I10 Essential (primary) hypertension; B18.2 Chronic viral hepatitis C; M25.561 Pain in right knee; M17.0 Bilateral primary osteoarthritis of knee; G89.29 Other chronic pain; R74.0 Nonspecific elevation of levels of transaminase and lactic acid dehydrogenase [LDH]; E66.9 Obesity, unspecified; Z68.36 Body mass index [BMI] 36.0-36.9, adult; R26.2 Difficulty in walking, not elsewhere classified; Z99.89 Dependence on other enabling machines and devices; Z87.438 Personal history of other diseases of male genital organs
CPT/HCPCS: 36415; 80053; 85027; 86593; 87389

== ENCOUNTER 2020-05-14 10:50 | Inpatient (IN) | payer OTHER ==
--- NOTE | 2020-05-14 11:38 | BHS.RME ---
Substance Use & Tx History - Substance Use History Alcohol Substance amount: 2 PINTS VODKA Frequency of use: Daily Substance route: Oral Date of Last Use: 05/13/20 Heroin Substance amount: 8 BAGS Frequency of use: Daily Substance route: Inhalation (ex: sniffing or snorting) Date of Last Use: 05/13/20 Cocaine- Powder Substance amount: 8 BAGS Frequency of use: Daily Substance route: Inhalation (ex: sniffing or snorting) Date of Last Use: 05/13/20 Physical/Psych/Mental Status - Behavior General Behavior: Increased activity (restlessness, agitation) Eye Contact: Normal - Cooperativeness Cooperativeness: Cooperative - Thinking Thought Processes: Tight, Logical, Goal Directed - Physical Health Problems Is patient presently having any pain?: No Does patient presently have any injuries (include location): No Does patient currently have a fever: No Is patient : No COWS - Scale Resting Pulse: 0= [place] 80 or Below Sweatin=Flushed/Facial Moisture Restless Observation: 1= Difficult to Sit Still Pupil Size: 1= Pupils >than Normal Bone or Joint Aches: 2= Severe Diffuse Aches Runny Nose/ Eye Tearin= Nasal Congestion GI Upset > 30mins: 1= Stomach Cramp Tremor Observation: 2= Slight Tremor Visible Yawning Observation: 1= 1-2x During Session Anxiety or Irritability: 1=Feels Anxious/Irritable Goose Flesh Skin: 0=Smooth Skin COWS Score: 12 CIWA Nausea/Vomitin Muscle Tremors: 4-Moderate,w/Arms Extend Anxiety: 3 Agitation: 3 Paroxysmal Sweats: 2 Orientation: 0-Oriented Tacttile Disturbances: 0-None Auditory Disturbances: 0-None Visual Disturbances: 0-None Headache: 3-Moderate CIWA-Ar Total Score: 20
--- NOTE | 2020-05-14 12:09 | HP ---
COWS - Scale Resting Pulse: 0= [place] 80 or Below Sweatin=Flushed/Facial Moisture Restless Observation: 1= Difficult to Sit Still Pupil Size: 1= Pupils >than Normal Bone or Joint Aches: 2= Severe Diffuse Aches Runny Nose/ Eye Tearin= Nasal Congestion GI Upset > 30mins: 1= Stomach Cramp Tremor Observation: 2= Slight Tremor Visible Yawning Observation: 1= 1-2x During Session Anxiety or Irritability: 1=Feels Anxious/Irritable Goose Flesh Skin: 0=Smooth Skin COWS Score: 12 CIWA Score Nausea/Vomitin Muscle Tremors: 4-Moderate,w/Arms Extend Anxiety: 3 Agitation: 3 Paroxysmal Sweats: 2 Orientation: 0-Oriented Tacttile Disturbances: 0-None Auditory Disturbances: 0-None Visual Disturbances: 0-None Headache: 3-Moderate CIWA-Ar Total Score: 20 - Admission Criteria OASAS Guidelines: Admission for Medically Managed Detox: Requires at least one of the followin. CIWA greater than 12 2. Seizures within the past 24 hours 3. Delirium tremens within the past 24 hours 4. Hallucinations within the past 24 hours 5. Acute intervention needed for co occurring medical disorder 6. Acute intervention needed for co occurring psychiatric disorder 7. Severe withdrawal that cannot be handled at a lower level of care (continued vomiting, continued diarrhea, abnormal vital signs) requiring intravenous medication and/or fluids 8. Admitting History and Physical - Admission Chief Complaint: "I want to stop drugging and drinking." History of Present Illness: 44 year old male with history of alcohol dependence and heroin dependence and cocaine use disorder with withdrawals. He was last seen here in 02/24-03/01/20 and did remain abstient until 10 days ago when his from multiple medical problems. He relapsed right thereafter. Substance Use & Tx History - Substance Use History Alcohol Substance amount: 2 PINTS VODKA Frequency of use: Daily Substance route: Oral Date of Last Use: 05/13/20 patient had a blackout 2 days ago and endorses the need for eye channel opener daily Heroin Substance amount: 8 BAGS Frequency of use: Daily Substance route: Inhalation (ex: sniffing or snorting) Date of Last Use: 05/13/20 patient has overdosed 4 times last one 1 year ago, has no narcan Cocaine- Powder Substance amount: 8 BAGS Frequency of use: Daily Substance route: Inhalation (ex: sniffing or snorting) Date of Last Use: 05/13/20 PMH: Arthritis Psurg: Umbilical Hernia 2004, Lipoma resected from back 2008 Psych: Bipolar, PTSD< Depression, Anxiety ( non-compliant needs) [place] in [place]. No legal issues pending. Urine Tox: THC, LAVERNE, MOP, MTD CARMELO=0.000 CIWA=20 COWS=12 Patient meets criteria for opiate and alcohol detox due to his right risk for relapse. He has multiple medical and untreated psychiatric illness. History Source: Patient Limitations to Obtaining History: No Limitations - Past Medical History [employer] OFFICER: Yes: Syncope Psych: Yes: Anxiety, Bipolar, Depression Musculoskeletal: Yes: Osteoarthritis (both kneed ambulation with cane) - Past Surgical History Past Surgical History: Yes: Hernia Repair - Smoking History Smoking history: Never smoked Have you smoked in the past 12 months: No Aproximately how many cigarettes per day: 0 - Alcohol/Substance Use Hx Alcohol Use: Yes Number of Drinks Daily: 8 History of Substance Use: reports: Cocaine, Heroin Date of Last Use: 08/18/19 - Social History ADL: Independent Occupation: unemployed History of Recent Travel: No Admission [facility] Allergies/Adverse Reactions: Allergies Allergy/AdvReac Type Severity Reaction Status Date / Time No Known Allergies Allergy Verified 05/14/20 12:02 Exam Limitations: No Limitations - Ebola screening Have you traveled outside of the country in the last 21 days: No Have you had contact with anyone from an Ebola affected area: No Have you been sick,other than usual withdrawal symptoms: No Do you have a fever: No - Review of Systems Constitutional: Chills, Diaphoresis, Unintentional Wgt. Loss EENT: reports: No Symptoms Reported Respiratory: reports: No Symptoms reported Cardiac: reports: No Symptoms Reported GI: reports: No Symptoms Reported : reports: No Symptoms Reported Musculoskeletal: reports: No Symptoms Reported Integumentary: reports: No Symptoms Reported Neuro: reports: No Symptoms reported Endocrine: reports: No Symptoms Reported Hematology: reports: No Symptoms Reported Psychiatric: reports: Judgement Intact, Mood/Affect Appropiate, Orientated x3, Agitated, Anxious Other Systems: Reviewed and Negative Patient History - Patient Medical History Hx Anemia: No Hx Asthma: No Hx Chronic Obstructive Pulmonary Disease (COPD): No Hx Cancer: No Hx Cardiac Disorders: No Hx Congestive Heart Failure: No Hx Hypertension: No Hx Hypercholesterolemia: No Hx Pacemaker: No HX Cerebrovascular Accident: No Hx Seizures: No Hx Dementia: No Hx Diabetes: No Hx Gastrointestinal Disorders: No Hx Liver Disease: No Hx Genitourinary Disorders: No Hx Sexually Transmitted Disorders: Yes (Syphilis) Hx Renal Disease (ESRD): No Hx Thyroid Disease: No Hx Human Immunodeficiency Virus (HIV): No (NEGATIVE HX 08/02) Hx Hepatitis C: Yes (completed treatment) Hx Depression: Yes (Bipolar Disorder) Hx Suicide Attempt: No Hx Bipolar Disorder: Yes (ON MEDS, hospitalized for ERRATIC behavior in past.) Hx Schizophrenia: No - Patient Surgical History Past Surgical History: Yes Hx Neurologic Surgery: No Hx Cataract Extraction: No Hx Cardiac Surgery: No Hx Lung Surgery: No Hx Breast Surgery: No Hx Breast Biopsy: No Hx Abdominal Surgery: Yes (umbilical hernia repair in 2004) Hx Appendectomy: No Hx Cholecystectomy: No Hx Genitourinary Surgery: No Hx Section: No Hx Orthopedic Surgery: No Hx Hysterectomy: No Other Surgical History: lipoma, left side of neck in 2009 Anesthesia Reaction: No - PPD History Previous Implant?: Yes Documented Results: Negative w/proof Implanted On Prior [facility] Admission?: Yes Date: 12/28/19 Results: 0mm PPD to be Administered?: No - Smoking Cessation Smoking history: Never smoked Have you smoked in the past 12 months: No Aproximately how many cigarettes per day: 0 Cigars Per Day: 0 Hx Chewing Tobacco Use: No Initiated information on smoking cessation: Yes 'Breaking Loose' booklet given: 05/14/20 - Substances abused Alcohol Amount used: 2 pints vodka Age of first use: 11 Date of last use: 05/13/20 Heroin Other (specify): 8bags Substance route: Injection Frequency: Daily Amount used: 8 bags Age of first use: 36 Date of last use: 05/13/20 Cocaine Substance route: Injection Frequency: Daily Amount used: 8 bags Age of first use: 36 Date of last use: 05/13/20 Admission Physical Exam BHS - Physical General Appearance: Yes: Moderate Distress, Tremorous, Irritable, Sweating, Anxious HEENTM: Yes: EOMI, Hearing grossly Normal, Normal ENT Inspection, Normocephalic, Normal Voice, SACHA, Pharynx Normal, Tm's normal Respiratory: Yes: Chest Non-Tender, Lungs Clear, Normal Breath Sounds, No Respiratory Distress, No Accessory Muscle Use Neck: Yes: No masses,lesions,Nodules, Supple, Trachea in good position Breast: Yes: Within Normal Limits Cardiology: Yes: Regular Rhythm, S1, S2, Tachycardia Abdominal: Yes: Non Tender, Increased Bowel Sounds, Protuberent Genitourinary: Yes: Within Normal Limits Back: Yes: Normal Inspection Musculoskeletal: Yes: full range of Motion, Gait Steady, Pelvis Stable Extremities: Yes: Normal Capillary Refill, Normal Inspection, Normal Range of Motion, Non-Tender Neurological: Yes: hair baler II-XII NML intact, Fully Oriented, Alert, Motor Strength 5/5, Normal Mood/Affect, Normal Response Integumentary: Yes: Normal Color, Dry, Warm Lymphatic: Yes: Within Normal Limits - Diagnostic (1) Alcohol dependence with uncomplicated withdrawal Current Visit: Yes Status: Acute (2) Ambulates with cane Current Visit: Yes Status: Acute (3) Bipolar disorder Current Visit: Yes Status: Acute (4) Opioid dependence with withdrawal Current Visit: Yes Status: Acute (5) Bipolar disorder Current Visit: Yes Status: Chronic Comment: By history. (6) History of bipolar disorder Current Visit: Yes Status: Chronic (7) History of posttraumatic stress disorder (PTSD) Current Visit: Yes Status: Chronic Cleared for Admission [facility] - Detox or Rehab [facility] Level of Care: Medically Managed Detox Regimen/Protocol: Methadone/Librium Claeared for Rehab Admission: No Screened but not Admitted - Documentation of Visit Screened but not Admitted: No Breathalyzer - Breathalyzer Breathalyzer: 0 Urine Drug Screen - Test Device Lot number: [id number] Expiration date: 05/18/20 - Control Is test valid?: Yes - Results Drug screen NEGATIVE: No Urine drug screen results: THC-Marijuana, LAVERNE-Cocaine, MOP-Opiates, MTD- Methadone, BZO-Benzodiazepines Inpatient Rehab Admission - Rehab Decision to Admit Inpatient rehab admission?: No
[2020-05-14] MEDS ORDERED: METHOCARBAMOL 500 MG TABLET PO PRN (12:18)
[2020-05-14] MEDS ORDERED: METHADONE HCL 10 MG TABLET (FOR DETOX USE ONLY) PO ONE (12:18)
[2020-05-14] MEDS ORDERED: cloNIDine HCL 0.1 MG TABLET PO PRN (12:18)
[2020-05-14] MEDS ORDERED: MAGNESIUM CITRATE 300 ML BOTTLE PO PRN (12:18)
[2020-05-14] MEDS ORDERED: ACETAMINOPHEN 325 MG TABLET (FP) PO PRN ×2 (12:18)
[2020-05-14] MEDS ORDERED: ONDANSETRON *ODT* 4 MG TABLET SL ONE (12:18)
[2020-05-14] MEDS ORDERED: IBUPROFEN 400 MG TABLET (FP) PO PRN (12:18)
[2020-05-14] MEDS ORDERED: MAGNESIUM HYDROX 2400MG/30ML ORAL SUSPENSION 30 ML CUP PO PRN (12:18)
[2020-05-14] MEDS ORDERED: chlordiazePOXIDE HCL 25 MG CAPSULE PO PRN (12:18)
[2020-05-14] MEDS ORDERED: BISMUTH SUBSALICYLATE 262 MG/15 ML BTL PO PRN (12:18)
[2020-05-14] MEDS ORDERED: MAG HYDROX/AL HYDROX/SIMETH 30 ML UNIT-DOSE CUP PO PRN (12:18)
[2020-05-14] MEDS ORDERED: MENTHOL/PHENOL 1 EACH UD MM PRN (12:18)
[2020-05-14 12:22] VITALS: BMI 40.8
[2020-05-14] MEDS: hydrOXYzine PAMOATE 25 MG CAPSULE (FP) PO SCH ×3 (12:59→22:31)
[2020-05-14] MEDS: chlordiazePOXIDE HCL 25 MG CAPSULE PO SCH ×3 (13:00→22:31)
[2020-05-14] MEDS: PRENATAL VITAMINS W/ FOLIC ACID TABLET (FP) PO SCH (13:00)
[2020-05-14 14:33] LABS: HEMOGLOBIN 13.4 GM/dL (11.7-16.9); MCH 28.6 pg (25.7-33.7); MCHC 33.4 g/dl (32.0-35.9); MEAN CELL VOLUME 85.8 fl (80-96); MEAN PLT VOLUME 9.7 fl (7.5-11.1); PLATELET COUNT 263 K/MM3 (134-434); RBC 4.67 M/mm3 (4.00-5.60); RDW 13.5 % (11.9-15.9); WHITE BLOOD COUNT 6.9 K/mm3 (4.0-10.0)
[2020-05-14 14:45] LABS: ALBUMIN 3.7 g/dl (3.4-5.0); BLOOD UREA NITROGEN 6.7 mg/dL (7-18); CREATININE 1.2 mg/dL (0.55-1.3); POTASSIUM 3.9 mmol/L (3.5-5.1)
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
[2020-05-14] MEDS: traZODone HCL 100 MG TABLET (FP) PO SCH (22:31)
[2020-05-14] MEDS: MELATONIN 5 MG TABLETS PO SCH (22:31)
[2020-05-14] MEDS: QUEtiapine FUMARATE 200 MG TABLET PO SCH (22:31)
[2020-05-14] MEDS: THIAMINE HCL 100 MG TABLET (FP) PO SCH (22:31)
[2020-05-15] MEDS: chlordiazePOXIDE HCL 25 MG CAPSULE PO SCH ×4 (06:21→22:05)
[2020-05-15] MEDS: hydrOXYzine PAMOATE 25 MG CAPSULE (FP) PO SCH ×6 (06:23→21:43)
[2020-05-15] MEDS ORDERED: METHADONE HCL 10 MG TABLET (FOR DETOX USE ONLY) ONE (09:41)
[2020-05-15] MEDS ORDERED: METHADONE HCL 5 MG TABLET (FOR DETOX USE ONLY) ONE (09:42)
[2020-05-15] MEDS ORDERED: METHADONE (DETOX) 20 MG, METHADONE (DETOX) 5 MG PO ONE (10:00)
[2020-05-15] MEDS: ARIPiprazole 5 MG TABLET PO SCH (10:23)
[2020-05-15] MEDS: PRENATAL VITAMINS W/ FOLIC ACID TABLET (FP) PO SCH (10:24)
[2020-05-15] MEDS: SERTRALINE HCL 50 MG TABLET (FP) PO SCH (10:25)
--- NOTE | 2020-05-15 12:12 | PN ---
S CIWA - CIWA Score Nausea/Vomitin-No Nausea/No Vomiting Muscle Tremors: None Anxiety: 3 Agitation: 0-Normal Activity Paroxysmal Sweats: 3 Orientation: 0-Oriented Tacttile Disturbances: 0-None Auditory Disturbances: 0-None Visual Disturbances: 0-None Headache: 2-Mild CIWA-Ar Total Score: 8 S COWS - Scale Resting Pulse: 0= [place] 80 or Below Sweatin= Beads of Sweat on Face Restless Observation: 1= Difficult to Sit Still Pupil Size: 0= Normal to Room Light Bone or Joint Aches: 2= Severe Diffuse Aches Runny Nose/ Eye Tearin= None GI Upset > 30mins: 0= None Tremor Observation of Outstretched Hands: 0= None Yawning Observation: 1= 1-2x During Session Anxiety or Irritability: 2=Irritable/Anxious Goose Flesh Skin: 0=Smooth Skin COWS Score: 9 S Progress Note (SOAP) Subjective: c/o irritability, anxiety, sweats, headache, and muscle aches. Objective: 05/15/20 12:10 Vital Signs 05/15/20 05/15/20 06:54 08:40 Temperature 97.3 F L 98.7 F Pulse Rate 73 69 Respiratory 18 18 Rate Blood Pressure 104/59 L 103/67 O2 Sat by Pulse 97 Oximetry (%) Laboratory Last Values WBC 6.9 K/mm3 (4.0-10.0) 05/14/20 12:20 RBC 4.67 M/mm3 (4.00-5.60) 05/14/20 12:20 Hgb 13.4 GM/dL (11.7-16.9) 05/14/20 12:20 Hct 40.0 % (35.4-49) 05/14/20 12:20 MCV 85.8 fl (80-96) 05/14/20 12:20 MCH 28.6 pg (25.7-33.7) 05/14/20 12:20 MCHC 33.4 g/dl (32.0-35.9) 05/14/20 12:20 RDW 13.5 % (11.9-15.9) 05/14/20 12:20 Plt Count 263 K/MM3 (134-434) D 05/14/20 12:20 MPV 9.7 fl (7.5-11.1) 05/14/20 12:20 Sodium 140 mmol/L (136-145) 05/14/20 12:20 Potassium 3.9 mmol/L (3.5-5.1) 05/14/20 12:20 Chloride 106 mmol/L (98-107) 05/14/20 12:20 Carbon Dioxide 26 mmol/L (21-32) 05/14/20 12:20 Anion Gap 8 MMOL/L (8-16) 05/14/20 12:20 BUN 6.7 mg/dL (7-18) L 05/14/20 12:20 Creatinine 1.2 mg/dL (0.55-1.3) 05/14/20 12:20 Est GFR (CKD-EPI)AfAm 83.54 05/14/20 12:20 Est GFR (CKD-EPI)NonAf 72.08 05/14/20 12:20 Random Glucose 78 mg/dL (74-106) 05/14/20 12:20 Calcium 9.0 mg/dL (8.5-10.1) 05/14/20 12:20 Total Bilirubin 1.0 mg/dL (0.2-1) 05/14/20 12:20 AST 14 U/L (15-37) L 05/14/20 12:20 ALT 21 U/L (13-61) 05/14/20 12:20 Alkaline Phosphatase 101 U/L (45-117) 05/14/20 12:20 Total Protein 8.0 g/dl (6.4-8.2) 05/14/20 12:20 Albumin 3.7 g/dl (3.4-5.0) 05/14/20 12:20 Syphilis Serology Reactive (NONREACTIVE) A* 05/14/20 12:20 RPR Titer Reactive 1:1 (NONREACTIVE) H 05/14/20 12:20 Labs noted with RPR of 1:1. Assessment: 05/15/20 12:11 AOX3, in no acute respiratory distress. Full ROM, ambulating in the unit. Withdrawal symptoms. RPR of 1:1, pt states had syphillis 5years ago and was treated. Plan: continue detox.
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
[2020-05-15] MEDS: traZODone HCL 100 MG TABLET (FP) PO SCH (21:43)
[2020-05-15] MEDS: THIAMINE HCL 100 MG TABLET (FP) PO SCH (21:43)
[2020-05-15] MEDS: QUEtiapine FUMARATE 200 MG TABLET PO SCH (21:43)
[2020-05-15] MEDS: MELATONIN 5 MG TABLETS PO SCH (21:44)
[2020-05-16] MEDS: hydrOXYzine PAMOATE 25 MG CAPSULE (FP) PO SCH ×5 (06:23→22:11)
[2020-05-16] MEDS: chlordiazePOXIDE HCL 25 MG CAPSULE PO SCH ×4 (06:23→22:11)
[2020-05-16] MEDS ORDERED: METHADONE HCL 10 MG TABLET (FOR DETOX USE ONLY) PO ONE (10:00)
[2020-05-16] MEDS: SERTRALINE HCL 50 MG TABLET (FP) PO SCH (10:52)
[2020-05-16] MEDS: ARIPiprazole 5 MG TABLET PO SCH (10:53)
[2020-05-16] MEDS: PRENATAL VITAMINS W/ FOLIC ACID TABLET (FP) PO SCH (10:53)
--- NOTE | 2020-05-16 13:43 | PN ---
[facility] CIWA - CIWA Score Nausea/Vomitin-Mild Nausea/No Vomiting Muscle Tremors: 2 Anxiety: 2 Agitation: 1-Slight > Activity Paroxysmal Sweats: No Perspiration Orientation: 0-Oriented Tacttile Disturbances: 0-None Auditory Disturbances: 0-None Visual Disturbances: 1-Very Mild Sensitivity Headache: 0-None Present CIWA-Ar Total Score: 7 S COWS - Scale Resting Pulse: 0= [place] 80 or Below Sweatin= No chills or Flushing Restless Observation: 0= Sits Still Pupil Size: 1= Pupils >than Normal Bone or Joint Aches: 1= Mild Discomfort Runny Nose/ Eye Tearin= None GI Upset > 30mins: 1= Stomach Cramp Tremor Observation of Outstretched Hands: 2= Slight Tremor Visible Yawning Observation: 0= None Anxiety or Irritability: 2=Irritable/Anxious Goose Flesh Skin: 0=Smooth Skin COWS Score: 7 S Progress Note (SOAP) Subjective: 44 years old obese male admitted on 05/14/20 for alcohol and opiate withdrawal sx management treating with librium and methadone detox regiments ate breakfast and lunch in room resting in bed limited conversation with staff denies eyes pain denies vision alteration refuses eye examination prefers continue sleeping Objective: 05/16/20 13:55 Vital Signs - 24 hr 05/15/20 05/15/20 05/15/20 14:33 16:40 20:20 Temperature 98.7 F 98.4 F 97.8 F Pulse Rate 76 71 66 Respiratory 18 16 18 Rate Blood Pressure 127/73 109/66 127/70 O2 Sat by Pulse 96 97 Oximetry (%) 05/16/20 05/16/20 05/16/20 05:32 08:50 13:01 Temperature 98.0 F 97.5 F L 97.8 F Pulse Rate 63 88 105 H Respiratory 18 18 20 Rate Blood Pressure 138/67 110/83 105/71 O2 Sat by Pulse 100 95 Oximetry (%) Laboratory Tests 05/14/20 05/14/20 05/14/20 12:20 12:20 12:20 WBC 6.9 RBC 4.67 Hgb 13.4 Hct 40.0 MCV 85.8 MCH 28.6 MCHC 33.4 RDW 13.5 Plt Count 263 D MPV 9.7 Sodium 140 Potassium 3.9 Chloride 106 Carbon Dioxide 26 Anion Gap 8 BUN 6.7 L Creatinine 1.2 Est GFR (CKD-EPI)AfAm 83.54 Est GFR (CKD-EPI)NonAf 72.08 Random Glucose 78 Calcium 9.0 Total Bilirubin 1.0 AST 14 L ALT 21 Alkaline Phosphatase 101 Total Protein 8.0 Albumin 3.7 Syphilis Serology Reactive A* RPR Titer COVID-19 (MELANIA) 05/14/20 05/14/20 12:20 12:20 WBC RBC Hgb Hct MCV MCH MCHC RDW Plt Count MPV Sodium Potassium Chloride Carbon Dioxide Anion Gap BUN Creatinine Est GFR (CKD-EPI)AfAm Est GFR (CKD-EPI)NonAf Random Glucose Calcium Total Bilirubin AST ALT Alkaline Phosphatase Total Protein Albumin Syphilis Serology RPR Titer Reactive 1:1 H COVID-19 (MELANIA) Not detected syphilis contacted treated 05/16/20 13:57 Assessment: 05/16/20 13:57 alcohol and opiate withdrawal Plan: librium and methadone regiments
--- NOTE | 2020-05-16 18:31 | PN ---
[facility] Progress Note Note: irritation with tearing left eye subconjunctival hemorrhage left eye with redness movement of eye ball no pain,no limitation,vision ok cipro eye drop 0.3% 1 gtt left eye q 4hrs close monitoring
[2020-05-16] MEDS ORDERED: CIPROFLOXACIN HCL 0.3% OPHTH 2.5ML BOTTLE OD SCH (22:00)
[2020-05-16] MEDS: MELATONIN 5 MG TABLETS PO SCH (22:11)
[2020-05-16] MEDS: THIAMINE HCL 100 MG TABLET (FP) PO SCH (22:11)
[2020-05-16] MEDS: CIPROFLOXACIN HCL 0.3% OPHTH 2.5ML BOTTLE OS SCH (22:11)
[2020-05-16] MEDS: QUEtiapine FUMARATE 200 MG TABLET PO SCH (22:11)
[2020-05-16] MEDS: traZODone HCL 100 MG TABLET (FP) PO SCH (22:11)
[2020-05-17] MEDS ORDERED: chlordiazePOXIDE HCL 10 MG CAPSULE PO PRN
[2020-05-17] MEDS: chlordiazePOXIDE HCL 10 MG CAPSULE PO SCH ×4 (06:54→22:26)
[2020-05-17] MEDS: hydrOXYzine PAMOATE 25 MG CAPSULE (FP) PO SCH ×5 (06:56→22:26)
[2020-05-17] MEDS: CIPROFLOXACIN HCL 0.3% OPHTH 2.5ML BOTTLE OS SCH ×5 (06:56→22:26)
[2020-05-17] MEDS ORDERED: METHADONE (DETOX) 10 MG, METHADONE (DETOX) 5 MG PO ONE (10:00)
[2020-05-17] MEDS: SERTRALINE HCL 50 MG TABLET (FP) PO SCH (10:20)
[2020-05-17] MEDS ORDERED: METHADONE HCL 5 MG TABLET (FOR DETOX USE ONLY) ONE (10:21)
[2020-05-17] MEDS ORDERED: METHADONE HCL 10 MG TABLET (FOR DETOX USE ONLY) ONE (10:21)
[2020-05-17] MEDS: PRENATAL VITAMINS W/ FOLIC ACID TABLET (FP) PO SCH (10:21)
[2020-05-17] MEDS: ARIPiprazole 5 MG TABLET PO SCH (10:22)
--- NOTE | 2020-05-17 11:45 | PN ---
[facility] CIWA - CIWA Score Nausea/Vomitin-No Nausea/No Vomiting Muscle Tremors: 1-None Visible, but [place] Anxiety: 2 Agitation: 3 Paroxysmal Sweats: 1-Minimal Palms Moist Orientation: 0-Oriented Tacttile Disturbances: 0-None Auditory Disturbances: 0-None Visual Disturbances: 0-None Headache: 0-None Present CIWA-Ar Total Score: 7 S COWS - Scale Resting Pulse: 0= [place] 80 or Below Sweatin= No chills or Flushing Restless Observation: 3= Extraneous Movement Pupil Size: 0= Normal to Room Light Bone or Joint Aches: 1= Mild Discomfort Runny Nose/ Eye Tearin= None GI Upset > 30mins: 0= None Tremor Observation of Outstretched Hands: 0= None Yawning Observation: 0= None Anxiety or Irritability: 0= None Goose Flesh Skin: 0=Smooth Skin COWS Score: 4 S Progress Note (SOAP) Subjective: c/o slight anxiety fatigue Objective: 05/17/20 11:43 Vital Signs - 24 hr 05/16/20 05/16/20 05/16/20 13:01 16:40 21:00 Temperature 97.8 F 98.0 F 98.2 F Pulse Rate 105 H 71 77 Respiratory 20 17 19 Rate Blood Pressure 105/71 130/80 119/74 O2 Sat by Pulse 95 97 Oximetry (%) 05/17/20 06:52 Temperature 97.3 F L Pulse Rate 75 Respiratory 18 Rate Blood Pressure 114/73 O2 Sat by Pulse 97 Oximetry (%) Laboratory Tests 05/14/20 05/14/20 05/14/20 12:20 12:20 12:20 WBC 6.9 RBC 4.67 Hgb 13.4 Hct 40.0 MCV 85.8 MCH 28.6 MCHC 33.4 RDW 13.5 Plt Count 263 D MPV 9.7 Sodium 140 Potassium 3.9 Chloride 106 Carbon Dioxide 26 Anion Gap 8 BUN 6.7 L Creatinine 1.2 Est GFR (CKD-EPI)AfAm 83.54 Est GFR (CKD-EPI)NonAf 72.08 Random Glucose 78 Calcium 9.0 Total Bilirubin 1.0 AST 14 L ALT 21 Alkaline Phosphatase 101 Total Protein 8.0 Albumin 3.7 Syphilis Serology Reactive A* RPR Titer COVID-19 (MELANIA) 05/14/20 05/14/20 12:20 12:20 WBC RBC Hgb Hct MCV MCH MCHC RDW Plt Count MPV Sodium Potassium Chloride Carbon Dioxide Anion Gap BUN Creatinine Est GFR (CKD-EPI)AfAm Est GFR (CKD-EPI)NonAf Random Glucose Calcium Total Bilirubin AST ALT Alkaline Phosphatase Total Protein Albumin Syphilis Serology RPR Titer Reactive 1:1 H COVID-19 (MELANIA) Not detected Hx syphilis 5 yrs ago. covid-19 not detected alert o x 3 nad oob ambulating with steady gait Assessment: 05/17/20 11:44 withdrawal sx Plan: continue detox increase po fluids maintain safety
[2020-05-17] MEDS: THIAMINE HCL 100 MG TABLET (FP) PO SCH (22:26)
[2020-05-17] MEDS: traZODone HCL 100 MG TABLET (FP) PO SCH (22:26)
[2020-05-17] MEDS: QUEtiapine FUMARATE 200 MG TABLET PO SCH (22:26)
[2020-05-17] MEDS: MELATONIN 5 MG TABLETS PO SCH (22:26)
[2020-05-18] MEDS: chlordiazePOXIDE HCL 10 MG CAPSULE PO SCH ×2 (07:04→17:57)
[2020-05-18] MEDS: CIPROFLOXACIN HCL 0.3% OPHTH 2.5ML BOTTLE OS SCH ×5 (07:04→22:16)
[2020-05-18] MEDS: hydrOXYzine PAMOATE 25 MG CAPSULE (FP) PO SCH ×5 (07:04→22:15)
[2020-05-18] MEDS ORDERED: METHADONE HCL 10 MG TABLET (FOR DETOX USE ONLY) PO ONE (10:00)
[2020-05-18] MEDS: ARIPiprazole 5 MG TABLET PO SCH (11:05)
[2020-05-18] MEDS: PRENATAL VITAMINS W/ FOLIC ACID TABLET (FP) PO SCH (11:05)
[2020-05-18] MEDS: SERTRALINE HCL 50 MG TABLET (FP) PO SCH (11:06)
--- NOTE | 2020-05-18 13:42 | PN ---
[facility] CIWA - CIWA Score Nausea/Vomitin-No Nausea/No Vomiting Muscle Tremors: 1-None Visible, but [place] Anxiety: 1-Mildly Anxious Agitation: 2 Paroxysmal Sweats: No Perspiration Orientation: 0-Oriented Tacttile Disturbances: 0-None Auditory Disturbances: 0-None Visual Disturbances: 0-None Headache: 0-None Present CIWA-Ar Total Score: 4 [facility] Progress Note (SOAP) Subjective: Pt reports decreased withdrawal sx. However reports teary eyes. Left eye decreased redness. On treatment with cipro eye drop. Objective: 05/18/20 13:41 Vital Signs - 24 hr 05/17/20 05/17/20 05/18/20 16:32 20:21 05:45 Temperature 97.7 F 97.8 F 97.3 F L Pulse Rate 88 95 H 90 Respiratory 17 18 18 Rate Blood Pressure 110/67 109/75 92/58 L O2 Sat by Pulse 96 97 Oximetry (%) Laboratory Tests 05/14/20 05/14/20 05/14/20 12:20 12:20 12:20 WBC 6.9 RBC 4.67 Hgb 13.4 Hct 40.0 MCV 85.8 MCH 28.6 MCHC 33.4 RDW 13.5 Plt Count 263 D MPV 9.7 Sodium 140 Potassium 3.9 Chloride 106 Carbon Dioxide 26 Anion Gap 8 BUN 6.7 L Creatinine 1.2 Est GFR (CKD-EPI)AfAm 83.54 Est GFR (CKD-EPI)NonAf 72.08 Random Glucose 78 Calcium 9.0 Total Bilirubin 1.0 AST 14 L ALT 21 Alkaline Phosphatase 101 Total Protein 8.0 Albumin 3.7 Syphilis Serology Reactive A* RPR Titer COVID-19 (MELANIA) 05/14/20 05/14/20 12:20 12:20 WBC RBC Hgb Hct MCV MCH MCHC RDW Plt Count MPV Sodium Potassium Chloride Carbon Dioxide Anion Gap BUN Creatinine Est GFR (CKD-EPI)AfAm Est GFR (CKD-EPI)NonAf Random Glucose Calcium Total Bilirubin AST ALT Alkaline Phosphatase Total Protein Albumin Syphilis Serology RPR Titer Reactive 1:1 H COVID-19 (MELANIA) Not detected covid-19 not detected alert o x 3 nad oob with steady gait Assessment: 05/18/20 13:42 mild withdrawal sx Plan: cont detox increase po fluids maintain safety
[2020-05-18 21:28] VITALS: TEMP 97.8
[2020-05-18] MEDS: traZODone HCL 100 MG TABLET (FP) PO SCH (22:15)
[2020-05-18] MEDS: THIAMINE HCL 100 MG TABLET (FP) PO SCH (22:15)
[2020-05-18] MEDS: QUEtiapine FUMARATE 200 MG TABLET PO SCH (22:15)
[2020-05-18] MEDS: MELATONIN 5 MG TABLETS PO SCH (22:15)
[2020-05-19] MEDS ORDERED: chlordiazePOXIDE HCL 10 MG CAPSULE PO ONE (05:00)
[2020-05-19] MEDS ORDERED: METHADONE HCL 5 MG TABLET (FOR DETOX USE ONLY) PO ONE (06:00)
[2020-05-19 06:12] VITALS: BP 108/75; PULSE 79
[2020-05-19] MEDS: CIPROFLOXACIN HCL 0.3% OPHTH 2.5ML BOTTLE OS SCH ×2 (07:01→10:10)
[2020-05-19] MEDS: hydrOXYzine PAMOATE 25 MG CAPSULE (FP) PO SCH ×2 (07:01→10:10)
--- NOTE | 2020-05-19 08:25 | DS ---
[facility] Detox Discharge Summary Admission Date: 05/14/20 Discharge Date: 05/19/20 - History Present History: Alcohol Dependence, Cocaine Dependence, Opioid Dependence Additional Comments: Pt completed detox on and discharged to Rehab. Pertinent Past History: HTN(no med) Hep C Obesity - Physical Exam Results Vital Signs: Vital Signs Temperature 97.8 F 05/19/20 05:36 Pulse Rate 79 05/19/20 05:36 Respiratory Rate 18 05/19/20 05:36 Blood Pressure 108/75 05/19/20 05:36 O2 Sat by Pulse Oximetry (%) 98 05/19/20 05:36 alert o x 3 nad oob ambulating with cane cardiac:s1 s2,rrr lungs:ctab abdomen:+++fatty,+bs,nt,nd extremities;no edema,skin intact Pertinent Admission Physical Exam Findings: Withdrawal sx Pt was seen for c/o left eye complaint on 05/16/20 and started on treatment- subconjunctival hemorrhage left eye with redness movement of eye ball no pain,no limitation,vision ok cipro eye drop 0.3% 1 gtt left eye q 4hrs x 1 week. Laboratory Tests 05/14/20 05/14/20 05/14/20 12:20 12:20 12:20 WBC 6.9 RBC 4.67 Hgb 13.4 Hct 40.0 MCV 85.8 MCH 28.6 MCHC 33.4 RDW 13.5 Plt Count 263 D MPV 9.7 Sodium 140 Potassium 3.9 Chloride 106 Carbon Dioxide 26 Anion Gap 8 BUN 6.7 L Creatinine 1.2 Est GFR (CKD-EPI)AfAm 83.54 Est GFR (CKD-EPI)NonAf 72.08 Random Glucose 78 Calcium 9.0 Total Bilirubin 1.0 AST 14 L ALT 21 Alkaline Phosphatase 101 Total Protein 8.0 Albumin 3.7 Syphilis Serology Reactive A* RPR Titer COVID-19 (MELANIA) 05/14/20 05/14/20 12:20 12:20 WBC RBC Hgb Hct MCV MCH MCHC RDW Plt Count MPV Sodium Potassium Chloride Carbon Dioxide Anion Gap BUN Creatinine Est GFR (CKD-EPI)AfAm Est GFR (CKD-EPI)NonAf Random Glucose Calcium Total Bilirubin AST ALT Alkaline Phosphatase Total Protein Albumin Syphilis Serology RPR Titer Reactive 1:1 H COVID-19 (MELANIA) Not detected - Treatment Hospital Course: Detox Protocol Followed, Detoxed Safely, Responded well, Discharged Condition Good, Rehab Referral Accepted Patient has Accepted a Rehab Referral to: [facility] - Medication Discharge Medications: Ambulatory Orders Hydroxyzine HCl 100 mg PO HS PRN 04/04/18 Quetiapine Fumarate [Seroquel -] 200 mg PO HS #30 tablet 03/04/20 Sertraline HCl [Zoloft] 100 mg PO DAILY #30 tablet 03/04/20 traZODone HCL [Desyrel -] 100 mg PO HS #30 tablet 03/04/20 Naloxone HCl [Narcan] 4 mg NS ASDIR #1 spray 05/16/20 - Diagnosis (1) Alcohol dependence with uncomplicated withdrawal Status: Acute (2) Ambulates with cane Status: Chronic (3) Opioid dependence with withdrawal Status: Acute (4) Syphilis contact, treated Status: Chronic (5) HTN (hypertension) Status: Chronic Qualifiers: Hypertension type: essential hypertension Qualified Code(s): I10 - Essential (primary) hypertension (6) Hepatitis C Status: Chronic Qualifiers: Viral hepatitis chronicity: chronic Hepatic coma status: without hepatic coma Qualified Code(s): B18.2 - Chronic viral hepatitis C (7) Obesity Status: Chronic Qualifiers: Body mass index: BMI 40.0-44.9 (8) Osteoarthritis of both knees Status: Chronic Qualifiers: Osteoarthritis type: unspecified Qualified Code(s): M17.0 - Bilateral primary osteoarthritis of knee (9) Ambulates with cane Status: Chronic - AMA Did Patient Leave Against Medical Advice: No
[2020-05-19] MEDS: PRENATAL VITAMINS W/ FOLIC ACID TABLET (FP) PO SCH (10:09)
[2020-05-19] MEDS: ARIPiprazole 5 MG TABLET PO SCH (10:09)
[2020-05-19] MEDS: SERTRALINE HCL 50 MG TABLET (FP) PO SCH (10:10)
== END 2020-05-19 11:35 | disposition other institution (70) | DRG 773 ==
LOC: YASAS 10:50 → Y3N 12:17 → Y5N DETOX 05-15 13:59
PROVIDERS: ADMIT Allergy & Immunology; ATTEND Allergy & Immunology
PROC: HZ2ZZZZ Detoxification Services for Substance Abuse Treatment (ICD-10-PCS; principal; 2020-05-14)
DX: F11.23 Opioid dependence with withdrawal (principal); F10.230 Alcohol dependence with withdrawal, uncomplicated; F14.20 Cocaine dependence, uncomplicated; F12.20 Cannabis dependence, uncomplicated; I10 Essential (primary) hypertension; B18.2 Chronic viral hepatitis C; M17.0 Bilateral primary osteoarthritis of knee; G47.00 Insomnia, unspecified; E66.9 Obesity, unspecified; Z68.41 Body mass index [BMI] 40.0-44.9, adult; H11.32 Conjunctival hemorrhage, left eye; R26.2 Difficulty in walking, not elsewhere classified; Z99.89 Dependence on other enabling machines and devices; Z87.438 Personal history of other diseases of male genital organs; Z91.19 Patient's noncompliance with other medical treatment and regimen; Y04.0XXA Assault by unarmed brawl or fight, initial encounter; Y93.89 Activity, other specified; Y92.230 Patient room in hospital as the place of occurrence of the external cause
CPT/HCPCS: 36415; 80053; 85027; 86593; 86780; Q0162; U0003

== ENCOUNTER 2020-05-19 12:27 | Inpatient (IN) | payer OTHER ==
--- NOTE | 2020-05-19 12:32 | HP ---
[facility] Rehab Assess/Revision - Admission History Date of Admission to Rehab: 05/19/20 - Findings Detox History & Physical reviewed: Yes Concur with findings: Yes Comments/Additional Findings: Pt completed detox on and referred to rehab today. alert o x 3. nad. oob ambulating with cane. cardiac:s1 s2,rrr. lungs:ctab. abdomen:+++fatty,+bs,nt,nd. extremities;no edema,skin intact Inpatient Rehab Admission - Rehab Decision to Admit Inpatient rehab admission?: Yes - Initial Determination Are CD services needed?: Yes Free of communicable disease: Yes Not in need of hospitalization: Yes - Rehab Admission Criteria Previous failed treatment: Yes Poor recovery environment: Yes Comorbidities: Yes Lacks judgement: Yes Patient is meeting Inpatient Rehab admission criteria:: Yes
[2020-05-19] MEDS ORDERED: guaiFENesin 200 MG/10 ML 10 ML UNIT-DOSE CUPS PO PRN (13:37)
[2020-05-19] MEDS ORDERED: MENTHOL/PHENOL 1 EACH UD MM PRN (13:37)
[2020-05-19] MEDS ORDERED: MAGNESIUM HYDROX 2400MG/30ML ORAL SUSPENSION 30 ML CUP PO PRN (13:37)
[2020-05-19] MEDS ORDERED: MAGNESIUM CITRATE 300 ML BOTTLE PO PRN (13:37)
[2020-05-19] MEDS ORDERED: LOPERAMIDE HCL 2 MG CAPSULE PO PRN (13:37)
[2020-05-19] MEDS ORDERED: MAG HYDROX/AL HYDROX/SIMETH 30 ML UNIT-DOSE CUP PO PRN (13:37)
[2020-05-19] MEDS ORDERED: ACETAMINOPHEN 325 MG TABLET (FP) PO PRN (13:37)
[2020-05-19] MEDS ORDERED: P-EPHED 60MG/TRIPROLIDI 2.5MG TABLET PO PRN (13:37)
[2020-05-19] MEDS ORDERED: IBUPROFEN 400 MG TABLET (FP) PO PRN (13:37)
--- NOTE | 2020-05-19 13:41 | PN ---
[facility] Progress Note Note: Patient admitted to [facility] from [address] [place] [address]. Medication hx reviewed, and psych medications given in Detox were ordered to continue in rehab. Problem list, labs, notes, reviewed, rehab orders placed. Labs indicated syphilis titer 1:1, indicating previously resolved infection. Vital Signs Period Temp Pulse Resp BP Sys/Jean Pulse Ox Last 24 Hr 97.2 F 94 18 114/76 general: no apparent distress Neuro: A=O x4, MSK: full weight bearing RESP: unlabored HEENTM: Normocephalic
[2020-05-19] MEDS: CIPROFLOXACIN 0.3% EYE DROPS 5 ML BOTTLE OS SCH ×3 (14:15→21:21)
[2020-05-19] MEDS: MELATONIN 5 MG TABLETS PO SCH (21:19)
[2020-05-19] MEDS: THIAMINE HCL 100 MG TABLET (FP) PO SCH (21:19)
[2020-05-19] MEDS: hydrOXYzine PAMOATE 25 MG CAPSULE (FP) PO PRN (21:19)
[2020-05-19] MEDS: QUEtiapine FUMARATE 200 MG TABLET PO SCH (21:20)
[2020-05-19] MEDS: traZODone HCL 100 MG TABLET (FP) PO SCH (21:20)
[2020-05-20] MEDS: CIPROFLOXACIN 0.3% EYE DROPS 5 ML BOTTLE OS SCH ×6 (02:51→21:15)
[2020-05-20] MEDS: ARIPiprazole 5 MG TABLET PO SCH (09:25)
[2020-05-20] MEDS: PRENATAL VITAMINS W/ FOLIC ACID TABLET (FP) PO SCH (09:25)
[2020-05-20] MEDS: SERTRALINE HCL 50 MG TABLET (FP) PO SCH (09:25)
[2020-05-20] MEDS: hydrOXYzine PAMOATE 25 MG CAPSULE (FP) PO PRN ×2 (09:26→21:14)
[2020-05-20] MEDS: MELATONIN 5 MG TABLETS PO SCH (21:14)
[2020-05-20] MEDS: traZODone HCL 100 MG TABLET (FP) PO SCH (21:14)
[2020-05-20] MEDS: QUEtiapine FUMARATE 200 MG TABLET PO SCH (21:14)
[2020-05-20] MEDS: THIAMINE HCL 100 MG TABLET (FP) PO SCH (21:14)
[2020-05-21] MEDS: CIPROFLOXACIN 0.3% EYE DROPS 5 ML BOTTLE OS SCH ×6 (01:11→21:26)
[2020-05-21] MEDS: SERTRALINE HCL 50 MG TABLET (FP) PO SCH (09:53)
[2020-05-21] MEDS: ARIPiprazole 5 MG TABLET PO SCH (09:53)
[2020-05-21] MEDS: PRENATAL VITAMINS W/ FOLIC ACID TABLET (FP) PO SCH (09:54)
[2020-05-21] MEDS: MELATONIN 5 MG TABLETS PO SCH (21:24)
[2020-05-21] MEDS: THIAMINE HCL 100 MG TABLET (FP) PO SCH (21:24)
[2020-05-21] MEDS: traZODone HCL 100 MG TABLET (FP) PO SCH (21:24)
[2020-05-21] MEDS: QUEtiapine FUMARATE 200 MG TABLET PO SCH (21:25)
[2020-05-21] MEDS: hydrOXYzine PAMOATE 25 MG CAPSULE (FP) PO PRN (21:26)
[2020-05-22] MEDS: CIPROFLOXACIN 0.3% EYE DROPS 5 ML BOTTLE OS SCH ×2 (02:32→06:30)
[2020-05-22 07:05] VITALS: BP 127/87; PULSE 77; TEMP 97.1
--- NOTE | 2020-05-22 09:00 | DS ---
[facility] Rehab Discharge Summary - [facility] Rehab Discharge Summary Admission Date: 05/19/20 Discharge Date: 05/22/20 - History Present History: Alcohol dependence, Cocaine dependence, Opioid dependence Pertinent Past History: Bipolar disorder - Discharge Physical Exam Vital Signs: Vital Signs Temperature 97.1 F L 05/22/20 07:04 Pulse Rate 77 05/22/20 07:04 Respiratory Rate 18 05/22/20 07:04 Blood Pressure 127/87 05/22/20 07:04 O2 Sat by Pulse Oximetry (%) 98 05/22/20 07:04 - Treatment Discharge Condition: Discharge condition good - Medication Discharge Medications: Ambulatory Orders Hydroxyzine HCl 25 mg PO HS PRN 04/04/18 Quetiapine Fumarate [Seroquel -] 200 mg PO HS #30 tablet 03/04/20 traZODone HCL [Desyrel -] 100 mg PO HS #30 tablet 03/04/20 Naloxone HCl [Narcan] 4 mg NS ASDIR #1 spray 05/16/20 Aripiprazole [Abilify -] 5 mg PO DAILY 05/19/20 Ciprofloxacin 0.3% Eye Drops [Ciloxan 0.3% Eye Drops --] 1 drop OS Q4H 05/19/20 Sertraline HCl [Zoloft] 50 mg PO DAILY 05/19/20 - Medication-Assisted Treatment (MAT) Medication-Assisted Treatment (MAT): No - Discharge Instructions Diet, activity, other medical instructions: Diet: Activity: Other medical instructions: - Diagnosis (1) Alcohol dependence with uncomplicated withdrawal Status: Chronic (2) Cocaine dependence Status: Chronic Qualifiers: Substance use status: uncomplicated Qualified Code(s): F14.20 - Cocaine dependence, uncomplicated (3) Opioid dependence with withdrawal Status: Chronic - AMA Did Patient Leave Against Medical Advice: No Additional Comments: Patient requested early discharge
== END 2020-05-22 09:05 | disposition home or self-care (01) | DRG 772 ==
LOC: YASAS 12:27 → Y3E 12:30
PROVIDERS: ADMIT Allergy & Immunology; ATTEND Allergy & Immunology
PROC: HZ42ZZZ Group Counseling for Substance Abuse Treatment, Cognitive-Behavioral (ICD-10-PCS; principal; 2020-05-19)
DX: F11.20 Opioid dependence, uncomplicated (principal); F10.20 Alcohol dependence, uncomplicated; F14.20 Cocaine dependence, uncomplicated; R26.2 Difficulty in walking, not elsewhere classified; Z99.89 Dependence on other enabling machines and devices; Z87.438 Personal history of other diseases of male genital organs

== ENCOUNTER 2020-11-11 08:47 | Inpatient (IN) | payer OTHER ==
[2020-11-11 09:19] VITALS: BMI 46.0
[2020-11-11] MEDS ORDERED: MAGNESIUM CITRATE 300 ML BOTTLE PO PRN (10:18)
[2020-11-11] MEDS ORDERED: chlordiazePOXIDE HCL 25 MG CAPSULE PO PRN (10:18)
[2020-11-11] MEDS ORDERED: ACETAMINOPHEN 325 MG TABLET (FP) PO PRN ×2 (10:18)
[2020-11-11] MEDS ORDERED: NICOTINE POLACRILEX 2 MG GUM BUC PRN (10:18)
[2020-11-11] MEDS ORDERED: METHADONE HCL 10 MG TABLET (FOR DETOX USE ONLY) PO ONE (10:18)
[2020-11-11] MEDS ORDERED: MENTHOL/PHENOL 1 EACH UD MM PRN (10:18)
[2020-11-11] MEDS ORDERED: ONDANSETRON *ODT* 4 MG TABLET SL PRN (10:18)
[2020-11-11] MEDS ORDERED: MAG HYDROX/AL HYDROX/SIMETH 30 ML UNIT-DOSE CUP PO PRN (10:18)
[2020-11-11] MEDS ORDERED: IBUPROFEN 400 MG TABLET (FP) PO PRN (10:18)
[2020-11-11] MEDS ORDERED: MAGNESIUM HYDROX 2400MG/30ML ORAL SUSPENSION 30 ML CUP PO PRN (10:18)
[2020-11-11] MEDS ORDERED: cloNIDine HCL 0.1 MG TABLET PO PRN (10:18)
[2020-11-11] MEDS ORDERED: METHADONE HCL 10 MG TABLET PO SCH (11:02)
[2020-11-11] MEDS ORDERED: BISMUTH SUBSALICYLATE 262 MG/15 ML BTL PO PRN (11:06)
[2020-11-11] MEDS ORDERED: METHADONE HCL 10 MG TABLET ONE (11:44)
[2020-11-11] MEDS ORDERED: METHADONE HCL 40 MG DISPERSABLE TABLET ONE (11:44)
[2020-11-11] MEDS: METHADONE 40 MG, METHADONE 10 MG PO SCH (11:48)
[2020-11-11] MEDS: chlordiazePOXIDE HCL 25 MG CAPSULE PO SCH ×3 (11:49→22:49)
[2020-11-11] MEDS: PRENATAL VITAMINS W/ FOLIC ACID TABLET (FP) PO SCH (11:50)
[2020-11-11] MEDS ORDERED: hydrOXYzine PAMOATE 25 MG CAPSULE (FP) PO SCH (14:00)
[2020-11-11 14:52] LABS: HEMATOCRIT 38.5 % (35.4-49); HEMOGLOBIN 12.9 GM/dL (11.7-16.9); MCH 28.6 pg (25.7-33.7); MCHC 33.5 g/dl (32.0-35.9); MEAN CELL VOLUME 85.6 fl (80-96); MEAN PLT VOLUME 9.6 fl (7.5-11.1); PLATELET COUNT 236 K/MM3 (134-434); RBC 4.49 M/mm3 (4.00-5.60); RDW 13.3 % (11.9-15.9); WHITE BLOOD COUNT 5.6 K/mm3 (4.0-10.0)
[2020-11-11 14:53] LABS: POTASSIUM 4.3 mmol/L (3.5-5.1)
[2020-11-11 14:57] LABS: ALBUMIN 3.7 g/dl (3.4-5.0); CALCIUM 8.6 mg/dL (8.5-10.1)
[2020-11-11 14:58] LABS: BLOOD UREA NITROGEN 8.4 mg/dL (7-18)
[2020-11-11 15:00] LABS: CREATININE 1.1 mg/dL (0.55-1.3)
[2020-11-11 15:02] LABS: BILIRUBIN,TOTAL 1.4 mg/dL (0.2-1)
[2020-11-11] MEDS ORDERED: MASKS NR ONE (20:47)
[2020-11-11] MEDS: traZODone HCL 100 MG TABLET (FP) PO SCH (22:49)
[2020-11-11] MEDS: MELATONIN 5 MG TABLETS PO SCH (22:50)
[2020-11-11] MEDS: QUEtiapine FUMARATE 200 MG TABLET PO SCH (22:50)
[2020-11-11] MEDS: THIAMINE HCL 100 MG TABLET (FP) PO SCH (22:50)
[2020-11-12] MEDS ORDERED: METHADONE HCL 10 MG TABLET ONE (04:10)
[2020-11-12] MEDS ORDERED: METHADONE HCL 40 MG DISPERSABLE TABLET ONE (04:10)
[2020-11-12] MEDS: chlordiazePOXIDE HCL 25 MG CAPSULE PO SCH ×4 (05:14→22:33)
[2020-11-12] MEDS: METHADONE 40 MG, METHADONE 10 MG PO SCH (05:15)
[2020-11-12] MEDS ORDERED: METHADONE (DETOX) 20 MG, METHADONE (DETOX) 5 MG PO ONE (10:00)
[2020-11-12] MEDS: SERTRALINE HCL 50 MG TABLET (FP) PO SCH (10:42)
[2020-11-12] MEDS: ARIPiprazole 5 MG TABLET PO SCH (10:43)
[2020-11-12] MEDS: PRENATAL VITAMINS W/ FOLIC ACID TABLET (FP) PO SCH (10:43)
[2020-11-12] MEDS: QUEtiapine FUMARATE 200 MG TABLET PO SCH (22:34)
[2020-11-12] MEDS: THIAMINE HCL 100 MG TABLET (FP) PO SCH (22:34)
[2020-11-12] MEDS: MELATONIN 5 MG TABLETS PO SCH (22:34)
[2020-11-12] MEDS: hydrOXYzine PAMOATE 25 MG CAPSULE (FP) PO PRN (22:34)
[2020-11-12] MEDS: traZODone HCL 100 MG TABLET (FP) PO SCH (22:34)
[2020-11-12 23:13] LABS: EPI CELLS 1 /uL (0-25.1); HYALINE CASTS 1 /uL (0-3.1); PH,URINE 5.5 (5.0-8.0); URINE APPEARANCE CLEAR; URINE BACTERIA >9,000 /uL (0-1359); URINE BILIRUBIN NEGATIVE (NEGATIVE); URINE COLOR YELLOW; URINE GLUCOSE (UA) NEGATIVE (NEGATIVE); URINE KETONE NEGATIVE (NEGATIVE); URINE LEUK ESTERASE 1+ (NEGATIVE); URINE NITRITE NEGATIVE (NEGATIVE); URINE PROTEIN NEGATIVE (NEGATIVE); URINE RBC 6 /uL (0-23.9); URINE UROBILINOGEN 0.2 mg/dL (0.2-1.0); URINE WBC 187 /uL (0-25.8)
[2020-11-13] MEDS ORDERED: METHADONE HCL 10 MG TABLET ONE (05:01)
[2020-11-13] MEDS ORDERED: METHADONE HCL 40 MG DISPERSABLE TABLET ONE (05:01)
[2020-11-13] MEDS: METHADONE 40 MG, METHADONE 10 MG PO SCH (07:04)
[2020-11-13] MEDS: chlordiazePOXIDE HCL 25 MG CAPSULE PO SCH ×4 (07:05→22:26)
[2020-11-13] MEDS ORDERED: METHADONE HCL 10 MG TABLET (FOR DETOX USE ONLY) PO ONE (10:00)
[2020-11-13] MEDS: ARIPiprazole 5 MG TABLET PO SCH (10:20)
[2020-11-13] MEDS: SERTRALINE HCL 50 MG TABLET (FP) PO SCH (10:20)
[2020-11-13] MEDS: PRENATAL VITAMINS W/ FOLIC ACID TABLET (FP) PO SCH (10:21)
[2020-11-13] MEDS: SULFAMETHOXAZOLE/TRIMETHOPRIM 800MG/160MG D.S. TABLET PO SCH (22:25)
[2020-11-13] MEDS: traZODone HCL 100 MG TABLET (FP) PO SCH (22:25)
[2020-11-13] MEDS: QUEtiapine FUMARATE 200 MG TABLET PO SCH (22:25)
[2020-11-13] MEDS: MELATONIN 5 MG TABLETS PO SCH (22:26)
[2020-11-13] MEDS: THIAMINE HCL 100 MG TABLET (FP) PO SCH (22:26)
[2020-11-14] MEDS ORDERED: chlordiazePOXIDE HCL 10 MG CAPSULE PO PRN
[2020-11-14] MEDS ORDERED: METHADONE HCL 10 MG TABLET ONE (05:22)
[2020-11-14] MEDS ORDERED: METHADONE HCL 40 MG DISPERSABLE TABLET ONE (05:23)
[2020-11-14] MEDS: METHADONE 40 MG, METHADONE 10 MG PO SCH (06:05)
[2020-11-14] MEDS: chlordiazePOXIDE HCL 10 MG CAPSULE PO SCH ×4 (06:06→23:01)
[2020-11-14] MEDS ORDERED: METHADONE (DETOX) 10 MG, METHADONE (DETOX) 5 MG PO ONE (10:00)
[2020-11-14] MEDS: SERTRALINE HCL 50 MG TABLET (FP) PO SCH (10:45)
[2020-11-14] MEDS: PRENATAL VITAMINS W/ FOLIC ACID TABLET (FP) PO SCH (10:45)
[2020-11-14] MEDS: ARIPiprazole 5 MG TABLET PO SCH (10:45)
[2020-11-14] MEDS: SULFAMETHOXAZOLE/TRIMETHOPRIM 800MG/160MG D.S. TABLET PO SCH ×2 (10:45→22:10)
[2020-11-14] MEDS: PHENAZOPYRIDINE HCL 100 MG TABLET (FP) PO SCH ×2 (14:24→23:02)
[2020-11-14] MEDS: QUEtiapine FUMARATE 200 MG TABLET PO SCH (22:10)
[2020-11-14] MEDS: hydrOXYzine PAMOATE 25 MG CAPSULE (FP) PO PRN (22:10)
[2020-11-14] MEDS: traZODone HCL 100 MG TABLET (FP) PO SCH (22:10)
[2020-11-14] MEDS: THIAMINE HCL 100 MG TABLET (FP) PO SCH (22:10)
[2020-11-14] MEDS: MELATONIN 5 MG TABLETS PO SCH (23:01)
[2020-11-15] MEDS ORDERED: METHADONE HCL 10 MG TABLET ONE (04:34)
[2020-11-15] MEDS ORDERED: METHADONE HCL 40 MG DISPERSABLE TABLET ONE (04:34)
[2020-11-15] MEDS: chlordiazePOXIDE HCL 10 MG CAPSULE PO SCH ×2 (05:32→17:34)
[2020-11-15] MEDS: METHADONE 40 MG, METHADONE 10 MG PO SCH (05:32)
[2020-11-15] MEDS ORDERED: METHADONE HCL 10 MG TABLET (FOR DETOX USE ONLY) PO ONE (10:00)
[2020-11-15] MEDS: PRENATAL VITAMINS W/ FOLIC ACID TABLET (FP) PO SCH (10:35)
[2020-11-15] MEDS: SULFAMETHOXAZOLE/TRIMETHOPRIM 800MG/160MG D.S. TABLET PO SCH ×2 (10:35→22:23)
[2020-11-15] MEDS: ARIPiprazole 5 MG TABLET PO SCH (10:35)
[2020-11-15] MEDS: PHENAZOPYRIDINE HCL 100 MG TABLET (FP) PO SCH ×3 (10:35→18:15)
[2020-11-15] MEDS: SERTRALINE HCL 50 MG TABLET (FP) PO SCH (10:35)
[2020-11-15] MEDS: METHOCARBAMOL 500 MG TABLET PO PRN ×2 (10:37→22:25)
[2020-11-15 11:05] LABS: BILIRUBIN,TOTAL 0.3 mg/dL (0.2-1)
[2020-11-15] MEDS: MELATONIN 5 MG TABLETS PO SCH (22:23)
[2020-11-15] MEDS: THIAMINE HCL 100 MG TABLET (FP) PO SCH (22:23)
[2020-11-15] MEDS: traZODone HCL 100 MG TABLET (FP) PO SCH (22:23)
[2020-11-15] MEDS: QUEtiapine FUMARATE 200 MG TABLET PO SCH (22:23)
[2020-11-16] MEDS ORDERED: METHADONE HCL 10 MG TABLET ONE (03:44)
[2020-11-16] MEDS ORDERED: METHADONE HCL 40 MG DISPERSABLE TABLET ONE (03:44)
[2020-11-16] MEDS ORDERED: chlordiazePOXIDE HCL 10 MG CAPSULE PO ONE (05:00)
[2020-11-16] MEDS: METHADONE 40 MG, METHADONE 10 MG PO SCH (05:19)
[2020-11-16] MEDS ORDERED: METHADONE HCL 5 MG TABLET (FOR DETOX USE ONLY) PO ONE (06:00)
[2020-11-16 09:07] VITALS: BP 110/70; PULSE 72; TEMP 97.3
== END 2020-11-16 09:15 | disposition home or self-care (01) | DRG 773 ==
LOC: YASAS 08:47 → Y3N 10:35
PROVIDERS: ADMIT Allergy & Immunology; ATTEND Allergy & Immunology
PROC: HZ2ZZZZ Detoxification Services for Substance Abuse Treatment (ICD-10-PCS; principal; 2020-11-11)
DX: F11.23 Opioid dependence with withdrawal (principal); F10.230 Alcohol dependence with withdrawal, uncomplicated; F14.20 Cocaine dependence, uncomplicated; F13.20 Sedative, hypnotic or anxiolytic dependence, uncomplicated; F19.282 Other psychoactive substance dependence with psychoactive substance-induced sleep disorder; F19.24 Other psychoactive substance dependence with psychoactive substance-induced mood disorder; F31.9 Bipolar disorder, unspecified; F42.9 Obsessive-compulsive disorder, unspecified; F43.10 Post-traumatic stress disorder, unspecified; A53.0 Latent syphilis, unspecified as early or late; I10 Essential (primary) hypertension; N39.0 Urinary tract infection, site not specified; B18.2 Chronic viral hepatitis C; M17.0 Bilateral primary osteoarthritis of knee; E66.01 Morbid (severe) obesity due to excess calories; Z68.42 Body mass index [BMI] 45.0-49.9, adult; R56.9 Unspecified convulsions; R74.01 Elevation of levels of liver transaminase levels; R74.8 Abnormal levels of other serum enzymes; Z99.89 Dependence on other enabling machines and devices
CPT/HCPCS: 36415; 80053; 81003; 82247; 84450; 85027; 86593; 86780; 87086; C9803; U0003

== ENCOUNTER 2021-01-14 09:14 | Inpatient (IN) | payer OTHER ==
[2021-01-14 09:58] VITALS: BMI 44.4
[2021-01-14] MEDS ORDERED: chlordiazePOXIDE HCL 25 MG CAPSULE PO PRN (10:21)
[2021-01-14] MEDS ORDERED: MENTHOL/PHENOL 1 EACH UD MM PRN (10:21)
[2021-01-14] MEDS ORDERED: METHADONE HCL 10 MG TABLET (FOR DETOX USE ONLY) PO ONE (10:21)
[2021-01-14] MEDS ORDERED: MAG HYDROX/AL HYDROX/SIMETH 30 ML UNIT-DOSE CUP PO PRN (10:21)
[2021-01-14] MEDS ORDERED: MAGNESIUM CITRATE 300 ML BOTTLE PO PRN (10:21)
[2021-01-14] MEDS ORDERED: ONDANSETRON *ODT* 4 MG TABLET SL PRN (10:21)
[2021-01-14] MEDS ORDERED: MAGNESIUM HYDROX 2400MG/30ML ORAL SUSPENSION 30 ML CUP PO PRN (10:21)
[2021-01-14] MEDS ORDERED: IBUPROFEN 400 MG TABLET (FP) PO PRN (10:21)
[2021-01-14] MEDS ORDERED: cloNIDine HCL 0.1 MG TABLET PO PRN (10:21)
[2021-01-14] MEDS ORDERED: BISMUTH SUBSALICYLATE 262 MG/15 ML BTL PO PRN (10:21)
[2021-01-14] MEDS ORDERED: METHOCARBAMOL 500 MG TABLET PO PRN (10:21)
[2021-01-14] MEDS ORDERED: ACETAMINOPHEN 325 MG TABLET (FP) PO PRN ×2 (10:21)
[2021-01-14] MEDS ORDERED: METHADONE HCL 10 MG TABLET (FOR DETOX USE ONLY) ONE (10:22)
[2021-01-14] MEDS ORDERED: chlordiazePOXIDE HCL 25 MG CAPSULE ONE (10:22)
[2021-01-14] MEDS ORDERED: chlordiazePOXIDE HCL 25 MG CAPSULE PO ONE (10:24)
[2021-01-14] MEDS: chlordiazePOXIDE HCL 25 MG CAPSULE PO SCH ×3 (11:23→22:48)
[2021-01-14] MEDS: PRENATAL VITAMINS W/ FOLIC ACID TABLET (FP) PO SCH (11:23)
[2021-01-14] MEDS: hydrOXYzine PAMOATE 25 MG CAPSULE (FP) PO SCH ×3 (13:27→22:50)
[2021-01-14 14:47] LABS: HEMATOCRIT 38.2 % (35.4-49); HEMOGLOBIN 12.7 GM/dL (11.7-16.9); MCH 28.9 pg (25.7-33.7); MCHC 33.2 g/dl (32.0-35.9); MEAN PLT VOLUME 9.8 fl (7.5-11.1); PLATELET COUNT 214 K/MM3 (134-434); RBC 4.39 M/mm3 (4.00-5.60); RDW 14.5 % (11.9-15.9); WHITE BLOOD COUNT 8.4 K/mm3 (4.0-10.0)
[2021-01-14 14:56] LABS: CALCIUM 9.1 mg/dL (8.5-10.1)
[2021-01-14 14:57] LABS: ALBUMIN 3.8 g/dl (3.4-5.0); BLOOD UREA NITROGEN 10.6 mg/dL (7-18)
[2021-01-14 15:01] LABS: BILIRUBIN,TOTAL 0.9 mg/dL (0.2-1)
[2021-01-14] MEDS: traZODone HCL 100 MG TABLET (FP) PO SCH (22:47)
[2021-01-14] MEDS: QUEtiapine FUMARATE 200 MG TABLET PO SCH (22:47)
[2021-01-14] MEDS: THIAMINE HCL 100 MG TABLET (FP) PO SCH (22:47)
[2021-01-14] MEDS: MELATONIN 5 MG TABLETS PO SCH (22:50)
[2021-01-15] MEDS: chlordiazePOXIDE HCL 25 MG CAPSULE PO SCH ×4 (07:54→22:40)
[2021-01-15] MEDS: hydrOXYzine PAMOATE 25 MG CAPSULE (FP) PO SCH ×2 (07:54→11:14)
[2021-01-15] MEDS ORDERED: METHADONE HCL 10 MG TABLET (FOR DETOX USE ONLY) ONE ×2 (09:52→12:22)
[2021-01-15] MEDS ORDERED: METHADONE HCL 5 MG TABLET (FOR DETOX USE ONLY) ONE ×2 (09:52→12:22)
[2021-01-15] MEDS ORDERED: METHADONE (DETOX) 10 MG, METHADONE (DETOX) 5 MG PO ONE (10:00)
[2021-01-15] MEDS ORDERED: METHADONE (DETOX) 20 MG, METHADONE (DETOX) 5 MG PO ONE ×2 (10:00→11:46)
[2021-01-15] MEDS: PRENATAL VITAMINS W/ FOLIC ACID TABLET (FP) PO SCH (10:39)
[2021-01-15] MEDS: ARIPiprazole 5 MG TABLET PO SCH (10:39)
[2021-01-15] MEDS: SERTRALINE HCL 50 MG TABLET (FP) PO SCH (10:39)
[2021-01-15] MEDS: traZODone HCL 100 MG TABLET (FP) PO SCH (22:39)
[2021-01-15] MEDS: QUEtiapine FUMARATE 200 MG TABLET PO SCH (22:39)
[2021-01-15] MEDS: THIAMINE HCL 100 MG TABLET (FP) PO SCH (22:39)
[2021-01-15] MEDS: MELATONIN 5 MG TABLETS PO SCH (22:41)
[2021-01-16] MEDS: chlordiazePOXIDE HCL 25 MG CAPSULE PO SCH ×2 (07:09→10:05)
[2021-01-16 09:45] VITALS: BP 133/73; PULSE 112; TEMP 97.7
[2021-01-16] MEDS ORDERED: METHADONE HCL 10 MG TABLET (FOR DETOX USE ONLY) PO ONE ×3 (10:00)
[2021-01-16] MEDS: PRENATAL VITAMINS W/ FOLIC ACID TABLET (FP) PO SCH (10:04)
[2021-01-16] MEDS: ARIPiprazole 5 MG TABLET PO SCH (10:05)
[2021-01-16] MEDS: SERTRALINE HCL 50 MG TABLET (FP) PO SCH (10:06)
[2021-01-17] MEDS ORDERED: chlordiazePOXIDE HCL 10 MG CAPSULE PO PRN
[2021-01-17] MEDS ORDERED: chlordiazePOXIDE HCL 10 MG CAPSULE PO SCH (05:00)
[2021-01-17] MEDS ORDERED: METHADONE HCL 5 MG TABLET (FOR DETOX USE ONLY) PO ONE (06:00)
[2021-01-17] MEDS ORDERED: METHADONE (DETOX) 10 MG, METHADONE (DETOX) 5 MG PO ONE ×2 (10:00)
[2021-01-18] MEDS ORDERED: chlordiazePOXIDE HCL 10 MG CAPSULE PO SCH (05:00)
[2021-01-18] MEDS ORDERED: METHADONE HCL 10 MG TABLET (FOR DETOX USE ONLY) PO ONE ×2 (10:00)
[2021-01-19] MEDS ORDERED: chlordiazePOXIDE HCL 10 MG CAPSULE PO ONE (05:00)
[2021-01-19] MEDS ORDERED: METHADONE HCL 5 MG TABLET (FOR DETOX USE ONLY) PO ONE ×2 (06:00)
== END 2021-01-16 13:03 | disposition home or self-care (01) | DRG 773 ==
LOC: YASAS 09:14 → Y6N 10:36
PROVIDERS: ADMIT Allergy & Immunology; ATTEND Allergy & Immunology
PROC: HZ2ZZZZ Detoxification Services for Substance Abuse Treatment (ICD-10-PCS; principal; 2021-01-14)
DX: F11.23 Opioid dependence with withdrawal (principal); F10.230 Alcohol dependence with withdrawal, uncomplicated; F14.20 Cocaine dependence, uncomplicated; F19.24 Other psychoactive substance dependence with psychoactive substance-induced mood disorder; F31.9 Bipolar disorder, unspecified; F43.10 Post-traumatic stress disorder, unspecified; Z21 Asymptomatic human immunodeficiency virus [HIV] infection status; I10 Essential (primary) hypertension; B18.2 Chronic viral hepatitis C; A53.0 Latent syphilis, unspecified as early or late; M17.0 Bilateral primary osteoarthritis of knee; E66.01 Morbid (severe) obesity due to excess calories; Z68.41 Body mass index [BMI] 40.0-44.9, adult; Z99.89 Dependence on other enabling machines and devices
CPT/HCPCS: 36415; 80053; 85027; 86593; 86780; C9803; Q0162; U0003; U0005

== ENCOUNTER 2021-02-18 10:19 | Inpatient (IN) | payer OTHER ==
[2021-02-18 12:16] VITALS: BMI 42.7
[2021-02-18] MEDS ORDERED: MAGNESIUM HYDROX 2400MG/30ML ORAL SUSPENSION 30 ML CUP PO PRN (12:16)
[2021-02-18] MEDS ORDERED: MENTHOL/PHENOL 1 EACH UD MM PRN (12:16)
[2021-02-18] MEDS ORDERED: ONDANSETRON *ODT* 4 MG TABLET SL PRN (12:16)
[2021-02-18] MEDS ORDERED: MAGNESIUM CITRATE 300 ML BOTTLE PO PRN (12:16)
[2021-02-18] MEDS ORDERED: IBUPROFEN 400 MG TABLET (FP) PO PRN (12:16)
[2021-02-18] MEDS ORDERED: ACETAMINOPHEN 325 MG TABLET (FP) PO PRN (12:16)
[2021-02-18] MEDS ORDERED: BISMUTH SUBSALICYLATE 524 MG/30 ML UD PO PRN (12:16)
[2021-02-18] MEDS ORDERED: cloNIDine HCL 0.1 MG TABLET PO PRN (12:16)
[2021-02-18] MEDS ORDERED: MAG HYDROX/AL HYDROX/SIMETH 30 ML UNIT-DOSE CUP PO PRN (12:16)
[2021-02-18] MEDS ORDERED: METHADONE HCL 10 MG TABLET (FOR DETOX USE ONLY) PO ONE (13:00)
[2021-02-18] MEDS ORDERED: METHADONE HCL 10 MG TABLET (FOR DETOX USE ONLY) ONE (14:08)
[2021-02-18] MEDS ORDERED: hydrOXYzine PAMOATE 25 MG CAPSULE (FP) PO ONE (14:09)
[2021-02-18] MEDS: hydrOXYzine PAMOATE 25 MG CAPSULE (FP) PO SCH ×3 (14:11→22:19)
[2021-02-18] MEDS: PRENATAL VITAMINS W/ FOLIC ACID TABLET (FP) PO SCH (15:23)
[2021-02-18] MEDS: ACETAMINOPHEN 325 MG TABLET (FP) PO PRN (16:50)
[2021-02-18 17:19] LABS: ALBUMIN 3.8 g/dl (3.4-5.0); CALCIUM 9.3 mg/dL (8.5-10.1)
[2021-02-18 17:22] LABS: CREATININE 1.1 mg/dL (0.55-1.3)
[2021-02-18 17:24] LABS: BILIRUBIN,TOTAL 0.8 mg/dL (0.2-1); TOT PROT 8.2 g/dl (6.4-8.2)
[2021-02-18 17:29] LABS: HEMATOCRIT 40.8 % (35.4-49); HEMOGLOBIN 13.4 GM/dL (11.7-16.9); MCH 28.6 pg (25.7-33.7); MEAN CELL VOLUME 86.8 fl (80-96); MEAN PLT VOLUME 9.9 fl (7.5-11.1); PLATELET COUNT 266 K/MM3 (134-434); RDW 14.9 % (11.9-15.9); WHITE BLOOD COUNT 6.4 K/mm3 (4.0-10.0)
[2021-02-18] MEDS: THIAMINE HCL 100 MG TABLET (FP) PO SCH (22:18)
[2021-02-18] MEDS: SULFAMETHOXAZOLE/TRIMETHOPRIM 800MG/160MG D.S. TABLET PO SCH (22:18)
[2021-02-18] MEDS: METHOCARBAMOL 500 MG TABLET PO PRN (22:19)
[2021-02-18] MEDS: MELATONIN 5 MG TABLETS PO SCH (22:19)
[2021-02-19] MEDS: hydrOXYzine PAMOATE 25 MG CAPSULE (FP) PO SCH ×5 (06:58→22:45)
[2021-02-19] MEDS ORDERED: METHADONE HCL 10 MG TABLET (FOR DETOX USE ONLY) ONE (08:52)
[2021-02-19] MEDS ORDERED: METHADONE HCL 5 MG TABLET (FOR DETOX USE ONLY) ONE (08:53)
[2021-02-19] MEDS: SULFAMETHOXAZOLE/TRIMETHOPRIM 800MG/160MG D.S. TABLET PO SCH ×2 (09:42→22:45)
[2021-02-19] MEDS: BICTEGRAV/EMTRICIT/TENOFOV (BIKTARVY) 50-200-25 MG TABLET PO SCH (09:42)
[2021-02-19] MEDS: PRENATAL VITAMINS W/ FOLIC ACID TABLET (FP) PO SCH (09:43)
[2021-02-19] MEDS ORDERED: METHADONE (DETOX) 20 MG, METHADONE (DETOX) 5 MG PO ONE (10:00)
[2021-02-19] MEDS ORDERED: ARIPiprazole 5 MG TABLET PO SCH (10:15)
[2021-02-19] MEDS ORDERED: ARIPiprazole 10 MG TABLET PO SCH (11:01)
[2021-02-19] MEDS: ARIPiprazole 10 MG TABLET PO SCH (11:51)
[2021-02-19] MEDS: THIAMINE HCL 100 MG TABLET (FP) PO SCH (22:45)
[2021-02-19] MEDS: MELATONIN 5 MG TABLETS PO SCH (22:45)
[2021-02-19] MEDS: QUEtiapine FUMARATE 200 MG TABLET PO SCH (22:48)
[2021-02-20] MEDS: hydrOXYzine PAMOATE 25 MG CAPSULE (FP) PO SCH ×5 (07:30→22:47)
[2021-02-20] MEDS ORDERED: METHADONE HCL 10 MG TABLET (FOR DETOX USE ONLY) PO ONE (10:00)
[2021-02-20] MEDS: PRENATAL VITAMINS W/ FOLIC ACID TABLET (FP) PO SCH (10:56)
[2021-02-20] MEDS: SULFAMETHOXAZOLE/TRIMETHOPRIM 800MG/160MG D.S. TABLET PO SCH ×2 (10:57→22:47)
[2021-02-20] MEDS: ARIPiprazole 10 MG TABLET PO SCH (10:58)
[2021-02-20] MEDS: BICTEGRAV/EMTRICIT/TENOFOV (BIKTARVY) 50-200-25 MG TABLET PO SCH (11:39)
[2021-02-20] MEDS: METHOCARBAMOL 500 MG TABLET PO PRN (13:13)
[2021-02-20] MEDS: ACETAMINOPHEN 325 MG TABLET (FP) PO PRN (14:40)
[2021-02-20] MEDS: QUEtiapine FUMARATE 200 MG TABLET PO SCH (22:47)
[2021-02-20] MEDS: MELATONIN 5 MG TABLETS PO SCH (22:47)
[2021-02-20] MEDS: THIAMINE HCL 100 MG TABLET (FP) PO SCH ×2 (22:47→23:05)
[2021-02-21] MEDS: hydrOXYzine PAMOATE 25 MG CAPSULE (FP) PO SCH ×5 (07:21→22:24)
[2021-02-21] MEDS ORDERED: METHADONE (DETOX) 10 MG, METHADONE (DETOX) 5 MG PO ONE (10:00)
[2021-02-21] MEDS: BICTEGRAV/EMTRICIT/TENOFOV (BIKTARVY) 50-200-25 MG TABLET PO SCH (10:35)
[2021-02-21] MEDS: PRENATAL VITAMINS W/ FOLIC ACID TABLET (FP) PO SCH (10:35)
[2021-02-21] MEDS: SULFAMETHOXAZOLE/TRIMETHOPRIM 800MG/160MG D.S. TABLET PO SCH ×2 (10:35→22:23)
[2021-02-21] MEDS: ARIPiprazole 10 MG TABLET PO SCH (10:35)
[2021-02-21] MEDS ORDERED: METHADONE HCL 5 MG TABLET (FOR DETOX USE ONLY) ONE (10:36)
[2021-02-21] MEDS ORDERED: METHADONE HCL 10 MG TABLET (FOR DETOX USE ONLY) ONE (10:36)
[2021-02-21] MEDS: THIAMINE HCL 100 MG TABLET (FP) PO SCH (22:23)
[2021-02-21] MEDS: QUEtiapine FUMARATE 200 MG TABLET PO SCH (22:23)
[2021-02-21] MEDS: MELATONIN 5 MG TABLETS PO SCH (22:24)
[2021-02-22 06:06] LABS: SARS-CoV-2 NAA Not Detected (Not Detected)
[2021-02-22] MEDS: BICTEGRAV/EMTRICIT/TENOFOV (BIKTARVY) 50-200-25 MG TABLET PO SCH ×2 (07:03→09:30)
[2021-02-22] MEDS: hydrOXYzine PAMOATE 25 MG CAPSULE (FP) PO SCH ×5 (07:03→23:07)
[2021-02-22] MEDS ORDERED: METHADONE HCL 10 MG TABLET (FOR DETOX USE ONLY) PO ONE (10:00)
[2021-02-22] MEDS: ARIPiprazole 10 MG TABLET PO SCH (10:07)
[2021-02-22] MEDS: SULFAMETHOXAZOLE/TRIMETHOPRIM 800MG/160MG D.S. TABLET PO SCH ×2 (10:07→23:06)
[2021-02-22] MEDS: PRENATAL VITAMINS W/ FOLIC ACID TABLET (FP) PO SCH (11:00)
[2021-02-22] MEDS: ACETAMINOPHEN 325 MG TABLET (FP) PO PRN (15:28)
[2021-02-22] MEDS: MELATONIN 5 MG TABLETS PO SCH (23:06)
[2021-02-22] MEDS: QUEtiapine FUMARATE 200 MG TABLET PO SCH (23:07)
[2021-02-22] MEDS: THIAMINE HCL 100 MG TABLET (FP) PO SCH (23:07)
[2021-02-23] MEDS ORDERED: METHADONE HCL 5 MG TABLET (FOR DETOX USE ONLY) PO ONE (06:00)
[2021-02-23] MEDS: hydrOXYzine PAMOATE 25 MG CAPSULE (FP) PO SCH ×2 (06:35→10:12)
[2021-02-23 09:07] VITALS: BP 128/81; PULSE 98; TEMP 96.9
[2021-02-23] MEDS: ARIPiprazole 10 MG TABLET PO SCH (10:12)
[2021-02-23] MEDS: PRENATAL VITAMINS W/ FOLIC ACID TABLET (FP) PO SCH (10:13)
[2021-02-23] MEDS: SULFAMETHOXAZOLE/TRIMETHOPRIM 800MG/160MG D.S. TABLET PO SCH (10:13)
[2021-02-23] MEDS: BICTEGRAV/EMTRICIT/TENOFOV (BIKTARVY) 50-200-25 MG TABLET PO SCH (10:13)
== END 2021-02-23 12:19 | disposition other institution (70) | DRG 773 ==
LOC: YASAS 10:19 → Y3N 14:35
PROVIDERS: ADMIT Allergy & Immunology; ATTEND Allergy & Immunology
PROC: HZ2ZZZZ Detoxification Services for Substance Abuse Treatment (ICD-10-PCS; principal; 2021-02-18)
DX: F11.23 Opioid dependence with withdrawal (principal); F10.230 Alcohol dependence with withdrawal, uncomplicated; F14.20 Cocaine dependence, uncomplicated; F13.20 Sedative, hypnotic or anxiolytic dependence, uncomplicated; F12.20 Cannabis dependence, uncomplicated; F19.282 Other psychoactive substance dependence with psychoactive substance-induced sleep disorder; F19.24 Other psychoactive substance dependence with psychoactive substance-induced mood disorder; F31.9 Bipolar disorder, unspecified; F43.10 Post-traumatic stress disorder, unspecified; F41.9 Anxiety disorder, unspecified; Z21 Asymptomatic human immunodeficiency virus [HIV] infection status; I10 Essential (primary) hypertension; B18.2 Chronic viral hepatitis C; M17.12 Unilateral primary osteoarthritis, left knee; E66.01 Morbid (severe) obesity due to excess calories; Z68.41 Body mass index [BMI] 40.0-44.9, adult; Z86.19 Personal history of other infectious and parasitic diseases; Z99.89 Dependence on other enabling machines and devices
CPT/HCPCS: 36415; 80053; 85027; 86593; 86780; C9803; U0003; U0005

== ENCOUNTER 2021-02-23 11:47 | Inpatient (IN) | payer OTHER ==
[2021-02-23] MEDS ORDERED: P-EPHED 60MG/TRIPROLIDI 2.5MG TABLET PO PRN (14:54)
[2021-02-23] MEDS ORDERED: LOPERAMIDE HCL 2 MG CAPSULE PO PRN (14:54)
[2021-02-23] MEDS ORDERED: MAG HYDROX/AL HYDROX/SIMETH 30 ML UNIT-DOSE CUP PO PRN (14:54)
[2021-02-23] MEDS ORDERED: MENTHOL/PHENOL 1 EACH UD MM PRN (14:54)
[2021-02-23] MEDS ORDERED: guaiFENesin 200 MG/10 ML 10 ML UNIT-DOSE CUPS PO PRN (14:54)
[2021-02-23] MEDS ORDERED: IBUPROFEN 400 MG TABLET (FP) PO PRN (14:54)
[2021-02-23] MEDS ORDERED: hydrOXYzine PAMOATE 25 MG CAPSULE (FP) PO PRN (14:54)
[2021-02-23] MEDS ORDERED: MAGNESIUM CITRATE 300 ML BOTTLE PO PRN (14:54)
[2021-02-23] MEDS ORDERED: NICOTINE POLACRILEX 2 MG GUM BUC PRN (14:54)
[2021-02-23] MEDS: hydrOXYzine PAMOATE 25 MG CAPSULE (FP) PO PRN (21:12)
[2021-02-23] MEDS: QUEtiapine FUMARATE 200 MG TABLET PO SCH (21:12)
[2021-02-23] MEDS: THIAMINE HCL 100 MG TABLET (FP) PO SCH (21:12)
[2021-02-23] MEDS: MELATONIN 5 MG TABLETS PO SCH (21:13)
[2021-02-24] MEDS: SULFAMETHOXAZOLE/TRIMETHOPRIM 800MG/160MG D.S. TABLET PO SCH (09:51)
[2021-02-24] MEDS: NICOTINE 7 MG/24 HOURS TOPICAL PATCH TD SCH (09:52)
[2021-02-24] MEDS: BICTEGRAV/EMTRICIT/TENOFOV (BIKTARVY) 50-200-25 MG TABLET PO SCH (09:52)
[2021-02-24] MEDS: PRENATAL VITAMINS W/ FOLIC ACID TABLET (FP) PO SCH (09:53)
[2021-02-24] MEDS ORDERED: ARIPiprazole 5 MG TABLET PO SCH (10:00)
[2021-02-24] MEDS: ARIPiprazole 10 MG TABLET PO SCH (10:25)
[2021-02-24] MEDS: THIAMINE HCL 100 MG TABLET (FP) PO SCH (21:07)
[2021-02-24] MEDS: QUEtiapine FUMARATE 200 MG TABLET PO SCH (21:07)
[2021-02-24] MEDS: MELATONIN 5 MG TABLETS PO SCH (21:07)
[2021-02-24] MEDS: hydrOXYzine PAMOATE 25 MG CAPSULE (FP) PO PRN (21:08)
[2021-02-25] MEDS: BICTEGRAV/EMTRICIT/TENOFOV (BIKTARVY) 50-200-25 MG TABLET PO SCH (09:36)
[2021-02-25] MEDS: ARIPiprazole 10 MG TABLET PO SCH (09:36)
[2021-02-25] MEDS: NICOTINE 7 MG/24 HOURS TOPICAL PATCH TD SCH (09:36)
[2021-02-25] MEDS: PRENATAL VITAMINS W/ FOLIC ACID TABLET (FP) PO SCH (09:36)
[2021-02-25] MEDS: SULFAMETHOXAZOLE/TRIMETHOPRIM 800MG/160MG D.S. TABLET PO SCH (09:36)
[2021-02-25] MEDS: hydrOXYzine PAMOATE 25 MG CAPSULE (FP) PO PRN ×2 (09:37→21:55)
[2021-02-25] MEDS ORDERED: BUPRENORPHINE/NALOXONE 2 MG/0.5 MG FILM PACKET SL ONE (12:15)
[2021-02-25] MEDS: METHOCARBAMOL 500 MG TABLET PO SCH ×2 (14:21→21:54)
[2021-02-25] MEDS: MELATONIN 5 MG TABLETS PO SCH (21:54)
[2021-02-25] MEDS: THIAMINE HCL 100 MG TABLET (FP) PO SCH (21:54)
[2021-02-25] MEDS: QUEtiapine FUMARATE 200 MG TABLET PO SCH (21:54)
[2021-02-26] MEDS: METHOCARBAMOL 500 MG TABLET PO SCH ×3 (06:50→21:12)
[2021-02-26] MEDS: BICTEGRAV/EMTRICIT/TENOFOV (BIKTARVY) 50-200-25 MG TABLET PO SCH (07:08)
[2021-02-26] MEDS: BUPRENORPHINE/NALOXONE 2 MG/0.5 MG FILM PACKET SL SCH (09:42)
[2021-02-26] MEDS: ARIPiprazole 10 MG TABLET PO SCH (09:43)
[2021-02-26] MEDS: NICOTINE 7 MG/24 HOURS TOPICAL PATCH TD SCH (09:43)
[2021-02-26] MEDS: PRENATAL VITAMINS W/ FOLIC ACID TABLET (FP) PO SCH (09:43)
[2021-02-26] MEDS: SULFAMETHOXAZOLE/TRIMETHOPRIM 800MG/160MG D.S. TABLET PO SCH (09:43)
[2021-02-26] MEDS: THIAMINE HCL 100 MG TABLET (FP) PO SCH (21:12)
[2021-02-26] MEDS: QUEtiapine FUMARATE 200 MG TABLET PO SCH (21:12)
[2021-02-26] MEDS: hydrOXYzine PAMOATE 25 MG CAPSULE (FP) PO PRN (21:12)
[2021-02-26] MEDS: MELATONIN 5 MG TABLETS PO SCH (21:12)
[2021-02-27] MEDS ORDERED: PT OWN MED DRAWER 7, Y5N ONE (03:02)
[2021-02-27] MEDS: METHOCARBAMOL 500 MG TABLET PO SCH ×3 (06:50→21:47)
[2021-02-27] MEDS: BICTEGRAV/EMTRICIT/TENOFOV (BIKTARVY) 50-200-25 MG TABLET PO SCH (07:39)
[2021-02-27] MEDS: hydrOXYzine PAMOATE 25 MG CAPSULE (FP) PO PRN ×3 (09:47→21:47)
[2021-02-27] MEDS: SULFAMETHOXAZOLE/TRIMETHOPRIM 800MG/160MG D.S. TABLET PO SCH (09:47)
[2021-02-27] MEDS: PRENATAL VITAMINS W/ FOLIC ACID TABLET (FP) PO SCH (09:47)
[2021-02-27] MEDS: ARIPiprazole 10 MG TABLET PO SCH (09:47)
[2021-02-27] MEDS: NICOTINE 7 MG/24 HOURS TOPICAL PATCH TD SCH (09:48)
[2021-02-27] MEDS: BUPRENORPHINE/NALOXONE 2 MG/0.5 MG FILM PACKET SL SCH (09:49)
[2021-02-27] MEDS: MAGNESIUM HYDROX 2400MG/30ML ORAL SUSPENSION 30 ML CUP PO PRN (12:49)
[2021-02-27 14:07] LABS: SARS-CoV-2 NAA Not Detected (Not Detected)
[2021-02-27] MEDS: ACETAMINOPHEN 325 MG TABLET (FP) PO PRN (15:12)
[2021-02-27] MEDS: QUEtiapine FUMARATE 200 MG TABLET PO SCH (21:47)
[2021-02-27] MEDS: MELATONIN 5 MG TABLETS PO SCH (21:47)
[2021-02-27] MEDS: THIAMINE HCL 100 MG TABLET (FP) PO SCH (21:47)
[2021-02-28] MEDS: METHOCARBAMOL 500 MG TABLET PO SCH ×3 (06:47→21:12)
[2021-02-28] MEDS: ACETAMINOPHEN 325 MG TABLET (FP) PO PRN ×2 (06:48→21:13)
[2021-02-28] MEDS: BICTEGRAV/EMTRICIT/TENOFOV (BIKTARVY) 50-200-25 MG TABLET PO SCH (07:14)
[2021-02-28] MEDS ORDERED: PT OWN MED DRAWER 7, Y5N ONE (09:00)
[2021-02-28] MEDS: SULFAMETHOXAZOLE/TRIMETHOPRIM 800MG/160MG D.S. TABLET PO SCH (09:33)
[2021-02-28] MEDS: ARIPiprazole 10 MG TABLET PO SCH (09:33)
[2021-02-28] MEDS: BUPRENORPHINE/NALOXONE 2 MG/0.5 MG FILM PACKET SL SCH ×2 (09:33→21:10)
[2021-02-28] MEDS: NICOTINE 7 MG/24 HOURS TOPICAL PATCH TD SCH (09:34)
[2021-02-28] MEDS: PRENATAL VITAMINS W/ FOLIC ACID TABLET (FP) PO SCH (09:34)
[2021-02-28] MEDS: MAGNESIUM HYDROX 2400MG/30ML ORAL SUSPENSION 30 ML CUP PO PRN (13:30)
[2021-02-28] MEDS: QUEtiapine FUMARATE 200 MG TABLET PO SCH (21:12)
[2021-02-28] MEDS: THIAMINE HCL 100 MG TABLET (FP) PO SCH (21:12)
[2021-02-28] MEDS: hydrOXYzine PAMOATE 25 MG CAPSULE (FP) PO PRN (21:12)
[2021-02-28] MEDS: MELATONIN 5 MG TABLETS PO SCH (21:12)
[2021-03-01] MEDS: METHOCARBAMOL 500 MG TABLET PO SCH ×3 (06:09→22:14)
[2021-03-01] MEDS: BICTEGRAV/EMTRICIT/TENOFOV (BIKTARVY) 50-200-25 MG TABLET PO SCH (07:14)
[2021-03-01] MEDS ORDERED: PT OWN MED DRAWER 7, Y5N ONE (09:04)
[2021-03-01] MEDS: PRENATAL VITAMINS W/ FOLIC ACID TABLET (FP) PO SCH (09:33)
[2021-03-01] MEDS: ARIPiprazole 10 MG TABLET PO SCH (09:34)
[2021-03-01] MEDS: BUPRENORPHINE/NALOXONE 2 MG/0.5 MG FILM PACKET SL SCH ×2 (09:34→22:14)
[2021-03-01] MEDS: NICOTINE 7 MG/24 HOURS TOPICAL PATCH TD SCH (09:34)
[2021-03-01] MEDS: SULFAMETHOXAZOLE/TRIMETHOPRIM 800MG/160MG D.S. TABLET PO SCH (09:34)
[2021-03-01] MEDS: THIAMINE HCL 100 MG TABLET (FP) PO SCH (22:14)
[2021-03-01] MEDS: QUEtiapine FUMARATE 200 MG TABLET PO SCH (22:14)
[2021-03-01] MEDS: hydrOXYzine PAMOATE 25 MG CAPSULE (FP) PO PRN (22:15)
[2021-03-01] MEDS: MELATONIN 5 MG TABLETS PO SCH (22:17)
[2021-03-02] MEDS: METHOCARBAMOL 500 MG TABLET PO SCH (06:03)
[2021-03-02] MEDS: ACETAMINOPHEN 325 MG TABLET (FP) PO PRN (06:05)
[2021-03-02 06:45] VITALS: TEMP 97.5
[2021-03-02] MEDS: BICTEGRAV/EMTRICIT/TENOFOV (BIKTARVY) 50-200-25 MG TABLET PO SCH (07:19)
[2021-03-02] MEDS ORDERED: PT OWN MED DRAWER 7, Y5N ONE (08:34)
[2021-03-02 09:06] VITALS: BP 131/83; PULSE 97
[2021-03-02] MEDS: SULFAMETHOXAZOLE/TRIMETHOPRIM 800MG/160MG D.S. TABLET PO SCH (09:24)
[2021-03-02] MEDS: ARIPiprazole 10 MG TABLET PO SCH (09:24)
[2021-03-02] MEDS: NICOTINE 7 MG/24 HOURS TOPICAL PATCH TD SCH (09:25)
[2021-03-02] MEDS: BUPRENORPHINE/NALOXONE 2 MG/0.5 MG FILM PACKET SL SCH (09:25)
[2021-03-02] MEDS: PRENATAL VITAMINS W/ FOLIC ACID TABLET (FP) PO SCH (09:25)
[2021-03-02] MEDS ORDERED: COVID-19 VAC,AD26(JANSSEN)/PF 0.5 ML IM ONE (10:00)
== END 2021-03-02 09:55 | disposition home or self-care (01) | DRG 772 ==
LOC: YASAS 11:47 → Y5N 16:07
PROVIDERS: ADMIT Allergy & Immunology; ATTEND Allergy & Immunology
PROC: HZ42ZZZ Group Counseling for Substance Abuse Treatment, Cognitive-Behavioral (ICD-10-PCS; principal; 2021-02-23)
DX: F10.20 Alcohol dependence, uncomplicated (principal); F11.20 Opioid dependence, uncomplicated; F14.20 Cocaine dependence, uncomplicated; F15.20 Other stimulant dependence, uncomplicated; F12.20 Cannabis dependence, uncomplicated; F19.282 Other psychoactive substance dependence with psychoactive substance-induced sleep disorder; F19.24 Other psychoactive substance dependence with psychoactive substance-induced mood disorder; F31.9 Bipolar disorder, unspecified; F41.9 Anxiety disorder, unspecified; F43.10 Post-traumatic stress disorder, unspecified; Z21 Asymptomatic human immunodeficiency virus [HIV] infection status; M19.90 Unspecified osteoarthritis, unspecified site; B18.2 Chronic viral hepatitis C; E66.01 Morbid (severe) obesity due to excess calories; Z68.41 Body mass index [BMI] 40.0-44.9, adult; Z51.81 Encounter for therapeutic drug level monitoring; Z99.89 Dependence on other enabling machines and devices; Z98.890 Other specified postprocedural states
CPT/HCPCS: 0031A; 91303; C9803; U0003; U0005

== ENCOUNTER 2021-04-15 13:01 | Inpatient (IN) | payer OTHER ==
[2021-04-15 14:13] VITALS: BMI 41.8
[2021-04-15] MEDS ORDERED: IBUPROFEN 400 MG TABLET (FP) PO PRN (19:00)
[2021-04-15] MEDS ORDERED: guaiFENesin 200 MG/10 ML 10 ML UNIT-DOSE CUPS PO PRN (19:00)
[2021-04-15] MEDS ORDERED: MAG HYDROX/AL HYDROX/SIMETH 30 ML UNIT-DOSE CUP PO PRN (19:00)
[2021-04-15] MEDS ORDERED: LOPERAMIDE HCL 2 MG CAPSULE PO PRN (19:00)
[2021-04-15] MEDS ORDERED: MAGNESIUM CITRATE 300 ML BOTTLE PO PRN (19:00)
[2021-04-15] MEDS ORDERED: P-EPHED 60MG/TRIPROLIDI 2.5MG TABLET PO PRN (19:00)
[2021-04-15] MEDS ORDERED: cloNIDine HCL 0.1 MG TABLET PO PRN (19:00)
[2021-04-15] MEDS ORDERED: MAGNESIUM HYDROX 2400MG/30ML ORAL SUSPENSION 30 ML CUP PO PRN (19:00)
[2021-04-15] MEDS ORDERED: METHADONE HCL 10 MG TABLET (FOR DETOX USE ONLY) PO ONE (19:00)
[2021-04-15] MEDS ORDERED: LORazepam 1 MG TABLET PO PRN (19:00)
[2021-04-15] MEDS: LORazepam 2 MG TABLET PO SCH ×2 (20:13→22:28)
[2021-04-15] MEDS ORDERED: METHADONE HCL 10 MG TABLET (FOR DETOX USE ONLY) ONE (20:26)
[2021-04-15] MEDS: THIAMINE HCL 100 MG TABLET (FP) PO SCH (22:28)
[2021-04-15] MEDS ORDERED: LORazepam 2 MG TABLET ONE (22:28)
[2021-04-15] MEDS ORDERED: hydrOXYzine PAMOATE 25 MG CAPSULE (FP) PO ONE (22:28)
[2021-04-15] MEDS: hydrOXYzine PAMOATE 25 MG CAPSULE (FP) PO SCH (22:28)
[2021-04-15] MEDS: MELATONIN 5 MG TABLETS PO SCH (22:28)
[2021-04-16] MEDS ORDERED: LORazepam 2 MG TABLET ONE (05:50)
[2021-04-16] MEDS ORDERED: ACETAMINOPHEN 325 MG TABLET (FP) ONE (06:20)
[2021-04-16] MEDS: LORazepam 2 MG TABLET PO SCH ×5 (06:37→22:25)
[2021-04-16] MEDS: ACETAMINOPHEN 325 MG TABLET (FP) PO PRN ×2 (06:39→13:38)
[2021-04-16] MEDS: hydrOXYzine PAMOATE 25 MG CAPSULE (FP) PO SCH ×4 (06:40→18:29)
[2021-04-16] MEDS ORDERED: hydrOXYzine PAMOATE 25 MG CAPSULE (FP) PO ONE (06:40)
[2021-04-16] MEDS: LORazepam 1 MG TABLET PO SCH ×2 (06:51→13:44)
[2021-04-16] MEDS ORDERED: METHADONE (DETOX) 20 MG, METHADONE (DETOX) 5 MG PO ONE (10:00)
[2021-04-16] MEDS ORDERED: LORazepam 1 MG TABLET PO PRN (12:01)
[2021-04-16] MEDS ORDERED: METHADONE HCL 5 MG TABLET (FOR DETOX USE ONLY) ONE (13:33)
[2021-04-16] MEDS ORDERED: METHADONE HCL 10 MG TABLET (FOR DETOX USE ONLY) ONE (13:33)
[2021-04-16] MEDS: PRENATAL VITAMINS W/ FOLIC ACID TABLET (FP) PO SCH (13:38)
[2021-04-16] MEDS ORDERED: QUEtiapine FUMARATE 200 MG TABLET PO ONE (22:00)
[2021-04-16] MEDS: MELATONIN 5 MG TABLETS PO SCH (22:25)
[2021-04-16] MEDS: THIAMINE HCL 100 MG TABLET (FP) PO SCH (22:25)
[2021-04-17] MEDS ORDERED: LORazepam 0.5 MG TABLET PO PRN
[2021-04-17] MEDS ORDERED: LORazepam 0.5 MG TABLET PO SCH (05:00)
[2021-04-17] MEDS: LORazepam 2 MG TABLET PO SCH ×4 (07:16→23:17)
[2021-04-17] MEDS ORDERED: METHADONE HCL 10 MG TABLET (FOR DETOX USE ONLY) PO ONE (10:00)
[2021-04-17] MEDS: SULFAMETHOXAZOLE/TRIMETHOPRIM 800MG/160MG D.S. TABLET PO SCH (10:49)
[2021-04-17] MEDS: PRENATAL VITAMINS W/ FOLIC ACID TABLET (FP) PO SCH (10:50)
[2021-04-17] MEDS: ARIPiprazole 5 MG TABLET PO SCH (11:56)
[2021-04-17] MEDS: BICTEGRAV/EMTRICIT/TENOFOV (BIKTARVY) 50-200-25 MG TABLET PO SCH (13:53)
[2021-04-17] MEDS: MELATONIN 5 MG TABLETS PO SCH (23:16)
[2021-04-17] MEDS: THIAMINE HCL 100 MG TABLET (FP) PO SCH (23:17)
[2021-04-17] MEDS: QUEtiapine FUMARATE 200 MG TABLET PO SCH (23:17)
[2021-04-18] MEDS ORDERED: LORazepam 0.5 MG TABLET PO ONE (05:00)
[2021-04-18 05:07] LABS: URINE APPEARANCE Clear; URINE BILIRUBIN Negative (NEGATIVE); URINE COLOR Yellow; URINE GLUCOSE (UA) Negative (NEGATIVE); URINE KETONE Negative (NEGATIVE); URINE LEUK ESTERASE Negative (NEGATIVE); URINE NITRITE Negative (NEGATIVE); URINE PROTEIN Negative (NEGATIVE); URINE UROBILINOGEN 0.2 mg/dL (0.2-1.0)
[2021-04-18] MEDS: LORazepam 1 MG TABLET PO SCH ×4 (07:35→22:26)
[2021-04-18] MEDS ORDERED: METHADONE HCL 10 MG TABLET (FOR DETOX USE ONLY) ONE (09:55)
[2021-04-18] MEDS ORDERED: METHADONE HCL 5 MG TABLET (FOR DETOX USE ONLY) ONE (09:56)
[2021-04-18] MEDS ORDERED: METHADONE (DETOX) 10 MG, METHADONE (DETOX) 5 MG PO ONE (10:00)
[2021-04-18] MEDS: PRENATAL VITAMINS W/ FOLIC ACID TABLET (FP) PO SCH (10:32)
[2021-04-18] MEDS: SULFAMETHOXAZOLE/TRIMETHOPRIM 800MG/160MG D.S. TABLET PO SCH (10:33)
[2021-04-18] MEDS: BICTEGRAV/EMTRICIT/TENOFOV (BIKTARVY) 50-200-25 MG TABLET PO SCH (10:33)
[2021-04-18] MEDS: ARIPiprazole 5 MG TABLET PO SCH (10:37)
[2021-04-18 19:17] LABS: HEMATOCRIT 38.7 % (35.4-49); MCH 28.6 pg (25.7-33.7); MCHC 33.6 g/dl (32.0-35.9); MEAN CELL VOLUME 85.3 fl (80-96); MEAN PLT VOLUME 9.7 fl (7.5-11.1); PLATELET COUNT 205 10^3/uL (134-434); RBC 4.54 M/mm3 (4.00-5.60); RDW 13.9 % (11.9-15.9); WHITE BLOOD COUNT 5.8 K/mm3 (4.0-10.0)
[2021-04-18 19:33] LABS: CALCIUM 7.9 mg/dL (8.5-10.1)
[2021-04-18 19:34] LABS: ALBUMIN 2.7 g/dl (3.4-5.0); BLOOD UREA NITROGEN 10.8 mg/dL (7-18)
[2021-04-18 19:37] LABS: CREATININE 0.9 mg/dL (0.55-1.3)
[2021-04-18 19:39] LABS: BILIRUBIN,TOTAL 0.9 mg/dL (0.2-1); TOT PROT 6.1 g/dl (6.4-8.2)
[2021-04-18] MEDS: QUEtiapine FUMARATE 200 MG TABLET PO SCH (22:25)
[2021-04-18] MEDS: MELATONIN 5 MG TABLETS PO SCH (22:25)
[2021-04-18] MEDS: THIAMINE HCL 100 MG TABLET (FP) PO SCH (22:25)
[2021-04-19] MEDS ORDERED: LORazepam 0.5 MG TABLET PO PRN
[2021-04-19] MEDS: LORazepam 0.5 MG TABLET PO SCH ×4 (06:08→22:30)
[2021-04-19] MEDS ORDERED: METHADONE HCL 10 MG TABLET (FOR DETOX USE ONLY) PO ONE (10:00)
[2021-04-19] MEDS ORDERED: MASKS NR ONE (10:42)
[2021-04-19] MEDS: SULFAMETHOXAZOLE/TRIMETHOPRIM 800MG/160MG D.S. TABLET PO SCH (10:48)
[2021-04-19] MEDS: BICTEGRAV/EMTRICIT/TENOFOV (BIKTARVY) 50-200-25 MG TABLET PO SCH (10:50)
[2021-04-19] MEDS: PRENATAL VITAMINS W/ FOLIC ACID TABLET (FP) PO SCH (10:54)
[2021-04-19] MEDS: ARIPiprazole 10 MG TABLET PO SCH (11:04)
[2021-04-19] MEDS: QUEtiapine FUMARATE 200 MG TABLET PO SCH (22:29)
[2021-04-19] MEDS: THIAMINE HCL 100 MG TABLET (FP) PO SCH (22:29)
[2021-04-19] MEDS: MELATONIN 5 MG TABLETS PO SCH (22:29)
[2021-04-20] MEDS ORDERED: LORazepam 0.5 MG TABLET PO ONE (05:00)
[2021-04-20] MEDS ORDERED: METHADONE HCL 5 MG TABLET (FOR DETOX USE ONLY) PO ONE (06:00)
[2021-04-20 09:54] VITALS: BP 106/68; PULSE 92; TEMP 96.9
[2021-04-20] MEDS: BICTEGRAV/EMTRICIT/TENOFOV (BIKTARVY) 50-200-25 MG TABLET PO SCH (10:28)
[2021-04-20] MEDS: ARIPiprazole 10 MG TABLET PO SCH (10:28)
[2021-04-20] MEDS: SULFAMETHOXAZOLE/TRIMETHOPRIM 800MG/160MG D.S. TABLET PO SCH (10:29)
[2021-04-20] MEDS: PRENATAL VITAMINS W/ FOLIC ACID TABLET (FP) PO SCH (10:29)
[2021-04-21] MEDS ORDERED: BICTEGRAV/EMTRICIT/TENOFOV (BIKTARVY) 50-200-25 MG TABLET PO SCH (08:00)
== END 2021-04-20 13:13 | disposition other institution (70) | DRG 773 ==
LOC: YASAS 13:01 → Y3N 04-16 12:22
PROVIDERS: ADMIT Allergy & Immunology; ATTEND Allergy & Immunology
PROC: HZ2ZZZZ Detoxification Services for Substance Abuse Treatment (ICD-10-PCS; principal; 2021-04-16)
DX: F11.23 Opioid dependence with withdrawal (principal); F10.230 Alcohol dependence with withdrawal, uncomplicated; F14.20 Cocaine dependence, uncomplicated; F12.20 Cannabis dependence, uncomplicated; F31.9 Bipolar disorder, unspecified; F19.24 Other psychoactive substance dependence with psychoactive substance-induced mood disorder; F19.282 Other psychoactive substance dependence with psychoactive substance-induced sleep disorder; I10 Essential (primary) hypertension; B18.2 Chronic viral hepatitis C; Z21 Asymptomatic human immunodeficiency virus [HIV] infection status; G47.00 Insomnia, unspecified; M19.90 Unspecified osteoarthritis, unspecified site; E66.9 Obesity, unspecified; Z68.41 Body mass index [BMI] 40.0-44.9, adult; R26.2 Difficulty in walking, not elsewhere classified; Z99.89 Dependence on other enabling machines and devices; Z86.59 Personal history of other mental and behavioral disorders; Z86.69 Personal history of other diseases of the nervous system and sense organs; Z86.19 Personal history of other infectious and parasitic diseases; Z56.0 Unemployment, unspecified
CPT/HCPCS: 36415; 80053; 81003; 85027; 86593; 86780; 93005; 93010; C9803; J0735; U0003; U0005

== ENCOUNTER 2021-04-20 13:47 | Inpatient (IN) | payer OTHER ==
[2021-04-20] MEDS ORDERED: P-EPHED 60MG/TRIPROLIDI 2.5MG TABLET PO PRN (14:40)
[2021-04-20] MEDS ORDERED: MAG HYDROX/AL HYDROX/SIMETH 30 ML UNIT-DOSE CUP PO PRN (14:40)
[2021-04-20] MEDS ORDERED: NICOTINE POLACRILEX 2 MG GUM BUC PRN (14:40)
[2021-04-20] MEDS ORDERED: ACETAMINOPHEN 325 MG TABLET (FP) PO PRN (14:40)
[2021-04-20] MEDS ORDERED: MAGNESIUM CITRATE 300 ML BOTTLE PO PRN (14:40)
[2021-04-20] MEDS ORDERED: guaiFENesin 200 MG/10 ML 10 ML UNIT-DOSE CUPS PO PRN (14:40)
[2021-04-20] MEDS ORDERED: LOPERAMIDE HCL 2 MG CAPSULE PO PRN (14:40)
[2021-04-20] MEDS ORDERED: MAGNESIUM HYDROX 2400MG/30ML ORAL SUSPENSION 30 ML CUP PO PRN (14:40)
[2021-04-20] MEDS ORDERED: IBUPROFEN 400 MG TABLET (FP) PO PRN (14:40)
[2021-04-20] MEDS ORDERED: MENTHOL/PHENOL 1 EACH UD MM PRN (14:40)
[2021-04-20] MEDS: hydrOXYzine PAMOATE 25 MG CAPSULE (FP) PO PRN (19:48)
[2021-04-20] MEDS: QUEtiapine FUMARATE 100 MG TABLET (FP) PO SCH (21:04)
[2021-04-20] MEDS: THIAMINE HCL 100 MG TABLET (FP) PO SCH (21:04)
[2021-04-20] MEDS: MELATONIN 5 MG TABLETS PO SCH (21:05)
[2021-04-20] MEDS ORDERED: QUEtiapine FUMARATE 200 MG TABLET PO SCH (22:00)
[2021-04-21] MEDS: SULFAMETHOXAZOLE/TRIMETHOPRIM 800MG/160MG D.S. TABLET PO SCH (09:27)
[2021-04-21] MEDS: ARIPiprazole 10 MG TABLET PO SCH (09:28)
[2021-04-21] MEDS: PRENATAL VITAMINS W/ FOLIC ACID TABLET (FP) PO SCH (09:28)
[2021-04-21] MEDS ORDERED: PT OWN MED DRAWER 7, Y5N ONE (09:28)
[2021-04-21] MEDS: BICTEGRAV/EMTRICIT/TENOFOV (BIKTARVY) 50-200-25 MG TABLET PO SCH (09:29)
[2021-04-21] MEDS ORDERED: NICOTINE 7 MG/24 HOURS TOPICAL PATCH TD SCH (10:00)
[2021-04-21] MEDS: hydrOXYzine PAMOATE 25 MG CAPSULE (FP) PO PRN (21:34)
[2021-04-21] MEDS: THIAMINE HCL 100 MG TABLET (FP) PO SCH (21:34)
[2021-04-21] MEDS: QUEtiapine FUMARATE 100 MG TABLET (FP) PO SCH (21:34)
[2021-04-21] MEDS: MELATONIN 5 MG TABLETS PO SCH (21:34)
[2021-04-22 06:54] VITALS: BP 131/93; PULSE 97; TEMP 96.4
[2021-04-22] MEDS ORDERED: ARIPiprazole 5 MG TABLET ONE (08:39)
[2021-04-22] MEDS: PRENATAL VITAMINS W/ FOLIC ACID TABLET (FP) PO SCH (10:12)
[2021-04-22] MEDS: ARIPiprazole 10 MG TABLET PO SCH (10:13)
[2021-04-22] MEDS: SULFAMETHOXAZOLE/TRIMETHOPRIM 800MG/160MG D.S. TABLET PO SCH (10:13)
[2021-04-22] MEDS: BICTEGRAV/EMTRICIT/TENOFOV (BIKTARVY) 50-200-25 MG TABLET PO SCH (10:15)
[2021-04-22] MEDS ORDERED: PT OWN MED DRAWER 7, Y5N ONE (10:15)
== END 2021-04-22 10:40 | disposition left against medical advice (07) | DRG 770 ==
LOC: YASAS 13:47 → Y3E 13:49
PROVIDERS: ADMIT Allergy & Immunology; ATTEND Allergy & Immunology
PROC: HZ42ZZZ Group Counseling for Substance Abuse Treatment, Cognitive-Behavioral (ICD-10-PCS; principal; 2021-04-20)
DX: F11.20 Opioid dependence, uncomplicated (principal); F10.20 Alcohol dependence, uncomplicated; F14.20 Cocaine dependence, uncomplicated; Z21 Asymptomatic human immunodeficiency virus [HIV] infection status; I10 Essential (primary) hypertension; B18.2 Chronic viral hepatitis C; M17.0 Bilateral primary osteoarthritis of knee; E66.01 Morbid (severe) obesity due to excess calories; Z68.42 Body mass index [BMI] 45.0-49.9, adult; Z99.89 Dependence on other enabling machines and devices

== ENCOUNTER 2021-06-11 09:22 | Inpatient (IN) | payer OTHER ==
[2021-06-11 10:51] VITALS: BMI 40.8
[2021-06-11] MEDS ORDERED: cloNIDine HCL 0.1 MG TABLET PO PRN (11:49)
[2021-06-11] MEDS ORDERED: ONDANSETRON *ODT* 4 MG TABLET SL PRN (11:49)
[2021-06-11] MEDS ORDERED: MAG HYDROX/AL HYDROX/SIMETH 30 ML UNIT-DOSE CUP PO PRN (11:49)
[2021-06-11] MEDS ORDERED: MENTHOL/PHENOL 1 EACH UD MM PRN (11:49)
[2021-06-11] MEDS ORDERED: MAGNESIUM CITRATE 300 ML BOTTLE PO PRN (11:49)
[2021-06-11] MEDS ORDERED: methaDONE HCL 10 MG TABLET (FOR DETOX USE ONLY) PO ONE (11:49)
[2021-06-11] MEDS ORDERED: BISMUTH SUBSALICYLATE 524 MG/30 ML PO PRN (11:49)
[2021-06-11] MEDS ORDERED: MAGNESIUM HYDROX 2400MG/30ML ORAL SUSPENSION 30 ML CUP PO PRN (11:49)
[2021-06-11] MEDS ORDERED: IBUPROFEN 400 MG TABLET (FP) PO PRN (11:49)
[2021-06-11] MEDS ORDERED: diazePAM 5 MG TABLET PO PRN (11:49)
[2021-06-11] MEDS ORDERED: ACETAMINOPHEN 325 MG TABLET (FP) PO PRN (11:49)
[2021-06-11] MEDS ORDERED: methaDONE HCL 10 MG TABLET (FOR DETOX USE ONLY) ONE (12:51)
[2021-06-11] MEDS: hydrOXYzine PAMOATE 25 MG CAPSULE (FP) PO SCH ×3 (13:44→22:07)
[2021-06-11] MEDS: BICTEGRAV/EMTRICIT/TENOFOV (BIKTARVY) 50-200-25 MG TABLET PO SCH (13:52)
[2021-06-11] MEDS: ACETAMINOPHEN 325 MG TABLET (FP) PO PRN (15:02)
[2021-06-11] MEDS: diazePAM 5 MG TABLET PO SCH ×2 (18:20→22:07)
[2021-06-11] MEDS: METHOCARBAMOL 500 MG TABLET PO PRN ×2 (18:22→22:06)
[2021-06-11] MEDS: THIAMINE HCL 100 MG TABLET (FP) PO SCH (22:06)
[2021-06-11] MEDS: MELATONIN 5 MG TABLETS PO SCH (22:08)
[2021-06-12] MEDS: diazePAM 5 MG TABLET PO SCH ×4 (05:19→22:57)
[2021-06-12] MEDS: hydrOXYzine PAMOATE 25 MG CAPSULE (FP) PO SCH ×5 (05:19→22:54)
[2021-06-12] MEDS ORDERED: methaDONE HCL 10 MG TABLET (FOR DETOX USE ONLY) ONE (09:24)
[2021-06-12] MEDS: SERTRALINE HCL 50 MG TABLET (FP) PO SCH (10:46)
[2021-06-12] MEDS: PRENATAL VITAMINS W/ FOLIC ACID TABLET (FP) PO SCH (10:46)
[2021-06-12] MEDS: BICTEGRAV/EMTRICIT/TENOFOV (BIKTARVY) 50-200-25 MG TABLET PO SCH (10:46)
[2021-06-12] MEDS: ARIPiprazole 10 MG TABLET PO SCH (10:46)
[2021-06-12] MEDS: QUEtiapine FUMARATE 100 MG TABLET (FP) PO SCH (22:53)
[2021-06-12] MEDS: METHOCARBAMOL 500 MG TABLET PO PRN (22:53)
[2021-06-12] MEDS: THIAMINE HCL 100 MG TABLET (FP) PO SCH (22:54)
[2021-06-12] MEDS: MELATONIN 5 MG TABLETS PO SCH (22:54)
[2021-06-12] MEDS: diazePAM 5 MG TABLET PO ONE (22:54)
[2021-06-13] MEDS: diazePAM 5 MG TABLET PO SCH ×3 (05:13→22:26)
[2021-06-13] MEDS: hydrOXYzine PAMOATE 25 MG CAPSULE (FP) PO SCH ×5 (05:14→22:27)
[2021-06-13] MEDS ORDERED: methaDONE HCL 10 MG TABLET (FOR DETOX USE ONLY) PO ONE (10:00)
[2021-06-13] MEDS: BICTEGRAV/EMTRICIT/TENOFOV (BIKTARVY) 50-200-25 MG TABLET PO SCH (10:25)
[2021-06-13] MEDS: SERTRALINE HCL 50 MG TABLET (FP) PO SCH (10:25)
[2021-06-13] MEDS: ARIPiprazole 10 MG TABLET PO SCH (10:25)
[2021-06-13] MEDS: PRENATAL VITAMINS W/ FOLIC ACID TABLET (FP) PO SCH (10:27)
[2021-06-13 14:04] LABS: HEMATOCRIT 38.2 % (35.4-49); HEMOGLOBIN 12.9 GM/dL (11.7-16.9); MCH 29.1 pg (25.7-33.7); MCHC 33.8 g/dl (32.0-35.9); PLATELET COUNT 179 10^3/uL (134-434); RBC 4.45 M/mm3 (4.00-5.60); RDW 14.2 % (11.9-15.9); WHITE BLOOD COUNT 4.6 K/mm3 (4.0-10.0)
[2021-06-13 14:26] LABS: ALBUMIN 3.2 g/dl (3.4-5.0); BLOOD UREA NITROGEN 6.7 mg/dL (7-18); CALCIUM 8.6 mg/dL (8.5-10.1)
[2021-06-13 14:31] LABS: BILIRUBIN,TOTAL 0.7 mg/dL (0.2-1)
[2021-06-13 14:34] LABS: TOT PROT 6.6 g/dl (6.4-8.2)
[2021-06-13] MEDS: ACETAMINOPHEN 325 MG TABLET (FP) PO PRN (18:09)
[2021-06-13] MEDS: METHOCARBAMOL 500 MG TABLET PO PRN (18:09)
[2021-06-13] MEDS: THIAMINE HCL 100 MG TABLET (FP) PO SCH (22:27)
[2021-06-13] MEDS: QUEtiapine FUMARATE 100 MG TABLET (FP) PO SCH (22:27)
[2021-06-13] MEDS: MELATONIN 5 MG TABLETS PO SCH (22:27)
[2021-06-14] MEDS: hydrOXYzine PAMOATE 25 MG CAPSULE (FP) PO SCH (05:16)
[2021-06-14] MEDS: diazePAM 5 MG TABLET PO SCH ×2 (05:17→17:30)
[2021-06-14] MEDS ORDERED: methaDONE HCL 10 MG TABLET (FOR DETOX USE ONLY) ONE (09:16)
[2021-06-14] MEDS: PRENATAL VITAMINS W/ FOLIC ACID TABLET (FP) PO SCH (10:10)
[2021-06-14] MEDS: BICTEGRAV/EMTRICIT/TENOFOV (BIKTARVY) 50-200-25 MG TABLET PO SCH (10:10)
[2021-06-14] MEDS: ARIPiprazole 10 MG TABLET PO SCH (10:10)
[2021-06-14] MEDS: SERTRALINE HCL 50 MG TABLET (FP) PO SCH (10:10)
[2021-06-14] MEDS ORDERED: PENICILLIN G BENZATHINE 2,400,000 UNIT/4 ML PFS IM ONE (11:26)
[2021-06-14] MEDS: THIAMINE HCL 100 MG TABLET (FP) PO SCH (22:25)
[2021-06-14] MEDS: QUEtiapine FUMARATE 100 MG TABLET (FP) PO SCH (22:25)
[2021-06-14] MEDS: MELATONIN 5 MG TABLETS PO SCH (22:25)
[2021-06-14] MEDS: hydrOXYzine PAMOATE 25 MG CAPSULE (FP) PO PRN (22:26)
[2021-06-15] MEDS: diazePAM 5 MG TABLET PO ONE (05:54)
[2021-06-15] MEDS: ACETAMINOPHEN 325 MG TABLET (FP) PO PRN (05:55)
[2021-06-15] MEDS ORDERED: methaDONE HCL 10 MG TABLET (FOR DETOX USE ONLY) PO ONE (10:00)
[2021-06-15] MEDS: SERTRALINE HCL 50 MG TABLET (FP) PO SCH (10:03)
[2021-06-15] MEDS: BICTEGRAV/EMTRICIT/TENOFOV (BIKTARVY) 50-200-25 MG TABLET PO SCH (10:03)
[2021-06-15] MEDS: ARIPiprazole 10 MG TABLET PO SCH (10:03)
[2021-06-15] MEDS: PRENATAL VITAMINS W/ FOLIC ACID TABLET (FP) PO SCH (10:03)
[2021-06-15] MEDS: THIAMINE HCL 100 MG TABLET (FP) PO SCH (22:03)
[2021-06-15] MEDS: QUEtiapine FUMARATE 100 MG TABLET (FP) PO SCH (22:03)
[2021-06-15] MEDS: MELATONIN 5 MG TABLETS PO SCH (22:03)
[2021-06-15] MEDS: hydrOXYzine PAMOATE 25 MG CAPSULE (FP) PO PRN (22:04)
[2021-06-15] MEDS: METHOCARBAMOL 500 MG TABLET PO PRN (22:04)
[2021-06-16 09:12] VITALS: BP 128/84; PULSE 97; TEMP 96.9
[2021-06-16] MEDS: BICTEGRAV/EMTRICIT/TENOFOV (BIKTARVY) 50-200-25 MG TABLET PO SCH (09:26)
[2021-06-16] MEDS: SERTRALINE HCL 50 MG TABLET (FP) PO SCH (09:26)
[2021-06-16] MEDS: ARIPiprazole 10 MG TABLET PO SCH (09:26)
[2021-06-16] MEDS: PRENATAL VITAMINS W/ FOLIC ACID TABLET (FP) PO SCH (09:27)
== END 2021-06-16 09:34 | disposition home or self-care (01) | DRG 773 ==
LOC: YASAS 09:22 → Y3N 12:56
PROVIDERS: ADMIT Allergy & Immunology; ATTEND Allergy & Immunology
PROC: HZ2ZZZZ Detoxification Services for Substance Abuse Treatment (ICD-10-PCS; principal; 2021-06-11)
DX: F11.23 Opioid dependence with withdrawal (principal); F10.230 Alcohol dependence with withdrawal, uncomplicated; F13.20 Sedative, hypnotic or anxiolytic dependence, uncomplicated; F14.20 Cocaine dependence, uncomplicated; F31.9 Bipolar disorder, unspecified; F43.10 Post-traumatic stress disorder, unspecified; Z21 Asymptomatic human immunodeficiency virus [HIV] infection status; M17.0 Bilateral primary osteoarthritis of knee; B18.2 Chronic viral hepatitis C; E66.01 Morbid (severe) obesity due to excess calories; Z68.41 Body mass index [BMI] 40.0-44.9, adult; Z99.89 Dependence on other enabling machines and devices; Z86.19 Personal history of other infectious and parasitic diseases; Z56.0 Unemployment, unspecified
CPT/HCPCS: 36415; 80053; 85027; 86593; 86780; C9803; U0003; U0005

== ENCOUNTER 2021-08-28 11:13 | Inpatient (IN) | payer OTHER ==
[2021-08-28] MEDS ORDERED: IBUPROFEN 400 MG TABLET (FP) PO PRN (11:54)
[2021-08-28] MEDS ORDERED: ACETAMINOPHEN 325 MG TABLET (FP) PO PRN (11:54)
[2021-08-28] MEDS ORDERED: MENTHOL/PHENOL 1 EACH UD MM PRN (11:54)
[2021-08-28] MEDS ORDERED: MAGNESIUM HYDROX 2400MG/30ML ORAL SUSPENSION 30 ML CUP PO PRN (11:54)
[2021-08-28] MEDS ORDERED: BISMUTH SUBSALICYLATE 524 MG/30 ML PO PRN (11:54)
[2021-08-28] MEDS ORDERED: ONDANSETRON *ODT* 4 MG TABLET SL PRN (11:54)
[2021-08-28] MEDS ORDERED: MAGNESIUM CITRATE 300 ML BOTTLE PO PRN (11:54)
[2021-08-28] MEDS ORDERED: MAG HYDROX/AL HYDROX/SIMETH 30 ML UNIT-DOSE CUP PO PRN (11:54)
[2021-08-28 12:00] VITALS: BMI 39.3
[2021-08-28] MEDS: PRENATAL VITAMINS W/ FOLIC ACID TABLET (FP) PO SCH (13:07)
[2021-08-28] MEDS: diazePAM 5 MG TABLET PO PRN (13:32)
[2021-08-28] MEDS: METHOCARBAMOL 500 MG TABLET PO PRN (13:32)
[2021-08-28] MEDS: hydrOXYzine PAMOATE 25 MG CAPSULE (FP) PO PRN (13:32)
[2021-08-28] MEDS: diazePAM 5 MG TABLET PO SCH ×2 (17:57→22:11)
[2021-08-28] MEDS ORDERED: methaDONE HCL 10 MG TABLET (FOR DETOX USE ONLY) PO ONE (21:00)
[2021-08-28] MEDS: THIAMINE HCL 100 MG TABLET (FP) PO SCH (22:11)
[2021-08-28] MEDS: MELATONIN 5 MG TABLETS PO SCH (22:11)
[2021-08-29] MEDS: ACETAMINOPHEN 325 MG TABLET (FP) PO PRN (01:06)
[2021-08-29] MEDS: diazePAM 5 MG TABLET PO PRN (01:09)
[2021-08-29] MEDS: METHOCARBAMOL 500 MG TABLET PO PRN ×3 (05:44→21:59)
[2021-08-29] MEDS: hydrOXYzine PAMOATE 25 MG CAPSULE (FP) PO PRN ×3 (05:45→13:46)
[2021-08-29] MEDS: diazePAM 5 MG TABLET PO SCH ×4 (05:45→22:00)
[2021-08-29] MEDS ORDERED: methaDONE HCL 10 MG TABLET (FOR DETOX USE ONLY) ONE (09:45)
[2021-08-29] MEDS: PRENATAL VITAMINS W/ FOLIC ACID TABLET (FP) PO SCH (10:32)
[2021-08-29 12:12] LABS: HEMATOCRIT 37.2 % (35.4-49); HEMOGLOBIN 12.4 GM/dL (11.7-16.9); MCH 28.4 pg (25.7-33.7); MCHC 33.2 g/dl (32.0-35.9); MEAN CELL VOLUME 85.5 fl (80-96); MEAN PLT VOLUME 10.1 fl (7.5-11.1); PLATELET COUNT 164 10^3/uL (134-434); RBC 4.35 M/mm3 (4.00-5.60); RDW 14.1 % (11.9-15.9); WHITE BLOOD COUNT 5.9 K/mm3 (4.0-10.0)
[2021-08-29 12:17] LABS: BLOOD UREA NITROGEN 10.8 mg/dL (7-18); CALCIUM 8.4 mg/dL (8.5-10.1)
[2021-08-29 12:21] LABS: BILIRUBIN,TOTAL 0.5 mg/dL (0.2-1)
[2021-08-29 12:22] LABS: CREATININE 1.2 mg/dL (0.55-1.3); TOT PROT 6.9 g/dl (6.4-8.2)
[2021-08-29] MEDS: BICTEGRAV/EMTRICIT/TENOFOV (BIKTARVY) 50-200-25 MG TABLET PO SCH (14:35)
[2021-08-29] MEDS: cloNIDine HCL 0.1 MG TABLET PO PRN (14:37)
[2021-08-29] MEDS: THIAMINE HCL 100 MG TABLET (FP) PO SCH (21:57)
[2021-08-29] MEDS: MELATONIN 5 MG TABLETS PO SCH (21:58)
[2021-08-30] MEDS: diazePAM 5 MG TABLET PO SCH ×3 (05:23→21:55)
[2021-08-30] MEDS: METHOCARBAMOL 500 MG TABLET PO PRN ×2 (05:23→10:35)
[2021-08-30] MEDS: BICTEGRAV/EMTRICIT/TENOFOV (BIKTARVY) 50-200-25 MG TABLET PO SCH (08:09)
[2021-08-30] MEDS ORDERED: methaDONE HCL 10 MG TABLET (FOR DETOX USE ONLY) PO ONE (10:00)
[2021-08-30] MEDS: PRENATAL VITAMINS W/ FOLIC ACID TABLET (FP) PO SCH (10:35)
[2021-08-30] MEDS: cloNIDine HCL 0.1 MG TABLET PO PRN (10:37)
[2021-08-30] MEDS: ACETAMINOPHEN 325 MG TABLET (FP) PO PRN (10:39)
[2021-08-30] MEDS ORDERED: PATIENT'S OWN MEDICATION (NON-FORMULARY) (Sertraline Hcl [Zoloft] 100 MG Tablet) PO SCH (11:45)
[2021-08-30] MEDS: SERTRALINE HCL 50 MG TABLET (FP) PO SCH (12:01)
[2021-08-30] MEDS: ARIPiprazole 10 MG TABLET PO SCH (12:02)
[2021-08-30] MEDS: QUEtiapine FUMARATE 100 MG TABLET (FP) PO SCH (21:55)
[2021-08-30] MEDS: THIAMINE HCL 100 MG TABLET (FP) PO SCH (21:55)
[2021-08-31] MEDS: METHOCARBAMOL 500 MG TABLET PO PRN (05:08)
[2021-08-31] MEDS: diazePAM 5 MG TABLET PO SCH ×2 (05:08→18:05)
[2021-08-31] MEDS: BICTEGRAV/EMTRICIT/TENOFOV (BIKTARVY) 50-200-25 MG TABLET PO SCH (07:25)
[2021-08-31] MEDS ORDERED: methaDONE HCL 10 MG TABLET (FOR DETOX USE ONLY) ONE (09:09)
[2021-08-31] MEDS: ARIPiprazole 10 MG TABLET PO SCH (10:57)
[2021-08-31] MEDS: SERTRALINE HCL 50 MG TABLET (FP) PO SCH (10:57)
[2021-08-31] MEDS: PRENATAL VITAMINS W/ FOLIC ACID TABLET (FP) PO SCH (10:57)
[2021-08-31] MEDS: diazePAM 5 MG TABLET PO PRN (11:01)
[2021-08-31] MEDS: QUEtiapine FUMARATE 100 MG TABLET (FP) PO SCH (22:14)
[2021-08-31] MEDS: THIAMINE HCL 100 MG TABLET (FP) PO SCH (22:14)
[2021-08-31] MEDS: hydrOXYzine PAMOATE 25 MG CAPSULE (FP) PO PRN (22:16)
[2021-09-01] MEDS: METHOCARBAMOL 500 MG TABLET PO PRN (05:28)
[2021-09-01] MEDS: hydrOXYzine PAMOATE 25 MG CAPSULE (FP) PO PRN ×2 (05:28→10:21)
[2021-09-01] MEDS ORDERED: diazePAM 5 MG TABLET PO ONE (06:00)
[2021-09-01] MEDS ORDERED: methaDONE HCL 10 MG TABLET (FOR DETOX USE ONLY) PO ONE (10:00)
[2021-09-01] MEDS: PRENATAL VITAMINS W/ FOLIC ACID TABLET (FP) PO SCH (10:19)
[2021-09-01] MEDS: ARIPiprazole 10 MG TABLET PO SCH (10:21)
[2021-09-01] MEDS: SERTRALINE HCL 50 MG TABLET (FP) PO SCH (10:21)
[2021-09-01] MEDS: BICTEGRAV/EMTRICIT/TENOFOV (BIKTARVY) 50-200-25 MG TABLET PO SCH (10:23)
[2021-09-01] MEDS: THIAMINE HCL 100 MG TABLET (FP) PO SCH (22:44)
[2021-09-01] MEDS: QUEtiapine FUMARATE 100 MG TABLET (FP) PO SCH (22:46)
[2021-09-02] MEDS: ACETAMINOPHEN 325 MG TABLET (FP) PO PRN (03:52)
[2021-09-02 06:23] VITALS: BP 114/66; PULSE 76; TEMP 97.9
== END 2021-09-02 08:40 | disposition home or self-care (01) | DRG 773 ==
LOC: YASAS 11:13 → Y6N 12:10
PROVIDERS: ADMIT Allergy & Immunology; ATTEND Allergy & Immunology
PROC: HZ2ZZZZ Detoxification Services for Substance Abuse Treatment (ICD-10-PCS; principal; 2021-08-28)
DX: F11.23 Opioid dependence with withdrawal (principal); F10.230 Alcohol dependence with withdrawal, uncomplicated; F14.20 Cocaine dependence, uncomplicated; F12.20 Cannabis dependence, uncomplicated; F17.210 Nicotine dependence, cigarettes, uncomplicated; F31.9 Bipolar disorder, unspecified; F19.282 Other psychoactive substance dependence with psychoactive substance-induced sleep disorder; F19.24 Other psychoactive substance dependence with psychoactive substance-induced mood disorder; F43.10 Post-traumatic stress disorder, unspecified; Z21 Asymptomatic human immunodeficiency virus [HIV] infection status; A53.0 Latent syphilis, unspecified as early or late; I10 Essential (primary) hypertension; M17.0 Bilateral primary osteoarthritis of knee; B18.2 Chronic viral hepatitis C; E66.9 Obesity, unspecified; Z68.39 Body mass index [BMI] 39.0-39.9, adult; Z86.19 Personal history of other infectious and parasitic diseases; Z99.89 Dependence on other enabling machines and devices
CPT/HCPCS: 36415; 80053; 85027; 86593; 86780; C9803; J0735; U0003; U0005

== ENCOUNTER 2021-10-29 08:39 | Inpatient (IN) | payer OTHER ==
[2021-10-29 14:27] VITALS: BMI 37.3
[2021-10-29] MEDS ORDERED: BISMUTH SUBSALICYLATE 524 MG/30 ML PO PRN (14:45)
[2021-10-29] MEDS ORDERED: NICOTINE POLACRILEX 2 MG GUM BUC PRN (14:45)
[2021-10-29] MEDS ORDERED: MAGNESIUM HYDROX 2400MG/30ML ORAL SUSPENSION 30 ML CUP PO PRN (14:45)
[2021-10-29] MEDS ORDERED: ACETAMINOPHEN 325 MG TABLET (FP) PO PRN ×2 (14:45)
[2021-10-29] MEDS ORDERED: MENTHOL/PHENOL 1 EACH UD MM PRN (14:45)
[2021-10-29] MEDS ORDERED: IBUPROFEN 400 MG TABLET (FP) PO PRN (14:45)
[2021-10-29] MEDS ORDERED: MAGNESIUM CITRATE 300 ML BOTTLE PO PRN (14:45)
[2021-10-29] MEDS ORDERED: ONDANSETRON *ODT* 4 MG TABLET SL PRN (14:45)
[2021-10-29] MEDS ORDERED: MAG HYDROX/AL HYDROX/SIMETH 30 ML UNIT-DOSE CUP PO PRN (14:45)
[2021-10-29] MEDS ORDERED: QUEtiapine FUMARATE 50 MG TABLET PO ONE (22:00)
[2021-10-29] MEDS ORDERED: traZODone HCL 50 MG TABLET (FP) PO ONE (22:00)
[2021-10-29] MEDS: THIAMINE HCL 100 MG TABLET (FP) PO SCH (23:30)
[2021-10-29] MEDS: MELATONIN 5 MG TABLETS PO SCH (23:30)
[2021-10-30] MEDS: BUPRENORPHINE/NALOXONE 8 MG/2 MG FILM PACKET SL SCH ×3 (06:39→21:48)
[2021-10-30] MEDS: PRENATAL VITAMINS W/ FOLIC ACID TABLET (FP) PO SCH (10:54)
[2021-10-30] MEDS: hydrOXYzine PAMOATE 25 MG CAPSULE (FP) PO PRN ×3 (10:54→18:15)
[2021-10-30] MEDS: METHOCARBAMOL 500 MG TABLET PO PRN ×2 (11:22→18:15)
[2021-10-30 11:27] LABS: HEMATOCRIT 43.2 % (35.4-49); MCHC 32.5 g/dl (32.0-35.9); MEAN CELL VOLUME 86.3 fl (80-96); MEAN PLT VOLUME 10.1 fl (7.5-11.1); PLATELET COUNT 196 10^3/uL (134-434); RBC 5.01 M/mm3 (4.00-5.60); RDW 14.4 % (11.9-15.9); WHITE BLOOD COUNT 6.5 K/mm3 (4.0-10.0)
[2021-10-30 11:29] LABS: CALCIUM 9.3 mg/dL (8.5-10.1)
[2021-10-30 11:30] LABS: ALBUMIN 3.8 g/dl (3.4-5.0); BLOOD UREA NITROGEN 14.3 mg/dL (7-18)
[2021-10-30 11:33] LABS: CREATININE 1.2 mg/dL (0.55-1.3)
[2021-10-30 11:34] LABS: TOT PROT 7.5 g/dl (6.4-8.2)
[2021-10-30 11:35] LABS: BILIRUBIN,TOTAL 0.8 mg/dL (0.2-1)
[2021-10-30] MEDS: THIAMINE HCL 100 MG TABLET (FP) PO SCH (21:47)
[2021-10-30] MEDS ORDERED: QUEtiapine FUMARATE 100 MG TABLET (FP) PO SCH (22:00)
[2021-10-30] MEDS: MELATONIN 5 MG TABLETS PO SCH (22:56)
[2021-10-31] MEDS: BUPRENORPHINE/NALOXONE 8 MG/2 MG FILM PACKET SL SCH (06:29)
[2021-10-31] MEDS: PRENATAL VITAMINS W/ FOLIC ACID TABLET (FP) PO SCH (09:37)
[2021-10-31 09:41] VITALS: BP 103/68; PULSE 85; TEMP 98.2
[2021-10-31] MEDS ORDERED: ARIPiprazole 5 MG TABLET PO SCH (10:00)
[2021-10-31] MEDS ORDERED: SERTRALINE HCL 50 MG TABLET (FP) PO SCH (10:00)
[2021-10-31] MEDS: METHOCARBAMOL 500 MG TABLET PO PRN (10:04)
== END 2021-10-31 11:15 | disposition home or self-care (01) | DRG 773 ==
LOC: YASAS 08:39 → Y6N 18:09
PROVIDERS: ADMIT Allergy & Immunology; ATTEND Allergy & Immunology
PROC: HZ2ZZZZ Detoxification Services for Substance Abuse Treatment (ICD-10-PCS; principal; 2021-10-29)
DX: F11.23 Opioid dependence with withdrawal (principal); F10.230 Alcohol dependence with withdrawal, uncomplicated; F14.20 Cocaine dependence, uncomplicated; F19.24 Other psychoactive substance dependence with psychoactive substance-induced mood disorder; F31.9 Bipolar disorder, unspecified; F41.9 Anxiety disorder, unspecified; F43.10 Post-traumatic stress disorder, unspecified; U07.1 COVID-19; Z21 Asymptomatic human immunodeficiency virus [HIV] infection status; B18.2 Chronic viral hepatitis C; E66.9 Obesity, unspecified; Z68.37 Body mass index [BMI] 37.0-37.9, adult; Z99.89 Dependence on other enabling machines and devices; Z86.19 Personal history of other infectious and parasitic diseases
CPT/HCPCS: 36415; 80053; 82962; 85027; 86593; 86780; C9803; U0003; U0005

== ENCOUNTER 2021-12-23 09:11 | Inpatient (IN) | payer OTHER ==
[2021-12-23] MEDS ORDERED: guaiFENesin 200 MG/10 ML 10 ML UNIT-DOSE CUPS PO PRN (09:39)
[2021-12-23] MEDS ORDERED: MAG HYDROX/AL HYDROX/SIMETH 30 ML UNIT-DOSE CUP PO PRN (09:39)
[2021-12-23] MEDS ORDERED: P-EPHED 60MG/TRIPROLIDI 2.5MG TABLET PO PRN (09:39)
[2021-12-23] MEDS ORDERED: MAGNESIUM CITRATE 300 ML BOTTLE PO PRN (09:39)
[2021-12-23] MEDS ORDERED: MAGNESIUM HYDROX 2400MG/30ML ORAL SUSPENSION 30 ML CUP PO PRN (09:39)
[2021-12-23] MEDS ORDERED: LOPERAMIDE HCL 2 MG CAPSULE PO PRN (09:39)
[2021-12-23] MEDS ORDERED: IBUPROFEN 400 MG TABLET (FP) PO PRN (09:39)
[2021-12-23] MEDS ORDERED: NICOTINE 10 MG CARTRIDGE (INHALER) IH PRN (09:39)
[2021-12-23 12:41] VITALS: BMI 35.2
[2021-12-23 13:30] LABS: HEMOGLOBIN 14.4 GM/dL (11.7-16.9); MCH 28.7 pg (25.7-33.7); MCHC 33.5 g/dl (32.0-35.9); MEAN CELL VOLUME 85.6 fl (80-96); MEAN PLT VOLUME 10.3 fl (7.5-11.1); PLATELET COUNT 177 10^3/uL (134-434); RBC 5.02 M/mm3 (4.00-5.60); RDW 15.1 % (11.9-15.9)
[2021-12-23 13:33] LABS: CALCIUM 9.2 mg/dL (8.5-10.1)
[2021-12-23 13:34] LABS: ALBUMIN 3.9 g/dl (3.4-5.0); BLOOD UREA NITROGEN 9.5 mg/dL (7-18)
[2021-12-23 13:37] LABS: CREATININE 1.5 mg/dL (0.55-1.3)
[2021-12-23 13:38] LABS: TOT PROT 7.8 g/dl (6.4-8.2)
[2021-12-23 13:39] LABS: BILIRUBIN,TOTAL 3.8 mg/dL (0.2-1)
[2021-12-23 14:29] LABS: SYPHILIS W/ RPR CONF REACTIVE (NONREACTIVE)
[2021-12-23] MEDS: hydrOXYzine PAMOATE 25 MG CAPSULE (FP) PO SCH ×4 (15:21→21:52)
[2021-12-23] MEDS: CARVEDILOL 3.125 MG TABLET (FP) PO SCH (15:22)
[2021-12-23] MEDS: PRENATAL VITAMINS W/ FOLIC ACID TABLET (FP) PO SCH (15:24)
[2021-12-23] MEDS: NICOTINE 7 MG/24 HOURS TOPICAL PATCH TD SCH (15:24)
[2021-12-23] MEDS: ATORVASTATIN CA 80 MG TABLET (FP) PO SCH (21:51)
[2021-12-23] MEDS: THIAMINE HCL 100 MG TABLET (FP) PO SCH (21:52)
[2021-12-23] MEDS: POTASSIUM CHLORIDE TABS 20 MEQ TABLET.ER (FP) PO SCH (21:53)
[2021-12-23] MEDS ORDERED: MELATONIN 5 MG TABLETS PO SCH (22:00)
[2021-12-24] MEDS: CARVEDILOL 3.125 MG TABLET (FP) PO SCH ×2 (06:40→14:41)
[2021-12-24] MEDS: hydrOXYzine PAMOATE 25 MG CAPSULE (FP) PO SCH ×5 (07:06→21:50)
[2021-12-24] MEDS: ACETAMINOPHEN 325 MG TABLET (FP) PO PRN (07:07)
[2021-12-24 10:25] LABS: URINE APPEARANCE CLEAR; URINE BILIRUBIN NEGATIVE (NEGATIVE); URINE COLOR DK YELLOW; URINE GLUCOSE (UA) 3+ (NEGATIVE); URINE KETONE NEGATIVE (NEGATIVE); URINE LEUK ESTERASE NEGATIVE (NEGATIVE); URINE NITRITE NEGATIVE (NEGATIVE); URINE PROTEIN NEGATIVE (NEGATIVE)
[2021-12-24] MEDS: ARIPiprazole 10 MG TABLET PO SCH (10:50)
[2021-12-24] MEDS: BICTEGRAV/EMTRICIT/TENOFOV (BIKTARVY) 50-200-25 MG TABLET PO SCH (10:50)
[2021-12-24] MEDS: SERTRALINE HCL 50 MG TABLET (FP) PO SCH (10:50)
[2021-12-24] MEDS: POTASSIUM CHLORIDE TABS 20 MEQ TABLET.ER (FP) PO SCH ×2 (10:50→21:50)
[2021-12-24] MEDS: LOSARTAN POTASSIUM 25 MG TABLET PO SCH (10:51)
[2021-12-24] MEDS: SPIRONOLACTONE 25 MG TABLET PO SCH (10:51)
[2021-12-24] MEDS: PRENATAL VITAMINS W/ FOLIC ACID TABLET (FP) PO SCH (10:51)
[2021-12-24] MEDS: FUROSEMIDE 20 MG TABLET (FP) PO SCH (10:52)
[2021-12-24] MEDS: EMPAGLIFLOZIN (NF) 10 MG TABLET PO SCH (10:52)
[2021-12-24] MEDS: NICOTINE 7 MG/24 HOURS TOPICAL PATCH TD SCH (10:53)
[2021-12-24] MEDS ORDERED: ATORVASTATIN CA 40 MG TABLET (FP) ONE (20:44)
[2021-12-24] MEDS: QUEtiapine FUMARATE 100 MG TABLET (FP) PO SCH (21:50)
[2021-12-24] MEDS: ATORVASTATIN CA 80 MG TABLET (FP) PO SCH (21:50)
[2021-12-24] MEDS: THIAMINE HCL 100 MG TABLET (FP) PO SCH (21:50)
[2021-12-25] MEDS: CARVEDILOL 3.125 MG TABLET (FP) PO SCH ×2 (07:11→14:19)
[2021-12-25] MEDS: hydrOXYzine PAMOATE 25 MG CAPSULE (FP) PO SCH ×5 (07:12→21:42)
[2021-12-25] MEDS: EMPAGLIFLOZIN (NF) 10 MG TABLET PO SCH (07:13)
[2021-12-25] MEDS: BICTEGRAV/EMTRICIT/TENOFOV (BIKTARVY) 50-200-25 MG TABLET PO SCH (10:22)
[2021-12-25] MEDS: POTASSIUM CHLORIDE TABS 20 MEQ TABLET.ER (FP) PO SCH ×2 (10:22→21:42)
[2021-12-25] MEDS: ARIPiprazole 10 MG TABLET PO SCH (10:22)
[2021-12-25] MEDS: SERTRALINE HCL 50 MG TABLET (FP) PO SCH (10:22)
[2021-12-25] MEDS: LOSARTAN POTASSIUM 25 MG TABLET PO SCH (10:22)
[2021-12-25] MEDS: FUROSEMIDE 20 MG TABLET (FP) PO SCH (10:23)
[2021-12-25] MEDS: NICOTINE 7 MG/24 HOURS TOPICAL PATCH TD SCH (10:23)
[2021-12-25] MEDS: PRENATAL VITAMINS W/ FOLIC ACID TABLET (FP) PO SCH (10:23)
[2021-12-25] MEDS: SPIRONOLACTONE 25 MG TABLET PO SCH (10:24)
[2021-12-25] MEDS ORDERED: ATORVASTATIN CA 40 MG TABLET (FP) ONE (20:08)
[2021-12-25] MEDS: THIAMINE HCL 100 MG TABLET (FP) PO SCH (21:42)
[2021-12-25] MEDS: QUEtiapine FUMARATE 100 MG TABLET (FP) PO SCH (21:42)
[2021-12-25] MEDS: ATORVASTATIN CA 80 MG TABLET (FP) PO SCH (21:42)
[2021-12-26] MEDS: hydrOXYzine PAMOATE 25 MG CAPSULE (FP) PO SCH ×5 (06:08→21:57)
[2021-12-26] MEDS: EMPAGLIFLOZIN (NF) 10 MG TABLET PO SCH (06:56)
[2021-12-26] MEDS: CARVEDILOL 3.125 MG TABLET (FP) PO SCH ×3 (06:57→21:55)
[2021-12-26] MEDS: ACETAMINOPHEN 325 MG TABLET (FP) PO PRN (06:58)
[2021-12-26] MEDS: PRENATAL VITAMINS W/ FOLIC ACID TABLET (FP) PO SCH (10:22)
[2021-12-26] MEDS: LOSARTAN POTASSIUM 25 MG TABLET PO SCH (10:23)
[2021-12-26] MEDS: FUROSEMIDE 20 MG TABLET (FP) PO SCH (10:23)
[2021-12-26] MEDS: ARIPiprazole 10 MG TABLET PO SCH (10:23)
[2021-12-26] MEDS: POTASSIUM CHLORIDE TABS 20 MEQ TABLET.ER (FP) PO SCH (10:23)
[2021-12-26] MEDS: BICTEGRAV/EMTRICIT/TENOFOV (BIKTARVY) 50-200-25 MG TABLET PO SCH (10:23)
[2021-12-26] MEDS: SERTRALINE HCL 50 MG TABLET (FP) PO SCH (10:23)
[2021-12-26] MEDS: NICOTINE 7 MG/24 HOURS TOPICAL PATCH TD SCH (10:24)
[2021-12-26] MEDS: SPIRONOLACTONE 25 MG TABLET PO SCH (10:25)
[2021-12-26] MEDS ORDERED: ATORVASTATIN CA 40 MG TABLET (FP) ONE (19:43)
[2021-12-26] MEDS: ATORVASTATIN CA 80 MG TABLET (FP) PO SCH (21:55)
[2021-12-26] MEDS: QUEtiapine FUMARATE 100 MG TABLET (FP) PO SCH (21:56)
[2021-12-26] MEDS: THIAMINE HCL 100 MG TABLET (FP) PO SCH (21:57)
[2021-12-27] MEDS: EMPAGLIFLOZIN (NF) 10 MG TABLET PO SCH (07:21)
[2021-12-27] MEDS: hydrOXYzine PAMOATE 25 MG CAPSULE (FP) PO SCH ×5 (07:21→21:20)
[2021-12-27] MEDS: SERTRALINE HCL 50 MG TABLET (FP) PO SCH (10:39)
[2021-12-27] MEDS: ARIPiprazole 10 MG TABLET PO SCH (10:39)
[2021-12-27] MEDS: BICTEGRAV/EMTRICIT/TENOFOV (BIKTARVY) 50-200-25 MG TABLET PO SCH (10:40)
[2021-12-27] MEDS: CARVEDILOL 3.125 MG TABLET (FP) PO SCH ×2 (10:40→21:21)
[2021-12-27] MEDS: LOSARTAN POTASSIUM 25 MG TABLET PO SCH (10:41)
[2021-12-27] MEDS: SPIRONOLACTONE 25 MG TABLET PO SCH (10:41)
[2021-12-27] MEDS: PRENATAL VITAMINS W/ FOLIC ACID TABLET (FP) PO SCH (10:43)
[2021-12-27] MEDS: NICOTINE 7 MG/24 HOURS TOPICAL PATCH TD SCH (10:43)
[2021-12-27] MEDS: FUROSEMIDE 20 MG TABLET (FP) PO SCH (10:43)
[2021-12-27] MEDS ORDERED: BUPRENORPHINE/NALOXONE 8 MG/2 MG FILM PACKET SL ONE (11:23)
[2021-12-27 15:32] LABS: INR 1.21 (0.83-1.09); PROTHROMBIN TIME (PATIENT) 13.9 SEC (9.7-13.0)
[2021-12-27 15:45] LABS: CALCIUM 9.4 mg/dL (8.5-10.1)
[2021-12-27 15:46] LABS: ALBUMIN 3.9 g/dl (3.4-5.0); BLOOD UREA NITROGEN 10.3 mg/dL (7-18)
[2021-12-27 15:49] LABS: CREATININE 1.3 mg/dL (0.55-1.3)
[2021-12-27 15:50] LABS: BILIRUBIN,TOTAL 2.7 mg/dL (0.2-1)
[2021-12-27] MEDS: BUPRENORPHINE/NALOXONE 8 MG/2 MG FILM PACKET SL SCH (18:04)
[2021-12-27] MEDS ORDERED: ATORVASTATIN CA 40 MG TABLET (FP) ONE (20:14)
[2021-12-27] MEDS: ATORVASTATIN CA 80 MG TABLET (FP) PO SCH (21:21)
[2021-12-27] MEDS: THIAMINE HCL 100 MG TABLET (FP) PO SCH (21:21)
[2021-12-27] MEDS: QUEtiapine FUMARATE 100 MG TABLET (FP) PO SCH (21:21)
[2021-12-28] MEDS: hydrOXYzine PAMOATE 25 MG CAPSULE (FP) PO SCH ×5 (06:21→21:12)
[2021-12-28] MEDS: BUPRENORPHINE/NALOXONE 8 MG/2 MG FILM PACKET SL SCH ×2 (06:30→17:56)
[2021-12-28] MEDS: EMPAGLIFLOZIN (NF) 10 MG TABLET PO SCH (06:31)
[2021-12-28] MEDS: SERTRALINE HCL 50 MG TABLET (FP) PO SCH (09:52)
[2021-12-28] MEDS: ARIPiprazole 10 MG TABLET PO SCH (09:52)
[2021-12-28] MEDS: LOSARTAN POTASSIUM 25 MG TABLET PO SCH (09:53)
[2021-12-28] MEDS: SPIRONOLACTONE 25 MG TABLET PO SCH (09:53)
[2021-12-28] MEDS: FUROSEMIDE 20 MG TABLET (FP) PO SCH (09:54)
[2021-12-28] MEDS: BICTEGRAV/EMTRICIT/TENOFOV (BIKTARVY) 50-200-25 MG TABLET PO SCH (09:54)
[2021-12-28] MEDS: NICOTINE 7 MG/24 HOURS TOPICAL PATCH TD SCH (09:54)
[2021-12-28] MEDS: PRENATAL VITAMINS W/ FOLIC ACID TABLET (FP) PO SCH (09:54)
[2021-12-28] MEDS: CARVEDILOL 3.125 MG TABLET (FP) PO SCH ×2 (09:57→21:13)
[2021-12-28] MEDS ORDERED: ATORVASTATIN CA 40 MG TABLET (FP) ONE (19:12)
[2021-12-28] MEDS: THIAMINE HCL 100 MG TABLET (FP) PO SCH (21:12)
[2021-12-28] MEDS: ATORVASTATIN CA 80 MG TABLET (FP) PO SCH (21:12)
[2021-12-28] MEDS: QUEtiapine FUMARATE 100 MG TABLET (FP) PO SCH (21:12)
[2021-12-29] MEDS: hydrOXYzine PAMOATE 25 MG CAPSULE (FP) PO SCH ×5 (05:48→21:09)
[2021-12-29] MEDS: EMPAGLIFLOZIN (NF) 10 MG TABLET PO SCH (06:06)
[2021-12-29] MEDS: BUPRENORPHINE/NALOXONE 8 MG/2 MG FILM PACKET SL SCH ×2 (06:08→18:33)
[2021-12-29] MEDS: ARIPiprazole 10 MG TABLET PO SCH (10:06)
[2021-12-29] MEDS: NICOTINE 7 MG/24 HOURS TOPICAL PATCH TD SCH (10:07)
[2021-12-29] MEDS: BICTEGRAV/EMTRICIT/TENOFOV (BIKTARVY) 50-200-25 MG TABLET PO SCH (10:07)
[2021-12-29] MEDS: SERTRALINE HCL 50 MG TABLET (FP) PO SCH (10:07)
[2021-12-29] MEDS: PRENATAL VITAMINS W/ FOLIC ACID TABLET (FP) PO SCH (10:07)
[2021-12-29] MEDS: FUROSEMIDE 20 MG TABLET (FP) PO SCH (10:07)
[2021-12-29] MEDS: LOSARTAN POTASSIUM 25 MG TABLET PO SCH (10:07)
[2021-12-29] MEDS: SPIRONOLACTONE 25 MG TABLET PO SCH (10:08)
[2021-12-29] MEDS: CARVEDILOL 3.125 MG TABLET (FP) PO SCH ×2 (10:08→21:11)
[2021-12-29] MEDS ORDERED: ATORVASTATIN CA 40 MG TABLET (FP) ONE (19:32)
[2021-12-29] MEDS: ATORVASTATIN CA 80 MG TABLET (FP) PO SCH (21:09)
[2021-12-29] MEDS: THIAMINE HCL 100 MG TABLET (FP) PO SCH (21:09)
[2021-12-29] MEDS: QUEtiapine FUMARATE 100 MG TABLET (FP) PO SCH (21:09)
[2021-12-30] MEDS: EMPAGLIFLOZIN (NF) 10 MG TABLET PO SCH (06:37)
[2021-12-30] MEDS: hydrOXYzine PAMOATE 25 MG CAPSULE (FP) PO SCH ×5 (06:37→21:27)
[2021-12-30] MEDS: BUPRENORPHINE/NALOXONE 8 MG/2 MG FILM PACKET SL SCH ×2 (06:37→18:04)
[2021-12-30] MEDS: PRENATAL VITAMINS W/ FOLIC ACID TABLET (FP) PO SCH (09:43)
[2021-12-30] MEDS: NICOTINE 7 MG/24 HOURS TOPICAL PATCH TD SCH (09:44)
[2021-12-30] MEDS: FUROSEMIDE 20 MG TABLET (FP) PO SCH (09:44)
[2021-12-30] MEDS: ARIPiprazole 10 MG TABLET PO SCH (09:44)
[2021-12-30] MEDS: SERTRALINE HCL 50 MG TABLET (FP) PO SCH (09:44)
[2021-12-30] MEDS: BICTEGRAV/EMTRICIT/TENOFOV (BIKTARVY) 50-200-25 MG TABLET PO SCH (09:45)
[2021-12-30] MEDS: CARVEDILOL 3.125 MG TABLET (FP) PO SCH ×2 (11:05→21:27)
[2021-12-30] MEDS: LOSARTAN POTASSIUM 25 MG TABLET PO SCH (11:05)
[2021-12-30] MEDS: SPIRONOLACTONE 25 MG TABLET PO SCH (11:05)
[2021-12-30] MEDS ORDERED: ATORVASTATIN CA 40 MG TABLET (FP) ONE (18:56)
[2021-12-30] MEDS: ATORVASTATIN CA 80 MG TABLET (FP) PO SCH (21:26)
[2021-12-30] MEDS: THIAMINE HCL 100 MG TABLET (FP) PO SCH (21:26)
[2021-12-30] MEDS: QUEtiapine FUMARATE 50 MG TABLET PO SCH (21:26)
[2021-12-30] MEDS: MELATONIN 5 MG TABLETS PO PRN (21:26)
[2021-12-31] MEDS: hydrOXYzine PAMOATE 25 MG CAPSULE (FP) PO SCH ×5 (06:04→22:00)
[2021-12-31] MEDS: EMPAGLIFLOZIN (NF) 10 MG TABLET PO SCH (06:21)
[2021-12-31] MEDS: BUPRENORPHINE/NALOXONE 8 MG/2 MG FILM PACKET SL SCH ×2 (06:23→18:16)
[2021-12-31] MEDS: PRENATAL VITAMINS W/ FOLIC ACID TABLET (FP) PO SCH (09:45)
[2021-12-31] MEDS: NICOTINE 7 MG/24 HOURS TOPICAL PATCH TD SCH (09:45)
[2021-12-31] MEDS: SERTRALINE HCL 50 MG TABLET (FP) PO SCH (09:46)
[2021-12-31] MEDS: BICTEGRAV/EMTRICIT/TENOFOV (BIKTARVY) 50-200-25 MG TABLET PO SCH (09:46)
[2021-12-31] MEDS: ARIPiprazole 10 MG TABLET PO SCH (09:46)
[2021-12-31] MEDS: CARVEDILOL 3.125 MG TABLET (FP) PO SCH ×2 (10:00→22:00)
[2021-12-31] MEDS: FUROSEMIDE 20 MG TABLET (FP) PO SCH (10:00)
[2021-12-31] MEDS: LOSARTAN POTASSIUM 25 MG TABLET PO SCH (10:00)
[2021-12-31] MEDS: SPIRONOLACTONE 25 MG TABLET PO SCH (10:00)
[2021-12-31] MEDS: THIAMINE HCL 100 MG TABLET (FP) PO SCH (22:00)
[2021-12-31] MEDS: QUEtiapine FUMARATE 50 MG TABLET PO SCH (22:00)
[2021-12-31] MEDS: ATORVASTATIN CA 80 MG TABLET (FP) PO SCH (22:00)
[2021-12-31] MEDS: MELATONIN 5 MG TABLETS PO PRN (22:01)
[2022-01-01] MEDS: BUPRENORPHINE/NALOXONE 8 MG/2 MG FILM PACKET SL SCH ×2 (06:21→18:12)
[2022-01-01] MEDS: EMPAGLIFLOZIN (NF) 10 MG TABLET PO SCH (06:21)
[2022-01-01] MEDS: hydrOXYzine PAMOATE 25 MG CAPSULE (FP) PO SCH ×5 (06:22→21:16)
[2022-01-01] MEDS: PRENATAL VITAMINS W/ FOLIC ACID TABLET (FP) PO SCH (09:40)
[2022-01-01] MEDS: SERTRALINE HCL 50 MG TABLET (FP) PO SCH (09:41)
[2022-01-01] MEDS: ARIPiprazole 10 MG TABLET PO SCH (09:41)
[2022-01-01] MEDS: NICOTINE 7 MG/24 HOURS TOPICAL PATCH TD SCH (09:41)
[2022-01-01] MEDS: BICTEGRAV/EMTRICIT/TENOFOV (BIKTARVY) 50-200-25 MG TABLET PO SCH (09:41)
[2022-01-01] MEDS: CARVEDILOL 3.125 MG TABLET (FP) PO SCH ×2 (11:16→21:16)
[2022-01-01] MEDS: LOSARTAN POTASSIUM 25 MG TABLET PO SCH (11:16)
[2022-01-01] MEDS: FUROSEMIDE 20 MG TABLET (FP) PO SCH (11:16)
[2022-01-01] MEDS: SPIRONOLACTONE 25 MG TABLET PO SCH (11:16)
[2022-01-01] MEDS: ATORVASTATIN CA 80 MG TABLET (FP) PO SCH (21:16)
[2022-01-01] MEDS: MELATONIN 5 MG TABLETS PO PRN (21:16)
[2022-01-01] MEDS: THIAMINE HCL 100 MG TABLET (FP) PO SCH (21:16)
[2022-01-01] MEDS: QUEtiapine FUMARATE 50 MG TABLET PO SCH (21:16)
[2022-01-02] MEDS: EMPAGLIFLOZIN (NF) 10 MG TABLET PO SCH (06:40)
[2022-01-02] MEDS: hydrOXYzine PAMOATE 25 MG CAPSULE (FP) PO SCH ×5 (06:40→21:19)
[2022-01-02] MEDS: BUPRENORPHINE/NALOXONE 8 MG/2 MG FILM PACKET SL SCH ×2 (06:40→17:53)
[2022-01-02] MEDS: ARIPiprazole 10 MG TABLET PO SCH (09:47)
[2022-01-02] MEDS: BICTEGRAV/EMTRICIT/TENOFOV (BIKTARVY) 50-200-25 MG TABLET PO SCH (09:47)
[2022-01-02] MEDS: SERTRALINE HCL 50 MG TABLET (FP) PO SCH (09:47)
[2022-01-02] MEDS: CARVEDILOL 3.125 MG TABLET (FP) PO SCH ×2 (09:48→21:19)
[2022-01-02] MEDS: SPIRONOLACTONE 25 MG TABLET PO SCH (09:48)
[2022-01-02] MEDS: PRENATAL VITAMINS W/ FOLIC ACID TABLET (FP) PO SCH (09:49)
[2022-01-02] MEDS: FUROSEMIDE 20 MG TABLET (FP) PO SCH (09:49)
[2022-01-02] MEDS: NICOTINE 7 MG/24 HOURS TOPICAL PATCH TD SCH (09:49)
[2022-01-02] MEDS: LOSARTAN POTASSIUM 25 MG TABLET PO SCH (09:52)
[2022-01-02] MEDS ORDERED: ATORVASTATIN CA 40 MG TABLET (FP) ONE (18:57)
[2022-01-02] MEDS: QUEtiapine FUMARATE 50 MG TABLET PO SCH (21:18)
[2022-01-02] MEDS: ATORVASTATIN CA 80 MG TABLET (FP) PO SCH (21:19)
[2022-01-02] MEDS: MELATONIN 5 MG TABLETS PO PRN (21:19)
[2022-01-02] MEDS: THIAMINE HCL 100 MG TABLET (FP) PO SCH (21:19)
[2022-01-03] MEDS: BUPRENORPHINE/NALOXONE 8 MG/2 MG FILM PACKET SL SCH (06:41)
[2022-01-03] MEDS: hydrOXYzine PAMOATE 25 MG CAPSULE (FP) PO SCH (06:41)
[2022-01-03] MEDS: EMPAGLIFLOZIN (NF) 10 MG TABLET PO SCH (06:43)
[2022-01-03 07:31] VITALS: PULSE 81; TEMP 96
[2022-01-03 10:01] VITALS: BP 96/64
== END 2022-01-03 09:20 | disposition home or self-care (01) | DRG 772 ==
LOC: YASAS 09:11 → Y5N 13:17
PROVIDERS: ADMIT Allergy & Immunology; ATTEND Allergy & Immunology
PROC: HZ42ZZZ Group Counseling for Substance Abuse Treatment, Cognitive-Behavioral (ICD-10-PCS; principal; 2021-12-23)
DX: F11.20 Opioid dependence, uncomplicated (principal); F10.20 Alcohol dependence, uncomplicated; F14.20 Cocaine dependence, uncomplicated; F31.9 Bipolar disorder, unspecified; F19.282 Other psychoactive substance dependence with psychoactive substance-induced sleep disorder; F19.24 Other psychoactive substance dependence with psychoactive substance-induced mood disorder; F43.10 Post-traumatic stress disorder, unspecified; Z21 Asymptomatic human immunodeficiency virus [HIV] infection status; I11.0 Hypertensive heart disease with heart failure; I50.9 Heart failure, unspecified; M17.0 Bilateral primary osteoarthritis of knee; Z99.89 Dependence on other enabling machines and devices; Z86.19 Personal history of other infectious and parasitic diseases
CPT/HCPCS: 36415; 80053; 81003; 85027; 85610; 86593; 86780; 86803; 87522; 93005; 93010; C9803-CS; U0003; U0005

== ENCOUNTER 2022-04-02 09:35 | Inpatient (IN) | payer OTHER ==
[2022-04-02 10:46] VITALS: BMI 36.6
[2022-04-02] MEDS ORDERED: MAG HYDROX/AL HYDROX/SIMETH 30 ML UNIT-DOSE CUP PO PRN (11:08)
[2022-04-02] MEDS ORDERED: MAGNESIUM HYDROX 2400MG/30ML ORAL SUSPENSION 30 ML CUP PO PRN (11:08)
[2022-04-02] MEDS ORDERED: IBUPROFEN 600 MG TABLET (FP) PO PRN (11:08)
[2022-04-02] MEDS ORDERED: METHOCARBAMOL 500 MG TABLET PO PRN (11:08)
[2022-04-02] MEDS ORDERED: BENZOCAINE/MENTHOL (CHLORASEPTIC ) LOZENGE MM PRN (11:08)
[2022-04-02] MEDS ORDERED: IBUPROFEN 400 MG TABLET (FP) PO PRN (11:08)
[2022-04-02] MEDS ORDERED: MAGNESIUM CITRATE 300 ML BOTTLE PO PRN (11:08)
[2022-04-02] MEDS ORDERED: ACETAMINOPHEN 325 MG TABLET (FP) PO PRN ×2 (11:08)
[2022-04-02] MEDS ORDERED: chlordiazePOXIDE HCL 25 MG CAPSULE PO PRN (11:08)
[2022-04-02] MEDS ORDERED: DICYCLOMINE HCL 10 MG CAPSULE PO PRN (11:08)
[2022-04-02] MEDS ORDERED: BISMUTH SUBSALICYLATE 524 MG/30 ML PO PRN (11:08)
[2022-04-02] MEDS ORDERED: LOPERAMIDE HCL 2 MG CAPSULE PO PRN (11:08)
[2022-04-02] MEDS ORDERED: ONDANSETRON *ODT* 4 MG TABLET SL PRN (11:08)
[2022-04-02] MEDS ORDERED: SPIRONOLACTONE 25 MG TABLET PO SCH (11:30)
[2022-04-02] MEDS ORDERED: FUROSEMIDE 20 MG TABLET (FP) PO SCH (11:30)
[2022-04-02] MEDS ORDERED: LOSARTAN POTASSIUM 25 MG TABLET PO SCH (11:30)
[2022-04-02] MEDS ORDERED: ASPIRIN COATED 81 MG TABLET.EC PO SCH (11:30)
[2022-04-02] MEDS: hydrOXYzine PAMOATE 25 MG CAPSULE (FP) PO SCH ×2 (13:12→20:51)
[2022-04-02 17:23] VITALS: TEMP 97.7
[2022-04-02 18:37] VITALS: BP 108/65; PULSE 111
[2022-04-02] MEDS: chlordiazePOXIDE HCL 25 MG CAPSULE PO SCH (20:50)
[2022-04-02] MEDS ORDERED: CARVEDILOL 6.25 MG TABLET (FP) PO SCH (22:00)
[2022-04-02] MEDS ORDERED: ATORVASTATIN CA 80 MG TABLET (FP) PO SCH (22:00)
[2022-04-02] MEDS ORDERED: THIAMINE HCL 100 MG TABLET (FP) PO SCH (22:00)
[2022-04-02] MEDS ORDERED: MELATONIN 5 MG TABLETS PO SCH (22:00)
[2022-04-03] MEDS: hydrOXYzine PAMOATE 25 MG CAPSULE (FP) PO SCH (00:40)
[2022-04-03] MEDS: chlordiazePOXIDE HCL 25 MG CAPSULE PO SCH (00:48)
[2022-04-03] MEDS ORDERED: BICTEGRAV/EMTRICIT/TENOFOV (BIKTARVY) 50-200-25 MG TABLET PO SCH (10:00)
[2022-04-03] MEDS ORDERED: PRENATAL VITAMINS W/ FOLIC ACID TABLET (FP) PO SCH (10:00)
[2022-04-04] MEDS ORDERED: chlordiazePOXIDE HCL 25 MG CAPSULE PO SCH (05:00)
[2022-04-05] MEDS ORDERED: chlordiazePOXIDE HCL 10 MG CAPSULE PO PRN
[2022-04-05] MEDS ORDERED: chlordiazePOXIDE HCL 10 MG CAPSULE PO SCH (05:00)
[2022-04-06] MEDS ORDERED: chlordiazePOXIDE HCL 10 MG CAPSULE PO SCH (05:00)
[2022-04-07] MEDS ORDERED: chlordiazePOXIDE HCL 10 MG CAPSULE PO ONE (05:00)
== END 2022-04-02 11:59 | disposition short-term general hospital (02) | DRG 773 ==
LOC: SUATTDRO 09:35 → YASAS 09:35 → Y3N 10:14
PROVIDERS: ADMIT Allergy & Immunology; ATTEND Surgery
PROC: HZ2ZZZZ Detoxification Services for Substance Abuse Treatment (ICD-10-PCS; principal; 2022-04-02)
DX: F10.230 Alcohol dependence with withdrawal, uncomplicated (principal); F11.20 Opioid dependence, uncomplicated; F14.20 Cocaine dependence, uncomplicated; F41.9 Anxiety disorder, unspecified; F32.A Depression, unspecified; F43.10 Post-traumatic stress disorder, unspecified; I25.10 Atherosclerotic heart disease of native coronary artery without angina pectoris; I10 Essential (primary) hypertension; I50.9 Heart failure, unspecified; I25.2 Old myocardial infarction; M17.0 Bilateral primary osteoarthritis of knee; R60.0 Localized edema; Z86.19 Personal history of other infectious and parasitic diseases; Z99.89 Dependence on other enabling machines and devices
CPT/HCPCS: 93005; 93010; C9803-CS; U0003; U0005

== ENCOUNTER 2022-04-02 21:39 | Inpatient (IN) | payer OTHER ==
[2022-04-02 22:49] LABS: VENOUS BASE EXCESS -1.9 mmol/L (-2-2); VENOUS O2 SATURATION 47.9 % (70-80); VENOUS PCO2 43.2 mmHg (38-52); VENOUS PH 7.356 (7.310-7.410)
[2022-04-02 22:57] LABS: EOS % 0.7 % (0-4.5); HEMATOCRIT 39.9 % (35.4-49); HEMOGLOBIN 12.8 GM/dL (11.7-16.9); LYMPH % 22.7 % (8-40); MCH 26.5 pg (25.7-33.7); MCHC 32.1 g/dl (32.0-35.9); MEAN CELL VOLUME 82.6 fl (80-96); MEAN PLT VOLUME 8.6 fl (7.5-11.1); MONO % 16.6 % (3.8-10.2); PLATELET COUNT 210 10^3/uL (134-434); RBC 4.82 M/mm3 (4.00-5.60); RDW 17.2 % (11.9-15.9); WHITE BLOOD COUNT 7.1 K/mm3 (4.0-10.0)
[2022-04-02 23:12] LABS: ALBUMIN 3.3 g/dl (3.4-5.0); BLOOD UREA NITROGEN 18.6 mg/dL (7-18); CALCIUM 8.6 mg/dL (8.5-10.1); MAGNESIUM 1.9 mg/dL (1.8-2.4)
[2022-04-02 23:15] LABS: CREATININE 1.5 mg/dL (0.55-1.3)
[2022-04-02 23:17] LABS: BILIRUBIN,TOTAL 2.3 mg/dL (0.2-1); TOT PROT 7.1 g/dl (6.4-8.2)
[2022-04-02 23:21] LABS: N-TERMINAL BNP 2833.2 pg/ml (5-125)
[2022-04-03] MEDS ORDERED: FUROSEMIDE 40 MG/4 ML INJECTABLE VIAL IVPUSH ONE (00:04)
[2022-04-03] MEDS ORDERED: FUROSEMIDE 20 MG TABLET (FP) PO ONE (01:58)
[2022-04-03] MEDS ORDERED: FUROSEMIDE 20 MG TABLET (FP) ONE ×2 (02:10→09:02)
[2022-04-03 02:39] LABS: URINE APPEARANCE CLEAR; URINE BILIRUBIN NEGATIVE (NEGATIVE); URINE COLOR YELLOW; URINE GLUCOSE (UA) NEGATIVE (NEGATIVE); URINE KETONE NEGATIVE (NEGATIVE); URINE LEUK ESTERASE NEGATIVE (NEGATIVE); URINE NITRITE NEGATIVE (NEGATIVE); URINE PROTEIN NEGATIVE (NEGATIVE)
[2022-04-03] MEDS ORDERED: LORazepam 1 MG TABLET PO PRN (03:30)
[2022-04-03] MEDS ORDERED: LORazepam 1 MG TABLET PO ONE (03:31)
[2022-04-03] MEDS ORDERED: ACETAMINOPHEN 325 MG TABLET (FP) ONE (03:45)
[2022-04-03] MEDS ORDERED: LORazepam 1 MG TABLET ONE ×2 (03:45→09:50)
[2022-04-03] MEDS: ACETAMINOPHEN 325 MG TABLET (FP) PO PRN (04:00)
[2022-04-03] MEDS: LORazepam 1 MG TABLET PO SCH ×4 (04:13→23:04)
[2022-04-03 09:01] LABS: HEMATOCRIT 36.2 % (35.4-49); MCH 26.9 pg (25.7-33.7); MEAN CELL VOLUME 81.4 fl (80-96); MEAN PLT VOLUME 8.8 fl (7.5-11.1); PLATELET COUNT 207 10^3/uL (134-434); RBC 4.44 M/mm3 (4.00-5.60); RDW 17.7 % (11.9-15.9); WHITE BLOOD COUNT 6.4 K/mm3 (4.0-10.0)
[2022-04-03] MEDS ORDERED: MULTIVITAMINS (DAILY MVI) TABLET (FP) ONE (09:02)
[2022-04-03] MEDS ORDERED: ASPIRIN COATED 81 MG TABLET.EC ONE (09:02)
[2022-04-03] MEDS ORDERED: FOLIC ACID 1 MG TABLET (FP) ONE (09:02)
[2022-04-03] MEDS ORDERED: HEPARIN NA (PORCINE) 5,000 UNITS/ML 1ML VIAL ONE (09:03)
[2022-04-03] MEDS ORDERED: CARVEDILOL 6.25 MG TABLET (FP) ONE (09:03)
[2022-04-03] MEDS: CARVEDILOL 6.25 MG TABLET (FP) PO SCH ×2 (09:12→21:23)
[2022-04-03] MEDS: FOLIC ACID 1 MG TABLET (FP) PO SCH (09:12)
[2022-04-03] MEDS: BICTEGRAV/EMTRICIT/TENOFOV (BIKTARVY) 50-200-25 MG TABLET PO SCH (09:12)
[2022-04-03] MEDS: ASPIRIN COATED 81 MG TABLET.EC PO SCH (09:12)
[2022-04-03] MEDS: MULTIVITAMINS (DAILY MVI) TABLET (FP) PO SCH (09:12)
[2022-04-03] MEDS: HEPARIN NA (PORCINE) 5,000 UNITS/ML 1ML VIAL SQ SCH ×2 (09:12→21:23)
[2022-04-03 09:25] LABS: MAGNESIUM 1.8 mg/dL (1.8-2.4)
[2022-04-03 09:28] LABS: PHOSPHOROUS 3.2 mg/dL (2.5-4.9)
[2022-04-03] MEDS ORDERED: FUROSEMIDE 20 MG TABLET (FP) PO SCH (10:00)
[2022-04-03] MEDS ORDERED: LOSARTAN POTASSIUM 25 MG TABLET PO SCH (10:00)
[2022-04-03] MEDS ORDERED: PATIENT'S OWN MEDICATION (NON-FORMULARY) (Empagliflozin [Jardiance] 10 MG Tablet) PO SCH (10:00)
[2022-04-03 10:27] LABS: ANISOCYTOSIS 0; HELMET CELLS 0; HOWELL-JOLLY BODIES 0; MACROCYTOSIS 0; OVALOCYTE 0; ROULEAU 0; SICKELED CELLS 0; TARGET CELLS 0; TEAR DROP CELLS 0; TOXIC GRANULATION 0
[2022-04-03] MEDS: FUROSEMIDE 40 MG/4 ML INJECTABLE VIAL IVPUSH SCH (11:51)
[2022-04-03 14:34] LABS: CALCIUM 8.5 mg/dL (8.5-10.1)
[2022-04-03 14:36] LABS: BLOOD UREA NITROGEN 19.7 mg/dL (7-18)
[2022-04-03 14:39] LABS: CREATININE 1.5 mg/dL (0.55-1.3)
[2022-04-03] MEDS ORDERED: INSULIN SLIDING SCALE (NOVOLOG) 1 VIAL SQ SCH (16:30)
[2022-04-03 19:36] LABS: INR 1.59 (0.83-1.09); PROTHROMBIN TIME (PATIENT) 18.4 SEC (9.7-13.0)
[2022-04-03 19:39] LABS: ACTIVATED PTT 29.9 SECONDS (25.2-36.5)
[2022-04-03] MEDS: ATORVASTATIN CA 80 MG TABLET (FP) PO SCH (21:23)
[2022-04-03] MEDS ORDERED: MELATONIN 5 MG TABLETS PO ONE (23:33)
[2022-04-04] MEDS: LORazepam 1 MG TABLET PO SCH ×4 (05:44→23:00)
[2022-04-04 09:11] LABS: HEMATOCRIT 40.6 % (35.4-49); HEMOGLOBIN 12.9 GM/dL (11.7-16.9); MCH 26.9 pg (25.7-33.7); MCHC 31.7 g/dl (32.0-35.9); MEAN CELL VOLUME 84.9 fl (80-96); MEAN PLT VOLUME 9.4 fl (7.5-11.1); PLATELET COUNT 183 10^3/uL (134-434); RBC 4.78 M/mm3 (4.00-5.60); WHITE BLOOD COUNT 7.6 K/mm3 (4.0-10.0)
[2022-04-04 09:28] LABS: INR 1.7 (0.83-1.09); PROTHROMBIN TIME (PATIENT) 19.6 SEC (9.7-13.0)
[2022-04-04 09:31] LABS: ACTIVATED PTT 29.7 SECONDS (25.2-36.5)
[2022-04-04] MEDS ORDERED: hydrOXYzine PAMOATE 25 MG CAPSULE (FP) PO SCH (10:00)
[2022-04-04 10:19] LABS: ALBUMIN 3.5 g/dl (3.4-5.0); BLOOD UREA NITROGEN 20.1 mg/dL (7-18)
[2022-04-04 10:22] LABS: CREATININE 1.4 mg/dL (0.55-1.3)
[2022-04-04 10:24] LABS: BILIRUBIN,TOTAL 3.2 mg/dL (0.2-1); TOT PROT 7.2 g/dl (6.4-8.2)
[2022-04-04] MEDS: FUROSEMIDE 40 MG/4 ML INJECTABLE VIAL IVPUSH SCH (10:35)
[2022-04-04] MEDS: FOLIC ACID 1 MG TABLET (FP) PO SCH (10:35)
[2022-04-04] MEDS: BICTEGRAV/EMTRICIT/TENOFOV (BIKTARVY) 50-200-25 MG TABLET PO SCH (10:35)
[2022-04-04] MEDS: HEPARIN NA (PORCINE) 5,000 UNITS/ML 1ML VIAL SQ SCH ×2 (10:37→21:23)
[2022-04-04] MEDS: MULTIVITAMINS (DAILY MVI) TABLET (FP) PO SCH (10:40)
[2022-04-04] MEDS: SPIRONOLACTONE 25 MG TABLET PO SCH (10:40)
[2022-04-04] MEDS: CARVEDILOL 6.25 MG TABLET (FP) PO SCH ×2 (10:40→21:23)
[2022-04-04] MEDS: ASPIRIN COATED 81 MG TABLET.EC PO SCH (10:40)
[2022-04-04 13:02] VITALS: BMI 37.9
[2022-04-04] MEDS: ACETAMINOPHEN 325 MG TABLET (FP) PO PRN (17:42)
[2022-04-04] MEDS: hydrOXYzine PAMOATE 25 MG CAPSULE (FP) PO PRN (20:21)
[2022-04-04] MEDS: ATORVASTATIN CA 80 MG TABLET (FP) PO SCH (21:23)
[2022-04-05] MEDS ORDERED: LORazepam 0.5 MG TABLET PO PRN
[2022-04-05] MEDS: LORazepam 0.5 MG TABLET PO SCH ×4 (05:04→22:56)
[2022-04-05] MEDS: hydrOXYzine PAMOATE 25 MG CAPSULE (FP) PO PRN (08:21)
[2022-04-05 08:44] LABS: HEMATOCRIT 38.7 % (35.4-49); HEMOGLOBIN 12.6 GM/dL (11.7-16.9); MCH 26.8 pg (25.7-33.7); MCHC 32.6 g/dl (32.0-35.9); MEAN CELL VOLUME 82.2 fl (80-96); MEAN PLT VOLUME 9.4 fl (7.5-11.1); PLATELET COUNT 177 10^3/uL (134-434); RDW 17.9 % (11.9-15.9)
[2022-04-05 09:14] LABS: CALCIUM 8.9 mg/dL (8.5-10.1)
[2022-04-05 09:15] LABS: ALBUMIN 3.2 g/dl (3.4-5.0); BLOOD UREA NITROGEN 23.5 mg/dL (7-18)
[2022-04-05 09:18] LABS: CREATININE 1.3 mg/dL (0.55-1.3)
[2022-04-05 09:19] LABS: TOT PROT 6.4 g/dl (6.4-8.2)
[2022-04-05] MEDS: CARVEDILOL 6.25 MG TABLET (FP) PO SCH (09:29)
[2022-04-05] MEDS: BICTEGRAV/EMTRICIT/TENOFOV (BIKTARVY) 50-200-25 MG TABLET PO SCH (09:29)
[2022-04-05] MEDS: SACUBITRIL/VALSARTAN 24 MG-26 MG TABLET PO SCH ×2 (09:29→22:55)
[2022-04-05] MEDS: SPIRONOLACTONE 25 MG TABLET PO SCH (09:29)
[2022-04-05] MEDS: HEPARIN NA (PORCINE) 5,000 UNITS/ML 1ML VIAL SQ SCH ×2 (09:30→23:00)
[2022-04-05] MEDS: MULTIVITAMINS (DAILY MVI) TABLET (FP) PO SCH (09:30)
[2022-04-05] MEDS: FOLIC ACID 1 MG TABLET (FP) PO SCH (09:30)
[2022-04-05] MEDS: ASPIRIN COATED 81 MG TABLET.EC PO SCH (09:30)
[2022-04-05] MEDS: FUROSEMIDE 40 MG/4 ML INJECTABLE VIAL IVPUSH SCH ×2 (10:09→15:15)
[2022-04-05] MEDS: BUPRENORPHINE/NALOXONE 8 MG/2 MG FILM PACKET SL SCH ×2 (15:15→23:00)
[2022-04-05 18:45] LABS: BILIRUBIN,DIRECT 1.2 mg/dL (0.0-0.2)
[2022-04-05] MEDS: ATORVASTATIN CA 80 MG TABLET (FP) PO SCH (22:55)
[2022-04-05] MEDS: CARVEDILOL 12.5 MG TABLET (FP) PO SCH (22:59)
[2022-04-06] MEDS ORDERED: LORazepam 0.5 MG TABLET PO ONE (05:00)
[2022-04-06] MEDS: BUPRENORPHINE/NALOXONE 8 MG/2 MG FILM PACKET SL SCH ×3 (05:56→23:15)
[2022-04-06 08:25] LABS: HEMATOCRIT 39.4 % (35.4-49); HEMOGLOBIN 12.7 GM/dL (11.7-16.9); MCH 26.8 pg (25.7-33.7); MCHC 32.2 g/dl (32.0-35.9); MEAN CELL VOLUME 83.1 fl (80-96); MEAN PLT VOLUME 9.2 fl (7.5-11.1); PLATELET COUNT 194 10^3/uL (134-434); RBC 4.74 M/mm3 (4.00-5.60); RDW 18.2 % (11.9-15.9); WHITE BLOOD COUNT 8.6 K/mm3 (4.0-10.0)
[2022-04-06 08:51] LABS: BLOOD UREA NITROGEN 24.4 mg/dL (7-18); CALCIUM 8.7 mg/dL (8.5-10.1)
[2022-04-06 08:52] LABS: ALBUMIN 2.8 g/dl (3.4-5.0)
[2022-04-06 08:54] LABS: CREATININE 1.5 mg/dL (0.55-1.3)
[2022-04-06 08:56] LABS: TOT PROT 6.2 g/dl (6.4-8.2)
[2022-04-06] MEDS: hydrOXYzine PAMOATE 25 MG CAPSULE (FP) PO PRN ×2 (09:16→23:13)
[2022-04-06] MEDS: HEPARIN NA (PORCINE) 5,000 UNITS/ML 1ML VIAL SQ SCH ×2 (09:17→23:16)
[2022-04-06] MEDS: MULTIVITAMINS (DAILY MVI) TABLET (FP) PO SCH (09:17)
[2022-04-06] MEDS: PANTOPRAZOLE 20 MG TABLET PO SCH (09:17)
[2022-04-06] MEDS: FOLIC ACID 1 MG TABLET (FP) PO SCH (09:17)
[2022-04-06] MEDS: FUROSEMIDE 40 MG/4 ML INJECTABLE VIAL IVPUSH SCH (09:17)
[2022-04-06] MEDS: SACUBITRIL/VALSARTAN 24 MG-26 MG TABLET PO SCH ×2 (09:17→23:14)
[2022-04-06] MEDS: CARVEDILOL 12.5 MG TABLET (FP) PO SCH ×2 (09:17→23:17)
[2022-04-06] MEDS: ASPIRIN COATED 81 MG TABLET.EC PO SCH (09:17)
[2022-04-06] MEDS: BICTEGRAV/EMTRICIT/TENOFOV (BIKTARVY) 50-200-25 MG TABLET PO SCH (09:17)
[2022-04-06] MEDS: SPIRONOLACTONE 25 MG TABLET PO SCH (09:17)
[2022-04-06] MEDS: ATORVASTATIN CA 80 MG TABLET (FP) PO SCH (23:14)
[2022-04-07] MEDS: BUPRENORPHINE/NALOXONE 8 MG/2 MG FILM PACKET SL SCH ×3 (06:38→22:40)
[2022-04-07 09:29] LABS: HEMATOCRIT 39.1 % (35.4-49); HEMOGLOBIN 12.7 GM/dL (11.7-16.9); MCH 26.6 pg (25.7-33.7); MCHC 32.6 g/dl (32.0-35.9); MEAN CELL VOLUME 81.6 fl (80-96); MEAN PLT VOLUME 9.3 fl (7.5-11.1); PLATELET COUNT 201 10^3/uL (134-434); RBC 4.79 M/mm3 (4.00-5.60); RDW 18.1 % (11.9-15.9); WHITE BLOOD COUNT 7.6 K/mm3 (4.0-10.0)
[2022-04-07 10:11] LABS: ALBUMIN 2.8 g/dl (3.4-5.0); BLOOD UREA NITROGEN 20.7 mg/dL (7-18); CALCIUM 8.2 mg/dL (8.5-10.1)
[2022-04-07 10:13] LABS: CREATININE 1.2 mg/dL (0.55-1.3)
[2022-04-07 10:15] LABS: TOT PROT 6.3 g/dl (6.4-8.2)
[2022-04-07 10:16] LABS: BILIRUBIN,TOTAL 1.7 mg/dL (0.2-1)
[2022-04-07] MEDS: ASPIRIN COATED 81 MG TABLET.EC PO SCH (10:53)
[2022-04-07] MEDS: PANTOPRAZOLE 20 MG TABLET PO SCH (10:53)
[2022-04-07] MEDS: FOLIC ACID 1 MG TABLET (FP) PO SCH (10:53)
[2022-04-07] MEDS: SPIRONOLACTONE 25 MG TABLET PO SCH (10:53)
[2022-04-07] MEDS: CARVEDILOL 12.5 MG TABLET (FP) PO SCH ×2 (10:53→22:40)
[2022-04-07] MEDS: MULTIVITAMINS (DAILY MVI) TABLET (FP) PO SCH (10:53)
[2022-04-07] MEDS: FUROSEMIDE 40 MG/4 ML INJECTABLE VIAL IVPUSH SCH (10:53)
[2022-04-07] MEDS: HEPARIN NA (PORCINE) 5,000 UNITS/ML 1ML VIAL SQ SCH ×2 (10:53→22:39)
[2022-04-07] MEDS: hydrOXYzine PAMOATE 25 MG CAPSULE (FP) PO PRN ×2 (10:53→22:50)
[2022-04-07] MEDS: SACUBITRIL/VALSARTAN 24 MG-26 MG TABLET PO SCH ×2 (10:54→22:39)
[2022-04-07] MEDS: BICTEGRAV/EMTRICIT/TENOFOV (BIKTARVY) 50-200-25 MG TABLET PO SCH (10:54)
[2022-04-07] MEDS: ATORVASTATIN CA 80 MG TABLET (FP) PO SCH (22:40)
[2022-04-08] MEDS ORDERED: MELATONIN 1 MG TABLET PO ONE (01:01)
[2022-04-08] MEDS: BUPRENORPHINE/NALOXONE 8 MG/2 MG FILM PACKET SL SCH ×3 (06:39→23:01)
[2022-04-08] MEDS: SPIRONOLACTONE 25 MG TABLET PO SCH (09:20)
[2022-04-08] MEDS: PANTOPRAZOLE 20 MG TABLET PO SCH (09:20)
[2022-04-08] MEDS: FOLIC ACID 1 MG TABLET (FP) PO SCH (09:20)
[2022-04-08] MEDS: CARVEDILOL 12.5 MG TABLET (FP) PO SCH ×2 (09:20→23:02)
[2022-04-08] MEDS: ASPIRIN COATED 81 MG TABLET.EC PO SCH (09:20)
[2022-04-08] MEDS: MULTIVITAMINS (DAILY MVI) TABLET (FP) PO SCH (09:20)
[2022-04-08] MEDS: SACUBITRIL/VALSARTAN 24 MG-26 MG TABLET PO SCH ×2 (09:21→23:14)
[2022-04-08] MEDS: HEPARIN NA (PORCINE) 5,000 UNITS/ML 1ML VIAL SQ SCH ×2 (09:21→23:01)
[2022-04-08] MEDS: BICTEGRAV/EMTRICIT/TENOFOV (BIKTARVY) 50-200-25 MG TABLET PO SCH (09:23)
[2022-04-08] MEDS: hydrOXYzine PAMOATE 25 MG CAPSULE (FP) PO PRN ×2 (09:28→23:03)
[2022-04-08] MEDS: FUROSEMIDE 40 MG TABLET (FP) PO SCH (14:20)
[2022-04-08] MEDS: FUROSEMIDE 40 MG/4 ML INJECTABLE VIAL IVPUSH SCH (14:53)
[2022-04-08] MEDS: ATORVASTATIN CA 80 MG TABLET (FP) PO SCH (23:01)
[2022-04-09] MEDS: FUROSEMIDE 40 MG TABLET (FP) PO SCH ×2 (06:29→15:25)
[2022-04-09] MEDS: BUPRENORPHINE/NALOXONE 8 MG/2 MG FILM PACKET SL SCH ×3 (06:29→22:00)
[2022-04-09 09:32] LABS: ALBUMIN 3.3 g/dl (3.4-5.0); BLOOD UREA NITROGEN 17.7 mg/dL (7-18); CALCIUM 8.5 mg/dL (8.5-10.1); CREATININE 1.3 mg/dL (0.55-1.3)
[2022-04-09 09:33] LABS: BILIRUBIN,TOTAL 1.8 mg/dL (0.2-1); TOT PROT 6.9 g/dl (6.4-8.2)
[2022-04-09] MEDS: PANTOPRAZOLE 20 MG TABLET PO SCH (10:00)
[2022-04-09] MEDS: ASPIRIN COATED 81 MG TABLET.EC PO SCH (10:00)
[2022-04-09] MEDS: CARVEDILOL 12.5 MG TABLET (FP) PO SCH ×2 (10:01→21:58)
[2022-04-09] MEDS: FOLIC ACID 1 MG TABLET (FP) PO SCH (10:01)
[2022-04-09] MEDS: HEPARIN NA (PORCINE) 5,000 UNITS/ML 1ML VIAL SQ SCH ×2 (10:01→21:51)
[2022-04-09] MEDS: MULTIVITAMINS (DAILY MVI) TABLET (FP) PO SCH (10:01)
[2022-04-09] MEDS: SPIRONOLACTONE 25 MG TABLET PO SCH (10:01)
[2022-04-09] MEDS: SACUBITRIL/VALSARTAN 24 MG-26 MG TABLET PO SCH ×2 (10:02→21:58)
[2022-04-09] MEDS: BICTEGRAV/EMTRICIT/TENOFOV (BIKTARVY) 50-200-25 MG TABLET PO SCH (10:03)
[2022-04-09] MEDS ORDERED: ZOLPIDEM TARTRATE 5 MG TABLET PO ONE (21:00)
[2022-04-09] MEDS: hydrOXYzine PAMOATE 25 MG CAPSULE (FP) PO PRN (21:59)
[2022-04-09] MEDS: ATORVASTATIN CA 80 MG TABLET (FP) PO SCH (22:00)
[2022-04-10] MEDS: BUPRENORPHINE/NALOXONE 8 MG/2 MG FILM PACKET SL SCH ×3 (06:36→22:20)
[2022-04-10] MEDS: FUROSEMIDE 40 MG TABLET (FP) PO SCH ×2 (06:37→13:57)
[2022-04-10 08:32] LABS: BASO % 1.2 % (0-2.0); EOS % 2.4 % (0-4.5); HEMATOCRIT 39.2 % (35.4-49); HEMOGLOBIN 12.6 GM/dL (11.7-16.9); LYMPH % 31.1 % (8-40); MCH 26.3 pg (25.7-33.7); MEAN CELL VOLUME 82.1 fl (80-96); MEAN PLT VOLUME 9.5 fl (7.5-11.1); MONO % 16.1 % (3.8-10.2); NEUT % 49.2 % (42.8-82.8); PLATELET COUNT 187 10^3/uL (134-434); RBC 4.77 M/mm3 (4.00-5.60); RDW 18.1 % (11.9-15.9); WHITE BLOOD COUNT 5.8 K/mm3 (4.0-10.0)
[2022-04-10 08:49] LABS: BLOOD UREA NITROGEN 16.7 mg/dL (7-18); CALCIUM 8.5 mg/dL (8.5-10.1); MAGNESIUM 1.9 mg/dL (1.8-2.4)
[2022-04-10 08:50] LABS: ALBUMIN 3.1 g/dl (3.4-5.0)
[2022-04-10 08:53] LABS: CREATININE 1.3 mg/dL (0.55-1.3); PHOSPHOROUS 3.6 mg/dL (2.5-4.9)
[2022-04-10 08:54] LABS: BILIRUBIN,TOTAL 2.1 mg/dL (0.2-1); TOT PROT 6.8 g/dl (6.4-8.2)
[2022-04-10] MEDS: SACUBITRIL/VALSARTAN 24 MG-26 MG TABLET PO SCH ×2 (10:12→22:19)
[2022-04-10] MEDS: MULTIVITAMINS (DAILY MVI) TABLET (FP) PO SCH (10:13)
[2022-04-10] MEDS: FOLIC ACID 1 MG TABLET (FP) PO SCH (10:14)
[2022-04-10] MEDS: CARVEDILOL 12.5 MG TABLET (FP) PO SCH ×2 (10:14→22:19)
[2022-04-10] MEDS: hydrOXYzine PAMOATE 25 MG CAPSULE (FP) PO PRN ×2 (10:14→17:58)
[2022-04-10] MEDS: ASPIRIN COATED 81 MG TABLET.EC PO SCH (10:14)
[2022-04-10] MEDS: PANTOPRAZOLE 20 MG TABLET PO SCH (10:14)
[2022-04-10] MEDS: SPIRONOLACTONE 25 MG TABLET PO SCH (10:14)
[2022-04-10] MEDS: BICTEGRAV/EMTRICIT/TENOFOV (BIKTARVY) 50-200-25 MG TABLET PO SCH (10:15)
[2022-04-10] MEDS ORDERED: GABAPENTIN 100 MG CAPSULE PO ONE (17:50)
[2022-04-10] MEDS ORDERED: ALPRAZolam 0.25 MG TABLET PO ONE (17:52)
[2022-04-10] MEDS: ATORVASTATIN CA 80 MG TABLET (FP) PO SCH (22:19)
[2022-04-11] MEDS: BUPRENORPHINE/NALOXONE 8 MG/2 MG FILM PACKET SL SCH ×3 (06:51→21:53)
[2022-04-11] MEDS: hydrOXYzine PAMOATE 25 MG CAPSULE (FP) PO PRN (06:51)
[2022-04-11] MEDS: FUROSEMIDE 40 MG TABLET (FP) PO SCH ×2 (06:51→14:17)
[2022-04-11] MEDS: SPIRONOLACTONE 25 MG TABLET PO SCH (09:42)
[2022-04-11] MEDS: BICTEGRAV/EMTRICIT/TENOFOV (BIKTARVY) 50-200-25 MG TABLET PO SCH (09:42)
[2022-04-11] MEDS: MULTIVITAMINS (DAILY MVI) TABLET (FP) PO SCH (09:43)
[2022-04-11] MEDS: PANTOPRAZOLE 20 MG TABLET PO SCH (09:43)
[2022-04-11] MEDS: FOLIC ACID 1 MG TABLET (FP) PO SCH (09:43)
[2022-04-11] MEDS: CARVEDILOL 12.5 MG TABLET (FP) PO SCH (09:43)
[2022-04-11] MEDS: ASPIRIN COATED 81 MG TABLET.EC PO SCH (09:43)
[2022-04-11] MEDS: SACUBITRIL/VALSARTAN 24 MG-26 MG TABLET PO SCH ×2 (09:43→21:54)
[2022-04-11] MEDS: CARVEDILOL 6.25 MG TABLET (FP) PO SCH ×2 (14:17→21:53)
[2022-04-11] MEDS: ALPRAZolam 1 MG TABLET PO PRN ×2 (14:18→22:17)
[2022-04-11] MEDS: ATORVASTATIN CA 80 MG TABLET (FP) PO SCH (21:53)
[2022-04-12] MEDS: BUPRENORPHINE/NALOXONE 8 MG/2 MG FILM PACKET SL SCH ×3 (06:12→21:41)
[2022-04-12] MEDS: FUROSEMIDE 40 MG TABLET (FP) PO SCH ×2 (06:12→16:20)
[2022-04-12] MEDS: ALPRAZolam 1 MG TABLET PO PRN ×3 (06:30→21:42)
[2022-04-12 09:18] LABS: ALBUMIN 3.2 g/dl (3.4-5.0); BLOOD UREA NITROGEN 20.5 mg/dL (7-18); CALCIUM 8.6 mg/dL (8.5-10.1); MAGNESIUM 2.1 mg/dL (1.8-2.4)
[2022-04-12 09:21] LABS: CREATININE 1.3 mg/dL (0.55-1.3); PHOSPHOROUS 3.8 mg/dL (2.5-4.9)
[2022-04-12 09:22] LABS: BILIRUBIN,TOTAL 1.7 mg/dL (0.2-1); TOT PROT 6.8 g/dl (6.4-8.2)
[2022-04-12] MEDS: SACUBITRIL/VALSARTAN 24 MG-26 MG TABLET PO SCH ×2 (09:43→21:45)
[2022-04-12] MEDS: MULTIVITAMINS (DAILY MVI) TABLET (FP) PO SCH (09:43)
[2022-04-12] MEDS: FOLIC ACID 1 MG TABLET (FP) PO SCH (09:43)
[2022-04-12] MEDS: BICTEGRAV/EMTRICIT/TENOFOV (BIKTARVY) 50-200-25 MG TABLET PO SCH (09:43)
[2022-04-12] MEDS: PANTOPRAZOLE 20 MG TABLET PO SCH (09:43)
[2022-04-12] MEDS: ASPIRIN COATED 81 MG TABLET.EC PO SCH (09:43)
[2022-04-12] MEDS: CARVEDILOL 6.25 MG TABLET (FP) PO SCH ×2 (11:28→21:42)
[2022-04-12] MEDS: ATORVASTATIN CA 80 MG TABLET (FP) PO SCH (21:42)
[2022-04-13] MEDS: FUROSEMIDE 40 MG TABLET (FP) PO SCH ×2 (06:26→13:13)
[2022-04-13] MEDS: ALPRAZolam 1 MG TABLET PO PRN (06:26)
[2022-04-13] MEDS: BUPRENORPHINE/NALOXONE 8 MG/2 MG FILM PACKET SL SCH ×2 (06:26→13:15)
[2022-04-13 08:39] LABS: ALBUMIN 3.1 g/dl (3.4-5.0)
[2022-04-13 08:40] LABS: BLOOD UREA NITROGEN 22.4 mg/dL (7-18); MAGNESIUM 1.8 mg/dL (1.8-2.4)
[2022-04-13 08:42] LABS: CALCIUM 8.4 mg/dL (8.5-10.1)
[2022-04-13 08:43] LABS: CREATININE 1.4 mg/dL (0.55-1.3); PHOSPHOROUS 3.9 mg/dL (2.5-4.9)
[2022-04-13 08:44] LABS: BILIRUBIN,TOTAL 1.8 mg/dL (0.2-1)
[2022-04-13 08:45] LABS: TOT PROT 6.7 g/dl (6.4-8.2)
[2022-04-13] MEDS: SPIRONOLACTONE 25 MG TABLET PO SCH (09:46)
[2022-04-13] MEDS: ASPIRIN COATED 81 MG TABLET.EC PO SCH (09:47)
[2022-04-13] MEDS: CARVEDILOL 6.25 MG TABLET (FP) PO SCH (09:47)
[2022-04-13] MEDS: BICTEGRAV/EMTRICIT/TENOFOV (BIKTARVY) 50-200-25 MG TABLET PO SCH (09:47)
[2022-04-13] MEDS: SACUBITRIL/VALSARTAN 24 MG-26 MG TABLET PO SCH (09:48)
[2022-04-13] MEDS: FOLIC ACID 1 MG TABLET (FP) PO SCH (09:48)
[2022-04-13] MEDS: PANTOPRAZOLE 20 MG TABLET PO SCH (09:48)
[2022-04-13] MEDS: MULTIVITAMINS (DAILY MVI) TABLET (FP) PO SCH (09:48)
[2022-04-13] MEDS ORDERED: ALBUTEROL SO4 0.083% IH SOL 2.5 MG/3 ML VIAL.NEB. NEB PRN (12:01)
[2022-04-13] MEDS ORDERED: FUROSEMIDE 40 MG/4 ML INJECTABLE VIAL IVPUSH ONE (12:02)
[2022-04-13 12:35] VITALS: BP 92/70; PULSE 103; TEMP 97.5
== END 2022-04-13 14:39 | disposition home or self-care (01) | DRG 194 ==
LOC: JER 21:39 → JERBED 04-03 06:16 → J7W 04-03 13:03
PROVIDERS: ADMIT Internal Medicine; ATTEND Internal Medicine
DX: I13.0 Hypertensive heart and chronic kidney disease with heart failure and stage 1 through stage 4 chronic kidney disease, or unspecified chronic kidney disease (principal); I50.23 Acute on chronic systolic (congestive) heart failure; N17.9 Acute kidney failure, unspecified; I31.3 Pericardial effusion (noninflammatory); F14.20 Cocaine dependence, uncomplicated; I27.20 Pulmonary hypertension, unspecified; F11.20 Opioid dependence, uncomplicated; I42.0 Dilated cardiomyopathy; F31.9 Bipolar disorder, unspecified; F10.239 Alcohol dependence with withdrawal, unspecified; E03.9 Hypothyroidism, unspecified; N18.9 Chronic kidney disease, unspecified; B19.20 Unspecified viral hepatitis C without hepatic coma; Z68.37 Body mass index [BMI] 37.0-37.9, adult; E78.5 Hyperlipidemia, unspecified; F43.10 Post-traumatic stress disorder, unspecified; F41.8 Other specified anxiety disorders; R74.01 Elevation of levels of liver transaminase levels; K70.31 Alcoholic cirrhosis of liver with ascites; E80.6 Other disorders of bilirubin metabolism; E87.70 Fluid overload, unspecified; Z22.1 Carrier of other intestinal infectious diseases; E66.9 Obesity, unspecified
CPT/HCPCS: 36415; 71045-TC-FY; 76700-TC; 80048; 80053; 80061; 81003; 82140; 82248; 82550; 82570; 82728; 82803; 83036; 83540; 83550; 83735; 83880; 84100; 84443; 84484; 84540; 85025; 85027; 85610; 85730; 86359; 86360; 86704; 86709; 86803; 87340; 87517; 87522; 87902; 93005; 93010; 93306-TC; 93970-TC; 97116-GP; 97161-GP; 99285-25; J1644